=== PATIENT | male | born 1950 | race African-American/Black ===

== ENCOUNTER 2016-09-12 15:37 | Outpatient (CLI) | payer OTHER ==
[2016-09-12 17:30] LABS: HEMATOCRIT 20.9 % (37.9-51.0); HGB HCT DIFFERENCE 0.7; MEAN CORPUSCULAR HEMOGLOBIN 31.1 pg (27.0-33.4); MEAN CORPUSCULAR HGB CONC 34.5 g/dL (32.0-36.0); MEAN CORPUSCULAR VOLUME 90 fl (80-97); RED BLOOD COUNT 2.32 10^6/uL (4.35-5.55); RED CELL DISTRIBUTION WIDTH 15.2 % (11.5-14.0); WHITE BLOOD COUNT 6.6 10^3/uL (4.0-10.5)
[2016-09-12 17:32] LABS: HEMOGLOBIN 7.2 g/dL (13.5-17.0)
[2016-09-12] MEDS ORDERED: NORMAL SALINE 250 ML IV PRN (17:34)
[2016-09-12] MEDS ORDERED: ACETAMINOPHEN 325 MG TABLET PO PRN (17:35)
[2016-09-12] MEDS ORDERED: DIPHENHYDRAMINE HCL 25 MG CAPSULE PO PRN (17:35)
[2016-09-12] MEDS ORDERED: FUROSEMIDE INJ/PF 20 MG/2 ML SDV IV PRN (17:36)
[2016-09-13 05:08] LABS: HEMATOCRIT 22.6 % (37.9-51.0); HGB HCT DIFFERENCE 0.5; MEAN CORPUSCULAR HEMOGLOBIN 29.5 pg (27.0-33.4); MEAN CORPUSCULAR HGB CONC 34.3 g/dL (32.0-36.0); RED BLOOD COUNT 2.63 10^6/uL (4.35-5.55); RED CELL DISTRIBUTION WIDTH 18.4 % (11.5-14.0); WHITE BLOOD COUNT 6.8 10^3/uL (4.0-10.5)
[2016-09-13 05:14] VITALS: BP 134/82
[2016-09-13 06:00] LABS: MEAN CORPUSCULAR VOLUME 86 fl (80-97)
[2016-09-13 06:01] LABS: HEMOGLOBIN 7.7 g/dL (13.5-17.0)
== END 2016-09-13 10:40 | disposition home or self-care (01) ==
LOC: II 15:37 → 2N 15:45 → II 09-13 10:40
PROVIDERS: ATTEND Internal Medicine Medical Oncology
PROC: 30233N1 Transfusion of Nonautologous Red Blood Cells into Peripheral Vein, Percutaneous Approach (ICD-10-PCS; principal; 2016-09-12)
PROC: 30233N1 Transfusion of Nonautologous Red Blood Cells into Peripheral Vein, Percutaneous Approach (ICD-10-PCS; 2016-09-13)
DX: N28.9 Disorder of kidney and ureter, unspecified (principal); D63.8 Anemia in other chronic diseases classified elsewhere; Z99.2 Dependence on renal dialysis
CPT/HCPCS: 86900; 86901; 36415; 36430; 86850; 85027; 86920; P9016

== ENCOUNTER 2017-01-24 07:08 | Day surgery (SDC) | payer MEDICARE, OTHER ==
[2017-01-24 08:00] LABS: HEMATOCRIT 35.1 % (37.9-51.0); HEMOGLOBIN 11.7 g/dL (13.5-17.0); MEAN CORPUSCULAR HEMOGLOBIN 30.8 pg (27.0-33.4); MEAN CORPUSCULAR HGB CONC 33.2 g/dL (32.0-36.0); MEAN CORPUSCULAR VOLUME 93 fl (80-97); RED BLOOD COUNT 3.79 10^6/uL (4.35-5.55); RED CELL DISTRIBUTION WIDTH 17.6 % (11.5-14.0); WHITE BLOOD COUNT 4.3 10^3/uL (4.0-10.5)
[2017-01-24 08:04] LABS: PROTHROMBIN TIME 13.2 SEC (11.4-15.4)
[2017-01-24 08:05] LABS: PARTIAL THROMBOPLASTIN TIME 30.3 SEC (23.5-35.8)
[2017-01-24 08:07] LABS: BLOOD UREA NITROGEN 73 mg/dL (7-20)
[2017-01-24] MEDS ORDERED: MIDAZOLAM 2 MG/2 ML INJ ONE (10:21)
[2017-01-24] MEDS ORDERED: FENTANYL CITRATE INJ/PF 100 MCG/2 ML AMPUL ONE (10:21)
[2017-01-24 12:57] VITALS: BP 127/87
--- NOTE | 2017-01-24 13:54 | RADIOLOGY REPORT (SQ) ---
EXAM DESCRIPTION: CT BIOPSY BONE DEEP; CT NEEDLE PLACEMENT COMPLETED DATE/TIME: 01/24/2017 10:52 am REASON FOR STUDY: MULTIPLE MYELOMA; MUTLIPLE MYELOMA, BONE MARROW BIOPSY C90.00 MULTIPLE MYELOMA NO T HAVING ACHIEVED REMISSION Z79.01 SKILLED NURSING (CURRENT) USE OF ANTICOAGULANTS COMPARISON: None. TECHNIQUE: CT guided biopsy of the right posterior iliac crest bone marrow performed with conscious sedation. CT Fluoroscopy Time: 4.[address] scanners at this facility use dose modulation, iterative reconstruction, and/or weight based d osing when appropriate to reduce radiation dose to as low as reasonably achievable (ALARA). [facility]: Dose Right [facility]: CareDose [facility]: Dose Right [facility]: Teradose 4D [facility]: [employer] RADIATION DOSE: mGy. FINDINGS: The procedure was discussed with the patient and the patient agreed to the procedure. Prio r to the procedure, a time out was performed to verify the patient's identity and planned procedure. IV sedation was administered and physician direction by the registered nurse using 1 milligrams of Ve rsed and 100 micrograms of fentanyl. Physiologic monitoring was provided before, during, and after se dation. The total sedation time was 30 minutes. Documentation face to face time, the performing proceduralist, spent monitoring the patient: [address] scanning was performed to localize the percutaneous site for the biopsy approach. After sterile skin prep and local lidocaine for skin and deep tissue anesthesia, a 14 gauge bone biop sy needle was used to obtain of 20 mL bone marrow aspirate, and bone marrow core. Material was submit samy to Dr. Batista's visitor information assistant, who processed the tissue for outside analysis. There were no immedia te complications. Pathology is pending at the time of dictation. IMPRESSION: CT GUIDED BIOPSY OF THE RIGHT POSTERIOR ILIAC CREST BONE MARROW PERFORMED WITHOUT IMMEDI ATE COMPLICATION. PATHOLOGY PENDING. COMMENT: Quality ID 145: Final reports for procedures using fluoroscopy that document radiation exp osure indices, or exposure time and number of fluorographic images (if radiation exposure indices are not available) Patient medication list reviewed: Yes- Quality ID# [id number]:Eligible professional attests to documenting i n the medical record they obtained, updated, or reviewed the patient's current medications.. TECHNICAL DOCUMENTATION: JOB ID: [id number] Quality ID# 436: Final reports with documentation of one or more dose reduction techniques (e.g., Aut omated exposure control, adjustment of the mA and/or kV according to patient size, use of iterative r econstruction technique) 2010 [employer]- All Rights Reserved
--- NOTE | 2017-01-24 13:54 | RADIOLOGY REPORT (SQ) ---
EXAM DESCRIPTION: CT BIOPSY BONE DEEP; CT NEEDLE PLACEMENT COMPLETED DATE/TIME: 01/24/2017 10:52 am REASON FOR STUDY: MULTIPLE MYELOMA; MUTLIPLE MYELOMA, BONE MARROW BIOPSY C90.00 MULTIPLE MYELOMA NO T HAVING ACHIEVED REMISSION Z79.01 [facility] (CURRENT) USE OF ANTICOAGULANTS COMPARISON: None. TECHNIQUE: CT guided biopsy of the right posterior iliac crest bone marrow performed with conscious sedation. CT Fluoroscopy Time: 4.[address] scanners at this facility use dose modulation, iterative reconstruction, and/or weight based d osing when appropriate to reduce radiation dose to as low as reasonably achievable (ALARA). [facility]: Dose Right [facility]: CareDose [facility]: Dose Right [facility]: Teradose 4D [facility]: [employer] RADIATION DOSE: mGy. FINDINGS: The procedure was discussed with the patient and the patient agreed to the procedure. Prio r to the procedure, a time out was performed to verify the patient's identity and planned procedure. IV sedation was administered and physician direction by the registered nurse using 1 milligrams of Ve rsed and 100 micrograms of fentanyl. Physiologic monitoring was provided before, during, and after se dation. The total sedation time was 30 minutes. Documentation face to face time, the performing proceduralist, spent monitoring the patient: [address] scanning was performed to localize the percutaneous site for the biopsy approach. After sterile skin prep and local lidocaine for skin and deep tissue anesthesia, a 14 gauge bone biop sy needle was used to obtain of 20 mL bone marrow aspirate, and bone marrow core. Material was submit samy to Dr. Batista's syrup mixer assistant, who processed the tissue for outside analysis. There were no immedia te complications. Pathology is pending at the time of dictation. IMPRESSION: CT GUIDED BIOPSY OF THE RIGHT POSTERIOR ILIAC CREST BONE MARROW PERFORMED WITHOUT IMMEDI ATE COMPLICATION. PATHOLOGY PENDING. COMMENT: Quality ID 145: Final reports for procedures using fluoroscopy that document radiation exp osure indices, or exposure time and number of fluorographic images (if radiation exposure indices are not available) Patient medication list reviewed: Yes- Quality ID# [id number]:Eligible professional attests to documenting i n the medical record they obtained, updated, or reviewed the patient's current medications.. TECHNICAL DOCUMENTATION: JOB ID: [id number] Quality ID# 436: Final reports with documentation of one or more dose reduction techniques (e.g., Aut omated exposure control, adjustment of the mA and/or kV according to patient size, use of iterative r econstruction technique) 2010 [employer]- All Rights Reserved
== END 2017-01-24 12:40 | disposition home or self-care (01) ==
LOC: RAD 07:08
PROVIDERS: ATTEND Internal Medicine Medical Oncology
PROC: 0QB23ZX Excision of Right Pelvic Bone, Percutaneous Approach, Diagnostic (ICD-10-PCS; principal; 2017-01-24)
DX: C90.00 Multiple myeloma not having achieved remission (principal); Z79.01 Long term (current) use of anticoagulants
CPT/HCPCS: 36415; 82962; 84520; 82565; 85027; 85610; 85730; 82330; 77012; 20225; J2250; J3010

== ENCOUNTER → 2017-01-25 | Outpatient (CLI) | payer MEDICARE, OTHER | LOC: SD 11:19 | PROVIDERS: ATTEND Physician Assistant Medical | DX: E83.52 Hypercalcemia (principal) | CPT/HCPCS: 82330 ==

== ENCOUNTER → 2018-01-13 | Outpatient (CLI) | payer MEDICARE, OTHER ==
--- NOTE | 2018-01-13 10:46 | RADIOLOGY REPORT (SQ) ---
EXAM DESCRIPTION: T SPINE AP/LAT COMPLETED DATE/TIME: 01/13/2018 10:35 am REASON FOR STUDY: DORSALGIA (M54.9) M54.9 DORSALGIA, UNSPECIFIED COMPARISON: Lumbar spine films same date NUMBER OF VIEWS: Two views. TECHNIQUE: AP and lateral radiographic images acquired of the thoracic spine. LIMITATIONS: None. FINDINGS: MINERALIZATION: Normal. ALIGNMENT: Normal. No scoliosis. VERTEBRAE: No fracture or bone lesion. Maintained height, normal segmentation. DISCS: No significant loss of height or significant narrowing. No large osteophytes. HARDWARE: Right-sided central venous dialysis catheter tip in the right atrium. MEDIASTINUM AND SOFT TISSUES: Moderate cardiomegaly VISUALIZED LUNG CLOUD: Clear. OTHER: There are 11 rib-bearing vertebral bodies IMPRESSION: NO SIGNIFICANT RADIOGRAPHIC FINDING IN THE THORACIC SPINE. TECHNICAL DOCUMENTATION: JOB ID: [id number] [employer]- All Rights Reserved Reading location - IP/workstation name: [email or web address]
--- NOTE | 2018-01-13 10:47 | RADIOLOGY REPORT (SQ) ---
EXAM DESCRIPTION: L SPINE WHOLE COMPLETED DATE/TIME: 01/13/2018 10:35 am REASON FOR STUDY: DORSALGIA (M54.9) M54.9 DORSALGIA, UNSPECIFIED COMPARISON: Thoracic spine films same date NUMBER OF VIEWS: Five views including obliques. TECHNIQUE: AP, lateral, oblique, and sacral radiographic images acquired of the lumbar spine. LIMITATIONS: None. FINDINGS: MINERALIZATION: Normal. SEGMENTATION: 11 rib-bearing vertebral bodies are present. Long transverse process right T12 level. ALIGNMENT: Normal. VERTEBRAE: Maintained height. No fracture or worrisome bone lesion. DISCS: Preserved height. No significant osteophytes or end plate irregularity. POSTERIOR ELEMENTS: Pedicles and facets are intact. No pars defect or posterior arch defects. Moder ate facet arthropathy from L3-4 through L5-S1 HARDWARE: None in the spine. PARASPINAL SOFT TISSUES: Calcified abdominal aorta without aneurysm PELVIS: Not included in the field of view. Bilateral SI joint sclerosis OTHER: No other significant finding. IMPRESSION: Lower lumbar facet arthropathy TECHNICAL DOCUMENTATION: JOB ID: [id number] [employer]- All Rights Reserved Reading location - IP/workstation name: [email or web address]
== END ==
LOC: RAD 09:41
PROVIDERS: ATTEND Internal Medicine Medical Oncology
DX: M54.9 Dorsalgia, unspecified (principal); M12.88 Other specific arthropathies, not elsewhere classified, other specified site
CPT/HCPCS: 72070; 72110

== ENCOUNTER 2018-03-14 12:06 | Emergency (ER) | payer MEDICARE, OTHER ==
[2018-03-14 12:16] VITALS: BP 124/67
--- NOTE | 2018-03-14 13:01 | ER Document Report ---
ED Medical Screen (RME) - General Chief Complaint: Diarrhea Stated Complaint: DIARRHEA Time Seen by Provider: 03/14/18 12:56 Notes: [age]-year-old male patient with end-stage renal disease who normally dialyzes Saturday, had dialysis on Saturday of this week due to being Thanksgiving. He is supposed to dialyze tomorrow. He reports diarrhea for 3-4 days with decreased appetite. He states he really did not eat yesterday on . He also complains of chest pain and shortness of breath. I have greeted and performed a rapid initial assessment of this patient. A comprehensive ED assessment and evaluation of the patient, analysis of test results and completion of the medical decision making process will be conducted by additional ED providers. TRAVEL OUTSIDE OF THE [place] IN LAST 30 DAYS: No - Related Data Allergies/Adverse Reactions: No Known Allergies Allergy (Verified 03/14/18 12:23) Past Medical History - Social History Chew tobacco use (# tins/day): No Frequency of alcohol use: None Drug Abuse: None - Past Medical History Cardiac Medical History: Reports: Hx Hypertension Denies: Hx Congestive Heart Failure, Hx Coronary Artery Disease, Hx Heart Attack Pulmonary Medical History: Denies: Hx Asthma, Hx Bronchitis, Hx COPD, Hx Pneumonia, Hx Tuberculosis Neurological Medical History: Denies: Hx Cerebrovascular Accident, Hx Seizures Renal/ Medical History: Reports: Hx Benign Prostatic Hyperplasia. Denies: Hx End Stage Renal Disease, Hx Kidney Stones, Hx Peritoneal Dialysis GI Medical History: Denies: Hx Cirrhosis, Hx Gastroesophageal Reflux Disease, Hx Ulcer Musculoskeltal Medical History: Denies Hx Arthritis, Denies Hx Multiple Sclerosis Psychiatric Medical History: Denies: Hx Bipolar Disorder, Hx Depression, Hx Schizophrenia - Immunizations Hx Diphtheria, Pertussis, Tetanus Vaccination: Yes History of Influenza Vaccine for 01/2017 - 06/2017 Season: Yes Physical Exam - Vital signs Vitals: Temp Pulse Resp BP Pulse Ox 97.7 F 69 16 124/67 97 03/14/18 12:15 03/14/18 12:15 03/14/18 12:15 03/14/18 12:15 03/14/18 12:15 Course - Vital Signs Vital signs: Temp Pulse Resp BP Pulse Ox 97.7 F 69 16 124/67 97 03/14/18 12:15 03/14/18 12:15 03/14/18 12:15 03/14/18 12:15 03/14/18 12:15 Doctor's Discharge - Discharge Referrals: Kathy JETER MD [Primary Care Provider] - Follow up as needed
[2018-03-14 13:26] LABS: HEMATOCRIT 29.7 % (37.9-51.0); MEAN CORPUSCULAR HEMOGLOBIN 34.8 pg (27.0-33.4); MEAN CORPUSCULAR HGB CONC 33.6 g/dL (32.0-36.0); MEAN CORPUSCULAR VOLUME 104 fl (80-97); RED BLOOD COUNT 2.86 10^6/uL (4.35-5.55); RED CELL DISTRIBUTION WIDTH 17.2 % (11.5-14.0); WHITE BLOOD COUNT 2.2 10^3/uL (4.0-10.5)
--- NOTE | 2018-03-14 13:34 | RADIOLOGY REPORT (SQ) ---
EXAM DESCRIPTION: CHEST 2 VIEWS COMPLETED DATE/TIME: 03/14/2018 1:25 pm REASON FOR STUDY: SOB, CP, ESRD, diarrhea COMPARISON: None. EXAM PARAMETERS: NUMBER OF VIEWS: two views TECHNIQUE: Digital Frontal and Lateral radiographic views of the chest acquired. RADIATION DOSE: NA LIMITATIONS: none FINDINGS: LUNGS AND PLEURA: No opacities, masses or pneumothorax. No pleural effusion. MEDIASTINUM AND HILAR STRUCTURES: No masses or contour abnormalities. HEART AND VASCULAR STRUCTURES: Heart normal size. No evidence for failure. BONES: No acute findings. HARDWARE: None in the chest. OTHER: No other significant finding. IMPRESSION: NO ACUTE RADIOGRAPHIC FINDING IN THE CHEST. TECHNICAL DOCUMENTATION: JOB ID: [id number] [employer]- All Rights Reserved Reading location - IP/workstation name: [email or web address]
[2018-03-14 13:44] LABS: ALANINE AMINOTRANSFERASE 18 U/L (21-72); ALBUMIN 3.8 g/dL (3.5-5.0); ALKALINE PHOSPHATASE 38 U/L (38-126); ANION GAP 16 (5-19); ASPARTATE AMINO TRANSFERASE 11 U/L (17-59); BILIRUBIN,DIRECT 0.4 mg/dL (0.0-0.4); BILIRUBIN,TOTAL 0.6 mg/dL (0.2-1.3); BLOOD UREA NITROGEN 37 mg/dL (7-20); CALCIUM 8.7 mg/dL (8.4-10.2); CARBON DIOXIDE 26 mmol/L (22-30); CHLORIDE 99 mmol/L (98-107); CREATINE KINASE 41 U/L (55-170); GLUCOSE 95 mg/dL (75-110); POTASSIUM 3.6 mmol/L (3.6-5.0); SODIUM 141.3 mmol/L (137-145); TOTAL PROTEIN 6.1 g/dL (6.3-8.2)
[2018-03-14 13:51] LABS: CREATINE KINASE MB 0.92 ng/mL (<4.55)
[2018-03-14 13:56] LABS: TROPONIN I 0.066 ng/mL
[2018-03-14 14:03] LABS: PLATELET COUNT 87 10^3/uL (150-450)
[2018-03-14 14:09] LABS: ABSOLUTE LYMPHOCYTES# (MANUAL) 0.6 10^3/uL (0.5-4.7); ABSOLUTE MONOCYTES # (MANUAL) 0.5 10^3/uL (0.1-1.4); ABSOLUTE NEUTROPHILS# (MANUAL) 0.7 10^3/uL (1.7-8.2); BAND NEUTROPHILS % (MANUAL) 5 % (3-5); BASOPHILS % (MANUAL) 0 % (0-2); EOSINOPHILS % (MANUAL) 15 % (0-6); LYMPHOCYTES % (MANUAL) 27 % (13-45); MONOCYTES % (MANUAL) 24 % (3-13); SEGMENTED NEUTROPHILS % (MAN) 27 % (42-78); TOTAL CELLS COUNTED 100
[2018-03-14 14:11] LABS: ANISOCYTOSIS 1+; TOXIC GRANULATION 2+; TOXIC VACUOLATION PRESENT
[2018-03-14 14:12] LABS: OVALOCYTES 1+; SCHISTOCYTES SLIGHT
[2018-03-14 14:13] LABS: PLATELET COMMENT DECREASED; POIKILOCYTOSIS SLIGHT; TEAR DROP CELLS SLIGHT
[2018-03-14 14:26] LABS: APPEARANCE,URINE CLEAR; BILIRUBIN,URINE NEGATIVE (NEGATIVE); COLOR,URINE YELLOW; GLUCOSE, URINE >=500 mg/dL (NEGATIVE); KETONES,URINE NEGATIVE (NEGATIVE); LEUKOCYTE ESTERASE,URINE NEGATIVE (NEGATIVE); NITRITE,URINE NEGATIVE (NEGATIVE); PROTEIN,URINE >=500 mg/dL (NEGATIVE); URINE SPECIFIC GRAVITY 1.008; UROBILINOGEN,URINE NEGATIVE mg/dL (<2.0)
[2018-03-14] MEDS ORDERED: LOPERAMIDE HCL 2 MG CAPSULE PO ONE (14:59)
--- NOTE | 2018-03-14 15:23 | ER Document Report ---
ED GI/ - General Chief Complaint: Diarrhea Stated Complaint: DIARRHEA Time Seen by Provider: 03/14/18 12:56 Notes: This is a 67-year-old male to the emergency department chief complaint of diarrhea. Patient denies any abdominal pain. Not denies any blood in stool. No recent antibiotic use. Patient is a chemotherapy patient for multiple myeloma but currently status post bone marrow transplant and on maintenance therapy for chemo. Also on dialysis. States that he has had diarrhea for 7 days. Denies any other major symptoms. States that he has been checking his stool for blood and has not noticed any blood. No other sick contacts at home. No other symptoms. Denies any fever, chills, sweats, abdominal pain, vomiting or other issues. States that he eats about 4 times a day and has diarrhea 4 times a day. TRAVEL OUTSIDE OF THE [place] IN LAST 30 DAYS: No - HPI Patient complains to provider of: Diarrhea Onset: Last week Timing/Duration: Gradual Quality of pain: No pain Severity at maximum: Mild Severity in ED: Mild - Related Data Allergies/Adverse Reactions: No Known Allergies Allergy (Verified 03/14/18 12:23) Past Medical History - General Information source: Patient - Social History Smoking Status: Never Smoker Chew tobacco use (# tins/day): No Frequency of alcohol use: None Drug Abuse: None Lives with: Alone Family History: Reviewed & Not Pertinent Patient has suicidal ideation: No Patient has homicidal ideation: No - Past Medical History Cardiac Medical History: Reports: Hx Hypertension Denies: Hx Congestive Heart Failure, Hx Coronary Artery Disease, Hx Heart Attack Pulmonary Medical History: Denies: Hx Asthma, Hx Bronchitis, Hx COPD, Hx Pneumonia, Hx Tuberculosis Neurological Medical History: Denies: Hx Cerebrovascular Accident, Hx Seizures Renal/ Medical History: Reports: Hx Benign Prostatic Hyperplasia. Denies: Hx End Stage Renal Disease, Hx Kidney Stones, Hx Peritoneal Dialysis GI Medical History: Denies: Hx Cirrhosis, Hx Gastroesophageal Reflux Disease, Hx Ulcer Musculoskeletal Medical History: Denies Hx Arthritis, Denies Hx Multiple Sclerosis Psychiatric Medical History: Denies: Hx Bipolar Disorder, Hx Depression, Hx Schizophrenia - Immunizations Hx Diphtheria, Pertussis, Tetanus Vaccination: Yes Review of Systems - Review of Systems Notes: Constitutional: denies: Chills, Diaphoresis, Fever, Malaise, Weakness EENT: denies: Eye discharge, Blurred vision, Tearing, Double vision, Nose congestion, Nose discharge, Throat swelling, Mouth pain Cardiovascular: denies: Palpitations, Heart racing, Orthopnea, Dyspnea, Chest pain Respiratory: denies: Cough, Hurts to breathe, Wheezing, Shortness of breath Gastrointestinal: denies: Abdominal pain, Nausea, Vomiting, Black stools, bright red blood in stool, does endorse frequent diarrhea Genitourinary: denies: Burning, Dysuria, Discharge, Frequency, Flank pain, Hematuria Musculoskeletal: denies: Joint pain, Joint swelling, Muscle pain, Muscle stiffness, back pain Hematologic/Lymphatic: denies: Anemia, Easy bleeding, Easy bruising, Blood clots Neurological/Psychological: denies: Confusion, Dementia, Depression, Loss of consciousness Skin: No lesions, no masses, no skin breakdown, no abscesses Physical Exam - Vital signs Vitals: Temp Pulse Resp BP Pulse Ox 97.7 F 69 16 124/67 97 03/14/18 12:15 03/14/18 12:15 03/14/18 12:15 03/14/18 12:15 03/14/18 12:15 Interpretation: Normal - General General appearance: Appears well, Alert - HEENT Head: Normocephalic, Atraumatic Eyes: Normal Pupils: PERRL - Respiratory Respiratory status: No respiratory distress Chest status: Nontender Breath sounds: Normal Chest palpation: Normal - Cardiovascular Rhythm: Regular Heart sounds: Normal auscultation Murmur: No - Abdominal Inspection: Normal Distension: No distension Bowel sounds: Normal Tenderness: Nontender Organomegaly: No organomegaly - Back Back: Normal, Nontender - Extremities General upper extremity: Normal inspection, Nontender, Normal color, Normal ROM , Normal temperature, Other - There is a thrill and bruit present in the left upper extremity General lower extremity: Normal inspection, Nontender, Normal color, Normal ROM , Normal temperature, Normal weight bearing. No: Josiah's sign - Neurological Neuro grossly intact: Yes Cognition: Normal Orientation: AAOx4 [place] Coma Scale Eye Opening: Spontaneous Roselyn Coma Scale Verbal: Oriented [place] Coma Scale Motor: Obeys Commands [place] Coma Scale Total: 15 Speech: Normal Motor strength normal: LUE, RUE, LLE, RLE Sensory: Normal - Psychological Associated symptoms: Normal affect, Normal mood - Skin Skin Temperature: Warm Skin Moisture: Dry Skin Color: Normal Course - Re-evaluation Re-evalutation: 03/14/18 15:57 Is a well-appearing male in no acute distress. Denies any abdominal pain. Labs are at baseline. Will collect stool. Will order stool culture and C. difficile. Have started him on some loperamide as he has had diarrhea for a week. Encouraged that he needs to increase slightly his fluid intake and discuss his fluid management with his dialysis doctors. Patient is 100% asymptomatic with normal vital signs at this time. Will DC in stable condition and will call him in the event that his stool results and something that needs to be treated. - Vital Signs Vital signs: Temp Pulse Resp BP Pulse Ox 97.7 F 69 19 124/67 99 03/14/18 12:15 03/14/18 12:15 03/14/18 14:10 03/14/18 12:15 03/14/18 14:10 - Laboratory Result Diagrams: 03/14/18 13:08 03/14/18 13:08 Laboratory results interpreted by me: 03/14/18 03/14/18 03/14/18 13:08 13:08 13:48 WBC 2.2 L RBC 2.86 L Hgb 10.0 L Hct 29.7 L MCV 104 H MCH 34.8 H RDW 17.2 H Plt Count 87 L Seg Neuts % (Manual) 27 L Monocytes % (Manual) 24 H Eosinophils % (Manual) 15 H Abs Neuts (Manual) 0.7 L BUN 37 H Creatinine 10.69 H Est GFR ( Amer) 6 L Est GFR (Non-Af Amer) 5 L AST 11 L ALT 18 L Creatine Kinase 41 L Total Protein 6.1 L Urine Protein >=500 H Urine Glucose (UA) >=500 H Discharge - Discharge Clinical Impression: Diarrhea Qualifiers: Diarrhea type: unspecified type Qualified Code(s): R19.7 - Diarrhea, unspecified Condition: Good Disposition: HOME, SELF-CARE Instructions: Diarrhea, Nonspecific ([facility]) Additional Instructions: If you develop abdominal pain, blood in the school, tachycardia which is an elevated heart rate, low blood pressure or other issues please return immediately. A stool sample has been obtained. If there are any abnormalities we will call you. Prescriptions: Loperamide HCl [Loperamide] 2 mg PO TID PRN 5 Days #20 tablet PRN Reason: Diarrhea Referrals: Kathy JETER MD [Primary Care Provider] - Follow up as needed
--- NOTE | 2018-03-14 19:14 | EKG REPORT ---
SEVERITY:- ABNORMAL ECG - SINUS RHYTHM PROBABLE LEFT ATRIAL ABNORMALITY CONSIDER RIGHT VENTRICULAR HYPERTROPHY PROLONGED QT INTERVAL : Confirmed by: Mary Knapp MD 14-Mar-2018 19:14:11
== END 2018-03-14 15:53 | disposition home or self-care (01) ==
LOC: ER 12:06
DX: R19.7 Diarrhea, unspecified (principal); C90.00 Multiple myeloma not having achieved remission; Z79.899 Other long term (current) drug therapy; Z94.81 Bone marrow transplant status; I10 Essential (primary) hypertension
CPT/HCPCS: 93005; 99284; 36415; 87040; 87045; 87205; 82553; 82550; 83735; 85025; 82272; 80053; 81001; 84484; 87186; 87493; 71046; 93010; A9270

== ENCOUNTER 2018-03-17 14:26 | Emergency (ER) | payer MEDICARE, OTHER ==
[2018-03-17 15:04] VITALS: BP 121/71
--- NOTE | 2018-03-17 16:01 | ER Document Report ---
ED GI/ - General Chief Complaint: Diarrhea Stated Complaint: DIARRHEA Time Seen by Provider: 03/17/18 15:37 TRAVEL OUTSIDE OF THE [place] IN LAST 30 DAYS: No - HPI Patient complains to provider of: Diarrhea Onset: Last week Timing/Duration: Persistent Quality of pain: Cramping Severity at maximum: Mild Severity in ED: Mild Pain Level: 1 Associated symptoms: Diarrhea Exacerbated by: Denies Relieved by: Denies Similar symptoms previously: Yes Recently seen / treated by doctor: Yes Notes: 03/17/18 18:27 Patient is a 67-year-old male with a history of end-stage renal disease getting hemodialysis a week, also history of multiple myeloma receiving chemotherapy 3 times a week, presenting to the emergency room after being called secondary to positive stool cultures which are positive for Salmonella, he has been having diarrhea for the past 10 days, he has been taking loperamide, he has intermittent mild crampy abdominal discomfort at times but denies any abdominal pain, no fevers, no nausea - Related Data Allergies/Adverse Reactions: No Known Allergies Allergy (Verified 03/14/18 12:23) Past Medical History - General Information source: Patient, Relative - Social History Smoking Status: Unknown if Ever Smoked Family History: Reviewed & Not Pertinent - Past Medical History Cardiac Medical History: Reports: Hx Hypertension Denies: Hx Congestive Heart Failure, Hx Coronary Artery Disease, Hx Heart Attack Pulmonary Medical History: Denies: Hx Asthma, Hx Bronchitis, Hx COPD, Hx Pneumonia, Hx Tuberculosis Neurological Medical History: Denies: Hx Cerebrovascular Accident, Hx Seizures Renal/ Medical History: Reports: Hx Benign Prostatic Hyperplasia. Denies: Hx End Stage Renal Disease, Hx Kidney Stones, Hx Peritoneal Dialysis GI Medical History: Denies: Hx Cirrhosis, Hx Gastroesophageal Reflux Disease, Hx Ulcer Musculoskeletal Medical History: Denies Hx Arthritis, Denies Hx Multiple Sclerosis Psychiatric Medical History: Denies: Hx Bipolar Disorder, Hx Depression, Hx Schizophrenia - Immunizations Hx Diphtheria, Pertussis, Tetanus Vaccination: Yes Review of Systems - Review of Systems Constitutional: No symptoms reported EENT: No symptoms reported Cardiovascular: No symptoms reported Respiratory: No symptoms reported Gastrointestinal: Diarrhea Genitourinary: No symptoms reported Male Genitourinary: No symptoms reported Musculoskeletal: No symptoms reported Skin: No symptoms reported Hematologic/Lymphatic: No symptoms reported Neurological/Psychological: No symptoms reported -: Yes All other systems reviewed and negative Physical Exam - Vital signs Vitals: Temp Pulse Resp BP Pulse Ox 97.9 F 97 18 121/71 98 03/17/18 15:02 03/17/18 15:02 03/17/18 15:02 03/17/18 15:02 03/17/18 15:02 Interpretation: Normal - General General appearance: Appears well, Alert - HEENT Head: Normocephalic, Atraumatic Eyes: Normal Pupils: PERRL - Respiratory Respiratory status: No respiratory distress Chest status: Nontender Breath sounds: Normal Chest palpation: Normal - Cardiovascular Rhythm: Regular Heart sounds: Normal auscultation Murmur: No - Abdominal Inspection: Normal Distension: No distension Bowel sounds: Normal Tenderness: Nontender Organomegaly: No organomegaly - Back Back: Normal, Nontender - Extremities General upper extremity: Normal inspection, Nontender, Normal color, Normal ROM , Normal temperature, Other - Left upper extremity with AV fistula General lower extremity: Normal inspection, Nontender, Normal color, Normal ROM , Normal temperature, Normal weight bearing. No: Josiah's sign - Neurological Neuro grossly intact: Yes Cognition: Normal Orientation: AAOx4 Ros[place] Coma Scale Eye Opening: Spontaneous Roselyn Coma Scale Verbal: Oriented [place] Coma Scale Motor: Obeys Commands Roselyn Coma Scale Total: 15 Speech: Normal Motor strength normal: LUE, RUE, LLE, RLE Sensory: Normal - Psychological Associated symptoms: Normal affect, Normal mood - Skin Skin Temperature: Warm Skin Moisture: Dry Skin Color: Normal Course - Re-evaluation Re-evalutation: 03/17/18 18:28 I reviewed patient's chart from 3 days prior, microbiology studies for stool cultures came up positive for Salmonella, patient was advised to discontinue loperamide, will be started on Levaquin 500 mg p.o. daily times 14 days since he is immunocompromised, he was advised to return to the emergency room immediately if symptoms worsen or fail to improve over the next 2-3 days, patient and spouse at bedside acknowledge understanding and agreement with this plan, I did offer to perform blood work while in the emergency department, however patient declined at this time stating he will have blood drawn at dialysis in the next few days, and he agrees to return if any worsening of symptoms - Vital Signs Vital signs: Temp Pulse Resp BP Pulse Ox 97.9 F 97 18 121/71 98 03/17/18 15:02 03/17/18 15:02 03/17/18 15:02 03/17/18 15:02 03/17/18 15:02 Discharge - Discharge Clinical Impression: Salmonella Diarrhea Qualifiers: Diarrhea type: infectious Qualified Code(s): A09 - Infectious gastroenteritis and colitis, unspecified Condition: Stable Disposition: HOME, SELF-CARE Instructions: Diarrhea, Nonspecific ([facility]) Additional Instructions: Follow up with your primary care provider in one to 2 days. Return to the emergency room immediately if symptoms worsen or any additional concerns. Prescriptions: Levofloxacin [Levaquin 500 mg Tablet] 500 mg PO DAILY #14 tablet Referrals: Kathy JETER MD [Primary Care Provider] - Follow up as needed
== END 2018-03-17 16:18 | disposition home or self-care (01) ==
LOC: ER 14:26
DX: A02.0 Salmonella enteritis (principal); I12.0 Hypertensive chronic kidney disease with stage 5 chronic kidney disease or end stage renal disease; N18.6 End stage renal disease; Z99.2 Dependence on renal dialysis; C90.00 Multiple myeloma not having achieved remission; Z79.899 Other long term (current) drug therapy
CPT/HCPCS: 99283

== ENCOUNTER 2018-05-24 11:29 | Inpatient (IN) | payer MEDICARE, OTHER ==
[2018-05-24] MEDS ORDERED: LIDOCAINE 1% INJ-PF (10 MG/ML) 30 ML SDV NEB ONE (12:04)
[2018-05-24] MEDS ORDERED: IPRATROPIUM/ALBUTEROL 0.5-2.5 MG/3 ML AMPUL NEB ONE (12:04)
[2018-05-24] MEDS ORDERED: AMLODIPINE BESYLATE 10 MG TABLET PO ONE (12:15)
--- NOTE | 2018-05-24 12:50 | RADIOLOGY REPORT (SQ) ---
EXAM DESCRIPTION: CHEST 2 VIEWS COMPLETED DATE/TIME: 05/24/2018 12:43 pm REASON FOR STUDY: cough COMPARISON: 03/14/2018 EXAM PARAMETERS: NUMBER OF VIEWS: two views TECHNIQUE: Digital Frontal and Lateral radiographic views of the chest acquired. RADIATION DOSE: NA LIMITATIONS: none FINDINGS: LUNGS AND PLEURA: Gomez a and B-lines. Minimal effusions. Perihilar haziness. MEDIASTINUM AND HILAR STRUCTURES: No masses or contour abnormalities. HEART AND VASCULAR STRUCTURES: Heart enlarged. BONES: No acute findings. HARDWARE: None in the chest. OTHER: No other significant finding. IMPRESSION: Congestive heart failure with interstitial pulmonary edema. TECHNICAL DOCUMENTATION: JOB ID: [id number] [employer]- All Rights Reserved Reading location - IP/workstation name: [email or web address]
[2018-05-24 13:11] LABS: A TYPE INFLUENZA AG NEGATIVE (NEGATIVE); B INFLUENZA AG POSITIVE (NEGATIVE)
--- NOTE | 2018-05-24 13:11 | ER Document Report ---
ED Medical Screen (RME) - General Chief Complaint: Chest Congestion Stated Complaint: FLU SYMPTOMS Time Seen by Provider: 05/24/18 11:59 Primary Care Provider: Kathy JETER MD [Primary Care Provider] - Follow up as needed TRAVEL OUTSIDE OF THE [place] IN LAST 30 DAYS: No - HPI Notes: 05/24/18 13:10 Patient coming in after dialysis for continued congestion. States he did re ceive a full dialysis treatment. Triage area is slightly wheezing states scant sputum production. History of smoking - Related Data Allergies/Adverse Reactions: No Known Allergies Allergy (Verified 03/14/18 12:23) Past Medical History - Social History Chew tobacco use (# tins/day): No Frequency of alcohol use: None Drug Abuse: None - Past Medical History Cardiac Medical History: Reports: Hx Hypertension Denies: Hx Congestive Heart Failure, Hx Coronary Artery Disease, Hx Heart Attack Pulmonary Medical History: Denies: Hx Asthma, Hx Bronchitis, Hx COPD, Hx Pneumonia, Hx Tuberculosis Neurological Medical History: Denies: Hx Cerebrovascular Accident, Hx Seizures Renal/ Medical History: Reports: Hx Benign Prostatic Hyperplasia. Denies: Hx End Stage Renal Disease, Hx Kidney Stones, Hx Peritoneal Dialysis - TThS hemodialyis GI Medical History: Denies: Hx Cirrhosis, Hx Gastroesophageal Reflux Disease, Hx Ulcer Musculoskeltal Medical History: Denies Hx Arthritis, Denies Hx Multiple Sclerosis Psychiatric Medical History: Denies: Hx Bipolar Disorder, Hx Depression, Hx Schizophrenia - Immunizations Hx Diphtheria, Pertussis, Tetanus Vaccination: Yes History of Influenza Vaccine for 01/2017 - 06/2017 Season: Yes Review of Systems - Review of Systems Respiratory: Cough, Short of breath Physical Exam - Vital signs Vitals: Temp Pulse Resp BP Pulse Ox 98.7 F 93 20 185/109 H 91 L 05/24/18 11:36 05/24/18 11:36 05/24/18 11:36 05/24/18 11:36 05/24/18 11:36 - Respiratory Breath sounds: Rhonchi, Wheezing - Cardiovascular Rhythm: Regular Heart sounds: Normal auscultation Course - Vital Signs Vital signs: Temp Pulse Resp BP Pulse Ox 98.7 F 93 20 185/109 H 91 L 05/24/18 11:36 05/24/18 11:36 05/24/18 11:36 05/24/18 11:36 05/24/18 11:36 Doctor's Discharge - Discharge Referrals: Kathy JETER MD [Primary Care Provider] - Follow up as needed
[2018-05-24 13:56] LABS: VENOUS BLOOD BASE EXCESS 2.5 mmol/L; VENOUS BLOOD HCO3 26.5 mmol/L (20-32); VENOUS BLOOD PCO2 37.7 mmHg (35-63); VENOUS BLOOD PH 7.46 (7.30-7.42)
[2018-05-24 14:09] LABS: ALANINE AMINOTRANSFERASE 23 U/L (21-72); ALBUMIN 4.3 g/dL (3.5-5.0); ALKALINE PHOSPHATASE 39 U/L (38-126); ANION GAP 10 (5-19); ASPARTATE AMINO TRANSFERASE 23 U/L (17-59); BILIRUBIN,DIRECT 0.6 mg/dL (0.0-0.4); BILIRUBIN,TOTAL 1.5 mg/dL (0.2-1.3); BLOOD UREA NITROGEN 17 mg/dL (7-20); CALCIUM 8.4 mg/dL (8.4-10.2); CARBON DIOXIDE 32 mmol/L (22-30); CHLORIDE 101 mmol/L (98-107); GLUCOSE 117 mg/dL (75-110); TOTAL PROTEIN 6.7 g/dL (6.3-8.2)
[2018-05-24 14:12] LABS: HEMATOCRIT 30.8 % (37.9-51.0); MEAN CORPUSCULAR HEMOGLOBIN 34.2 pg (27.0-33.4); MEAN CORPUSCULAR HGB CONC 32.5 g/dL (32.0-36.0); MEAN CORPUSCULAR VOLUME 105 fl (80-97); RED BLOOD COUNT 2.92 10^6/uL (4.35-5.55); RED CELL DISTRIBUTION WIDTH 17.8 % (11.5-14.0)
[2018-05-24 14:31] LABS: PLATELET COUNT 67 10^3/uL (150-450)
[2018-05-24 14:33] LABS: ABSOLUTE LYMPHOCYTES# (MANUAL) 0.4 10^3/uL (0.5-4.7); ABSOLUTE MONOCYTES # (MANUAL) 0.2 10^3/uL (0.1-1.4); ABSOLUTE NEUTROPHILS# (MANUAL) 0.8 10^3/uL (1.7-8.2); BASOPHILS % (MANUAL) 0 % (0-2); EOSINOPHILS % (MANUAL) 2 % (0-6); LYMPHOCYTES % (MANUAL) 26 % (13-45); MONOCYTES % (MANUAL) 12 % (3-13); SEGMENTED NEUTROPHILS % (MAN) 60 % (42-78); TOTAL CELLS COUNTED 50
[2018-05-24 14:38] LABS: POLYCHROMASIA SLIGHT; TOXIC GRANULATION 1+; TOXIC VACUOLATION PRESENT
[2018-05-24 14:39] LABS: ANISOCYTOSIS 1+; OVALOCYTES 1+; PLATELET COMMENT ADEQUATE; POIKILOCYTOSIS 1+; TEAR DROP CELLS SLIGHT
[2018-05-24 14:40] LABS: WHITE BLOOD COUNT 1.4 10^3/uL (4.0-10.5)
[2018-05-24] MEDS ORDERED: CEFTRIAXONE 1 GM/D5W RTU 1 GM/50 ML RTUPB IV ONE (15:45)
--- NOTE | 2018-05-24 16:10 | ER Document Report ---
ED General - General Chief Complaint: Chest Congestion Stated Complaint: FLU SYMPTOMS Time Seen by Provider: 05/24/18 11:59 Primary Care Provider: Kathy JETER MD [ACTIVE STAFF] - Follow up as needed Notes: 67-year-old male with multiple myeloma currently on maintenance therapy, ESRD (makes urine) on dialysis on Saturday, , Saturday with dialysis treatment today, hypertension presents to the emergency department for cough and congestion times 2 days. He said this symptoms started 2 days ago they were abrupt in onset, has a productive cough, has body aches, denies fever, has chills, complains of difficulty breathing. He denies any nausea, vomiting, diarrhea, abdominal pain. He states he "felt bad today "prompting him to get seen. TRAVEL OUTSIDE OF THE [place] IN LAST 30 DAYS: No - Related Data Allergies/Adverse Reactions: No Known Allergies Allergy (Verified 03/14/18 12:23) Past Medical History - General Information source: Patient, Relative - Social History Smoking Status: Former Smoker Chew tobacco use (# tins/day): No Frequency of alcohol use: None Drug Abuse: None Family History: Reviewed & Not Pertinent Patient has suicidal ideation: No Patient has homicidal ideation: No - Past Medical History Cardiac Medical History: Reports: Hx Hypertension Denies: Hx Congestive Heart Failure, Hx Coronary Artery Disease, Hx Heart Attack Pulmonary Medical History: Denies: Hx Asthma, Hx Bronchitis, Hx COPD, Hx Pneumonia, Hx Tuberculosis Neurological Medical History: Denies: Hx Cerebrovascular Accident, Hx Seizures Renal/ Medical History: Reports: Hx Benign Prostatic Hyperplasia. Denies: Hx End Stage Renal Disease, Hx Kidney Stones, Hx Peritoneal Dialysis - TThS hemodialyis GI Medical History: Denies: Hx Cirrhosis, Hx Gastroesophageal Reflux Disease, Hx Ulcer Musculoskeletal Medical History: Denies Hx Arthritis, Denies Hx Multiple Sclerosis Psychiatric Medical History: Denies: Hx Bipolar Disorder, Hx Depression, Hx Schizophrenia - Immunizations Hx Diphtheria, Pertussis, Tetanus Vaccination: Yes Review of Systems - Review of Systems Constitutional: See HPI EENT: See HPI Cardiovascular: See HPI Respiratory: See HPI Gastrointestinal: See HPI Genitourinary: See HPI Male Genitourinary: No symptoms reported Musculoskeletal: No symptoms reported Skin: No symptoms reported Hematologic/Lymphatic: No symptoms reported Neurological/Psychological: No symptoms reported Physical Exam - Vital signs Vitals: Temp Pulse Resp BP Pulse Ox 98.7 F 93 20 185/109 H 91 L 05/24/18 11:36 05/24/18 11:36 05/24/18 11:36 05/24/18 11:36 05/24/18 11:36 - Notes Notes: PHYSICAL EXAMINATION: Reviewed vital signs and charting by RN GENERAL: Alert, interacts well. No acute distress. HEAD: Normocephalic, atraumatic. EYES: Pupils equal, round. Extraocular movements intact. ENT: Oral mucosa moist. NECK: Full range of motion. Trachea midline. LUNGS: Mild respiratory distress. Bilateral crackles on auscultation, no wheezing. HEART: Regular rate and rhythm. No murmur, mature fistula left antecubital area, bruit heard ABDOMEN: soft, non-tender. Non-distended. Bowel sounds present in all 4 qu adrants. EXTREMITIES: Moves all 4 extremities spontaneously. No edema, No cyanosis. NEUROLOGICAL: Alert and oriented.. Normal speech. PSYCH: Normal affect, normal mood. SKIN: Warm, dry, normal turgor. No rashes or lesions noted. Course - Re-evaluation Re-evalutation: 05/24/18 16:06 Ill-appearing 67-year-old male presents with 2 days of productive cough and flulike symptoms. Influenza testing positive for influenza B. Chest x-ray was read by radiology as interstitial edema with curly B-lines, after discussing with my attending, Dr. Raphael, concern for an infectious picture. Patient is not normally on O2 at home but is on 3 L currently here with O2 sats at 95%. Initially in triage BiPAP was ordered but the patient refused. BNP done which was approximately 88,000. Lactate was ordered and is still pending, blood cu ltures ordered and still need to be drawn. An initial dose of Rocephin ordered. Will be given after cultures are drawn. Patient is neutropenic. I called Dr. Haines, hospitalist who agreed to see patient for formal consultation for admission 05/24/18 16:50 Dr. Herbert saw patient and agreed to accept patient for full admission with telemetry. He did change antibiotics to cefepime 1 g and vancomycin 1 g. Those will be started in the emergency department. He also wanted to start Tamiflu twice daily. - Vital Signs Vital signs: Temp Pulse Resp BP Pulse Ox 98.7 F 93 34 H 162/95 H 97 05/24/18 11:36 05/24/18 11:36 05/24/18 15:01 05/24/18 15:01 05/24/18 15:01 - Laboratory Result Diagrams: 05/24/18 13:23 05/24/18 13:23 Laboratory results interpreted by me: 05/24/18 05/24/18 05/24/18 13:23 13:23 13:23 WBC 1.4 L* RBC 2.92 L Hgb 10.0 L Hct 30.8 L MCV 105 H MCH 34.2 H RDW 17.8 H Plt Count 67 L Abs Neuts (Manual) 0.8 L Abs Lymphs (Manual) 0.4 L VBG pH Carbon Dioxide 32 H Creatinine 3.70 H Est GFR ( Amer) 20 L Est GFR (Non-Af Amer) 16 L Glucose 117 H Total Bilirubin 1.5 H Direct Bilirubin 0.6 H NT-Pro-B Natriuret Pep 41776 H 05/24/18 13:23 WBC RBC Hgb Hct MCV MCH RDW Plt Count Abs Neuts (Manual) Abs Lymphs (Manual) VBG pH 7.46 H Carbon Dioxide Creatinine Est GFR ( Amer) Est GFR (Non-Af Amer) Glucose Total Bilirubin Direct Bilirubin NT-Pro-B Natriuret Pep Critical Care Note - Critical Care Note Total time excluding time spent on procedures (mins): 35 Comments: I personally provided 35 minutes of critical time care to this patient for infectious process in setting of neutropenia, pulmonary edema. Discharge - Discharge Clinical Impression: Influenza B, Respiratory distress Condition: Stable Disposition: ADMITTED INPATIENT Admitting Provider: Hospitalist Unit Admitted: Telemetry Referrals: Kathy JETER MD [ACTIVE STAFF] - Follow up as needed
[2018-05-24] MEDS ORDERED: VANCOMYCIN HCL INJ 1000 MG VIAL IV ONE (16:13)
[2018-05-24] MEDS ORDERED: CEFEPIME 1 GM/D5W RTU 1 GM/50 ML RTUPB IV ONE ×2 (16:44→21:30)
--- NOTE | 2018-05-24 17:11 | EKG REPORT ---
SEVERITY:- ABNORMAL ECG - SINUS TACHYCARDIA ATRIAL PREMATURE COMPLEX PROLONGED QT INTERVAL LA ABNORMALITY NONSPECIFIC ST-T CHANGES- INFERIOR-LATERAL LEADS : Confirmed by: Wilbur Horn MD 24-May-2018 17:11:16
[2018-05-24] MEDS ORDERED: ACETAMINOPHEN 325 MG TABLET PO PRN (17:43)
[2018-05-24] MEDS ORDERED: HYDRALAZINE HCL INJ/PF 20 MG/1 ML SDV IV PRN (17:53)
[2018-05-24] MEDS ORDERED: FUROSEMIDE INJ/PF 40 MG/4 ML SDV IV ONE ×2 (17:55→21:30)
--- NOTE | 2018-05-24 18:15 | PDOC H&P ---
History of Present Illness Admission Date/PCP: 05/24/18 17:10 Patient complains of: shorntess of breath History of Present Illness: NO VALDEZ is a 67 year old male with PMH of HTN, multiple myeloma in remission, who presented to the ED c/o SOB and cough. patient states he hasn't been feeling well for about 4 days now. states he gets really SOB at exertion and at rest. states it is worse at night when he lays down in bed. states he also has been coughing for 4 days- denies fever but admits to chills- states cough is worse with laying down- better when sitting up. he denies chest pain, abdominal pain, n/v or headaches. today he felt weak and had a headache and hence came to the Ed for evaluation. per ED doctor he has Flu B although I do not see this anywhere on the chart. per patient he didnt' know about this until he came to the ED. has history of multiple myeloma and is in remission per patient. he follows up with Dr Batista. Past Medical History Cardiac Medical History: Reports: Hypertension Denies: Congestive Heart Failure, Coronary Artery Disease, Myocardial Infarction Pulmonary Medical History: Denies: Asthma, Bronchitis, Chronic Obstructive Pulmonary Disease (COPD), Pneumonia, Tuberculosis Neurological Medical History: Denies: Seizures Renal/ Medical History: Denies: End Stage Renal Disease GI Medical History: Denies: Cirrhosis, Gastroesophageal Reflux Disease Musculoskeltal Medical History: Denies: Arthritis Psychiatric Medical History: Denies: Bipolar Disorder, Depression Hematology: Denies: Anemia, Bleeding Tendencies Social History Smoking Status: Former Smoker Drugs: None - Advance Directive Resuscitation Status: Full Code Family History Family History: Reviewed & Not Pertinent Parental Family History Reviewed: Yes Children Family History Reviewed: Unknown Sibling(s) Family History Reviewed.: Unknown Medication/Allergy Home Medications: Amlodipine Besylate 10 mg PO DAILY 01/24/17 Hydralazine HCl 50 mg PO TID 01/24/17 Insulin Aspart [Novolog Insulin (Aspart) 100 unit/mL] 2 units SQ PRN PRN 01/24/17 Omeprazole 40 mg PO DAILY 01/24/17 Polyethylene Glycol 3350 [Miralax Powder 17 gm/Packet] 17 gm PO DAILY PRN 01/24/17 Simvastatin 20 mg PO QHS 01/24/17 Tamsulosin HCl 0.4 mg PO DAILY 01/24/17 Loperamide HCl [Loperamide] 2 mg PO TID PRN 5 Days #20 tablet 03/14/18 Levofloxacin [Levaquin 500 mg Tablet] 500 mg PO DAILY #14 tablet 03/17/18 Allergies/Adverse Reactions: No Known Allergies Allergy (Verified 03/14/18 12:23) Review of Systems Constitutional: PRESENT: chills. ABSENT: fever(s), headache(s) Eyes: ABSENT: visual disturbances Ears: ABSENT: hearing changes Nose, Mouth, and Throat: ABSENT: headache(s), mouth pain, sore throat Cardiovascular: PRESENT: edema. ABSENT: chest pain Respiratory: PRESENT: cough, dyspnea. ABSENT: sputum Gastrointestinal: ABSENT: abdominal pain, nausea, vomiting Genitourinary: ABSENT: dysuria Integumentary: ABSENT: erythema Neurological: PRESENT: weakness. ABSENT: focal weakness, syncope Endocrine: ABSENT: polyuria Physical Exam Vital Signs: Temp Pulse Resp BP Pulse Ox 100.4 F 93 35 H 164/98 H 90 L 05/24/18 17:01 05/24/18 11:36 05/24/18 17:01 05/24/18 17:01 05/24/18 17:01 Intake & Output 05/23/18 05/24/18 05/25/18 06:59 06:59 06:59 Weight 193 lb 5.526 oz General appearance: PRESENT: no acute distress Head exam: PRESENT: atraumatic, normocephalic Eye exam: PRESENT: EOMI. ABSENT: conjunctival injection, scleral icterus Mouth exam: PRESENT: moist, tongue midline Neck exam: ABSENT: tracheal deviation Respiratory exam: PRESENT: crackles - at the bases, decreased breath sounds, rhonchi, symmetrical Cardiovascular exam: PRESENT: +S1, +S2 Pulses: PRESENT: +2 pedal pulses bilateral GI/Abdominal exam: PRESENT: normal bowel sounds, soft. ABSENT: tenderness Extremities exam: PRESENT: +1 edema - b/l LE upto villanueva Musculoskeletal exam: ABSENT: tenderness Neurological exam: PRESENT: alert, awake, oriented to person, oriented to place, oriented to time, oriented to situation, CN II-XII grossly intact Skin exam: PRESENT: dry, warm Results Laboratory Results: 05/24/18 13:23 05/24/18 13:23 05/24/18 05/24/18 05/24/18 13:23 13:23 13:23 WBC 1.4 L* RBC 2.92 L Hgb 10.0 L Hct 30.8 L MCV 105 H MCH 34.2 H MCHC 32.5 RDW 17.8 H Plt Count 67 L Seg Neutrophils % Not Reportable Lymphocytes % Not Reportable Monocytes % Not Reportable Eosinophils % Not Reportable Basophils % Not Reportable Absolute Neutrophils Not Reportable Absolute Lymphocytes Not Reportable Absolute Monocytes Not Reportable Absolute Eosinophils Not Reportable Absolute Basophils Not Reportable VBG pH 7.46 H VBG pCO2 37.7 VBG HCO3 26.5 VBG Base Excess 2.5 Sodium 143.0 Potassium 4.0 Chloride 101 Carbon Dioxide 32 H Anion Gap 10 BUN 17 Creatinine 3.70 H Est GFR ( Amer) 20 L Est GFR (Non-Af Amer) 16 L Glucose 117 H Lactic Acid Calcium 8.4 Total Bilirubin 1.5 H AST 23 ALT 23 Alkaline Phosphatase 39 Total Protein 6.7 Albumin 4.3 05/24/18 16:00 WBC RBC Hgb Hct MCV MCH MCHC RDW Plt Count Seg Neutrophils % Lymphocytes % Monocytes % Eosinophils % Basophils % Absolute Neutrophils Absolute Lymphocytes Absolute Monocytes Absolute Eosinophils Absolute Basophils VBG pH VBG pCO2 VBG HCO3 VBG Base Excess Sodium Potassium Chloride Carbon Dioxide Anion Gap BUN Creatinine Est GFR ( Amer) Est GFR (Non-Af Amer) Glucose Lactic Acid 0.8 Calcium Total Bilirubin AST ALT Alkaline Phosphatase Total Protein Albumin 05/24/18 13:23 NT-Pro-B Natriuret Pep [id number] H Impressions: Chest X-Ray 05/24/18 12:00 IMPRESSION: Congestive heart failure with interstitial pulmonary edema. Assessment & Plan - Diagnosis (1) Acute respiratory failure with hypoxia Is this a current diagnosis for this admission?: Yes (2) Pulmonary edema Qualifiers: Chronicity: acute Qualified Code(s): J81.0 - Acute pulmonary edema Is this a current diagnosis for this admission?: Yes (3) Neutropenia Is this a current diagnosis for this admission?: Yes (4) Thrombocytopenia Is this a current diagnosis for this admission?: Yes (5) Bilateral leg edema Is this a current diagnosis for this admission?: Yes (6) Influenza B Is this a current diagnosis for this admission?: Yes (8) Multiple myeloma in remission Is this a current diagnosis for this admission?: Yes (9) ESRD (end stage renal disease) on dialysis Is this a current diagnosis for this admission?: Yes - Time Time Spent: Greater than 70 Minutes Anticipated discharge: Home - Inpatient Certification Based on my medical assessment, after consideration of the patient's comorbidities, presenting symptoms, or acuity I expect that the services needed warrant INPATIENT care.: Yes I certify that my determination is in accordance with my understanding of Medicare's requirements for reasonable and necessary INPATIENT services [42 CFR 412.3e].: Yes Medical Necessity: Need Close Monitoring Due to Risk of Patient Decompensation, Need For Continuous Telemetry Monitoring, Need for IV Antibiotics, Risk of Complication if Not Cared For in Hospital - Plan Summary Plan Summary: Acute respiratory failure w/ hypoxia- on NC O2 - will wean as tolerated- likely 2/2 pulm edema vs ?PNA vs Flu pulm edema- with try one dose of lasix 40mg IV and see how he does. will get ECHO to check cardiac function- has LE edema. ?Heart failure. per family his ECHO in the past was normal Flu B- per ED physician he's diagnosed with Flu B- will start on tamiflu. although i do not see any influenza results in EMR neutropenia- ANC with Neut 60 and WBC 1.4 and no bands is 840. Concern for infectious etiology- he hasn't had fever- will start on cefepime and vanco since he's immunocompromised- if no source for infection then will stop Abx. BCx penidng. will get UA and UCx also. CXR did not show infection but concern for edema. neutropenic precautions and diet. HTN- not sure what he's on since meds are no reconciled yet- i have asked lisandra steinberg to reconcile meds ESRD- on dialysis- will consult Nephrology Dr Evans . he gets dialysis every Tue, Th and Sat- he did get dialysis today. still makes urine per patient Multiple myeloma- in remission - i have asked him to bring his home med so he can continue taking it- i have consulted Dr Batista, his Oncologist.
[2018-05-24] MEDS ORDERED: OSELTAMIVIR PHOSPHATE 75 MG CAPSULE ONE (22:45)
[2018-05-24] MEDS: OSELTAMIVIR PHOSPHATE 75 MG CAPSULE PO SCH (23:08)
[2018-05-24] MEDS: SIMVASTATIN 10 MG TABLET PO SCH (23:08)
[2018-05-24] MEDS: FAMOTIDINE 20 MG TABLET PO SCH (23:08)
[2018-05-24] MEDS: LEVALBUTEROL HCL NEB 1.25 MG/3 ML AMPUL NEB SCH ×2 (23:29→23:51)
[2018-05-25] MEDS ORDERED: GUAIFENESIN SYRP 200 MG/10 ML UDC PO PRN (00:17)
[2018-05-25 06:57] LABS: HEMOGLOBIN 8.9 g/dL (13.5-17.0); MEAN CORPUSCULAR HEMOGLOBIN 34.4 pg (27.0-33.4); MEAN CORPUSCULAR HGB CONC 32.8 g/dL (32.0-36.0); MEAN CORPUSCULAR VOLUME 105 fl (80-97); RED BLOOD COUNT 2.57 10^6/uL (4.35-5.55); RED CELL DISTRIBUTION WIDTH 17.5 % (11.5-14.0)
[2018-05-25 07:10] LABS: APPEARANCE,URINE CLEAR; BILIRUBIN,URINE NEGATIVE (NEGATIVE); COLOR,URINE STRAW; GLUCOSE, URINE >=500 mg/dL (NEGATIVE); KETONES,URINE NEGATIVE (NEGATIVE); LEUKOCYTE ESTERASE,URINE NEGATIVE (NEGATIVE); NITRITE,URINE NEGATIVE (NEGATIVE); PROTEIN,URINE 100 mg/dL (NEGATIVE); URINE SPECIFIC GRAVITY 1.003; UROBILINOGEN,URINE NEGATIVE mg/dL (<2.0)
[2018-05-25 07:34] LABS: WHITE BLOOD COUNT 1.3 10^3/uL (4.0-10.5)
[2018-05-25 07:35] LABS: PLATELET COUNT 46 10^3/uL (150-450)
[2018-05-25 07:37] LABS: ABSOLUTE LYMPHOCYTES# (MANUAL) 0.4 10^3/uL (0.5-4.7); ABSOLUTE MONOCYTES # (MANUAL) 0.2 10^3/uL (0.1-1.4); ABSOLUTE NEUTROPHILS# (MANUAL) 0.7 10^3/uL (1.7-8.2); BAND NEUTROPHILS % (MANUAL) 2 % (3-5); BASOPHILS % (MANUAL) 2 % (0-2); EOSINOPHILS % (MANUAL) 0 % (0-6); LYMPHOCYTES % (MANUAL) 34 % (13-45); MONOCYTES % (MANUAL) 14 % (3-13); SEGMENTED NEUTROPHILS % (MAN) 48 % (42-78); TOTAL CELLS COUNTED 50
[2018-05-25 07:41] LABS: ANISOCYTOSIS 1+; OVALOCYTES 2+; PLATELET COMMENT DECREASED; POIKILOCYTOSIS 3+; POLYCHROMASIA SLIGHT; TEAR DROP CELLS 1+
[2018-05-25] MEDS: LEVALBUTEROL HCL NEB 1.25 MG/3 ML AMPUL NEB SCH ×2 (08:27→15:58)
[2018-05-25 09:08] LABS: ANION GAP 10 (5-19); BLOOD UREA NITROGEN 31 mg/dL (7-20); CALCIUM 7.7 mg/dL (8.4-10.2); CARBON DIOXIDE 30 mmol/L (22-30); CHLORIDE 102 mmol/L (98-107); GLUCOSE 100 mg/dL (75-110); POTASSIUM 3.9 mmol/L (3.6-5.0); SODIUM 141.8 mmol/L (137-145)
[2018-05-25] MEDS: CEFEPIME 2 GM/D5W RTU 2 GM/50 ML RTUPB IV SCH (09:54)
[2018-05-25] MEDS: TAMSULOSIN HCL 0.4 MG CAP.SR.24H PO SCH (09:56)
[2018-05-25] MEDS: FAMOTIDINE 20 MG TABLET PO SCH ×2 (09:56→21:05)
[2018-05-25] MEDS ORDERED: LENALIDOMIDE 2.5 MG PO SCH ×2 (10:00→22:00)
[2018-05-25] MEDS: OSELTAMIVIR PHOSPHATE 75 MG CAPSULE PO SCH ×2 (10:25→17:07)
[2018-05-25] MEDS ORDERED: POLYETHYLENE GLYCOL 3350 POWDER 17 GM/1 PACKET PO PRN (14:10)
[2018-05-25] MEDS ORDERED: (PENDING PHARMACY ID) (Carvedilol [Coreg 25 Mg Tablet] 1 TAB) PO SCH (14:15)
--- NOTE | 2018-05-25 14:15 | PDOC PROGRESS REPORT ---
Subjective Progress Note for:: 05/25/18 Subjective:: Spoke with patient this afternoon on rounds. States he feels better since he has come in. States his breathing is better although he still has shortness of breath. Still requiring oxygen supplemental. States he has some cough but otherwise doing okay. I went over his care plan and results today. Reason For Visit: PNEUMONIA,PULM EDEMA, RESP FAILURE, FLU Physical Exam Vital Signs: Temp Pulse Resp BP Pulse Ox 98.5 F 93 18 151/90 H 94 05/25/18 11:25 05/25/18 11:25 05/25/18 11:25 05/25/18 11:25 05/25/18 11:25 Intake & Output 05/24/18 05/25/18 05/26/18 06:59 06:59 06:59 Intake Total 405 50 Balance 405 50 Weight 193 lb 12.581 oz General appearance: PRESENT: no acute distress Head exam: PRESENT: atraumatic, normocephalic Eye exam: PRESENT: EOMI. ABSENT: conjunctival injection, scleral icterus Ear exam: PRESENT: normal external ear exam Mouth exam: PRESENT: moist, tongue midline Neck exam: ABSENT: tracheal deviation Respiratory exam: PRESENT: decreased breath sounds - Bilateral bases, symmetrical Cardiovascular exam: PRESENT: +S1, +S2 Pulses: PRESENT: +2 pedal pulses bilateral GI/Abdominal exam: PRESENT: normal bowel sounds, soft. ABSENT: tenderness Extremities exam: PRESENT: pedal edema - Minimal at the feet bilaterally Neurological exam: PRESENT: alert, awake, oriented to person, oriented to place, oriented to time, oriented to situation, CN II-XII grossly intact Skin exam: PRESENT: dry, warm Results Laboratory Results: 05/25/18 06:35 05/25/18 08:41 05/24/18 05/24/18 05/24/18 13:23 13:23 16:00 WBC 1.4 L* RBC 2.92 L Hgb 10.0 L Hct 30.8 L MCV 105 H MCH 34.2 H MCHC 32.5 RDW 17.8 H Plt Count 67 L Seg Neutrophils % Not Reportable Lymphocytes % Not Reportable Monocytes % Not Reportable Eosinophils % Not Reportable Basophils % Not Reportable Absolute Neutrophils Not Reportable Absolute Lymphocytes Not Reportable Absolute Monocytes Not Reportable Absolute Eosinophils Not Reportable Absolute Basophils Not Reportable Sodium 143.0 Potassium 4.0 Chloride 101 Carbon Dioxide 32 H Anion Gap 10 BUN 17 Creatinine 3.70 H Est GFR ( Amer) 20 L Est GFR (Non-Af Amer) 16 L Glucose 117 H Lactic Acid 0.8 Calcium 8.4 Total Bilirubin 1.5 H AST 23 ALT 23 Alkaline Phosphatase 39 Total Protein 6.7 Albumin 4.3 Urine Color Urine Appearance Urine pH Ur Specific [place] Urine Protein Urine Glucose (UA) Urine Ketones Urine Blood Urine Nitrite Ur Leukocyte Esterase Urine WBC (Auto) Urine RBC (Auto) 05/25/18 05/25/18 05/25/18 06:35 06:35 06:50 WBC 1.3 L* RBC 2.57 L Hgb 8.9 L Hct 27.0 L MCV 105 H MCH 34.4 H MCHC 32.8 RDW 17.5 H Plt Count 46 L Seg Neutrophils % Not Reportable Lymphocytes % Not Reportable Monocytes % Not Reportable Eosinophils % Not Reportable Basophils % Not Reportable Absolute Neutrophils Not Reportable Absolute Lymphocytes Not Reportable Absolute Monocytes Not Reportable Absolute Eosinophils Not Reportable Absolute Basophils Not Reportable Sodium Cancelled Potassium Cancelled Chloride Cancelled Carbon Dioxide Cancelled Anion Gap Cancelled BUN Cancelled Creatinine Cancelled Est GFR ( Amer) Cancelled Est GFR (Non-Af Amer) Cancelled Glucose Cancelled Lactic Acid Calcium Cancelled Total Bilirubin AST ALT Alkaline Phosphatase Total Protein Albumin Urine Color STRAW Urine Appearance CLEAR Urine pH 9.0 Ur Specific [place] 1.003 Urine Protein 100 H Urine Glucose (UA) >=500 H Urine Ketones NEGATIVE Urine Blood SMALL H Urine Nitrite NEGATIVE Ur Leukocyte Esterase NEGATIVE Urine WBC (Auto) 1 Urine RBC (Auto) 0 05/25/18 08:41 WBC RBC Hgb Hct MCV MCH MCHC RDW Plt Count Seg Neutrophils % Lymphocytes % Monocytes % Eosinophils % Basophils % Absolute Neutrophils Absolute Lymphocytes Absolute Monocytes Absolute Eosinophils Absolute Basophils Sodium 141.8 Potassium 3.9 Chloride 102 Carbon Dioxide 30 Anion Gap 10 BUN 31 H Creatinine 6.03 H Est GFR ( Amer) 11 L Est GFR (Non-Af Amer) 9 L Glucose 100 Lactic Acid Calcium 7.7 L Total Bilirubin AST ALT Alkaline Phosphatase Total Protein Albumin Urine Color Urine Appearance Urine pH Ur Specific [place] Urine Protein Urine Glucose (UA) Urine Ketones Urine Blood Urine Nitrite Ur Leukocyte Esterase Urine WBC (Auto) Urine RBC (Auto) 05/24/18 13:23 NT-Pro-B Natriuret Pep [id number] H Impressions: Chest X-Ray 05/24/18 12:00 IMPRESSION: Congestive heart failure with interstitial pulmonary edema. Assessment & Plan - Diagnosis (1) Acute respiratory failure with hypoxia Is this a current diagnosis for this admission?: Yes (2) Pulmonary edema Qualifiers: Chronicity: acute Qualified Code(s): J81.0 - Acute pulmonary edema Is this a current diagnosis for this admission?: Yes (3) Neutropenia Is this a current diagnosis for this admission?: Yes (4) Thrombocytopenia Is this a current diagnosis for this admission?: Yes (5) Bilateral leg edema Is this a current diagnosis for this admission?: Yes (6) Influenza B Is this a current diagnosis for this admission?: Yes (8) Multiple myeloma in remission Is this a current diagnosis for this admission?: Yes (9) ESRD (end stage renal disease) on dialysis Is this a current diagnosis for this admission?: Yes - Plan Summary Plan Summary: Acute respiratory failure w/ hypoxia-although he feels better he still on NC O2 at 2 L- will wean as tolerated- likely 2/2 pulm edema vs ?PNA vs Flu pulm edema-I tried him on 1 dose of Lasix IV yesterday. Echocardiogram is pending. At the edema of the lower legs is improving. We will wait until echocardiogram is available to continue with Lasix. per family his ECHO in the past was normal Flu B- per ED physician he's diagnosed with Flu B- started on tamiflu. although i do not see any influenza results in EMR neutropenia-WBC lower today 1.4--> 1.3. I started him on empiric cefepime and vancomycin since he is immunocompromised and for suspected infection. If his cultures remain negative then we will DC antibiotics. All cultures are still pending HTN-finally his medications have been reconciled and I have restarted his Coreg. Blood pressure is running higher than usual. ESRD- on dialysis- consulted Nephrology Dr Evans . he gets dialysis every e, and Sat- he did get dialysis today. still makes urine per patient Multiple myeloma- in remission - i have asked him to bring his home med so he can continue taking it- i have consulted Dr Batista, his Oncologist.
--- NOTE | 2018-05-25 14:21 | XCELERA REPORT ---
[address] [address] Transthoracic Echocardiogram Report Name: NO VALDEZ Age: 67 yrs Gender: Male : 1950 Patient Status: Inpatient Patient Location: [address] [place], [place] [address] Study Date: 05/25/2018 10:09 AM Height: 69 in Weight: 193 lb BSA: 2.0 m2 Procedure: A two-dimensional transthoracic echocardiogram with color flow and Doppler was performed. Study Quality: Fair. Reason For Study: pulm edema History: pulm edema. Ordering Physician: EVANGELINA MEDEIROS Performed By: Silverio Hudson Interpretation Summary The left ventricle is normal in size. There is normal left ventricular wall thickness. LV EF is 50% Left ventricular systolic function is mildly reduced. Doppler measurements suggest impaired left ventricular relaxation, which is associated with grade I/IV or mild diastolic dysfunction There is mild global hypokinesis of the left ventricle. There is no thrombus. There is no ventricular septal defect visualized. The right ventricle is not well visualized secondary to technical limitations The right atrium is normal in size The left atrium is moderately dilated. The interatrial septum is intact with no evidence for an atrial septal defect. There is no Doppler evidence for an interatrial shunt There is no mitral valve stenosis. There is no evidence of mitral valve prolapse. There is no vegetation seen on the mitral valve. There is a moderate amount of mitral regurgitation There is no aortic valve stenosis There is no LVOT obstruction. There is a mild amount of aortic regurgitation There is no tricuspid stenosis. There is a mild amount of tricuspid regurgitation There is moderate pulmonary hypertension by echo RVSP is 49 to 54 mm of Hg , with RA mean of 5 to 10. There is no pulmonic valvular stenosis. There is no pulmonic valvular regurgitation. The aortic root is not well visualized. The inferior vena cava appeared normal and decreased > 50% with respiration (RAP 5-10 mmHg) There is no pericardial effusion. MMode/2D Measurements & Calculations RVDd: 3.1 cm LVIDd: 5.2 cm FS: 22.0 % Ao root diam: 3.6 cm IVSd: 1.5 cm LVIDs: 4.0 cm EDV(Teich): 127.5 ml Ao root area: 10.3 cm2 LVPWd: 1.5 cm ESV(Teich): 71.2 ml EF(Teich): 44.1 % LVOT diam: 2.5 cm LVOT area: 5.0 cm2 Doppler Measurements & Calculations MV E max kristina: MV dec slope: Ao V2 max: AI max kristina: 122.9 cm/sec 488.9 cm/sec2 130.7 cm/sec 127.7 cm/sec MV A max kristina: MV dec time: Ao max PG: AI max P.5 mmHg 124.8 cm/sec 0.25 sec 6.8 mmHg AI dec slope: MV E/A: 0.98 Ao V2 mean: 136.5 cm/sec2 99.7 cm/sec AI P1/2t: 273.8 msec Ao mean P.2 mmHg Ao V2 VTI: 25.4 cm ARABELLA(I,D): 4.9 cm2 ARABELLA(V,D): 6.2 cm2 LV V1 max PG: MR max kristina: SV(LVOT): PA V2 max: 10.6 mmHg 366.6 cm/sec 125.9 ml 88.5 cm/sec LV V1 mean PG: MR max P.8 mmHg PA max P.1 mmHg 4.7 mmHg LV V1 max: 162.8 cm/sec LV V1 mean: 99.9 cm/sec LV V1 VTI: 25.1 cm TR max kristina: 331.8 cm/sec TR max P.0 mmHg Left Ventricle The left ventricle is normal in size. There is normal left ventricular wall thickness. LV EF is 50%. Left ventricular systolic function is mildly reduced. Doppler measurements suggest impaired left ventricular relaxation, which is associated with grade I/IV or mild diastolic dysfunction. There is mild global hypokinesis of the left ventricle. There is no thrombus. There is no ventricular septal defect visualized. Right Ventricle The right ventricle is not well visualized secondary to technical limitations. Atria The right atrium is normal in size. The left atrium is moderately dilated. The interatrial septum is intact with no evidence for an atrial septal defect. There is no Doppler evidence for an interatrial shunt. Mitral Valve There is no evidence of mitral valve prolapse. There is no vegetation seen on the mitral valve. There is no mitral valve stenosis. There is a moderate amount of mitral regurgitation. Aortic Valve There is no aortic valve stenosis. There is no LVOT obstruction. There is a mild amount of aortic regurgitation. Tricuspid Valve There is no tricuspid stenosis. There is a mild amount of tricuspid regurgitation. There is moderate pulmonary hypertension by echo. RVSP is 49 to 54 mm of Hg , with RA mean of 5 to 10. Pulmonic Valve There is no pulmonic valvular stenosis. There is no pulmonic valvular regurgitation. Great Vessels The aortic root is not well visualized. The inferior vena cava appeared normal and decreased > 50% with respiration (RAP 5-10 mmHg). Effusions There is no pericardial effusion. : EVANGELINA MEDEIROS > Mary Knapp
[2018-05-25] MEDS: CARVEDILOL 12.5 MG TABLET PO SCH (14:34)
[2018-05-25] MEDS: VANCOMYCIN HCL 750 MG in DEXTROSE 5%-WATER 250 ML IV SCH (17:07)
[2018-05-25] MEDS ORDERED: VANCOMYCIN HCL 0 MG in DEXTROSE 5%-WATER 250 ML IV NR (18:00)
[2018-05-25] MEDS: SIMVASTATIN 10 MG TABLET PO SCH (21:05)
[2018-05-25] MEDS: LENALIDOMIDE 2.5 MG PO SCH (21:05)
[2018-05-26] MEDS: LEVALBUTEROL HCL NEB 1.25 MG/3 ML AMPUL NEB SCH ×3 (00:08→15:46)
[2018-05-26 04:51] LABS: HEMATOCRIT 25.6 % (37.9-51.0); HEMOGLOBIN 8.6 g/dL (13.5-17.0); MEAN CORPUSCULAR HEMOGLOBIN 35.1 pg (27.0-33.4); MEAN CORPUSCULAR HGB CONC 33.5 g/dL (32.0-36.0); MEAN CORPUSCULAR VOLUME 105 fl (80-97); RED BLOOD COUNT 2.44 10^6/uL (4.35-5.55); RED CELL DISTRIBUTION WIDTH 17.5 % (11.5-14.0); WHITE BLOOD COUNT 1.7 10^3/uL (4.0-10.5)
[2018-05-26 05:02] LABS: PLATELET COUNT 49 10^3/uL (150-450)
[2018-05-26 05:05] LABS: ABSOLUTE LYMPHOCYTES# (MANUAL) 0.6 10^3/uL (0.5-4.7); ABSOLUTE MONOCYTES # (MANUAL) 0.2 10^3/uL (0.1-1.4); ABSOLUTE NEUTROPHILS# (MANUAL) 0.8 10^3/uL (1.7-8.2); BASOPHILS % (MANUAL) 0 % (0-2); EOSINOPHILS % (MANUAL) 0 % (0-6); LYMPHOCYTES % (MANUAL) 38 % (13-45); MONOCYTES % (MANUAL) 14 % (3-13); SEGMENTED NEUTROPHILS % (MAN) 48 % (42-78); TOTAL CELLS COUNTED 50
[2018-05-26 05:07] LABS: ANISOCYTOSIS 2+; PLATELET COMMENT DECREASED; POLYCHROMASIA 1+
[2018-05-26] MEDS: CARVEDILOL 12.5 MG TABLET PO SCH ×2 (05:48→17:13)
[2018-05-26] MEDS ORDERED: EPOETIN ALFA INJ 20000 UNIT/1 ML VIAL (RENAL) IV PRN (07:05)
[2018-05-26] MEDS ORDERED: ACETAMINOPHEN 325 MG TABLET PO PRN (10:46)
[2018-05-26] MEDS ORDERED: HYDRALAZINE HCL INJ/PF 20 MG/1 ML SDV IV PRN (11:00)
[2018-05-26] MEDS: TAMSULOSIN HCL 0.4 MG CAP.SR.24H PO SCH (14:30)
[2018-05-26] MEDS: ASPIRIN 81 MG TABLET, CHEWABLE PO SCH (14:30)
[2018-05-26] MEDS: CEFEPIME 2 GM/D5W RTU 2 GM/50 ML RTUPB IV SCH (14:30)
--- NOTE | 2018-05-26 15:25 | PDOC CONSULTATION ---
Consultation Consult Date: 05/26/18 Consult reason:: ESRD for hemodialysis in the setting of congestive heart failure History of Present Illness Admission Date/PCP: 05/24/18 17:10 History of Present Illness: NO VALDEZ is a 67 year old male JOSÉ MIGUEL is a 67 year old male with history of ESRD on hemodialysis in the background of Hypertension, multiple myeloma in remission, who presented to the ED c/o SOB and cough. Patient states he hasn't been feeling well for about 4 days now. He has been having progressive shortness of breath on exertion with early orthopnea. He states he also has been coughing for 4 days- denies fever but admits to chills- states cough is worse with laying down- better when sitting up. He denies chest pain, abdominal pain, n/v or headaches. He also began to get progressively weak and tired and decided to come to the ER to be checked out. Evaluation in the ER revealed that he has early congestive heart failure. He is also leukopenic with borderline neutropenia and has been begun on appropriate antibiotics. He was treated with IV diuretics yesterday. Currently he is being seen while undergoing dialysis. Vital signs are stable. He says he feels lots better than when he came in. Past Medical History Cardiac Medical History: Reports: Hypertension-primary Denies: Coronary Artery Disease, Myocardial Infarction Pulmonary Medical History: Denies: Asthma, Bronchitis, Chronic Obstructive Pulmonary Disease (COPD), Pneumonia, Tuberculosis Neurological Medical History: Denies: Seizures Renal/ Medical History: Reports: Benign Prostatic Hyperplasia, End Stage Renal Disease, Secondary Hyperparathyroidism GI Medical History: Denies: Cirrhosis, Gastroesophageal Reflux Disease Musculoskeltal Medical History: Denies: Arthritis Psychiatric Medical History: Denies: Bipolar Disorder, Depression Hematology Medical History: Reports Anemia of Chronic Kidney Disease Social History Smoking Status: Former Smoker Drugs: None - Advance Directive Resuscitation Status: Full Code Family History Parental Family History Reviewed: Yes - Negative for ESR Children Family History Reviewed: No Sibling(s) Family History Reviewed.: No Medication/Allergy Home Medications: Aspirin [Aspirin 81 mg Chewable Tablet] 81 mg PO DAILY 05/25/18 Calcium Carbonate/Vitamin D3 [Os-Abraham 500+D Tablet] 1 tab PO BIDBS 05/25/18 Carvedilol [Coreg 25 mg Tablet] 1 tab PO Q12 05/25/18 Lenalidomide [Revlimid] 2.5 mg PO QHS 05/25/18 Polyethylene Glycol 3350 [Miralax Powder 17 gm/Packet] 1 packet PO DAILYP PRN 05/25/18 Tamsulosin HCl [Flomax 0.4 mg Cap.sr] 0.4 mg PO DAILY 05/25/18 Valacyclovir HCl [Valtrex 500 Mg Tablet] 500 mg PO DAILY 05/25/18 Allergies/Adverse Reactions: No Known Allergies Allergy (Verified 03/14/18 12:23) Review of Systems Constitutional: PRESENT: fatigue, fever(s), night sweats, weakness. ABSENT: anorexia, headache(s) Nose, Mouth, and Throat: ABSENT: mouth pain, sore throat Cardiovascular: PRESENT: dyspnea on exertion, orthropnea. ABSENT: chest pain, edema Gastrointestinal: ABSENT: abdominal pain, coffee ground emesis, diarrhea, dysphagia, heartburn, hematemesis, hematochezia Genitourinary: ABSENT: dysuria, hematuria Integumentary: ABSENT: erythema, lesions, pruritus, rash Neurological: ABSENT: abnormal movements, abnormal speech, focal weakness, frequent falls Psychiatric: ABSENT: anxiety, depression, hallucinations Hematologic/Lymphatic: ABSENT: easy bruising, lymphadenopathy Physical Exam Vital Signs: Temp Pulse Resp BP Pulse Ox 98.2 F 85 15 160/89 H 97 05/26/18 07:47 05/26/18 14:00 05/26/18 08:14 05/26/18 07:47 05/26/18 08:14 Intake & Output 05/25/18 05/26/18 05/27/18 06:59 06:59 06:59 Intake Total 405 738 384 Balance 405 738 384 Weight 87.9 kg 87.5 kg General appearance: PRESENT: no acute distress Eye exam: PRESENT: EOMI, PERRLA. ABSENT: nystagmus Ear exam: PRESENT: normal external ear exam Mouth exam: PRESENT: moist, neck supple Neck exam: ABSENT: lymphadenopathy, meningismus, tenderness, thyromegaly, tracheal deviation Respiratory exam: PRESENT: clear to auscultation merrill. ABSENT: crackles Cardiovascular exam: PRESENT: +S1, +S2, systolic murmur GI/Abdominal exam: PRESENT: normal bowel sounds, soft. ABSENT: organomegaly, tenderness Extremities exam: ABSENT: pedal edema Neurological exam: PRESENT: alert, awake, oriented to person, oriented to place Psychiatric exam: ABSENT: anxious Skin exam: ABSENT: cyanosis, erythema, mottled, rash Results Laboratory Results: 05/26/18 04:01 05/25/18 08:41 05/26/18 04:01 WBC 1.7 L RBC 2.44 L Hgb 8.6 L Hct 25.6 L MCV 105 H MCH 35.1 H MCHC 33.5 RDW 17.5 H Plt Count 49 L Seg Neutrophils % Not Reportable Lymphocytes % Not Reportable Monocytes % Not Reportable Eosinophils % Not Reportable Basophils % Not Reportable Absolute Neutrophils Not Reportable Absolute Lymphocytes Not Reportable Absolute Monocytes Not Reportable Absolute Eosinophils Not Reportable Absolute Basophils Not Reportable 05/24/18 13:23 NT-Pro-B Natriuret Pep 52439 H Impressions: Chest X-Ray 05/24/18 12:00 IMPRESSION: Congestive heart failure with interstitial pulmonary edema. Assessment & Plan - Diagnosis (1) Acute respiratory failure with hypoxia Is this a current diagnosis for this admission?: Yes Plan: Secondary to congestive heart failure. Patient currently feeling better especially as the removing fluids on dialysis. Plan to remove in 3 and 4 L as tolerated. (2) ESRD (end stage renal disease) on dialysis Is this a current diagnosis for this admission?: Yes Plan: Patient currently being seen while undergoing dialysis. It is being supervised to ensure safe and smooth procedure. Vital signs are stable. Plan to remove between 3 and 4 L as tolerated. Orders were reviewed and discussed with the treating dialysis nurse. (3) Hypertension Is this a current diagnosis for this admission?: Yes (4) Multiple myeloma in remission Is this a current diagnosis for this admission?: Yes Plan: However patient is neutropenic. Reverse isolation. As per hospitalist and heme oncologist. Patient on appropriate antibiotics (5) Neutropenia Is this a current diagnosis for this admission?: Yes Plan: As mentioned earlier. Reverse isolation. On IV antibiotics. Improving neutropenia. (6) Pulmonary edema Qualifiers: Chronicity: acute Qualified Code(s): J81.0 - Acute pulmonary edema Is this a current diagnosis for this admission?: Yes Plan: Should respond well to current hemodialysis. Will monitor.
--- NOTE | 2018-05-26 15:32 | PDOC PROGRESS REPORT ---
Subjective Progress Note for:: 05/26/18 Subjective:: saw patient this afternoon- he was at dialysis this morning when i first went to see him. spoke with him at bedside- he states he feels much better- breathing is better. denies chest pain, sob, abdominal pain, n/v or dizziness as this time. discussed about possible repeat CXR in AM to evaluate pulm edema. Reason For Visit: PNEUMONIA,PULM EDEMA, RESP FAILURE, FLU Physical Exam Vital Signs: Temp Pulse Resp BP Pulse Ox 98.2 F 85 15 160/89 H 97 05/26/18 07:47 05/26/18 14:00 05/26/18 08:14 05/26/18 07:47 05/26/18 08:14 Intake & Output 05/25/18 05/26/18 05/27/18 06:59 06:59 06:59 Intake Total 405 738 384 Balance 405 738 384 Weight 193 lb 12.581 oz 192 lb 14.472 oz General appearance: PRESENT: no acute distress Head exam: PRESENT: atraumatic, normocephalic Eye exam: PRESENT: EOMI. ABSENT: conjunctival injection, scleral icterus Ear exam: PRESENT: normal external ear exam Mouth exam: PRESENT: moist, tongue midline Neck exam: ABSENT: tracheal deviation Respiratory exam: PRESENT: crackles, decreased breath sounds, rales, symmetrical Cardiovascular exam: PRESENT: +S1, +S2 Pulses: PRESENT: +2 pedal pulses bilateral GI/Abdominal exam: PRESENT: normal bowel sounds, soft. ABSENT: tenderness Extremities exam: ABSENT: pedal edema Neurological exam: PRESENT: alert, awake, oriented to person, oriented to place, oriented to time, oriented to situation, CN II-XII grossly intact Skin exam: PRESENT: dry, warm Results Laboratory Results: 05/26/18 04:01 05/25/18 08:41 05/26/18 04:01 WBC 1.7 L RBC 2.44 L Hgb 8.6 L Hct 25.6 L MCV 105 H MCH 35.1 H MCHC 33.5 RDW 17.5 H Plt Count 49 L Seg Neutrophils % Not Reportable Lymphocytes % Not Reportable Monocytes % Not Reportable Eosinophils % Not Reportable Basophils % Not Reportable Absolute Neutrophils Not Reportable Absolute Lymphocytes Not Reportable Absolute Monocytes Not Reportable Absolute Eosinophils Not Reportable Absolute Basophils Not Reportable 05/24/18 13:23 NT-Pro-B Natriuret Pep [id number] H Impressions: Chest X-Ray 05/24/18 12:00 IMPRESSION: Congestive heart failure with interstitial pulmonary edema. Assessment & Plan - Diagnosis (1) Acute respiratory failure with hypoxia Is this a current diagnosis for this admission?: Yes (2) Pulmonary edema Qualifiers: Qualified Code(s): J81.0 - Acute pulmonary edema Is this a current diagnosis for this admission?: Yes (3) Neutropenia Is this a current diagnosis for this admission?: Yes (4) Thrombocytopenia Is this a current diagnosis for this admission?: Yes (5) Bilateral leg edema Is this a current diagnosis for this admission?: Yes (6) Influenza B Is this a current diagnosis for this admission?: Yes (7) Hypertension Is this a current diagnosis for this admission?: Yes (8) Multiple myeloma in remission Is this a current diagnosis for this admission?: Yes (9) ESRD (end stage renal disease) on dialysis Is this a current diagnosis for this admission?: Yes - Plan Summary Plan Summary: Acute respiratory failure w/ hypoxia- feeling better- still on supplemental O2- will wean as tolerated- likely 2/2 pulm edema vs ?PNA vs Flu pulm edema-likely due to acute diastolic HF- Echocardiogram shows EF 50% with diastolic dysfunction. will start him on lasix 20mg daily and see how he does. Flu B- per ED physician he's diagnosed with Flu B- started on tamiflu. although i do not see any influenza results in EMR neutropenia-WBC improved today 1.4--> 1.3-->1.7. I started him on empiric cefepime and vancomycin since he is immunocompromised and for suspected infection. If his cultures remain negative then I will DC antibiotics in AM. All cultures are still pending and neg so far. he was seen by his Oncologist- we can try and touch base to see their recommendations. HTN- I have restarted his Coreg. Blood pressure is running higher than usual- c/w Hydralazine IV PRN. ESRD- on dialysis- consulted Nephrology Dr Evans . He had dialysis today although he told me he gets dialysis every Tue, Thurs and Sat- he still makes urine per patient Multiple myeloma- in remission - per patient his oncologist doesn't want him to continue the revlimed for now. i have consulted Dr Batista, his Oncologist. DVT proph - SCDs due to low platelets
[2018-05-26 15:44] LABS: PATH REVIEW PATHOLOGIST REVIEWED
[2018-05-26] MEDS: OSELTAMIVIR PHOSPHATE 75 MG CAPSULE PO SCH (15:56)
[2018-05-26] MEDS: FAMOTIDINE 20 MG TABLET PO SCH ×2 (15:56→22:36)
--- NOTE | 2018-05-26 16:42 | CONSULTATION REPORT E ---
Consultation Report NAME: NO VALDEZ : 1950 AGE: 67Y DATE: 413 A TO: LESLIE WERNER M.D. FROM: MIAN ARRIETA M.D. Requesting Physician REASON FOR CONSULTATION: Multiple myeloma. 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 He is status post bone marrow transplant 2017, he is in remission. He has been on Revlimid 2.5 mg q. nightly. He was admitted into the hospital May 24, 2018 following an episode of shortness of breath, cough, generalized feeling of being unwell for about 4 days prior to the admission. He started being treated for possible upper respiratory tract infection. He states that he feels a little bit better since he came into the hospital. PAST MEDICAL HISTORY: As stated above, multiple myeloma, on Revlimid. High blood pressure, endstage renal disease on dialysis. PHYSICAL EXAMINATION: GENERAL: He is an elderly man. He is not acutely ill looking. He is alert and answers all questions appropriately. EXTREMITIES: No edema. LABORATORY: Labs from May 25: White count 1.3, hemoglobin 8.9, platelet count 46. 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 He is status post bone marrow transplant 2017, presently on Revlimid regiment. I will hold his Revlimid for now. I explained to him that I will restart after this acute process is resolved. He will return for followup for blood work and all physicians have previously scheduled. I thank you for this consultation and allowing me to be part of his care. DICTATING PHYSICIAN: LESLIE WERNER M.D. [id number] PHY#: [id number] ID: [id number] JOB#: [id number] ACCT: [id number] cc:LESLIE WERNER M.D. >
[2018-05-26] MEDS: FUROSEMIDE 20 MG TABLET PO SCH (17:12)
[2018-05-26] MEDS: VANCOMYCIN HCL 750 MG in DEXTROSE 5%-WATER 250 ML IV SCH (17:12)
[2018-05-26] MEDS: SIMVASTATIN 10 MG TABLET PO SCH (22:36)
[2018-05-26] MEDS: LENALIDOMIDE 2.5 MG PO SCH (22:36)
[2018-05-27] MEDS: LEVALBUTEROL HCL NEB 1.25 MG/3 ML AMPUL NEB SCH ×4 (00:38→23:28)
[2018-05-27] MEDS: CARVEDILOL 12.5 MG TABLET PO SCH ×2 (05:47→17:11)
[2018-05-27 06:47] LABS: HEMATOCRIT 28.5 % (37.9-51.0); HEMOGLOBIN 9.4 g/dL (13.5-17.0); MEAN CORPUSCULAR HEMOGLOBIN 34.1 pg (27.0-33.4); MEAN CORPUSCULAR HGB CONC 33.1 g/dL (32.0-36.0); MEAN CORPUSCULAR VOLUME 103 fl (80-97); RED BLOOD COUNT 2.77 10^6/uL (4.35-5.55); WHITE BLOOD COUNT 1.8 10^3/uL (4.0-10.5)
[2018-05-27 07:11] LABS: PLATELET COUNT 57 10^3/uL (150-450)
[2018-05-27 07:20] LABS: ABSOLUTE LYMPHOCYTES# (MANUAL) 0.6 10^3/uL (0.5-4.7); ABSOLUTE MONOCYTES # (MANUAL) 0.3 10^3/uL (0.1-1.4); ABSOLUTE NEUTROPHILS# (MANUAL) 0.9 10^3/uL (1.7-8.2); BASOPHILS % (MANUAL) 0 % (0-2); EOSINOPHILS % (MANUAL) 0 % (0-6); LYMPHOCYTES % (MANUAL) 35 % (13-45); MONOCYTES % (MANUAL) 14 % (3-13); SEGMENTED NEUTROPHILS % (MAN) 51 % (42-78); TOTAL CELLS COUNTED 100
[2018-05-27 07:21] LABS: ANISOCYTOSIS 2+; PLATELET COMMENT DECREASED; POLYCHROMASIA 2+
[2018-05-27] MEDS: CEFEPIME 2 GM/D5W RTU 2 GM/50 ML RTUPB IV SCH (10:19)
[2018-05-27] MEDS: FUROSEMIDE 20 MG TABLET PO SCH (10:19)
[2018-05-27] MEDS: TAMSULOSIN HCL 0.4 MG CAP.SR.24H PO SCH (10:19)
[2018-05-27] MEDS: ASPIRIN 81 MG TABLET, CHEWABLE PO SCH (10:19)
[2018-05-27] MEDS: OSELTAMIVIR PHOSPHATE 30 MG CAPSULE PO SCH (17:11)
[2018-05-27] MEDS: SIMVASTATIN 10 MG TABLET PO SCH (22:13)
[2018-05-27] MEDS: FAMOTIDINE 20 MG TABLET PO SCH (22:13)
[2018-05-27] MEDS: LENALIDOMIDE 2.5 MG PO SCH (22:13)
[2018-05-28] MEDS ORDERED: EPOETIN ALFA INJ 20000 UNIT/1 ML VIAL (RENAL) IV PRN (05:00)
[2018-05-28] MEDS: CARVEDILOL 12.5 MG TABLET PO SCH ×2 (05:50→18:00)
[2018-05-28 06:27] LABS: HEMATOCRIT 26.1 % (37.9-51.0); HEMOGLOBIN 8.7 g/dL (13.5-17.0); MEAN CORPUSCULAR HEMOGLOBIN 34.2 pg (27.0-33.4); MEAN CORPUSCULAR HGB CONC 33.3 g/dL (32.0-36.0); MEAN CORPUSCULAR VOLUME 103 fl (80-97); RED BLOOD COUNT 2.54 10^6/uL (4.35-5.55); RED CELL DISTRIBUTION WIDTH 17.7 % (11.5-14.0); WHITE BLOOD COUNT 2.1 10^3/uL (4.0-10.5)
[2018-05-28 06:53] LABS: ANION GAP 15 (5-19); BLOOD UREA NITROGEN 55 mg/dL (7-20); CALCIUM 7.2 mg/dL (8.4-10.2); CARBON DIOXIDE 24 mmol/L (22-30); CHLORIDE 102 mmol/L (98-107); GLUCOSE 89 mg/dL (75-110); POTASSIUM 3.5 mmol/L (3.6-5.0); SODIUM 140.6 mmol/L (137-145)
[2018-05-28 07:22] LABS: PLATELET COUNT 58 10^3/uL (150-450)
[2018-05-28 07:27] LABS: ABSOLUTE LYMPHOCYTES# (MANUAL) 0.4 10^3/uL (0.5-4.7); ABSOLUTE MONOCYTES # (MANUAL) 0.4 10^3/uL (0.1-1.4); ABSOLUTE NEUTROPHILS# (MANUAL) 0.9 10^3/uL (1.7-8.2); BAND NEUTROPHILS % (MANUAL) 1 % (3-5); BASOPHILS % (MANUAL) 0 % (0-2); EOSINOPHILS % (MANUAL) 17 % (0-6); LYMPHOCYTES % (MANUAL) 21 % (13-45); MONOCYTES % (MANUAL) 19 % (3-13); NUCLEATED RED BLOOD CELLS 1 /100 WBC (0); SEGMENTED NEUTROPHILS % (MAN) 42 % (42-78); TOTAL CELLS COUNTED 100
[2018-05-28 07:30] LABS: ANISOCYTOSIS 2+; OVALOCYTES SLIGHT; PLATELET COMMENT DECREASED; POIKILOCYTOSIS SLIGHT; POLYCHROMASIA SLIGHT; TEAR DROP CELLS SLIGHT
[2018-05-28] MEDS: LEVALBUTEROL HCL NEB 1.25 MG/3 ML AMPUL NEB SCH ×3 (08:00→23:46)
[2018-05-28] MEDS: CEFEPIME 2 GM/D5W RTU 2 GM/50 ML RTUPB IV SCH (09:06)
[2018-05-28] MEDS: ASPIRIN 81 MG TABLET, CHEWABLE PO SCH (12:07)
[2018-05-28] MEDS: TAMSULOSIN HCL 0.4 MG CAP.SR.24H PO SCH (12:07)
[2018-05-28] MEDS: FUROSEMIDE 20 MG TABLET PO SCH (12:07)
[2018-05-28] MEDS ORDERED: CALCIUM GLUCONATE 1000 MG/10 ML INJ IV ONE (14:04)
[2018-05-28] MEDS ORDERED: CLONIDINE HCL 0.2 MG TABLET ONE (14:05)
--- NOTE | 2018-05-28 17:52 | PDOC PROGRESS REPORT ---
Subjective Progress Note for:: 05/28/18 Reason For Visit: Patient seen today undergoing dialysis. He seems to have intermittent periods where he seems to be confused and unable to respond appropriately. However then there are moments of lucidity when he is able to answer questions correctly.One could observe that he had some jerky/spasms of his upper and lower extremities. He denies any history of chest pain or shortness of breath. He denies any history of severe headaches. He denies any history of fever or chills. He denied any history to indicate seizures. He denies any history of abdominal pains or GI bleeds. He denies any history of skin lesions.Labs and medications were reviewed with him. His blood sugars were checked and was 111. His calcium was low at 7.1.Dialysis orders were reviewed with the treating dialysis nurse. Physical Exam Vital Signs: Temp Pulse Resp BP Pulse Ox 98.0 F 74 18 147/81 H 99 05/28/18 11:36 05/28/18 16:00 05/28/18 11:36 05/28/18 11:36 05/28/18 16:00 Intake & Output 05/27/18 05/28/18 05/29/18 06:59 06:59 06:59 Intake Total 1004 794 200 Output Total 3800 Balance -2796 794 200 Weight 83.1 kg 83.5 kg General appearance: PRESENT: no acute distress Eye exam: PRESENT: EOMI, PERRLA. ABSENT: nystagmus Mouth exam: PRESENT: neck supple. ABSENT: moist Neck exam: ABSENT: meningismus, tenderness, thyromegaly, tracheal deviation Respiratory exam: PRESENT: clear to auscultation merrill. ABSENT: crackles Cardiovascular exam: PRESENT: +S1, +S2, systolic murmur GI/Abdominal exam: PRESENT: normal bowel sounds, soft. ABSENT: distended, organomegaly, tenderness Extremities exam: ABSENT: calf tenderness, pedal edema Neurological exam: PRESENT: altered, oriented to person, CN II-XII grossly intact. ABSENT: motor sensory deficit Psychiatric exam: PRESENT: anxious Focused psych exam: ABSENT: catatonic, delusional, euphoric Skin exam: ABSENT: cyanosis, erythema, mottled, rash Results Laboratory Results: 05/28/18 05:40 05/28/18 05:40 05/28/18 05/28/18 05:40 05:40 WBC 2.1 L RBC 2.54 L Hgb 8.7 L Hct 26.1 L MCV 103 H MCH 34.2 H MCHC 33.3 RDW 17.7 H Plt Count 58 L Seg Neutrophils % Not Reportable Lymphocytes % Not Reportable Monocytes % Not Reportable Eosinophils % Not Reportable Basophils % Not Reportable Absolute Neutrophils Not Reportable Absolute Lymphocytes Not Reportable Absolute Monocytes Not Reportable Absolute Eosinophils Not Reportable Absolute Basophils Not Reportable Sodium 140.6 Potassium 3.5 L Chloride 102 Carbon Dioxide 24 Anion Gap 15 BUN 55 H Creatinine 8.79 H Est GFR ( Amer) 7 L Est GFR (Non-Af Amer) 6 L Glucose 89 Calcium 7.2 L 05/24/18 13:23 NT-Pro-B Natriuret Pep [id number] H Impressions: Chest X-Ray 05/24/18 12:00 IMPRESSION: Congestive heart failure with interstitial pulmonary edema. Assessment & Plan - Diagnosis (1) Acute respiratory failure with hypoxia Is this a current diagnosis for this admission?: Yes Plan: Improving.However given his altered mental status he might need to have his blood gas checked. Discussed with his treating nurse on the floor who will call the hospitalist. (2) ESRD (end stage renal disease) on dialysis Is this a current diagnosis for this admission?: Yes Plan: Patient currently undergoing dialysis without any issues. Even though he has moments of confusion he seems to be sitting steady and comfortable fashion with no acute distress or delirium. His nurse from the floor was called and we checked his blood sugars which was adequate. His calcium was low and therefore 1 g of IV calcium was ordered and administered immediately. Dialysis is being supervised to ensure safe and smooth procedure. Plan to remove it in 1-1.5 L of fluid as tolerated. Dialysis orders were reviewed with the treating dialysis nurse. (3) Hypertension Is this a current diagnosis for this admission?: Yes Plan: Lately controlled. Will monitor and titrate. See response to dialysis (4) Multiple myeloma in remission Is this a current diagnosis for this admission?: Yes Plan: As per heme oncologist.He has pancytopenia but it is encouraging to see that his white count is improving steadily. (5) Neutropenia Is this a current diagnosis for this admission?: Yes Plan: Improving. (6) Pulmonary edema Qualifiers: Chronicity: acute Qualified Code(s): J81.0 - Acute pulmonary edema Is this a current diagnosis for this admission?: Yes Plan: Resolved. (7) Hypocalcemia Plan: He was having jerking movements. Other than that could not obviously identify any evidences of tetany. Given him IV calcium and will follow that with p.o. calcium. Monitor.Will order PTH and calcium levels for the morning. - Time Time with patient: Greater than 35 minutes Medications reviewed and adjusted accordingly: Yes Disposition: Total time spent with this patient was approximately 40 minutes of which half the time was spent in counseling and coordinating care.
[2018-05-28] MEDS ORDERED: CARVEDILOL 6.25 MG TABLET ONE (17:59)
[2018-05-28] MEDS: OSELTAMIVIR PHOSPHATE 30 MG CAPSULE PO SCH (18:01)
[2018-05-28 19:12] LABS: ALANINE AMINOTRANSFERASE 23 U/L (21-72); ALBUMIN 4.1 g/dL (3.5-5.0); ALKALINE PHOSPHATASE 41 U/L (38-126); ANION GAP 12 (5-19); ASPARTATE AMINO TRANSFERASE 15 U/L (17-59); BILIRUBIN,DIRECT 0.4 mg/dL (0.0-0.4); BILIRUBIN,TOTAL 0.7 mg/dL (0.2-1.3); CALCIUM 8.5 mg/dL (8.4-10.2); CARBON DIOXIDE 31 mmol/L (22-30); CHLORIDE 99 mmol/L (98-107); GLUCOSE 133 mg/dL (75-110); PHOSPHORUS 2.3 mg/dL (2.5-4.5); POTASSIUM 3.6 mmol/L (3.6-5.0); SODIUM 141.6 mmol/L (137-145); TOTAL PROTEIN 6.1 g/dL (6.3-8.2)
[2018-05-28 19:44] LABS: BLOOD UREA NITROGEN 23 mg/dL (7-20)
[2018-05-28] MEDS: CALCIUM CARBONATE 250 MG/VITAMIN D3 125 UNIT TABLET PO SCH (20:34)
--- NOTE | 2018-05-28 21:31 | Progress Note ---
Provider Note Provider Note: Unfortunately due to an error on the part of this physician and encounter was not performed yesterday May 27, 2018.
--- NOTE | 2018-05-28 21:43 | PDOC PROGRESS REPORT ---
Subjective Progress Note for:: 05/28/18 Subjective:: The patient has been feeling poorly today. He was experiencing myoclonus before dialysis and it appears to have worsened. His daughter as well as the robotics technician report confusion. Reason For Visit: PNEUMONIA,PULM EDEMA, RESP FAILURE, FLU New myoclonus with altered mental status Physical Exam Vital Signs: Temp Pulse Resp BP Pulse Ox 98.0 F 74 18 147/81 H 99 05/28/18 11:36 05/28/18 16:00 05/28/18 11:36 05/28/18 11:36 05/28/18 16:00 Intake & Output 05/27/18 05/28/18 05/29/18 06:59 06:59 06:59 Intake Total 1004 794 200 Output Total 3800 2200 Balance -4356 794 -2000 Weight 83.1 kg 83.5 kg General appearance: PRESENT: cooperative, other - Marked myoclonus involving upper extremities, head and neck. Not involving lower extremities. Head exam: PRESENT: normocephalic Respiratory exam: PRESENT: decreased breath sounds - Difficult to assess with my oclonus., symmetrical, unlabored. ABSENT: rales, rhonchi, wheezes Cardiovascular exam: PRESENT: RRR, +S1, +S2 GI/Abdominal exam: PRESENT: normal bowel sounds, soft. ABSENT: tenderness Extremities exam: ABSENT: pedal edema Neurological exam: PRESENT: alert, awake, oriented to person, oriented to place Psychiatric exam: PRESENT: flat affect. ABSENT: agitated, anxious Focused psych exam: PRESENT: other - Exhibited memory loss Results Laboratory Results: 05/28/18 05:40 05/28/18 18:35 05/28/18 05/28/18 05/28/18 05:40 05:40 18:35 WBC 2.1 L RBC 2.54 L Hgb 8.7 L Hct 26.1 L MCV 103 H MCH 34.2 H MCHC 33.3 RDW 17.7 H Plt Count 58 L Seg Neutrophils % Not Reportable Lymphocytes % Not Reportable Monocytes % Not Reportable Eosinophils % Not Reportable Basophils % Not Reportable Absolute Neutrophils Not Reportable Absolute Lymphocytes Not Reportable Absolute Monocytes Not Reportable Absolute Eosinophils Not Reportable Absolute Basophils Not Reportable Sodium 140.6 141.6 Potassium 3.5 L 3.6 Chloride 102 99 Carbon Dioxide 24 31 H Anion Gap 15 12 BUN 55 H 23 H D Creatinine 8.79 H 4.76 H Est GFR ( Amer) 7 L 15 L Est GFR (Non-Af Amer) 6 L 12 L Glucose 89 133 H Calcium 7.2 L 8.5 Phosphorus 2.3 L Total Bilirubin 0.7 AST 15 L ALT 23 Alkaline Phosphatase 41 Total Protein 6.1 L Albumin 4.1 05/24/18 13:23 NT-Pro-B Natriuret Pep [id number] H Impressions: Chest X-Ray 05/24/18 12:00 IMPRESSION: Congestive heart failure with interstitial pulmonary edema. Assessment & Plan - Diagnosis (1) Myoclonus Is this a current diagnosis for this admission?: Yes Plan: This is a new finding that just started today. The patient completed hemodialysis on this seems to have gotten worse. There are no significant electrolyte abnormalities post dialysis. Per the package insert Tamiflu can cause delirium and seizure activity so this is a possibility. I will further investigate potential causes and reassess the patient in the morning. The patient's daughter was concerned and if there is no improvement would like us to transfer the patient to [facility]. I am going to stop the Tamiflu to see if it improves his current condition. (2) Influenza B Is this a current diagnosis for this admission?: Yes Plan: Please see above. Despite positive serology for influenza B I am going to hold the medicine to see if his new symptoms are related. (3) Acute diastolic (congestive) heart failure Is this a current diagnosis for this admission?: Yes Plan: Improved with hemodialysis. 2+ liters removed today with hemodialysis. (4) ESRD (end stage renal disease) on dialysis Is this a current diagnosis for this admission?: Yes (5) Hypertension Is this a current diagnosis for this admission?: Yes Plan: Still exhibiting higher systolic pressures than desired. If this persists consider change in medication. (6) Hypocalcemia Is this a current diagnosis for this admission?: Yes Plan: Improved/corrected with hemodialysis (7) Multiple myeloma in remission Is this a current diagnosis for this admission?: Yes Plan: Please see oncology consult note. - Time Time Spent with patient: 35 or more minutes Medications reviewed and adjusted accordingly: Yes
[2018-05-28] MEDS: CALCITRIOL 0.25 MCG CAPSULE PO SCH (21:51)
[2018-05-28] MEDS: LENALIDOMIDE 2.5 MG PO SCH (21:57)
[2018-05-28] MEDS: FAMOTIDINE 20 MG TABLET PO SCH (21:57)
[2018-05-28] MEDS: SIMVASTATIN 10 MG TABLET PO SCH (21:58)
[2018-05-29 03:31] LABS: HEMATOCRIT 30.9 % (37.9-51.0); HEMOGLOBIN 10.2 g/dL (13.5-17.0); MEAN CORPUSCULAR HEMOGLOBIN 33.9 pg (27.0-33.4); MEAN CORPUSCULAR HGB CONC 33.1 g/dL (32.0-36.0); MEAN CORPUSCULAR VOLUME 103 fl (80-97); RED BLOOD COUNT 3.01 10^6/uL (4.35-5.55); RED CELL DISTRIBUTION WIDTH 17.5 % (11.5-14.0); WHITE BLOOD COUNT 2.5 10^3/uL (4.0-10.5)
[2018-05-29 03:39] LABS: ALBUMIN 4.2 g/dL (3.5-5.0); ANION GAP 14 (5-19); BLOOD UREA NITROGEN 28 mg/dL (7-20); CALCIUM 8.6 mg/dL (8.4-10.2); CARBON DIOXIDE 29 mmol/L (22-30); CHLORIDE 101 mmol/L (98-107); GLUCOSE 109 mg/dL (75-110); PHOSPHORUS 3.3 mg/dL (2.5-4.5); POTASSIUM 3.7 mmol/L (3.6-5.0); SODIUM 144.3 mmol/L (137-145)
[2018-05-29 04:03] LABS: PLATELET COUNT 84 10^3/uL (150-450)
[2018-05-29 04:04] LABS: ABSOLUTE LYMPHOCYTES# (MANUAL) 0.9 10^3/uL (0.5-4.7); ABSOLUTE MONOCYTES # (MANUAL) 0.5 10^3/uL (0.1-1.4); ABSOLUTE NEUTROPHILS# (MANUAL) 0.9 10^3/uL (1.7-8.2); ANISOCYTOSIS 2+; BASOPHILS % (MANUAL) 1 % (0-2); EOSINOPHILS % (MANUAL) 10 % (0-6); LYMPHOCYTES % (MANUAL) 36 % (13-45); MONOCYTES % (MANUAL) 18 % (3-13); OVALOCYTES SLIGHT; PLATELET COMMENT DECREASED; SEGMENTED NEUTROPHILS % (MAN) 35 % (42-78); TOTAL CELLS COUNTED 100
[2018-05-29] MEDS ORDERED: LORAZEPAM INJ 2 MG/1 ML VIAL IV PRN (04:29)
[2018-05-29] MEDS: CARVEDILOL 12.5 MG TABLET PO SCH ×2 (06:03→18:35)
[2018-05-29] MEDS: LEVALBUTEROL HCL NEB 1.25 MG/3 ML AMPUL NEB SCH ×2 (08:15→16:12)
--- NOTE | 2018-05-29 09:49 | RADIOLOGY REPORT (SQ) ---
EXAM DESCRIPTION: CHEST SINGLE VIEW COMPLETED DATE/TIME: 05/29/2018 9:28 am REASON FOR STUDY: Congestive heart failure COMPARISON: Chest films 05/24/2018, 03/14/2018 EXAM PARAMETERS: NUMBER OF VIEWS: One view. TECHNIQUE: Single frontal radiographic view of the chest acquired. RADIATION DOSE: NA LIMITATIONS: None. FINDINGS: LUNGS AND PLEURA: Partial clearing of the alveolar/interstitial edema pattern seen 9. Minimal residual infiltrate in the periphery of the right upper lobe. No pleural effusions. No pneumothorax. MEDIASTINUM AND HILAR STRUCTURES: No masses. Contour normal. HEART AND VASCULAR STRUCTURES: Stable mild cardiomegaly BONES: No acute findings. HARDWARE: None in the chest. OTHER: No other significant finding. IMPRESSION: Partial clearing of the alveolar/interstitial edema pattern seen 05/24/2018. Minimal residual infiltrate in the periphery of the right upper lobe TECHNICAL DOCUMENTATION: JOB ID: [id number] [employer]- All Rights Reserved Reading location - IP/workstation name: [email or web address]
[2018-05-29] MEDS ORDERED: CEFEPIME 1 GM/D5W RTU 1 GM/50 ML RTUPB IV SCH ×2 (10:00→18:00)
[2018-05-29] MEDS ORDERED: CLONAZEPAM 1 MG TABLET PO PRN (10:44)
[2018-05-29] MEDS: ASPIRIN 81 MG TABLET, CHEWABLE PO SCH (11:00)
[2018-05-29] MEDS: CALCITRIOL 0.25 MCG CAPSULE PO SCH (11:01)
[2018-05-29] MEDS: FUROSEMIDE 20 MG TABLET PO SCH (11:01)
[2018-05-29] MEDS: CALCIUM CARBONATE 250 MG/VITAMIN D3 125 UNIT TABLET PO SCH ×2 (11:01→18:35)
[2018-05-29] MEDS: TAMSULOSIN HCL 0.4 MG CAP.SR.24H PO SCH (11:01)
--- NOTE | 2018-05-29 13:28 | RADIOLOGY REPORT (SQ) ---
EXAM DESCRIPTION: CT HEAD WITHOUT COMPLETED DATE/TIME: 05/29/2018 11:18 am REASON FOR STUDY: New onset myoclonus COMPARISON: None. TECHNIQUE: Axial images acquired through the brain without intravenous contrast. Images reviewed wi th bone, brain and subdural windows. Additional sagittal and coronal reconstructions were generated. Images stored on PACS. All CT scanners at this facility use dose modulation, iterative reconstruction, and/or weight based d osing when appropriate to reduce radiation dose to as low as reasonably achievable (ALARA). [facility]: Dose Right [facility]: CareDose [facility]: Dose Right [facility]: Teradose 4D [facility]: Vascular Closure RADIATION DOSE: CT Rad equipment meets quality standard of care and radiation dose reduction techniq ues were employed. CTDIvol: 48.6 mGy. DLP: 904 mGy-cm. mGy. LIMITATIONS: None. FINDINGS: VENTRICLES: Normal size and contour. CEREBRUM: There is diffuse low attenuation throughout the bifrontal, biparietal and bitemporal white matter. Differential is chronic small vessel ischemic change versus acute leukoencephalopathy. Ther e is no effacement of the sylvian fissures or sulci over the convexities. Normal hernandez/white matter di fferentiation. Findings discussed with Dr. stan contreras CEREBELLUM: No masses. No hemorrhage. No alteration of density. No evidence for acute infarction. EXTRAAXIAL SPACES: No fluid collections. No masses. ORBITS AND GLOBE: No intra- or extraconal masses. Normal contour of globe without masses. CALVARIUM: No fracture. PARANASAL SINUSES: Diffuse inflammatory change with air-fluid levels in the right maxillary, bilatera l ethmoid, and left frontal sinus SOFT TISSUES: No mass or hematoma. OTHER: No other significant finding. IMPRESSION: Diffuse hemispheric low attenuation in the white matter without mass effect or acute hem orrhage. Differential is acute on chronic white matter disease from toxic or metabolic encephalopath y. EVIDENCE OF ACUTE STROKE: NO. COMMENT: Quality ID # [id number]: Final reports with documentation of one or more dose reduction techniques (e.g., Automated exposure control, adjustment of the mA and/or kV according to patient size, use of iterative reconstruction technique) TECHNICAL DOCUMENTATION: JOB ID: [id number] [employer]- All Rights Reserved Reading location - IP/workstation name: [email or web address], [facility]
[2018-05-29] MEDS ORDERED: CLONAZEPAM 1 MG TABLET PO ONE (18:00)
[2018-05-29] MEDS: FAMOTIDINE 20 MG TABLET PO SCH (21:22)
[2018-05-29] MEDS: SIMVASTATIN 10 MG TABLET PO SCH (21:22)
[2018-05-29] MEDS: LENALIDOMIDE 2.5 MG PO SCH (21:22)
--- NOTE | 2018-05-29 22:11 | PDOC PROGRESS REPORT ---
Subjective Progress Note for:: 05/29/18 Subjective:: Feels better today. Reports no myoclonus. Reason For Visit: Myoclonus End-stage kidney disease Physical Exam Vital Signs: Temp Pulse Resp BP Pulse Ox 98.8 F 81 15 147/111 H 100 05/29/18 19:13 05/29/18 19:13 05/29/18 19:13 05/29/18 19:13 05/29/18 19:13 Intake & Output 05/28/18 05/29/18 05/30/18 06:59 06:59 06:59 Intake Total 794 250 600 Output Total 2200 Balance 794 -1950 600 Weight 83.5 kg 81.5 kg 81.5 kg General appearance: PRESENT: no acute distress, cooperative Respiratory exam: PRESENT: clear to auscultation merrill. ABSENT: rales, rhonchi, wheezes Cardiovascular exam: PRESENT: RRR, +S1, +S2 GI/Abdominal exam: PRESENT: normal bowel sounds, soft. ABSENT: tenderness Neurological exam: PRESENT: alert, awake, oriented to person, oriented to place, oriented to situation, other - Occasional fasciculations noted but no myoclonus during this encounter. The patient in fact is more alert and conversant. Psychiatric exam: PRESENT: appropriate affect, normal mood. ABSENT: agitated, anxious Results Laboratory Results: 05/29/18 03:18 05/29/18 03:18 05/29/18 05/29/18 05/29/18 03:18 03:18 03:18 WBC 2.5 L RBC 3.01 L Hgb 10.2 L Hct 30.9 L MCV 103 H MCH 33.9 H MCHC 33.1 RDW 17.5 H Plt Count 84 L Seg Neutrophils % Not Reportable Lymphocytes % Not Reportable Monocytes % Not Reportable Eosinophils % Not Reportable Basophils % Not Reportable Absolute Neutrophils Not Reportable Absolute Lymphocytes Not Reportable Absolute Monocytes Not Reportable Absolute Eosinophils Not Reportable Absolute Basophils Not Reportable Sodium 144.3 Potassium 3.7 Chloride 101 Carbon Dioxide 29 Anion Gap 14 BUN 28 H Creatinine 6.20 H Est GFR ( Amer) 11 L Est GFR (Non-Af Amer) 9 L Glucose 109 Calcium 8.6 Phosphorus 3.3 Magnesium Albumin 4.2 PTH Intact 446.6 H 05/29/18 03:18 WBC RBC Hgb Hct MCV MCH MCHC RDW Plt Count Seg Neutrophils % Lymphocytes % Monocytes % Eosinophils % Basophils % Absolute Neutrophils Absolute Lymphocytes Absolute Monocytes Absolute Eosinophils Absolute Basophils Sodium Potassium Chloride Carbon Dioxide Anion Gap BUN Creatinine Est GFR ( Amer) Est GFR (Non-Af Amer) Glucose Calcium Phosphorus Magnesium 1.9 Albumin PTH Intact 05/24/18 16:50 Blood Blood Culture - Final NO GROWTH IN 5 DAYS 05/24/18 13:23 Blood Blood Culture - Final NO GROWTH IN 5 DAYS 05/24/18 13:23 NT-Pro-B Natriuret Pep [id number] H Impressions: Head CT 05/29/18 00:00 IMPRESSION: Diffuse hemispheric low attenuation in the white matter without mass effect or acute hemorrhage. Differential is acute on chronic white matter disease from toxic or metabolic encephalopathy. EVIDENCE OF ACUTE STROKE: NO. Chest X-Ray 05/29/18 06:00 IMPRESSION: Partial clearing of the alveolar/interstitial edema pattern seen 05/24/2018. Minimal residual infiltrate in the periphery of the right upper lobe Assessment & Plan - Diagnosis (1) Myoclonus Is this a current diagnosis for this admission?: Yes Plan: Started on scheduled clonazepam. Significant improvement. Will review CT scan and EEG results that have been obtained. It is explained that the Tamiflu could certainly be responsible. I have discontinued the Tamiflu. (2) Influenza B Is this a current diagnosis for this admission?: Yes Plan: Significantly improved. Tamiflu discontinued for possible adverse effect. (3) Acute diastolic (congestive) heart failure Is this a current diagnosis for this admission?: Yes (4) ESRD (end stage renal disease) on dialysis Is this a current diagnosis for this admission?: Yes Plan: Hemodialysis tomorrow (5) Hypertension Is this a current diagnosis for this admission?: Yes (6) Hypocalcemia Is this a current diagnosis for this admission?: Yes (7) Multiple myeloma in remission Is this a current diagnosis for this admission?: Yes Plan: No elevated proteins or globulin. - Time Time Spent with patient: 15-24 minutes Medications reviewed and adjusted accordingly: Yes Anticipated discharge: Home
[2018-05-29] MEDS: CLONAZEPAM 1 MG TABLET PO SCH (23:19)
[2018-05-30] MEDS: LEVALBUTEROL HCL NEB 1.25 MG/3 ML AMPUL NEB SCH ×3 (00:51→16:16)
[2018-05-30] MEDS ORDERED: EPOETIN ALFA INJ 20000 UNIT/1 ML VIAL (RENAL) IV PRN (05:00)
[2018-05-30] MEDS: CLONAZEPAM 1 MG TABLET PO SCH ×3 (05:44→21:25)
[2018-05-30] MEDS: CARVEDILOL 12.5 MG TABLET PO SCH ×2 (05:44→17:25)
--- NOTE | 2018-05-30 09:00 | EEG PRO FEE REPORT ---
EEG INTERPRETATION PATIENT NAME: NO VALDEZ ROOM#: [id number] ORDER#: [id number] DATE OF STUDY: 05/29/2018 : 1950 REFERRING MD: DIANNA whtiley MD MEDICATIONS: Tylenol, Aspirin, calcitriol, Klonopin, Pepcid, furosemide, Robitussin, hydralazine, Xopenex nebulizer, Zocor, Flomax, Lenalidomide History This is a 67 year old right handed man with a history of hypertension, end stage renal disease, lung cancer, dialysis, benign prostatic hypertrophy, admitted with influenza B and respiratory distress. This EEG was requested for new onset myoclonus. EEG Interpretation This EEG was recorded in the awake and drowsy states. State changes however were not easily discernable. The EEG is characterized by a disorganized background without a specific posterior dominant rhythm but with briefly noted 5 Hz posterior rhythm. The remainder of the background consisted of a mix of delta with theta and some alpha. There was frequent intermittent polymorphic delta slowing. There was significant artifact with electrode popping, impairing interpretation. Photic stimulation resulted in no significant changes. There were frequent sharply contoured wave forms independently in the left and right central-parietal regions that tended to wax and wane. There was no clear periodicity nor evolution. There were episodes of shaking and twitching without a noted EEG correlation. There were no clear epileptiform discharges. The EKG showed a regular rhythm. EEG Classification 1. Generalized background slowing 2. Disorganization 3. Intermittent polymorphic delta slowing 4. Artifact impairing interpretation EEG Impression This EEG is abnormal. It is consistent with diffuse cerebral dysfunction. There were sharply contoured wave forms without clear periodicity nor evolution and no definite epileptiform discharges. Shaking had no EEG correlation. Artifact impaired interpretation. INTERPRETING PHYSICIAN: MCKAYLA MCKINNEY M.D. /: JOSE R TT: [id number] ID: [id number] /: [id number] TD: [id number] JOB: [id number] cc:Frantz RAVI M.D. ENRICO versace, MD > [facility]
[2018-05-30] MEDS ORDERED: EPOETIN ALFA 10,000 UNIT in SYRINGE, DISPOSABLE, 1 EACH IV PRN (09:20)
[2018-05-30] MEDS: FUROSEMIDE 20 MG TABLET PO SCH (12:11)
[2018-05-30] MEDS: CALCIUM CARBONATE 250 MG/VITAMIN D3 125 UNIT TABLET PO SCH ×2 (12:11→17:25)
[2018-05-30] MEDS: ASPIRIN 81 MG TABLET, CHEWABLE PO SCH (12:11)
[2018-05-30] MEDS: TAMSULOSIN HCL 0.4 MG CAP.SR.24H PO SCH (12:11)
[2018-05-30] MEDS: CALCITRIOL 0.25 MCG CAPSULE PO SCH (12:12)
--- NOTE | 2018-05-30 20:50 | PDOC PROGRESS REPORT ---
Subjective Progress Note for:: 05/30/18 Subjective:: Patient being seen on dialysis. He is undergoing dialysis without any issues. Is being supervised to ensure safe and smooth procedure. Dialysis orders reviewed with the treating nurse. Currently patient claims to be feeling much better. He is no longer having any abnormal movements. He also claims to be mentally more improved. Reason For Visit: PNEUMONIA,PULM EDEMA, RESP FAILURE, FLU Physical Exam Vital Signs: Temp Pulse Resp BP Pulse Ox 97.9 F 72 14 156/64 H 100 05/30/18 07:56 05/30/18 07:58 05/30/18 07:58 05/30/18 07:56 05/30/18 07:58 Intake & Output 05/29/18 05/30/18 05/31/18 06:59 06:59 06:59 Intake Total 250 600 Output Total 2200 Balance -1950 600 Weight 81.5 kg 81.9 kg General appearance: PRESENT: no acute distress, well-developed, well-nourished Mouth exam: PRESENT: moist, neck supple Neck exam: ABSENT: JVD, tracheal deviation Respiratory exam: PRESENT: rhonchi. ABSENT: clear to auscultation merrill, crackl es, rales, wheezes Cardiovascular exam: PRESENT: +S1, +S2, systolic murmur GI/Abdominal exam: PRESENT: normal bowel sounds, soft. ABSENT: distended, organomegaly, tenderness Extremities exam: ABSENT: tenderness, +1 edema, +2 edema Musculoskeletal exam: PRESENT: normal inspection. ABSENT: tenderness Neurological exam: PRESENT: alert, awake, oriented to person, oriented to place, oriented to time, oriented to situation Skin exam: PRESENT: dry, intact, warm. ABSENT: cyanosis Results Laboratory Results: 05/29/18 03:18 05/29/18 03:18 05/24/18 16:50 Blood Blood Culture - Final NO GROWTH IN 5 DAYS 05/24/18 13:23 Blood Blood Culture - Final NO GROWTH IN 5 DAYS 05/24/18 13:23 NT-Pro-B Natriuret Pep [id number] H Impressions: Head CT 05/29/18 00:00 IMPRESSION: Diffuse hemispheric low attenuation in the white matter without mass effect or acute hemorrhage. Differential is acute on chronic white matter disease from toxic or metabolic encephalopathy. EVIDENCE OF ACUTE STROKE: NO. Chest X-Ray 05/29/18 06:00 IMPRESSION: Partial clearing of the alveolar/interstitial edema pattern seen 05/24/2018. Minimal residual infiltrate in the periphery of the right upper lobe Assessment & Plan - Diagnosis (1) ESRD (end stage renal disease) on dialysis Is this a current diagnosis for this admission?: Yes Plan: Patient being seen on dialysis. He is undergoing dialysis without any issues. Is being supervised to ensure safe and smooth procedure. Dialysis orders reviewed with the treating nurse. Looking to remove 2L of fluid (2) Acute diastolic (congestive) heart failure Is this a current diagnosis for this admission?: Yes Plan: Looks to be stable (3) Bilateral leg edema Is this a current diagnosis for this admission?: Yes Plan: none seen anymore (4) Hypertension Is this a current diagnosis for this admission?: Yes Plan: will reassess once more fluid is removed during dialysis. (5) Hypocalcemia Is this a current diagnosis for this admission?: Yes Plan: improved on supplements (6) Myoclonus Is this a current diagnosis for this admission?: Yes Plan: currently resolved (7) Anemia in ESRD (end-stage renal disease) Plan: currently receiving procrit with dialysis. (8) Renal osteodystrophy Plan: currently stable (9) Multiple myeloma in remission Is this a current diagnosis for this admission?: Yes Plan: per hem-onc (10) Neutropenia Is this a current diagnosis for this admission?: Yes Plan: improving
[2018-05-30] MEDS: FAMOTIDINE 20 MG TABLET PO SCH (21:25)
[2018-05-30] MEDS: SIMVASTATIN 10 MG TABLET PO SCH (21:25)
[2018-05-30] MEDS: LENALIDOMIDE 2.5 MG PO SCH (21:26)
[2018-05-31] MEDS: LEVALBUTEROL HCL NEB 1.25 MG/3 ML AMPUL NEB SCH ×2 (00:21→08:36)
--- NOTE | 2018-05-31 05:07 | PDOC PROGRESS REPORT ---
Subjective Progress Note for:: 05/30/18 Subjective:: No myoclonus Reason For Visit: PNEUMONIA,PULM EDEMA, RESP FAILURE, FLU Physical Exam Vital Signs: Temp Pulse Resp BP Pulse Ox 98.7 F 76 16 131/86 H 98 05/31/18 00:00 05/31/18 02:00 05/31/18 00:23 05/31/18 00:00 05/31/18 00:23 Intake & Output 05/29/18 05/30/18 05/31/18 06:59 06:59 06:59 Intake Total 250 600 266.5 Output Total 2200 1800 Balance -1950 600 -1533.5 Weight 81.5 kg 81.9 kg General appearance: PRESENT: no acute distress, cooperative Respiratory exam: PRESENT: clear to auscultation merrill, rales, rhonchi, wheezes Cardiovascular exam: PRESENT: RRR, +S1, +S2 GI/Abdominal exam: PRESENT: normal bowel sounds, soft. ABSENT: tenderness Neurological exam: PRESENT: alert, awake, oriented to person, oriented to place, oriented to situation, other - No tremor or myoclonus noted Psychiatric exam: PRESENT: normal mood Results Laboratory Results: 05/29/18 03:18 05/29/18 03:18 05/24/18 13:23 NT-Pro-B Natriuret Pep [id number] H Impressions: Head CT 05/29/18 00:00 IMPRESSION: Diffuse hemispheric low attenuation in the white matter without mass effect or acute hemorrhage. Differential is acute on chronic white matter disease from toxic or metabolic encephalopathy. EVIDENCE OF ACUTE STROKE: NO. Chest X-Ray 05/29/18 06:00 IMPRESSION: Partial clearing of the alveolar/interstitial edema pattern seen 05/24/2018. Minimal residual infiltrate in the periphery of the right upper lobe Assessment & Plan - Diagnosis (1) Myoclonus Is this a current diagnosis for this admission?: Yes Plan: Responding to Klonopin. We will need follow-up with neurology as an outpatient. I did discuss the case with his oncologist regarding medications that can cause leukoencephalopathy. It is certainly possible. (2) Influenza B Is this a current diagnosis for this admission?: Yes Plan: Asymptomatic. (3) Acute diastolic (congestive) heart failure Is this a current diagnosis for this admission?: Yes (4) ESRD (end stage renal disease) on dialysis Is this a current diagnosis for this admission?: Yes (5) Hypertension Is this a current diagnosis for this admission?: Yes (6) Hypocalcemia Is this a current diagnosis for this admission?: Yes (7) Multiple myeloma in remission Is this a current diagnosis for this admission?: Yes - Time Time Spent with patient: Less than 15 minutes Medications reviewed and adjusted accordingly: Yes Anticipated discharge: Home
[2018-05-31] MEDS: CLONAZEPAM 1 MG TABLET PO SCH (06:39)
[2018-05-31] MEDS: CARVEDILOL 12.5 MG TABLET PO SCH (06:39)
[2018-05-31] MEDS: TAMSULOSIN HCL 0.4 MG CAP.SR.24H PO SCH (10:55)
[2018-05-31] MEDS: CALCIUM CARBONATE 250 MG/VITAMIN D3 125 UNIT TABLET PO SCH (10:55)
[2018-05-31] MEDS: ASPIRIN 81 MG TABLET, CHEWABLE PO SCH (10:55)
[2018-05-31] MEDS: CALCITRIOL 0.25 MCG CAPSULE PO SCH (10:56)
[2018-05-31] MEDS: FUROSEMIDE 20 MG TABLET PO SCH (10:56)
--- NOTE | 2018-05-31 12:31 | PDOC DISCHARGE SUMMARY ---
General - Admit/Disc Date/PCP Admission Date/Primary Care Provider: 05/24/18 17:10 Discharge Date: 05/31/18 - Discharge Diagnosis (1) Myoclonus Is this a current diagnosis for this admission?: Yes Summary: The patient developed new myoclonus earlier this week. Workup revealed an a bnormal EEG as well as an abnormal CT scan. Review of the literature suggested multiple etiologies. The patient has responded to clonazepam 0.5 mg 3 times a day. This has suppressed the myoclonus completely. The patient does need to follow-up with neurology. Efforts to schedule an appointment at [facility] were underway. (2) Influenza B Is this a current diagnosis for this admission?: Yes Summary: The Tamiflu was discontinued as the myoclonus could have been part of the side effect profile. The patient is completely asymptomatic. (3) Acute diastolic (congestive) heart failure Is this a current diagnosis for this admission?: Yes Summary: Return to previous medication regimen with the addition of furosemide 20 mg once daily. Fluid management also by hemodialysis. (4) ESRD (end stage renal disease) on dialysis Is this a current diagnosis for this admission?: Yes Summary: Returned to normal outpatient hemodialysis schedule. (5) Hypertension Is this a current diagnosis for this admission?: Yes Summary: Return to previous medication regimen with the addition of furosemide 20 mg daily. (6) Hypocalcemia Is this a current diagnosis for this admission?: Yes Summary: Resolved (7) Multiple myeloma in remission Is this a current diagnosis for this admission?: Yes Summary: Return to use of Revlimid. Follow-up with Dr. Batista. - Additional Information Resuscitation Status: Full Code Discharge Diet: Other (Comments) - Renal Discharge Activity: Activity As Tolerated, Balance Activity w/Rest, Weigh Daily Prescriptions: Calcitriol [Rocaltrol 0.25 mcg Capsule] 0.25 mcg PO DAILY 30 Days #30 capsule Clonazepam [Klonopin 1 mg Tablet] 0.5 mg PO Q8 30 Days #90 tablet Furosemide [Lasix 20 mg Tablet] 20 mg PO DAILY 30 Days #30 tablet Home Medications: Aspirin [Aspirin 81 mg Chewable Tablet] 81 mg PO DAILY 05/25/18 Calcium Carbonate/Vitamin D3 [Os-Abraham 500-Vit D3 200 Caplet] 1 tab PO BIDBS 05/25/18 Carvedilol [Coreg 25 mg Tablet] 1 tab PO Q12 05/25/18 Lenalidomide [Revlimid] 2.5 mg PO QHS 05/25/18 Polyethylene Glycol 3350 [Miralax Powder 17 gm/Packet] 1 packet PO DAILYP PRN 05/25/18 Tamsulosin HCl [Flomax 0.4 mg Cap.sr] 0.4 mg PO DAILY 05/25/18 Valacyclovir HCl [Valtrex 500 mg Tablet] 500 mg PO DAILY 05/25/18 Calcitriol [Rocaltrol 0.25 mcg Capsule] 0.25 mcg PO DAILY 30 Days #30 capsule 05/31/18 Calcium Carbonate/Vitamin D3 [Os-Abraham 250 mg with Vitamin D 125 Units] 1 tab PO BID tablet 05/31/18 Clonazepam [Klonopin 1 mg Tablet] 0.5 mg PO Q8 30 Days #90 tablet 05/31/18 Furosemide [Lasix 20 mg Tablet] 20 mg PO DAILY 30 Days #30 tablet 05/31/18 Simvastatin [Zocor 10 mg Tablet] 20 mg PO QHS tablet 05/31/18 Tamsulosin HCl [Flomax 0.4 mg Cap.sr] 0.4 mg PO DAILY cap.sr.24h 05/31/18 History of Present Illness Patient complains of: Upper respiratory symptoms History of Present Illness: NO VALDEZ is a 67 year old male who presented to the emergency department on May 24 with complaints of shortness of breath and cough for 3-4 days. He denied fever but was having chills. Cough is worse when laying down. In the emergency department he was found to be positive for influenza type B. He was referred to the hospitalist service for admission. Hospital Course Hospital Course: In addition to the diagnosis of influenza, chest x-ray revealed signs of pulmonary vascular congestion with small pleural effusion. The patient will continue hemodialysis as an inpatient. Because he still makes urine a small dose of furosemide was added. The patient was doing well until 4 days ago when he began to exhibit marked myoclonus. I discontinued the Tamiflu in the event that this was a potential side effect. I did obtain an EEG and CT scan. Both had abnormal results. Clonazepam 0.5 mg 3 times a day was initiated and this suppressed the myoclonus. The failure and influenza have resolved. The patient will be discharged home and follow-up with Dr. Batista for the multiple myeloma, Dr. Evans for his hemodialysis and neurology at [facility]. He should also continue with his primary care physician. Physical Exam Vital Signs: Temp Pulse Resp BP Pulse Ox 97.6 F 77 17 142/83 H 98 05/31/18 08:00 05/31/18 08:36 05/31/18 08:36 05/31/18 08:00 05/31/18 08:36 Intake & Output 05/30/18 05/31/18 06/01/18 06:59 06:59 06:59 Intake Total 600 266.5 237 Output Total 1800 Balance 600 -1533.5 237 Weight 81.9 kg 82.2 kg General appearance: PRESENT: no acute distress, cooperative Respiratory exam: PRESENT: clear to auscultation merrill, symmetrical, unlabored. ABSENT: rales, rhonchi, wheezes Cardiovascular exam: PRESENT: RRR, +S1, +S2 GI/Abdominal exam: PRESENT: normal bowel sounds, soft. ABSENT: tenderness Neurological exam: PRESENT: alert, awake, oriented to person, oriented to place, oriented to situation Psychiatric exam: PRESENT: normal mood. ABSENT: agitated, anxious Results Laboratory Results: 05/29/18 03:18 05/29/18 03:18 05/24/18 13:23 NT-Pro-B Natriuret Pep 27569 H Impressions: Head CT 05/29/18 00:00 IMPRESSION: Diffuse hemispheric low attenuation in the white matter without mass effect or acute hemorrhage. Differential is acute on chronic white matter disease from toxic or metabolic encephalopathy. EVIDENCE OF ACUTE STROKE: NO. Chest X-Ray 05/29/18 06:00 IMPRESSION: Partial clearing of the alveolar/interstitial edema pattern seen 05/24/2018. Minimal residual infiltrate in the periphery of the right upper lobe Qualifiers - * PATIENT BEING DISCHARGED WITH ANY OF THE FOLLOWING DIAGNOSIS: No Plan Time Spent: Greater than 30 Minutes
[2018-05-31 13:04] VITALS: BP 142/83
== END 2018-05-31 13:45 | disposition home or self-care (01) | DRG 152 ==
LOC: ER 11:29 → EH 17:10 → 4N 18:30
PROVIDERS: ADMIT Internal Medicine; ATTEND Internal Medicine
PROC: 5A1D70Z Performance of Urinary Filtration, Intermittent, Less than 6 Hours Per Day (ICD-10-PCS; principal; 2018-05-26)
DX: J11.1 Influenza due to unidentified influenza virus with other respiratory manifestations (principal); J96.01 Acute respiratory failure with hypoxia; N18.6 End stage renal disease; J81.0 Acute pulmonary edema; I50.31 Acute diastolic (congestive) heart failure; C90.01 Multiple myeloma in remission; I13.2 Hypertensive heart and chronic kidney disease with heart failure and with stage 5 chronic kidney disease, or end stage renal disease; E83.51 Hypocalcemia; G25.3 Myoclonus; D63.1 Anemia in chronic kidney disease; D70.9 Neutropenia, unspecified; D69.6 Thrombocytopenia, unspecified; Z99.2 Dependence on renal dialysis; Z87.891 Personal history of nicotine dependence
CPT/HCPCS: 36415; 70450; 71045; 71046; 80048; 80053; 80069; 80076; 81001; 82803; 82962; 83605; 83735; 83880; 83970; 85025; 87040; 87086; 87804; 93005; 93010; 93306; 94640; 94799; 95819; 96365; 99291; J0360; J0610; J0692; J1940; J2060; J3370; J3490; J7060; J7620; Q4081

== ENCOUNTER 2019-10-19 22:20 | Emergency (ER) | payer MEDICARE, OTHER ==
[2019-10-19] MEDS ORDERED: ACETAMINOPHEN 325 MG TABLET PO ONE (22:43)
--- NOTE | 2019-10-19 23:31 | RADIOLOGY REPORT (SQ) ---
EXAM DESCRIPTION: XR CHEST 1 VIEW COMPLETED DATE/TME: 10/19/2019 22:43 CLINICAL HISTORY: 68 years, Male, fever, leukemia, active chemo COMPARISON: Prior chest radiograph from 05/29/2018 NUMBER OF VIEWS: One TECHNIQUE: Single frontal view of the chest was obtained portably LIMITATIONS: None. FINDINGS: Cardiac and mediastinal contours are stable. Lungs are clear. No pleural effusion or pneumothorax. IMPRESSION: No acute disease. copyright 2010 [employer]- All Rights Reserved
[2019-10-20] MEDS ORDERED: PIPERACILLIN/TAZOBACTAM 3.375 GM VIAL IV ONE (00:02)
[2019-10-20] MEDS ORDERED: VANCOMYCIN HCL INJ 1000 MG VIAL IV ONE (00:02)
--- NOTE | 2019-10-20 00:23 | ER Document Report ---
Entered by TAO ARAUJO SCRIBE 10/19/19 0848 Acting as scribe for:VENTURA KLINE DO ED Fever - General Chief Complaint: Fever Stated Complaint: FEVER Time Seen by Provider: 10/19/19 22:40 Mode of Arrival: Wheelchair Information source: Patient Notes: This 68 year old male patient with a history of multiple myeloma, leukemia currently receiving chemotherapy at [facility], ESRD on dialysis (MWF) and HTN presents to the ED today with complaints of fever that that started prior to arrival. Patient states that his daughter has been serving as his family member caretaker and took his temperature [employer]MBAL[employer], which was elevated. He states that his last chemotherapy treatment was x3 days ago and was dialyzed today. He reports that other than some mild lower abdominal pain from the shots r/t chemo, he feels fine. Denies chest pain, shortness of breath, cough, or sick contacts. TRAVEL OUTSIDE OF THE [place] IN LAST 30 DAYS: No - Related Data Allergies/Adverse Reactions: No Known Allergies Allergy (Verified 03/14/18 12:23) Home Medications: pt has all pill bottles w/him Past Medical History - General Information source: Patient, [facility] Records - Social History Smoking Status: Former Smoker Cigarette use (# per day): No Chew tobacco use (# tins/day): No Smoking Education Provided: No Lives with: Family Family History: Reviewed & Not Pertinent Patient has suicidal ideation: No Patient has homicidal ideation: No - Past Medical History Cardiac Medical History: Reports: Hx Hypertension Renal/ Medical History: Reports: Hx Benign Prostatic Hyperplasia, Hx End Stage Renal Disease, Hx Hemodialysis Malignancy Medical History: Reports Hx Leukemia, Reports Other - Hx Multiple Myeloma - Immunizations Hx Diphtheria, Pertussis, Tetanus Vaccination: Yes Review of Systems - Review of Systems Constitutional: See HPI, Fever EENT: No symptoms reported Cardiovascular: See HPI. denies: Chest pain Respiratory: See HPI. denies: Cough, Short of breath Gastrointestinal: See HPI, Abdominal pain Genitourinary: No symptoms reported Male Genitourinary: No symptoms reported Musculoskeletal: No symptoms reported Skin: No symptoms reported Hematologic/Lymphatic: No symptoms reported Neurological/Psychological: No symptoms reported -: Yes All other systems reviewed and negative Physical Exam - Vital signs Vitals: Temp Pulse Resp BP Pulse Ox 101.9 F H 119 H 18 120/66 96 10/19/19 22:37 10/19/19 22:37 10/19/19 22:37 10/19/19 22:37 10/19/19 22:37 - General General appearance: Alert In distress: None - HEENT Head: Normocephalic, Atraumatic Eyes: Normal Pupils: PERRL Mouth/Lips: Other - Poor dentition - Respiratory Respiratory status: No respiratory distress Chest status: Nontender Breath sounds: Normal Chest palpation: Normal - Cardiovascular Rhythm: Regular Heart sounds: Normal auscultation Murmur: No Friction rub: No Gallop: None auscultated - Abdominal Inspection: Other - 4 cm area of erythema that is warm and tender noted to right lower abdomen, appearance which is consistent with cellulitis Distension: No distension Bowel sounds: Normal Tenderness: Tender - Tenderness to palpation of lower abdomen Organomegaly: No organomegaly - Back Back: Normal, Nontender - Extremities General upper extremity: Other - LUE AV fistula General lower extremity: Normal inspection. No: Edema - Neurological Neuro grossly intact: Yes Cognition: Normal Orientation: AAOx4 Hershey Coma Scale Eye Opening: Spontaneous Roselyn Coma Scale Verbal: Oriented Hershey Coma Scale Motor: Obeys Commands Hershey Coma Scale Total: 15 Speech: Normal Motor strength normal: LUE, RUE, LLE, RLE Sensory: Normal - Psychological Associated symptoms: Normal affect, Normal mood - Skin Skin Temperature: Warm Skin Moisture: Dry Skin Color: Normal Course - Re-evaluation Re-evalutation: 10/20/19 02:50 MDM 68 year old male with multiple myeloma and acute leukemia and a [facility] pt. 400 WBC and 44 neutrophils. I have discussed the pt with Dr. Brannon - Heme oncology at [facility] - and the pt was cared for by a nurse at [facility] that was covid +. For this reason [facility] will only be able to accept him if his covid is -. For this reason we will proceed with a rapid test here and contact [facility] after the result is back. The pt has already been treated with IV antibiotics and he is being monitored closely. 10/20/19 05:26 The rapid covid has been done and is negative. I have called and informed [facility] about this and am awaiting a call back. - Vital Signs Vital signs: Temp Pulse Resp BP Pulse Ox 98.3 F 88 18 127/89 H 98 10/20/19 04:00 10/20/19 04:00 10/20/19 04:00 10/20/19 04:00 10/20/19 04:00 - Laboratory Result Diagrams: 10/19/19 23:50 10/19/19 23:50 Laboratory results interpreted by me: 10/19/19 10/19/19 10/20/19 23:50 23:50 02:11 WBC 0.4 L* RBC 1.64 L Hgb 6.5 L Hct 18.6 L MCV 114 H MCH 39.6 H RDW 27.2 H Plt Count 15 L* Lymph % (Auto) 71.9 H [place] % (Auto) 15.4 H Absolute Neuts (auto) 0.0 L Absolute Lymphs (auto) 0.3 L Seg Neutrophils % 11.4 L Sodium 135.9 L BUN 44 H Creatinine 8.39 H Est GFR ( Amer) 8 L Est GFR (MDRD) Non-Af 6 L Glucose 125 H AST 15 L Urine Protein 100 H Urine Glucose (UA) 50 H Urine Blood SMALL H Crossmatch 10/20/19 03:06 WBC RBC Hgb Hct MCV MCH RDW Plt Count Lymph % (Auto) [place] % (Auto) Absolute Neuts (auto) Absolute Lymphs (auto) Seg Neutrophils % Sodium BUN Creatinine Est GFR ( Amer) Est GFR (MDRD) Non-Af Glucose AST Urine Protein Urine Glucose (UA) Urine Blood Crossmatch See Detail - Diagnostic Test Radiology reviewed: Image reviewed, Reports reviewed Critical Care Note - Critical Care Note Total time excluding time spent on procedures (mins): 30 Discharge - Discharge Clinical Impression: ESRD (end stage renal disease) on dialysis, Acute febrile illness Hypertension Qualifiers: Hypertension type: unspecified Qualified Code(s): I10 - Essential (primary) hypertension Neutropenia Qualifiers: Neutropenia type: unspecified Qualified Code(s): D70.9 - Neutropenia, unspecified Condition: Stable Disposition: [place] I personally performed the services described in the documentation, reviewed and edited the documentation which was dictated to the scribe in my presence, and it accurately records my words and actions.
[2019-10-20 00:24] LABS: ALKALINE PHOSPHATASE 51 U/L (38-126); ANION GAP 10 (5-19); ASPARTATE AMINO TRANSFERASE 15 U/L (17-59); BILIRUBIN,DIRECT 0.1 mg/dL (0.0-0.4); BILIRUBIN,TOTAL 0.8 mg/dL (0.2-1.3); BLOOD UREA NITROGEN 44 mg/dL (7-20); CALCIUM 8.5 mg/dL (8.4-10.2); CARBON DIOXIDE 28 mmol/L (22-30); CHLORIDE 98 mmol/L (98-107); GLUCOSE 125 mg/dL (75-110); POTASSIUM 4.3 mmol/L (3.6-5.0); TOTAL PROTEIN 6.9 g/dL (6.3-8.2)
[2019-10-20 00:29] LABS: ABSOLUTE LYMPHOCYTES (AUTO) 0.3 10^3/uL (0.5-4.7); ABSOLUTE MONOCYTES (AUTO) 0.1 10^3/uL (0.1-1.4); BASOPHILS % (AUTO) 1.2 % (0-2); EOSINOPHILS % (AUTO) 0.1 % (0-6); HEMATOCRIT 18.6 % (37.9-51.0); LYMPHOCYTES % (AUTO) 71.9 % (13-45); MEAN CORPUSCULAR HEMOGLOBIN 39.6 pg (27.0-33.4); MEAN CORPUSCULAR HGB CONC 34.9 g/dL (32.0-36.0); MEAN CORPUSCULAR VOLUME 114 fl (80-97); MONOCYTES % (AUTO) 15.4 % (3-13); RED BLOOD COUNT 1.64 10^6/uL (4.35-5.55); RED CELL DISTRIBUTION WIDTH 27.2 % (11.5-14.0); SEGMENTED NEUTROPHILS % (AUTO) 11.4 % (42-78); TOTAL CELLS COUNTED % (AUTO) 100 %
--- NOTE | 2019-10-20 00:58 | ER Document Report ---
ED Medical Screen (RME) - General Chief Complaint: Fever Stated Complaint: FEVER Time Seen by Provider: 10/19/19 22:40 Mode of Arrival: Ambulatory Information source: Patient Notes: 68-year-old male patient presenting to the emergency department with concern for fever. Patient reports that he is a dialysis patient and also has leukemia. He is currently undergoing active chemotherapy. He denies any other complaints. He states he went to dialysis today but this afternoon his daughter noticed that he had a fever so he decided come to the emergency department. Lung sounds clear and equal bilaterally. I have greeted and performed a rapid initial assessment of this patient. A comprehensive ED assessment and evaluation of the patient, analysis of test results and completion of the medical decision making process will be conducted by additional ED providers. I have specifically instructed the patient or family members with the patient to immediately return to any nursing staff s hould anything change in the patient's condition or with their chief complaint. TRAVEL OUTSIDE OF THE [place] IN LAST 30 DAYS: No - Related Data Allergies/Adverse Reactions: No Known Allergies Allergy (Verified 03/14/18 12:23) Past Medical History - Past Medical History Cardiac Medical History: Reports: Hx Hypertension Denies: Hx Congestive Heart Failure, Hx Coronary Artery Disease, Hx Heart Attack Pulmonary Medical History: Denies: Hx Asthma, Hx Bronchitis, Hx COPD, Hx Pneumonia, Hx Tuberculosis Neurological Medical History: Denies: Hx Cerebrovascular Accident, Hx Seizures, Hx Parkinson's Disease Renal/ Medical History: Reports: Hx Benign Prostatic Hyperplasia, Hx End Stage Renal Disease. Denies: Hx Kidney Stones, Hx Peritoneal Dialysis - TThS hemodialyis GI Medical History: Denies: Hx Cirrhosis, Hx Gastroesophageal Reflux Disease, Hx Ulcer Musculoskeltal Medical History: Denies Hx Arthritis, Denies Hx Multiple Scleros is Psychiatric Medical History: Denies: Hx Bipolar Disorder, Hx Depression, Hx Schizophrenia - Immunizations Hx Diphtheria, Pertussis, Tetanus Vaccination: Yes Physical Exam - Vital signs Vitals: Temp Pulse Resp BP Pulse Ox 101.9 F H 119 H 18 120/66 96 10/19/19 22:37 10/19/19 22:37 10/19/19 22:37 10/19/19 22:37 10/19/19 22:37 Course - Vital Signs Vital signs: Temp Pulse Resp BP Pulse Ox 101.9 F H 119 H 18 120/66 96 10/19/19 22:37 10/19/19 22:37 10/19/19 22:37 10/19/19 22:37 10/19/19 22:37
[2019-10-20 01:58] LABS: HEMOGLOBIN 6.5 g/dL (13.5-17.0); WHITE BLOOD COUNT 0.4 10^3/uL (4.0-10.5)
[2019-10-20 01:59] LABS: PLATELET COUNT 15 10^3/uL (150-450)
[2019-10-20 02:01] LABS: ANISOCYTOSIS 4+; HYPOCHROMASIA SLIGHT; PLATELET COMMENT DECREASED; POLYCHROMASIA SLIGHT
[2019-10-20] MEDS ORDERED: NORMAL SALINE 250 ML IV PRN ×2 (02:16)
[2019-10-20] MEDS ORDERED: CEFEPIME 1 GM/D5W RTU 1 GM/50 ML RTUPB IV SCH (02:30)
[2019-10-20 02:40] LABS: APPEARANCE,URINE SLIGHTLY-CLOUDY; BILIRUBIN,URINE NEGATIVE (NEGATIVE); COLOR,URINE YELLOW; GLUCOSE, URINE 50 mg/dL (NEGATIVE); KETONES,URINE NEGATIVE (NEGATIVE); LEUKOCYTE ESTERASE,URINE NEGATIVE (NEGATIVE); NITRITE,URINE NEGATIVE (NEGATIVE); PROTEIN,URINE 100 mg/dL (NEGATIVE); URINE SPECIFIC GRAVITY 1.012; UROBILINOGEN,URINE NEGATIVE mg/dL (<2.0)
[2019-10-20 08:12] VITALS: BP 123/85
[2019-10-20 13:52] LABS: PATH REVIEW PATHOLOGIST REVIEWED
== END 2019-10-20 08:19 | disposition short-term general hospital (02) ==
LOC: ER 22:20
DX: R50.9 Fever, unspecified (principal); R10.30 Lower abdominal pain, unspecified; L53.9 Erythematous condition, unspecified; C95.90 Leukemia, unspecified not having achieved remission; C90.00 Multiple myeloma not having achieved remission; Z79.899 Other long term (current) drug therapy; I12.0 Hypertensive chronic kidney disease with stage 5 chronic kidney disease or end stage renal disease; N18.6 End stage renal disease; Z99.2 Dependence on renal dialysis; D70.9 Neutropenia, unspecified; Z20.828 Contact with and (suspected) exposure to other viral communicable diseases; Z87.891 Personal history of nicotine dependence
CPT/HCPCS: 99291; 96365; 96366; 96368; 86900; 86901; 36415; 87040; 87086; 36430; 86850; 83605; 85025; 87088; 80053; 81001; 86920; 71045; P9016; U0003; A9270; J3370; J0692; J2543; C9803; 87186; 87635

== ENCOUNTER 2019-11-02 20:29 | Emergency (ER) | payer MEDICARE, OTHER ==
--- NOTE | 2019-11-02 21:57 | ER Document Report ---
ED Medical Screen (RME) - General Chief Complaint: Urinary Problem Stated Complaint: PROBLEM WITH URINATION Time Seen by Provider: 11/02/19 21:51 Mode of Arrival: Wheelchair Information source: Patient Notes: 69-year-old patient currently undergoing chemotherapy treatments for leukemia presenting to the emergency department with fever and acute urinary retention. Patient reports last time he urinated was last night. He appears to be in moderate distress. He denies any history of this in the past. I have greeted and performed a rapid initial assessment of this patient. A comprehensive ED assessment and evaluation of the patient, analysis of test results and completion of the medical decision making process will be conducted by additional ED providers. I have specifically instructed the patient or family members with the patient to immediately return to any nursing staff should anything change in the patient's condition or with their chief complaint. TRAVEL OUTSIDE OF THE [place] IN LAST 30 DAYS: No - Related Data Allergies/Adverse Reactions: No Known Allergies Allergy (Verified 03/14/18 12:23) Past Medical History - Social History Chew tobacco use (# tins/day): No Frequency of alcohol use: None Drug Abuse: None - Past Medical History Cardiac Medical History: Reports: Hx Hypertension Denies: Hx Congestive Heart Failure, Hx Coronary Artery Disease, Hx Heart Attack Pulmonary Medical History: Denies: Hx Asthma, Hx Bronchitis, Hx COPD, Hx Pneumonia, Hx Tuberculosis Neurological Medical History: Denies: Hx Cerebrovascular Accident, Hx Seizures, Hx Parkinson's Disease Renal/ Medical History: Reports: Hx Benign Prostatic Hyperplasia, Hx End Stage Renal Disease, Hx Hemodialysis. Denies: Hx Kidney Stones, Hx Peritoneal Dialysis - TThS hemodialyis Malignancy Medical History: Reports Hx Leukemia GI Medical History: Denies: Hx Cirrhosis, Hx Gastroesophageal Reflux Disease, Hx Ulcer Musculoskeltal Medical History: Denies Hx Arthritis, Denies Hx Multiple Sclerosis Psychiatric Medical History: Denies: Hx Bipolar Disorder, Hx Depression, Hx Schizophrenia - Immunizations Hx Diphtheria, Pertussis, Tetanus Vaccination: Yes Physical Exam - Vital signs Vitals: Temp Pulse Resp BP Pulse Ox 100.5 F H 86 16 138/78 H 100 11/02/19 20:35 11/02/19 20:35 11/02/19 20:35 11/02/19 20:35 11/02/19 20:35 Course - Vital Signs Vital signs: Temp Pulse Resp BP Pulse Ox 100.0 F 86 16 138/78 H 100 11/02/19 21:48 11/02/19 20:35 11/02/19 20:35 11/02/19 20:35 11/02/19 20:35
--- NOTE | 2019-11-02 22:13 | ER Document Report ---
ED General - General Chief Complaint: Urinary Problem Stated Complaint: PROBLEM WITH URINATION Time Seen by Provider: 11/02/19 21:51 Primary Care Provider: MARTA LATHAM PA [Primary Care Provider] - Follow up as needed Mode of Arrival: Wheelchair Information source: Patient Notes: 69-year-old black male arrives with his daughter and both are good historians. Patient has a history of multiple myeloma diagnosed in 2017 and currently is on chemotherapy for his leukemia. Patient takes Venclextra as well as cefdinir and vancomycin. Patient missed his Flomax for the last 2 days but took 2 tablets tonight because he began to have acute onset of acute urinary retention. A Cevallos was placed by nursing staff by [id number] and has so far put out 400 mL of urine and patient feels much improved. I advised him that he will need to have this remain in his bladder for at least 3 days and to see a urologist tomorrow. He should call his oncologist as well for referral. TRAVEL OUTSIDE OF THE [place] IN LAST 30 DAYS: No - HPI Onset: This morning Onset/Duration: Sudden, Persistent, Worse Quality of pain: Achy Severity: Mild Pain Level: 1 Associated symptoms: Fever Exacerbated by: Denies Relieved by: Denies Similar symptoms previously: No Recently seen / treated by doctor: No - Related Data Allergies/Adverse Reactions: No Known Allergies Allergy (Verified 03/14/18 12:23) Past Medical History - General Information source: Patient, Relative - Social History Smoking Status: Former Smoker Cigarette use (# per day): No Chew tobacco use (# tins/day): No Smoking Education Provided: No Frequency of alcohol use: None Drug Abuse: None Lives with: Family Family History: Reviewed & Not Pertinent Patient has suicidal ideation: No Patient has homicidal ideation: No - Past Medical History Cardiac Medical History: Reports: Hx Hypertension Denies: Hx Congestive Heart Failure, Hx Coronary Artery Disease, Hx Heart Attack Pulmonary Medical History: Denies: Hx Asthma, Hx Bronchitis, Hx COPD, Hx Pneumonia, Hx Tuberculosis Neurological Medical History: Denies: Hx Cerebrovascular Accident, Hx Seizures, Hx Parkinson's Disease Renal/ Medical History: Reports: Hx Benign Prostatic Hyperplasia, Hx End Stage Renal Disease, Hx Hemodialysis. Denies: Hx Kidney Stones, Hx Peritoneal Dialysis - TThS hemodialyis Malignancy Medical History: Reports Hx Leukemia GI Medical History: Denies: Hx Cirrhosis, Hx Gastroesophageal Reflux Disease, Hx Ulcer Musculoskeletal Medical History: Denies Hx Arthritis, Denies Hx Multiple Sclerosis Psychiatric Medical History: Denies: Hx Bipolar Disorder, Hx Depression, Hx Schizophrenia - Immunizations Hx Diphtheria, Pertussis, Tetanus Vaccination: Yes Review of Systems - Review of Systems Constitutional: No symptoms reported EENT: No symptoms reported Cardiovascular: No symptoms reported Respiratory: No symptoms reported Gastrointestinal: No symptoms reported Genitourinary: See HPI, Retention Male Genitourinary: No symptoms reported Musculoskeletal: No symptoms reported Skin: No symptoms reported Hematologic/Lymphatic: No symptoms reported Neurological/Psychological: No symptoms reported Physical Exam - Vital signs Vitals: Temp Pulse Resp BP Pulse Ox 100.5 F H 86 16 138/78 H 100 11/02/19 20:35 11/02/19 20:35 11/02/19 20:35 11/02/19 20:35 11/02/19 20:35 Interpretation: Febrile - General General appearance: Anxious - HEENT Head: Normocephalic, Atraumatic Eyes: Normal Pupils: PERRL Mouth/Lips: Normal Mucous membranes: Normal Pharynx: Normal Neck: Normal - Respiratory Respiratory status: No respiratory distress Chest status: Nontender Breath sounds: Normal Chest palpation: Normal - Cardiovascular Rhythm: Regular Heart sounds: Normal auscultation Murmur: No - Abdominal Inspection: Normal Distension: Distended Bowel sounds: Normal Tenderness: Tender - Suprapubic Organomegaly: No organomegaly - Rectal Hemorrhoids: Other - deferred - Genitourinary Scrotum: Other - deferred - Back Back: Normal - Extremities General upper extremity: Normal inspection, Nontender, Normal color, Normal ROM, Normal temperature General lower extremity: Normal inspection, Nontender, Normal color, Normal ROM, Normal temperature, Normal weight bearing. No: Josiah's sign - Neurological Neuro grossly intact: Yes Cognition: Normal Orientation: AAOx4 [place] Coma Scale Eye Opening: Spontaneous [place] Coma Scale Verbal: Oriented [place] Coma Scale Motor: Obeys Commands [place] Coma Scale Total: 15 Speech: Normal Motor strength normal: LUE, RUE, LLE, RLE Sensory: Normal - Psychological Associated symptoms: Normal affect - Skin Skin Temperature: Warm Skin Moisture: Dry Course - Vital Signs Vital signs: Temp Pulse Resp BP Pulse Ox 100.0 F 86 16 138/78 H 100 11/02/19 21:48 11/02/19 20:35 11/02/19 20:35 11/02/19 20:35 11/02/19 20:35 - Laboratory Result Diagrams: 11/02/19 22:58 11/02/19 22:58 Laboratory results interpreted by me: 11/02/19 11/02/19 11/02/19 22:58 22:58 22:58 WBC 0.4 L* RBC 2.29 L Hgb 7.7 L Hct 21.8 L RDW 23.2 H Plt Count 12 L* Lymph % (Auto) 53.9 H [place] % (Auto) 38.0 H Baso % (Auto) 2.5 H Absolute Neuts (auto) 0.0 L Absolute Lymphs (auto) 0.2 L Seg Neutrophils % 5.4 L Sodium 136.4 L BUN 31 H Creatinine 6.66 H Est GFR ( Amer) 10 L Est GFR (MDRD) Non-Af 8 L Glucose 143 H Urine Protein 100 H Urine Glucose (UA) 150 H Critical Care Note - Critical Care Note Comments: Patient much improved after Cevallos was placed and drained more than 400 mils of urine. Discharge - Discharge Clinical Impression: Urinary retention due to benign prostatic hyperplasia Fever Qualifiers: Fever type: unspecified Qualified Code(s): R50.9 - Fever, unspecified Condition: Good Disposition: HOME, SELF-CARE Additional Instructions: Follow-up with oncologist tomorrow for referral for urologist and return to ER as needed keep Cevallos in for at least 3 days. Continue with your Flomax. Take medicines as directed. Continue with your vancomycin and cefdinir Referrals: MARTA LATHAM PA [Primary Care Provider] - Follow up as needed
[2019-11-02 23:16] LABS: APPEARANCE,URINE CLEAR; BILIRUBIN,URINE NEGATIVE (NEGATIVE); COLOR,URINE YELLOW; GLUCOSE, URINE 150 mg/dL (NEGATIVE); KETONES,URINE NEGATIVE (NEGATIVE); LEUKOCYTE ESTERASE,URINE NEGATIVE (NEGATIVE); NITRITE,URINE NEGATIVE (NEGATIVE); PROTEIN,URINE 100 mg/dL (NEGATIVE); URINE SPECIFIC GRAVITY 1.008; UROBILINOGEN,URINE NEGATIVE mg/dL (<2.0)
[2019-11-02 23:23] LABS: ABSOLUTE LYMPHOCYTES (AUTO) 0.2 10^3/uL (0.5-4.7); ABSOLUTE MONOCYTES (AUTO) 0.1 10^3/uL (0.1-1.4); BASOPHILS % (AUTO) 2.5 % (0-2); EOSINOPHILS % (AUTO) 0.2 % (0-6); HEMATOCRIT 21.8 % (37.9-51.0); LYMPHOCYTES % (AUTO) 53.9 % (13-45); MEAN CORPUSCULAR HEMOGLOBIN 33.4 pg (27.0-33.4); MEAN CORPUSCULAR HGB CONC 35.1 g/dL (32.0-36.0); MEAN CORPUSCULAR VOLUME 95 fl (80-97); RED BLOOD COUNT 2.29 10^6/uL (4.35-5.55); RED CELL DISTRIBUTION WIDTH 23.2 % (11.5-14.0); SEGMENTED NEUTROPHILS % (AUTO) 5.4 % (42-78); TOTAL CELLS COUNTED % (AUTO) 100 %
[2019-11-02 23:45] LABS: ALBUMIN 3.6 g/dL (3.5-5.0); ALKALINE PHOSPHATASE 50 U/L (38-126); ANION GAP 10 (5-19); ASPARTATE AMINO TRANSFERASE 18 U/L (17-59); BILIRUBIN,TOTAL 1.1 mg/dL (0.2-1.3); BLOOD UREA NITROGEN 31 mg/dL (7-20); CALCIUM 8.8 mg/dL (8.4-10.2); CARBON DIOXIDE 28 mmol/L (22-30); CHLORIDE 98 mmol/L (98-107); GLUCOSE 143 mg/dL (75-110); POTASSIUM 4.3 mmol/L (3.6-5.0)
[2019-11-02 23:46] LABS: BILIRUBIN,DIRECT 0.4 mg/dL (0.0-0.4); TOTAL PROTEIN 6.6 g/dL (6.3-8.2)
[2019-11-02 23:51] LABS: ANISOCYTOSIS 3+; OVALOCYTES 1+; PLATELET COMMENT DECREASED
[2019-11-02 23:56] LABS: PLATELET COUNT 12 10^3/uL (150-450); WHITE BLOOD COUNT 0.4 10^3/uL (4.0-10.5)
[2019-11-03 00:51] VITALS: BP 118/76
[2019-11-04 07:01] LABS: HEMOGLOBIN 7.7 g/dL (13.5-17.0)
== END 2019-11-03 00:45 | disposition home or self-care (01) ==
LOC: ER 20:29
DX: N40.1 Benign prostatic hyperplasia with lower urinary tract symptoms (principal); R33.8 Other retention of urine; T44.6X6A Underdosing of alpha-adrenoreceptor antagonists, initial encounter; Z91.14 Patient's other noncompliance with medication regimen; I10 Essential (primary) hypertension; C90.00 Multiple myeloma not having achieved remission; C95.90 Leukemia, unspecified not having achieved remission; Z79.899 Other long term (current) drug therapy; Z79.2 Long term (current) use of antibiotics; Z87.891 Personal history of nicotine dependence
CPT/HCPCS: 36415; 51702; 80053; 81001; 83605; 85025; 87040; 87086; 99283

== ENCOUNTER 2019-11-04 14:57 | Inpatient (IN) | payer MEDICARE, OTHER ==
[2019-11-04] MEDS ORDERED: ACETAMINOPHEN 325 MG TABLET PO ONE (16:14)
[2019-11-04] MEDS ORDERED: CEFEPIME 2 GM/D5W RTU 2 GM/50 ML RTUPB IV ONE (16:14)
[2019-11-04] MEDS ORDERED: VANCOMYCIN HCL INJ 1000 MG VIAL IV ONE (16:14)
[2019-11-04 16:18] LABS: ABSOLUTE LYMPHOCYTES (AUTO) 0.1 10^3/uL (0.5-4.7); BASOPHILS % (AUTO) 2.1 % (0-2); EOSINOPHILS % (AUTO) 0.2 % (0-6); HEMATOCRIT 20.6 % (37.9-51.0); INTERNATIONAL RATION (INR) 1.24; LYMPHOCYTES % (AUTO) 68.3 % (13-45); MEAN CORPUSCULAR HEMOGLOBIN 32.9 pg (27.0-33.4); MEAN CORPUSCULAR HGB CONC 34.7 g/dL (32.0-36.0); MEAN CORPUSCULAR VOLUME 95 fl (80-97); PROTHROMBIN TIME 15.7 SEC (11.4-15.4); RED BLOOD COUNT 2.18 10^6/uL (4.35-5.55); RED CELL DISTRIBUTION WIDTH 22.9 % (11.5-14.0); SEGMENTED NEUTROPHILS % (AUTO) 5.4 % (42-78); TOTAL CELLS COUNTED % (AUTO) 100 %
[2019-11-04 16:21] LABS: WHITE BLOOD COUNT 0.2 10^3/uL (4.0-10.5)
[2019-11-04 16:22] LABS: ALBUMIN 3.5 g/dL (3.5-5.0); ALKALINE PHOSPHATASE 54 U/L (38-126); ANION GAP 6 (5-19); ASPARTATE AMINO TRANSFERASE 27 U/L (17-59); BILIRUBIN,DIRECT 0.5 mg/dL (0.0-0.4); BILIRUBIN,TOTAL 1.1 mg/dL (0.2-1.3); BLOOD UREA NITROGEN 24 mg/dL (7-20); CALCIUM 8.5 mg/dL (8.4-10.2); CARBON DIOXIDE 31 mmol/L (22-30); CHLORIDE 99 mmol/L (98-107); GLUCOSE 133 mg/dL (75-110); HEMOGLOBIN 7.2 g/dL (13.5-17.0); PLATELET COUNT 9 10^3/uL (150-450); POTASSIUM 4.2 mmol/L (3.6-5.0); TOTAL PROTEIN 6.7 g/dL (6.3-8.2)
[2019-11-04 16:29] LABS: VENOUS BLOOD HCO3 29.5 mmol/L (20-32); VENOUS BLOOD PCO2 38.2 mmHg (35-63); VENOUS BLOOD PH 7.51 (7.30-7.42)
[2019-11-04] MEDS ORDERED: NORMAL SALINE 250 ML IV PRN ×2 (16:29)
--- NOTE | 2019-11-04 16:36 | RADIOLOGY REPORT (SQ) ---
EXAM DESCRIPTION: CHEST SINGLE VIEW IMAGES COMPLETED DATE/TIME: 11/04/2019 4:19 pm REASON FOR STUDY: Shortness of breath COMPARISON: 10/19/2019 EXAM PARAMETERS: NUMBER OF VIEWS: One view. TECHNIQUE: Single frontal radiographic view of the chest acquired. RADIATION DOSE: NA LIMITATIONS: None. FINDINGS: LUNGS AND PLEURA: No opacities, masses or pneumothorax. No pleural effusion. MEDIASTINUM AND HILAR STRUCTURES: No masses. Contour normal. HEART AND VASCULAR STRUCTURES: Borderline enlarged cardiac silhouette with central vascular prominenc e. No overt edema. BONES: No acute findings. HARDWARE: None in the chest. OTHER: No other significant finding. IMPRESSION: Borderline enlarged cardiac silhouette central vascular prominence. No overt edema. TECHNICAL DOCUMENTATION: JOB ID: [id number] 2010 [employer]- All Rights Reserved Reading location - IP/workstation name: [email or web address]
[2019-11-04 16:44] LABS: ANISOCYTOSIS 3+; OVALOCYTES SLIGHT; PLATELET COMMENT DECREASED
--- NOTE | 2019-11-04 16:56 | ER Document Report ---
ED Fever - General Chief Complaint: Fever Stated Complaint: SHORT OF BREATH,FEVER,CONFUSION Time Seen by Provider: 11/04/19 15:59 Primary Care Provider: MARTA LATHAM PA [Primary Care Provider] - Follow up as needed Mode of Arrival: Ambulatory Information source: Patient TRAVEL OUTSIDE OF THE [place] IN LAST 30 DAYS: No - HPI Notes: Patient is brought in by family due to fever and weakness. Patient was recently diagnosed with AML. Patient is also a dialysis patient and had a normal dialysis this morning. He has been recently and currently on antibiotics, antifungals, and antivirals. Today he was noticed to have fever of 101 at home. He denies shortness of breath. No vomiting or diarrhea. Patient complains of severe weakness. This is constant. Is worse with exertion better with rest. This weakness radiates throughout his body. It is severe. - Related Data Allergies/Adverse Reactions: No Known Allergies Allergy (Verified 03/14/18 12:23) Home Medications: ALLOPURINOL, WOO, VIT D, CEFDINIR, FUROSEMIDE, ISAVUCONAZONIUM, POLYETHYLENE,SEVELAMER, TAMULOSIN, VALACYCLOVIR, VANC, VENETOCLAX, Past Medical History - General Information source: Patient - Social History Smoking Status: Never Smoker Frequency of alcohol use: None Drug Abuse: None Family History: Reviewed & Not Pertinent Patient has homicidal ideation: No - Past Medical History Cardiac Medical History: Reports: Hx Hypertension Denies: Hx Congestive Heart Failure, Hx Coronary Artery Disease, Hx Heart Attack Pulmonary Medical History: Denies: Hx Asthma, Hx Bronchitis, Hx COPD, Hx Pneumonia, Hx Tuberculosis Neurological Medical History: Denies: Hx Cerebrovascular Accident, Hx Seizures, Hx Parkinson's Disease Renal/ Medical History: Reports: Hx Benign Prostatic Hyperplasia, Hx End Stage Renal Disease, Hx Hemodialysis. Denies: Hx Kidney Stones, Hx Peritoneal Dialysis - TThS hemodialyis Malignancy Medical History: Reports Hx Leukemia GI Medical History: Denies: Hx Cirrhosis, Hx Gastroesophageal Reflux Disease, Hx Ulcer Musculoskeletal Medical History: Denies Hx Arthritis, Denies Hx Multiple Sclerosis Psychiatric Medical History: Denies: Hx Bipolar Disorder, Hx Depression, Hx Schizophrenia - Immunizations Hx Diphtheria, Pertussis, Tetanus Vaccination: Yes Review of Systems - Review of Systems Constitutional: Chills, Fever Cardiovascular: denies: Chest pain, Palpitations Respiratory: denies: Cough, Short of breath -: Yes All other systems reviewed and negative Physical Exam - Vital signs Vitals: Temp Pulse Resp BP Pulse Ox 103.6 F H 117 H 24 H 127/64 H 97 11/04/19 15:07 11/04/19 15:07 11/04/19 15:07 11/04/19 15:07 11/04/19 15:07 Interpretation: Tachycardic, Tachypneic, Febrile - General General appearance: Appears well, Alert - HEENT Head: Normocephalic, Atraumatic Eyes: Normal Pupils: PERRL - Respiratory Respiratory status: No respiratory distress, Tachypnea Chest status: Nontender Breath sounds: Normal Chest palpation: Normal - Cardiovascular Rhythm: Tachycardia Heart sounds: Normal auscultation Murmur: No - Abdominal Inspection: Normal Distension: No distension Bowel sounds: Normal Tenderness: Nontender Organomegaly: No organomegaly - Back Back: Normal, Nontender - Extremities General upper extremity: Normal inspection, Nontender, Normal color, Normal ROM, Normal temperature General lower extremity: Normal inspection, Nontender, Normal color, Normal ROM, Normal temperature, Normal weight bearing. No: Josiah's sign - Neurological Neuro grossly intact: Yes Cognition: Normal Orientation: AAOx4 [place] Coma Scale Eye Opening: Spontaneous [place] Coma Scale Verbal: Oriented [place] Coma Scale Motor: Obeys Commands Roselyn Coma Scale Total: 15 Speech: Normal Motor strength normal: LUE, RUE, LLE, RLE Sensory: Normal - Psychological Associated symptoms: Normal affect, Normal mood - Skin Skin Temperature: Warm Skin Moisture: Dry Skin Color: Normal Course - Re-evaluation Re-evalutation: 11/04/19 16:54 Patient has AML. He presents with fever despite multiple different antibiotics, antifungals and antivirals. At this time he is tachycardic but not hypotensive. He does have a fever up to 104. I have given the patient antibiotics. I have discussed the case with the patient's oncologist and with dialysis. I have also discussed the case with [facility] however they have no beds at this time. Patient is going to require blood products and these have been ordered. - Vital Signs Vital signs: Temp Pulse Resp BP Pulse Ox 103.9 F H 117 H 28 H 163/78 H 95 11/04/19 16:03 11/04/19 15:07 11/04/19 16:03 11/04/19 16:03 11/04/19 16:21 - Laboratory Result Diagrams: 11/04/19 15:50 11/04/19 15:50 Laboratory results interpreted by me: 11/04/19 11/04/19 11/04/19 15:50 15:50 15:50 WBC 0.2 L* RBC 2.18 L Hgb 7.2 L Hct 20.6 L RDW 22.9 H Plt Count 9 L* Lymph % (Auto) 68.3 H [place] % (Auto) 24.0 H Baso % (Auto) 2.1 H Absolute Neuts (auto) 0.0 L Absolute Lymphs (auto) 0.1 L Absolute Monos (auto) 0.0 L Seg Neutrophils % 5.4 L PT 15.7 H VBG pH Sodium 136.4 L Carbon Dioxide 31 H BUN 24 H Creatinine 4.76 H Est GFR ( Amer) 15 L Est GFR (MDRD) Non-Af 12 L Glucose 133 H Direct Bilirubin 0.5 H 11/04/19 16:09 WBC RBC Hgb Hct RDW Plt Count Lymph % (Auto) [place] % (Auto) Baso % (Auto) Absolute Neuts (auto) Absolute Lymphs (auto) Absolute Monos (auto) Seg Neutrophils % PT VBG pH 7.51 H Sodium Carbon Dioxide BUN Creatinine Est GFR ( Amer) Est GFR (MDRD) Non-Af Glucose Direct Bilirubin - Diagnostic Test Radiology reviewed: Image reviewed, Reports reviewed - EKG Interpretation by Me EKG shows normal: Sinus rhythm Rate: Tachycardia - 108 Rhythm: NSR [place]/QRS: No: RBBB, LBBB P Waves: LAE Critical Care Note - Critical Care Note Total time excluding time spent on procedures (mins): 60 Comments: Approximately 60 minutes of critical care time were spent on this patient. This included multiple reassessments. Including discussions with multiple consultants. It included reviewing images and laboratory values. Discharge - Discharge Clinical Impression: Thrombocytopenia, ESRD (end stage renal disease) on dialysis AML (acute myeloblastic leukemia) Qualifiers: Leukemia Active/Remission status: without remission Qualified Code(s): C92.00 - Acute myeloblastic leukemia, not having achieved remission Anemia Qualifiers: Anemia type: bone marrow failure Bone marrow failure anemia type: unspecified bone marrow failure Qualified Code(s): D61.9 - Aplastic anemia, unspecified Fever Qualifiers: Fever type: unspecified Qualified Code(s): R50.9 - Fever, unspecified Condition: Critical Disposition: ADMITTED INPATIENT Admitting Provider: Carmelina (Hospitalist) Unit Admitted: IMCU Referrals: MARTA LATHAM PA [Primary Care Provider] - Follow up as needed
[2019-11-04 17:32] LABS: APPEARANCE,URINE CLEAR; BILIRUBIN,URINE NEGATIVE (NEGATIVE); COLOR,URINE YELLOW; GLUCOSE, URINE 150 mg/dL (NEGATIVE); KETONES,URINE NEGATIVE (NEGATIVE); PROTEIN,URINE 100 mg/dL (NEGATIVE); URINE SPECIFIC GRAVITY 1.009; UROBILINOGEN,URINE NEGATIVE mg/dL (<2.0)
--- NOTE | 2019-11-04 17:50 | PDOC H&P ---
History of Present Illness Admission Date/PCP: 11/04/19 17:03 PAULINO ADKINS Patient complains of: came with high fever from this morning. History of Present Illness: NO VALDEZ is a 69 year old male with history of multiple myeloma in remission, status post stem cell transplantation in 1999, ESRD on hemodialysis completed dialysis today, hypertension, newly diagnosed AML started receiving the treatment at [facility] 2 weeks ago came to the emergency room with a fever of 103.9. As an outpatient he is on antibiotics, antifungal, antiviral medications. In the emergency room temp of 103.9. WBC 0.2, platelet count is 9, hemoglobin is 7.2. Call was placed by the ER physician to [facility] transfer center to request transfer , as per him no beds are available at [facility] at this time. Patient agreed to stay in the hospital in the meantime. I discussed the plan of care with Dr. Rothman, she agreed to see him in the hospital. She received IV cefepime, IV vancomycin. Platelet transfusions , blood transfusions requested by the ER physician. Past Medical History Cardiac Medical History: Reports: Hypertension Denies: Congestive Heart Failure, Coronary Artery Disease, Myocardial Infarction Pulmonary Medical History: Denies: Asthma, Bronchitis, Chronic Obstructive Pulmonary Disease (COPD), Pneumonia, Tuberculosis Neurological Medical History: Denies: Seizures Renal/ Medical History: Reports: End Stage Renal Disease Malignancy Medical History: Reports: Leukemia GI Medical History: Denies: Cirrhosis, Gastroesophageal Reflux Disease Musculoskeltal Medical History: Denies: Arthritis Psychiatric Medical History: Denies: Bipolar Disorder, Depression Hematology: Denies: Anemia, Bleeding Tendencies Past Surgical History Past Surgical History: Reports: Other - Stem cell transplantation in . Social History Smoking Status: Never Smoker Electronic Cigarette use?: No Hx Recreational Drug Use: No Drugs: None Hx Prescription Drug Abuse: No - Advance Directive Resuscitation Status: Full Code Family History Family History: Reviewed & Not Pertinent Parental Family History Reviewed: Yes - family history of hypertension and kidney disease. Children Family History Reviewed: Yes Sibling(s) Family History Reviewed.: Yes Medication/Allergy Home Medications: Aspirin [Aspirin 81 mg Chewable Tablet] 81 mg PO DAILY 05/25/18 Calcium Carbonate/Vitamin D3 [Os-Abraham 500-Vit D3 200 Caplet] 1 tab PO BIDBS 05/25/18 Carvedilol [Coreg 25 mg Tablet] 1 tab PO Q12 05/25/18 Lenalidomide [Revlimid] 2.5 mg PO QHS 05/25/18 Polyethylene Glycol 3350 [Miralax Powder 17 gm/Packet] 1 packet PO DAILYP PRN 05/25/18 Tamsulosin HCl [Flomax 0.4 mg Cap.sr] 0.4 mg PO DAILY 05/25/18 Valacyclovir HCl [Valtrex 500 mg Tablet] 500 mg PO DAILY 05/25/18 Calcitriol [Rocaltrol 0.25 mcg Capsule] 0.25 mcg PO DAILY 30 Days #30 capsule 05/31/18 Calcium Carbonate/Vitamin D3 [Os-Abraham 250 mg with Vitamin D 125 Units] 1 tab PO BID tablet 05/31/18 Clonazepam [Klonopin 1 mg Tablet] 0.5 mg PO Q8 30 Days #90 tablet 05/31/18 Furosemide [Lasix 20 mg Tablet] 20 mg PO DAILY 30 Days #30 tablet 05/31/18 Simvastatin [Zocor 10 mg Tablet] 20 mg PO QHS tablet 05/31/18 Tamsulosin HCl [Flomax 0.4 mg Cap.sr] 0.4 mg PO DAILY cap.sr.24h 05/31/18 Allergies/Adverse Reactions: No Known Allergies Allergy (Verified 03/14/18 12:23) Review of Systems Constitutional: PRESENT: chills, fatigue, fever(s), weakness Eyes: ABSENT: visual disturbances Ears: ABSENT: hearing changes Nose, Mouth, and Throat: ABSENT: sore throat Cardiovascular: ABSENT: dyspnea on exertion, orthropnea, palpitations Respiratory: ABSENT: dyspnea, hemoptysis Gastrointestinal: PRESENT: constipation. ABSENT: diarrhea, dysphagia, heartburn Genitourinary: PRESENT: dysuria Musculoskeletal: ABSENT: joint swelling Integumentary: ABSENT: rash, wounds Physical Exam Vital Signs: Temp Pulse Resp BP Pulse Ox 103.9 F H 117 H 28 H 163/78 H 95 11/04/19 16:03 11/04/19 15:07 11/04/19 16:03 11/04/19 16:03 11/04/19 16:21 Intake & Output 11/03/19 11/04/19 11/05/19 06:59 06:59 06:59 Weight 96.1 kg General appearance: PRESENT: no acute distress, cooperative, well-developed Head exam: PRESENT: atraumatic Eye exam: PRESENT: conjunctiva pale, PERRLA Ear exam: PRESENT: normal external ear exam Mouth exam: PRESENT: neck supple Teeth exam: PRESENT: poor dentation Neck exam: ABSENT: carotid bruit, JVD, lymphadenopathy, thyromegaly Respiratory exam: PRESENT: decreased breath sounds Cardiovascular exam: PRESENT: tachycardia Pulses: PRESENT: normal dorsalis pedis pul GI/Abdominal exam: PRESENT: normal bowel sounds, soft. ABSENT: distended, guarding, mass, organolmegaly, rebound, tenderness Rectal exam: PRESENT: deferred Extremities exam: PRESENT: full ROM, other - AV fistula present in the lt arm.. ABSENT: calf tenderness, clubbing, pedal edema Neurological exam: PRESENT: alert, awake, oriented to person, oriented to place, oriented to time, oriented to situation, CN II-XII grossly intact. ABSENT: motor sensory deficit Psychiatric exam: PRESENT: appropriate affect, normal mood. ABSENT: homicidal ideation, suicidal ideation Results Laboratory Results: 11/04/19 15:50 11/04/19 15:50 11/04/19 11/04/19 11/04/19 15:50 15:50 16:09 WBC 0.2 L* RBC 2.18 L Hgb 7.2 L Hct 20.6 L MCV 95 MCH 32.9 MCHC 34.7 RDW 22.9 H Plt Count 9 L* Seg Neutrophils % 5.4 L VBG pH 7.51 H VBG pCO2 38.2 VBG HCO3 29.5 VBG Base Excess 6.0 Sodium 136.4 L Potassium 4.2 Chloride 99 Carbon Dioxide 31 H Anion Gap 6 BUN 24 H Creatinine 4.76 H Est GFR ( Amer) 15 L Glucose 133 H Lactic Acid Calcium 8.5 Total Bilirubin 1.1 AST 27 Alkaline Phosphatase 54 Total Protein 6.7 Albumin 3.5 Urine Color Urine Appearance Urine pH Ur Specific [place] Urine Protein Urine Glucose (UA) Urine Ketones Urine Blood Urine RBC (Auto) 11/04/19 11/04/19 16:09 17:00 WBC RBC Hgb Hct MCV MCH MCHC RDW Plt Count Seg Neutrophils % VBG pH VBG pCO2 VBG HCO3 VBG Base Excess Sodium Potassium Chloride Carbon Dioxide Anion Gap BUN Creatinine Est GFR ( Amer) Glucose Lactic Acid 0.9 Calcium Total Bilirubin AST Alkaline Phosphatase Total Protein Albumin Urine Color YELLOW Urine Appearance CLEAR Urine pH 9.0 Ur Specific [place] 1.009 Urine Protein 100 H Urine Glucose (UA) 150 H Urine Ketones NEGATIVE Urine Blood LARGE H Urine RBC (Auto) >182 Impressions: Chest X-Ray 11/04/19 16:03 IMPRESSION: Borderline enlarged cardiac silhouette central vascular prominence. No overt edema. Assessment and Plan - Diagnosis (1) AML (acute myeloblastic leukemia) Qualifiers: Leukemia Active/Remission status: without remission Qualified Code(s): C92.00 - Acute myeloblastic leukemia, not having achieved remission Is this a current diagnosis for this admission?: Yes Plan: 11/04/2019-patient is going to be admitted to [facility] as inpatient for newly diagnosed acute myeloid leukemia started on chemotherapy admitted with fever of 103.9. No source was noticed at this time. WBC 0.2, platelet count is 9. Patient is going to receive antibiotics, antiviral, antifungal medications. Consultation with Dario is requested. Patient condition is critical at this time. Consultation with Dr. Chidi Evans was requested because he is a dialysis patient. (2) Fever Qualifiers: Fever type: unspecified Qualified Code(s): R50.9 - Fever, unspecified Is this a current diagnosis for this admission?: Yes Plan: 11/04/2019-patient came in with fever of 103.9. Chest x-ray was negative. WBC is 0.2, may be neutropenic fever. Patient recently history of treatment for newly diagnosed AML. To continue IV cefepime, vancomycin, valacyclovir, and antifungal medication Diflucan. Cultures urine cultures will be requested. (3) ESRD (end stage renal disease) on dialysis Is this a current diagnosis for this admission?: No Plan: 11/04/2019-ESRD on hemodialysis Saturday. He completed dialysis today. (4) Thrombocytopenia Is this a current diagnosis for this admission?: Yes Plan: 11/04/2019-platelet count is 9. Platelet transfusion is requested by the ER physician. (5) Anemia in ESRD (end-stage renal disease) Is this a current diagnosis for this admission?: Yes Plan: 11/04/2019-hemoglobin 7.2. Further management as per Dr. martel (6) Hypertension Qualifiers: Hypertension type: unspecified Qualified Code(s): I10 - Essential (primary) hypertension Is this a current diagnosis for this admission?: No Plan: 11/04/2019-blood pressure today is 166/78. To restart his home medications. (7) Urinary retention due to benign prostatic hyperplasia Is this a current diagnosis for this admission?: No Plan: 11/04/2019-patient has recently placed Cevallos's catheter. Urine culture will be sent.
[2019-11-04] MEDS ORDERED: CEFEPIME HCL 1.5 GM in DEXTROSE 5%-WATER 50 ML IV SCH (22:00)
[2019-11-04] MEDS: VALACYCLOVIR HCL 500 MG TABLET PO SCH (23:21)
[2019-11-05] MEDS: ACETAMINOPHEN 325 MG TABLET PO PRN (01:51)
[2019-11-05] MEDS: PANTOPRAZOLE SODIUM 40 MG TABLET.DR PO SCH ×2 (06:05→17:38)
[2019-11-05 06:22] LABS: BASOPHILS % (AUTO) 1.8 % (0-2); EOSINOPHILS % (AUTO) 0.2 % (0-6); HEMATOCRIT 21.8 % (37.9-51.0); LYMPHOCYTES % (AUTO) 67.8 % (13-45); MEAN CORPUSCULAR HEMOGLOBIN 32.7 pg (27.0-33.4); MEAN CORPUSCULAR VOLUME 94 fl (80-97); RED BLOOD COUNT 2.32 10^6/uL (4.35-5.55); RED CELL DISTRIBUTION WIDTH 21.1 % (11.5-14.0); SEGMENTED NEUTROPHILS % (AUTO) 6.2 % (42-78); TOTAL CELLS COUNTED % (AUTO) 100 %
[2019-11-05 06:23] LABS: ABSOLUTE LYMPHOCYTES (AUTO) 0.2 10^3/uL (0.5-4.7); ABSOLUTE MONOCYTES (AUTO) 0.1 10^3/uL (0.1-1.4)
[2019-11-05 07:38] LABS: HEMOGLOBIN 7.6 g/dL (13.5-17.0); WHITE BLOOD COUNT 0.2 10^3/uL (4.0-10.5)
[2019-11-05 07:39] LABS: PLATELET COUNT 7 10^3/uL (150-450)
[2019-11-05 07:44] LABS: ANISOCYTOSIS 3+; OVALOCYTES SLIGHT; PLATELET COMMENT DECREASED; POIKILOCYTOSIS 1+; POLYCHROMASIA SLIGHT
[2019-11-05] MEDS ORDERED: POLYETHYLENE GLYCOL 3350 POWDER 17 GM/1 PACKET PO PRN (07:52)
[2019-11-05] MEDS ORDERED: PROCHLORPERAZINE MALEATE 5 MG TABLET PO PRN (07:52)
--- NOTE | 2019-11-05 08:01 | PDOC CONSULTATION ---
Consultation Consult Date: 11/05/19 Provider Consulted: JAQUI BOND Consult reason:: Hematology/Oncology consultation was requested for patient on active chemo for treatment induced AML who presented with neutropenic fever. History of Present Illness Admission Date/PCP: 11/04/19 17:03 PAULINO ADKINS History of Present Illness: NO VALDEZ is a 69 year old male who has battled multiple myeloma for many years. 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 He is also receiving hemodialysis q -- for end stage renal disease. He was started on venetoclax and azacitadine by [facility] and is in the middle of his first cycle. Plans are to repeat bone marrow biopsy in a few weeks prior to making further plans for treatment. He has been receiving the ventoclax orally but presented to the ED with a temp >103. After cultures were obtained, he was started on Cefapime and vancomycin. Three days ago, he had a heard catheter placed for urinary retention. This was scheduled to be removed today. He has required transfusion support since starting his AML treatment. He received blood and PLT again yesterday. Today, he states that he is feeling well. He would like to have Heard removed. He is eating and drinking well. No dyspnea or cough. No diarrhea. Past Medical History Cardiac Medical History: Reports: Hypertension Denies: Congestive Heart Failure, Coronary Artery Disease, Myocardial Infarction Pulmonary Medical History: Denies: Asthma, Bronchitis, Chronic Obstructive Pulmonary Disease (COPD), Pneumonia, Tuberculosis Neurological Medical History: Denies: Seizures Renal/ Medical History: Reports: End Stage Renal Disease Malignancy Medical History: Reports: Leukemia GI Medical History: Denies: Cirrhosis, Gastroesophageal Reflux Disease Musculoskeltal Medical History: Denies: Arthritis Psychiatric Medical History: Denies: Bipolar Disorder, Depression Hematology: Denies: Anemia, Bleeding Tendencies Past Surgical History Past Surgical History: Reports: Other - Stem cell transplantation in . Social History Occupation: , retired, 4 children. Smoking Status: Never Smoker Electronic Cigarette use?: No Hx Recreational Drug Use: No Drugs: None Hx Prescription Drug Abuse: No - Advance Directive Resuscitation Status: Full Code Family History Parental Family History Reviewed: Yes - Mother murdered. Father unknown. Children Family History Reviewed: Yes Sibling(s) Family History Reviewed.: No Medication/Allergy Home Medications: Calcium Carbonate/Vitamin D3 [Os-Abraham 500-Vit D3 200 Caplet] 1 tab PO DAILY 05/25/18 Polyethylene Glycol 3350 [Miralax Powder 17 gm/Packet] 1 packet PO DAILYP PRN 05/25/18 Tamsulosin HCl [Flomax 0.4 mg Cap.sr] 0.4 mg PO DAILY 05/25/18 Furosemide [Lasix 20 mg Tablet] 20 mg PO DAILY 30 Days #30 tablet 05/31/18 Allopurinol [Zyloprim 100 mg Tablet] 100 mg PO DAILY 11/04/19 Isavuconazonium Sulfate [Cresemba] 372 mg PO DAILY 11/04/19 Prochlorperazine Maleate 5 mg PO Q6HP PRN 11/04/19 Sevelamer HCl [Renagel 800 mg Tablet] 800 mg PO TID 11/04/19 Vancomycin/Water For Inj (Peg) [Vancomycin 1 Gram/200 ml Bag] 1 gm IV MOWEFR Venetoclax [Venclexta] 200 mg PO DAILY 11/04/19 Allergies/Adverse Reactions: No Known Allergies Allergy (Verified 03/14/18 12:23) Review of Systems Constitutional: PRESENT: fever(s). ABSENT: headache(s) Eyes: ABSENT: visual disturbances Ears: ABSENT: hearing changes Nose, Mouth, and Throat: ABSENT: sore throat Cardiovascular: ABSENT: chest pain Respiratory: ABSENT: dyspnea Gastrointestinal: ABSENT: abdominal pain, constipation, nausea Genitourinary: PRESENT: as per HPI, difficulty urinating Integumentary: ABSENT: pruritus Neurological: ABSENT: confusion, weakness Hematologic/Lymphatic: ABSENT: easy bleeding Physical Exam Vital Signs: Temp Pulse Resp BP Pulse Ox 97.9 F 100 20 120/78 100 11/05/19 07:00 11/05/19 07:00 11/05/19 07:00 11/05/19 07:00 11/05/19 07:00 Intake & Output 11/04/19 11/05/19 11/06/19 06:59 06:59 06:59 Intake Total 350 228 Output Total 250 Balance 100 228 Weight 96.4 kg General appearance: PRESENT: no acute distress, well-developed, well-nourished Exam: 69 year old male. Head exam: PRESENT: normocephalic Eye exam: PRESENT: EOMI Mouth exam: PRESENT: moist, tongue midline Neck exam: ABSENT: lymphadenopathy, tenderness Respiratory exam: PRESENT: clear to auscultation merrill, unlabored Cardiovascular exam: PRESENT: RRR GI/Abdominal exam: PRESENT: soft. ABSENT: tenderness Extremities exam: ABSENT: pedal edema Musculoskeletal exam: PRESENT: normal inspection Neurological exam: PRESENT: alert, awake Psychiatric exam: PRESENT: appropriate affect Skin exam: PRESENT: normal color Results Laboratory Results: 11/05/19 05:51 11/04/19 15:50 11/04/19 11/04/19 11/04/19 15:50 15:50 16:09 WBC 0.2 L* RBC 2.18 L Hgb 7.2 L Hct 20.6 L MCV 95 MCH 32.9 MCHC 34.7 RDW 22.9 H Plt Count 9 L* Seg Neutrophils % 5.4 L VBG pH 7.51 H VBG pCO2 38.2 VBG HCO3 29.5 VBG Base Excess 6.0 Sodium 136.4 L Potassium 4.2 Chloride 99 Carbon Dioxide 31 H Anion Gap 6 BUN 24 H Creatinine 4.76 H Est GFR ( Amer) 15 L Glucose 133 H Lactic Acid Calcium 8.5 Total Bilirubin 1.1 AST 27 Alkaline Phosphatase 54 Total Protein 6.7 Albumin 3.5 Urine Color Urine Appearance Urine pH Ur Specific [place] Urine Protein Urine Glucose (UA) Urine Ketones Urine Blood Urine RBC (Auto) Blood Type Antibody Screen 11/04/19 11/04/19 11/04/19 16:09 17:00 17:20 WBC RBC Hgb Hct MCV MCH MCHC RDW Plt Count Seg Neutrophils % VBG pH VBG pCO2 VBG HCO3 VBG Base Excess Sodium Potassium Chloride Carbon Dioxide Anion Gap BUN Creatinine Est GFR ( Amer) Glucose Lactic Acid 0.9 Calcium Total Bilirubin AST Alkaline Phosphatase Total Protein Albumin Urine Color YELLOW Urine Appearance CLEAR Urine pH 9.0 Ur Specific [place] 1.009 Urine Protein 100 H Urine Glucose (UA) 150 H Urine Ketones NEGATIVE Urine Blood LARGE H Urine RBC (Auto) >182 Blood Type A NEGATIVE Antibody Screen NEGATIVE 11/04/19 11/05/19 11/05/19 21:00 00:30 05:51 WBC 0.2 L* RBC 2.32 L Hgb 7.6 L Hct 21.8 L MCV 94 MCH 32.7 MCHC 35.0 RDW 21.1 H Plt Count 7 L* Seg Neutrophils % 6.2 L VBG pH VBG pCO2 VBG HCO3 VBG Base Excess Sodium Potassium Chloride Carbon Dioxide Anion Gap BUN Creatinine Est GFR ( Amer) Glucose Lactic Acid 0.9 1.3 Calcium Total Bilirubin AST Alkaline Phosphatase Total Protein Albumin Urine Color Urine Appearance Urine pH Ur Specific [place] Urine Protein Urine Glucose (UA) Urine Ketones Urine Blood Urine RBC (Auto) Blood Type Antibody Screen Impressions: Chest X-Ray 11/04/19 16:03 IMPRESSION: Borderline enlarged cardiac silhouette central vascular prominence. No overt edema. Assessment & Plan - Diagnosis (1) Neutropenic fever Is this a current diagnosis for this admission?: Yes Plan: On vanc, cefapime and diflucan. Cultures have been obtained. I do not expect his blood counts to recover during this admission. Await resolution of fever an d if all cultures are negative and fever is gone, consider discharge. NO GCSF in this situation. (2) AML (acute myeloblastic leukemia) Qualifiers: Leukemia Active/Remission status: without remission Qualified Code(s): C92.00 - Acute myeloblastic leukemia, not having achieved remission Is this a current diagnosis for this admission?: Yes Plan: I will HOLD the venetoclax. Plans are for bone marrow biopsy at [facility] as previously scheduled in the near future. Continue to transfuse pRBCs for HGB <7 and PLT for PLT <10. All blood products are to be leukopoor, irradiated. (3) ESRD (end stage renal disease) on dialysis Is this a current diagnosis for this admission?: Yes Plan: Continues dialysis. This will need to be arranged here in the hospital. (4) Urinary retention due to benign prostatic hyperplasia Is this a current diagnosis for this admission?: Yes Plan: Will remove Heard today and see if this has resolved. If not, consider replacing Heard. - Plan Summary Plan Summary: I will be happy to continue to follow him. Please call me with any questions or concerns. Patient was discussed with Dr. Garnica.
[2019-11-05] MEDS: FUROSEMIDE 20 MG TABLET PO SCH (09:15)
[2019-11-05] MEDS: FLUCONAZOLE 100 MG TABLET PO SCH (09:15)
[2019-11-05] MEDS: CALCIUM CARBONATE 600 MG/VITAMIN D3 400 UNIT TABLET PO SCH (09:15)
[2019-11-05] MEDS: TAMSULOSIN HCL 0.4 MG CAP.SR.24H PO SCH (09:15)
[2019-11-05] MEDS: SEVELAMER HCL 800 MG TABLET PO SCH ×3 (09:15→17:38)
[2019-11-05] MEDS: ALLOPURINOL 100 MG TABLET PO SCH (09:15)
[2019-11-05] MEDS: DIBUCAINE 1% OINTMENT 28 GM PR SCH ×3 (09:16→17:38)
--- NOTE | 2019-11-05 09:48 | PDOC PROGRESS REPORT ---
Subjective Progress Note for:: 11/05/19 Subjective:: 69 year old male with history of multiple myeloma in remission, status post stem cell transplantation in 1999, ESRD on hemodialysis completed dialysis today, hypertension, newly diagnosed AML started receiving the treatment at [facility] 2 weeks ago came to the emergency room with a fever of 103.9. As an outpatient he is on antibiotics, antifungal, antiviral medications. In the emergency room temp of 103.9. WBC 0.2, platelet count is 9, hemoglobin is 7.2. Call was placed by the ER physician to [facility] transfer center to request transfer , as per him no beds are available at [facility] at this time. Patient agreed to stay in the hospital in the meantime. I discussed the plan of care with Dr. Rothman, she agreed to see him in the hospital. She received IV cefepime, IV vancomycin. Platelet transfusions , blood transfusions requested by the ER physician. 11/05/2019-no acute events in the last 24 hours. T-max is 97.5 this morning. WBC count is 0.2 and platelet count is 7. To repeat the CBC now and if the platelet count is less than 10,000 plan is to transfuse the platelets. Latest hemoglobin is 7.6. No plans to do the blood transfusion as per oncology. Patient is receiving cefepime and IV vancomycin. he is also on Valtrex and Diflucan. blood cultures are pending at this time. Reason For Visit: AML(ACUTE MYELOBLASTIC LEUKEMIA),ANEMIA,THROMBOCYT Physical Exam Vital Signs: Temp Pulse Resp BP Pulse Ox 97.5 F 101 H 19 136/79 H 100 11/05/19 07:45 11/05/19 07:45 11/05/19 07:45 11/05/19 07:45 11/05/19 07:45 Intake & Output 11/04/19 11/05/19 11/06/19 06:59 06:59 06:59 Intake Total 350 228 Output Total 250 Balance 100 228 Weight 96.4 kg General appearance: PRESENT: no acute distress, well-developed Head exam: PRESENT: atraumatic Eye exam: PRESENT: conjunctiva pale, PERRLA Ear exam: PRESENT: normal external ear exam Mouth exam: PRESENT: neck supple Teeth exam: PRESENT: poor dentation Neck exam: ABSENT: carotid bruit, JVD, lymphadenopathy, thyromegaly Respiratory exam: PRESENT: decreased breath sounds Cardiovascular exam: PRESENT: RRR. ABSENT: diastolic murmur, rubs, systolic murmur GI/Abdominal exam: PRESENT: normal bowel sounds, soft. ABSENT: distended, guarding, mass, organolmegaly, rebound, tenderness Rectal exam: PRESENT: deferred Extremities exam: PRESENT: other - AV fistula on the left arm is functioning well. Neurological exam: PRESENT: alert, awake, oriented to person, oriented to place, oriented to time, oriented to situation, CN II-XII grossly intact. ABSENT: motor sensory deficit Psychiatric exam: PRESENT: appropriate affect, normal mood. ABSENT: homicidal ideation, suicidal ideation Results Laboratory Results: 11/05/19 05:51 11/04/19 15:50 11/04/19 11/04/19 11/04/19 15:50 15:50 16:09 WBC 0.2 L* RBC 2.18 L Hgb 7.2 L Hct 20.6 L MCV 95 MCH 32.9 MCHC 34.7 RDW 22.9 H Plt Count 9 L* Seg Neutrophils % 5.4 L VBG pH 7.51 H VBG pCO2 38.2 VBG HCO3 29.5 VBG Base Excess 6.0 Sodium 136.4 L Potassium 4.2 Chloride 99 Carbon Dioxide 31 H Anion Gap 6 BUN 24 H Creatinine 4.76 H Est GFR ( Amer) 15 L Glucose 133 H Lactic Acid Calcium 8.5 Total Bilirubin 1.1 AST 27 Alkaline Phosphatase 54 Total Protein 6.7 Albumin 3.5 Urine Color Urine Appearance Urine pH Ur Specific [place] Urine Protein Urine Glucose (UA) Urine Ketones Urine Blood Urine RBC (Auto) Blood Type Antibody Screen 11/04/19 11/04/19 11/04/19 16:09 17:00 17:20 WBC RBC Hgb Hct MCV MCH MCHC RDW Plt Count Seg Neutrophils % VBG pH VBG pCO2 VBG HCO3 VBG Base Excess Sodium Potassium Chloride Carbon Dioxide Anion Gap BUN Creatinine Est GFR ( Amer) Glucose Lactic Acid 0.9 Calcium Total Bilirubin AST Alkaline Phosphatase Total Protein Albumin Urine Color YELLOW Urine Appearance CLEAR Urine pH 9.0 Ur Specific [place] 1.009 Urine Protein 100 H Urine Glucose (UA) 150 H Urine Ketones NEGATIVE Urine Blood LARGE H Urine RBC (Auto) >182 Blood Type A NEGATIVE Antibody Screen NEGATIVE 11/04/19 11/05/19 11/05/19 21:00 00:30 05:51 WBC 0.2 L* RBC 2.32 L Hgb 7.6 L Hct 21.8 L MCV 94 MCH 32.7 MCHC 35.0 RDW 21.1 H Plt Count 7 L* Seg Neutrophils % 6.2 L VBG pH VBG pCO2 VBG HCO3 VBG Base Excess Sodium Potassium Chloride Carbon Dioxide Anion Gap BUN Creatinine Est GFR ( Amer) Glucose Lactic Acid 0.9 1.3 Calcium Total Bilirubin AST Alkaline Phosphatase Total Protein Albumin Urine Color Urine Appearance Urine pH Ur Specific [place] Urine Protein Urine Glucose (UA) Urine Ketones Urine Blood Urine RBC (Auto) Blood Type Antibody Screen Impressions: Chest X-Ray 11/04/19 16:03 IMPRESSION: Borderline enlarged cardiac silhouette central vascular prominence. No overt edema. Assessment and Plan - Diagnosis (1) AML (acute myeloblastic leukemia) Qualifiers: Leukemia Active/Remission status: without remission Qualified Code(s): C92.00 - Acute myeloblastic leukemia, not having achieved remission Is this a current diagnosis for this admission?: Yes Plan: 11/04/2019-patient is going to be admitted to [facility] as inpatient for newly diagnosed acute myeloid leukemia started on chemotherapy admitted with fever of 103.9. No source was noticed at this time. WBC 0.2, platelet count is 9. Patient is going to receive antibiotics, antiviral, antifungal medications. Consultation with Asaad is requested. Patient condition is critical at this time. Consultation with Dr. Chidi Evans was requested because he is a dialysis patient. 11/05/2019-patient was newly diagnosed with AML. He is receiving chemotherapy at [place]. Admitted for high fevers, leukopenia, anemia, thrombocytopenia. Oncology consult requested. (2) Fever Qualifiers: Fever type: unspecified Qualified Code(s): R50.9 - Fever, unspecified Is this a current diagnosis for this admission?: Yes Plan: 11/04/2019-patient came in with fever of 103.9. Chest x-ray was negative. WBC is 0.2, may be neutropenic fever. Patient recently history of treatment for newly diagnosed AML. To continue IV cefepime, vancomycin, valacyclovir, and antifungal medication Diflucan. Cultures urine cultures will be requested. 11/05/2019-temperature this morning is 97.5, but he is on antibiotics, antiviral, antifungal medications. Cultures are pending at this time. Chest x-ray was normal. (3) ESRD (end stage renal disease) on dialysis Is this a current diagnosis for this admission?: Yes Plan: 11/04/2019-ESRD on hemodialysis Saturday. He completed dialysis today. 11/05/19-consultation with Dr. Chidi Evans is requested. Patient is due for dialysis tomorrow. (4) Thrombocytopenia Is this a current diagnosis for this admission?: Yes Plan: 11/04/2019-platelet count is 9. Platelet transfusion is requested by the ER adeline dill. (5) Anemia in ESRD (end-stage renal disease) Is this a current diagnosis for this admission?: Yes Plan: 11/04/2019-hemoglobin 7.2. Further management as per Dr. martel 11/05/2019-latest hemoglobin is 7.6 plan is to transfuse him if the hemoglobin is less than 7. (6) Hypertension Qualifiers: Hypertension type: unspecified Qualified Code(s): I10 - Essential (primary) hypertension Is this a current diagnosis for this admission?: No Plan: 11/04/2019-blood pressure today is 166/78. To restart his home medications. 11/05/2019-blood pressure today is 136/80. Stable. Plan is to closely monitor t he blood pressures. (7) Urinary retention due to benign prostatic hyperplasia Is this a current diagnosis for this admission?: Yes Plan: 11/04/2019-patient has recently placed Cevallos's catheter. Urine culture will be sent. 11/05/2019-family thinks Cevallos's catheter may be the source of infection to discontinue Cevallos catheter from today.
[2019-11-05] MEDS ORDERED: (PENDING PHARMACY ID) (Calcium Carbonate/Vitamin D3 [Os-Cal 500-Vit D3 200 Caplet] 1 TAB) PO SCH (10:00)
[2019-11-05] MEDS ORDERED: ISAVUCONAZONIUM SULFATE 372 MG PO SCH (10:00)
[2019-11-05] MEDS ORDERED: VENETOCLAX 200 MG PO SCH (10:00)
[2019-11-05] MEDS: HYDROCORTISONE 1% OINTMENT 28.35 GM TP SCH ×4 (11:15→21:57)
[2019-11-05 11:18] LABS: ABSOLUTE LYMPHOCYTES (AUTO) 0.1 10^3/uL (0.5-4.7); EOSINOPHILS % (AUTO) 0.8 % (0-6); HEMATOCRIT 21.6 % (37.9-51.0); LYMPHOCYTES % (AUTO) 71.7 % (13-45); MEAN CORPUSCULAR HEMOGLOBIN 32.6 pg (27.0-33.4); MEAN CORPUSCULAR HGB CONC 34.3 g/dL (32.0-36.0); MEAN CORPUSCULAR VOLUME 95 fl (80-97); MONOCYTES % (AUTO) 21.3 % (3-13); RED BLOOD COUNT 2.27 10^6/uL (4.35-5.55); RED CELL DISTRIBUTION WIDTH 20.5 % (11.5-14.0); SEGMENTED NEUTROPHILS % (AUTO) 6.2 % (42-78); TOTAL CELLS COUNTED % (AUTO) 100 %
[2019-11-05] MEDS: VALACYCLOVIR HCL 500 MG TABLET PO SCH ×2 (11:25→22:09)
--- NOTE | 2019-11-05 11:47 | PDOC CONSULTATION ---
Consultation Consult Date: 11/05/19 Provider Consulted: Kathy JETER Consult reason:: ESRD for HD. 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 - thought to be treatment induced and currently started on Venetoclax and azacitadine bu [facility] recently and is apparently in the first cycle was admitted with fever and chills of a days duration with weakness. He just had a heard catheter placed this last weekend for difficulty in micturition of approximately 15- 20 oz he has qd. Evaluations done in the ER revealed that he was febrile with a fever of 103 F along with severe n eutropenia of 0.2 and associated thrombocytopenia of 9 and hemoglobin is 7.2. He has had cultures drawn and begun on antibiotics and also has received blood and platelet transfusions. He has also been seen by heme oncologist. Today on seeing him he says he is generally feeling better than when he came in. He has had no more fever or chills. He denies any history of abdominal pains chest pain or shortness of breath. He has had his Heard catheter removed this morning and yet to urinate. He says he has been known to have prostate hypertrophy but has not seen a urologist. Labs and medications were reviewed. His last dialysis was Saturday. Past Medical History Cardiac Medical History: Reports: Hypertension-primary Denies: Coronary Artery Disease, Myocardial Infarction Pulmonary Medical History: Denies: Asthma, Bronchitis, Chronic Obstructive Pulmonary Disease (COPD), Pneumonia, Tuberculosis Neurological Medical History: Denies: Seizures Renal/ Medical History: Reports: Benign Prostatic Hyperplasia, End Stage Renal Disease, Secondary Hyperparathyroidism Malignancy Medical History: Reports: Leukemia GI Medical History: Denies: Cirrhosis, Gastroesophageal Reflux Disease Musculoskeltal Medical History: Denies: Arthritis Psychiatric Medical History: Denies: Bipolar Disorder, Depression Hematology Medical History: Reports Anemia Past Surgical History Past Surgical History: Reports: Other - Stem cell transplantation in . Social History Smoking Status: Never Smoker Electronic Cigarette use?: No Hx Recreational Drug Use: No Drugs: None Hx Prescription Drug Abuse: No - Advance Directive Resuscitation Status: Full Code Family History Parental Family History Reviewed: Yes - Negative for ESRD Children Family History Reviewed: No Sibling(s) Family History Reviewed.: No Medication/Allergy Home Medications: Calcium Carbonate/Vitamin D3 [Os-Abraham 500-Vit D3 200 Caplet] 1 tab PO DAILY 05/25/18 Polyethylene Glycol 3350 [Miralax Powder 17 gm/Packet] 1 packet PO DAILYP PRN 05/25/18 Tamsulosin HCl [Flomax 0.4 mg Cap.sr] 0.4 mg PO DAILY 05/25/18 Furosemide [Lasix 20 mg Tablet] 20 mg PO DAILY 30 Days #30 tablet 05/31/18 Allopurinol [Zyloprim 100 mg Tablet] 100 mg PO DAILY 11/04/19 Isavuconazonium Sulfate [Cresemba] 372 mg PO DAILY 11/04/19 Prochlorperazine Maleate 5 mg PO Q6HP PRN 11/04/19 Sevelamer HCl [Renagel 800 mg Tablet] 800 mg PO TID 11/04/19 Vancomycin/Water For Inj (Peg) [Vancomycin 1 Gram/200 ml Bag] 1 gm IV MOWEFR 11/04/19 Venetoclax [Venclexta] 200 mg PO DAILY 11/04/19 Allergies/Adverse Reactions: No Known Allergies Allergy (Verified 03/14/18 12:23) Review of Systems Constitutional: PRESENT: anorexia, chills, fatigue, fever(s), night sweats, weakness. ABSENT: headache(s) Nose, Mouth, and Throat: ABSENT: mouth pain, sore throat Cardiovascular: ABSENT: edema, orthropnea, palpitations Respiratory: ABSENT: cough, dyspnea, hemoptysis Gastrointestinal: ABSENT: abdominal pain, bloating, coffee ground emesis, diarrhea, dysphagia Genitourinary: PRESENT: difficulty urinating. ABSENT: dysuria, hematuria Neurological: ABSENT: abnormal movements, abnormal speech, confusion, co nvulsions, focal weakness, frequent falls Psychiatric: ABSENT: anxiety Hematologic/Lymphatic: ABSENT: easy bruising, lymphadenopathy Physical Exam Vital Signs: Temp Pulse Resp BP Pulse Ox 97.5 F 101 H 19 136/79 H 100 11/05/19 07:45 11/05/19 07:45 11/05/19 07:45 11/05/19 07:45 11/05/19 07:45 Intake & Output 11/04/19 11/05/19 11/06/19 06:59 06:59 06:59 Intake Total 350 228 Output Total 250 Balance 100 228 Weight 96.4 kg General appearance: PRESENT: no acute distress Eye exam: PRESENT: EOMI, PERRLA. ABSENT: scleral icterus Ear exam: PRESENT: normal external ear exam Mouth exam: PRESENT: moist Neck exam: ABSENT: lymphadenopathy, meningismus, tenderness, thyromegaly, tracheal deviation Respiratory exam: PRESENT: clear to auscultation merrill, decreased breath sounds. ABSENT: crackles Cardiovascular exam: PRESENT: +S1, +S2 GI/Abdominal exam: PRESENT: normal bowel sounds, soft. ABSENT: organomegaly, tenderness Extremities exam: ABSENT: pedal edema Neurological exam: PRESENT: alert, awake, oriented to person, oriented to place Psychiatric exam: PRESENT: appropriate affect Skin exam: ABSENT: erythema, mottled, rash Results Laboratory Results: 11/04/19 15:50 11/04/19 11/04/19 11/04/19 15:50 15:50 16:09 WBC 0.2 L* RBC 2.18 L Hgb 7.2 L Hct 20.6 L MCV 95 MCH 32.9 MCHC 34.7 RDW 22.9 H Plt Count 9 L* Seg Neutrophils % 5.4 L VBG pH 7.51 H VBG pCO2 38.2 VBG HCO3 29.5 VBG Base Excess 6.0 Sodium 136.4 L Potassium 4.2 Chloride 99 Carbon Dioxide 31 H Anion Gap 6 BUN 24 H Creatinine 4.76 H Est GFR ( Amer) 15 L Glucose 133 H Lactic Acid Calcium 8.5 Total Bilirubin 1.1 AST 27 Alkaline Phosphatase 54 Total Protein 6.7 Albumin 3.5 Urine Color Urine Appearance Urine pH Ur Specific [place] Urine Protein Urine Glucose (UA) Urine Ketones Urine Blood Urine RBC (Auto) Blood Type Antibody Screen 11/04/19 11/04/19 11/04/19 16:09 17:00 17:20 WBC RBC Hgb Hct MCV MCH MCHC RDW Plt Count Seg Neutrophils % VBG pH VBG pCO2 VBG HCO3 VBG Base Excess Sodium Potassium Chloride Carbon Dioxide Anion Gap BUN Creatinine Est GFR ( Amer) Glucose Lactic Acid 0.9 Calcium Total Bilirubin AST Alkaline Phosphatase Total Protein Albumin Urine Color YELLOW Urine Appearance CLEAR Urine pH 9.0 Ur Specific [place] 1.009 Urine Protein 100 H Urine Glucose (UA) 150 H Urine Ketones NEGATIVE Urine Blood LARGE H Urine RBC (Auto) >182 Blood Type A NEGATIVE Antibody Screen NEGATIVE 11/04/19 11/05/19 11/05/19 21:00 00:30 05:51 WBC 0.2 L* RBC 2.32 L Hgb 7.6 L Hct 21.8 L MCV 94 MCH 32.7 MCHC 35.0 RDW 21.1 H Plt Count 7 L* Seg Neutrophils % 6.2 L VBG pH VBG pCO2 VBG HCO3 VBG Base Excess Sodium Potassium Chloride Carbon Dioxide Anion Gap BUN Creatinine Est GFR ( Amer) Glucose Lactic Acid 0.9 1.3 Calcium Total Bilirubin AST Alkaline Phosphatase Total Protein Albumin Urine Color Urine Appearance Urine pH Ur Specific [place] Urine Protein Urine Glucose (UA) Urine Ketones Urine Blood Urine RBC (Auto) Blood Type Antibody Screen Impressions: Chest X-Ray 11/04/19 16:03 IMPRESSION: Borderline enlarged cardiac silhouette central vascular prominence. No overt edema. Assessment & Plan - Diagnosis (1) Neutropenic fever Is this a current diagnosis for this admission?: Yes Plan: Patient on chemo for his recently diagnosed probable drug-induced AML now admitted with neutropenic fever with associated severe anemia as well as for severe thrombocytopenia. Is status post blood and platelet transfusion and on multiple antibiotics pending cultures. Further management as per hospitalist/heme oncologist. (2) ESRD (end stage renal disease) on dialysis Is this a current diagnosis for this admission?: Yes Plan: I will place orders to have him dialyzed tomorrow in isolation. (3) AML (acute myeloblastic leukemia) Qualifiers: Leukemia Active/Remission status: without remission Qualified Code(s): C92.00 - Acute myeloblastic leukemia, not having achieved remission Is this a current diagnosis for this admission?: Yes Plan: Currently on aggressive chemo as per guidelines from [facility] and being watched by heme oncologist here. (4) Thrombocytopenia Is this a current diagnosis for this admission?: Yes Plan: Severe. Status post platelet transfusion and being monitored by hospitalist. (5) Hypertension Qualifiers: Hypertension type: unspecified Qualified Code(s): I10 - Essential (primary) hypertension Is this a current diagnosis for this admission?: No Plan: Controlled. Continue current medications monitor (6) Multiple myeloma in remission Plan: Status quo. (7) Urinary retention due to benign prostatic hyperplasia Is this a current diagnosis for this admission?: Yes Plan: Patient had Heard catheter introduced this weekend and has been removed today. He is yet to urinate. Monitor. Likely he will need to have his catheter reintroduced and will have to follow urology as an outpatient. Continue on alpha blockers and such.
[2019-11-05 12:05] LABS: ANISOCYTOSIS 2+; OVALOCYTES SLIGHT; PLATELET COMMENT DECREASED; POIKILOCYTOSIS SLIGHT; POLYCHROMASIA SLIGHT
[2019-11-05 12:07] LABS: HEMOGLOBIN 7.4 g/dL (13.5-17.0); PLATELET COUNT 23 10^3/uL (150-450); WHITE BLOOD COUNT 0.2 10^3/uL (4.0-10.5)
--- NOTE | 2019-11-05 13:17 | EKG REPORT ---
SEVERITY:- ABNORMAL ECG - SINUS TACHYCARDIA PROBABLE LEFT ATRIAL ABNORMALITY BORDERLINE T ABNORMALITIES, INFERIOR LEADS PROLONGED QT INTERVAL : Confirmed by: Jose Eduardo Murillo MD 05-Nov-2019 13:16:38
[2019-11-05] MEDS: CEFEPIME 1 GM/D5W RTU 1 GM/50 ML RTUPB IV SCH (22:10)
[2019-11-06] MEDS: PANTOPRAZOLE SODIUM 40 MG TABLET.DR PO SCH ×2 (05:10→17:13)
[2019-11-06 08:23] LABS: ABSOLUTE LYMPHOCYTES (AUTO) 0.2 10^3/uL (0.5-4.7); EOSINOPHILS % (AUTO) 0.4 % (0-6); HEMATOCRIT 23.2 % (37.9-51.0); LYMPHOCYTES % (AUTO) 83.1 % (13-45); MEAN CORPUSCULAR HEMOGLOBIN 32.7 pg (27.0-33.4); MEAN CORPUSCULAR HGB CONC 34.6 g/dL (32.0-36.0); MEAN CORPUSCULAR VOLUME 95 fl (80-97); MONOCYTES % (AUTO) 10.4 % (3-13); RED BLOOD COUNT 2.45 10^6/uL (4.35-5.55); RED CELL DISTRIBUTION WIDTH 22.6 % (11.5-14.0); SEGMENTED NEUTROPHILS % (AUTO) 6.1 % (42-78); TOTAL CELLS COUNTED % (AUTO) 100 %
--- NOTE | 2019-11-06 08:27 | PDOC PROGRESS REPORT ---
Subjective Progress Note for:: 11/06/19 Subjective:: 69 year old male with history of multiple myeloma in remission, status post stem cell transplantation in 1999, ESRD on hemodialysis completed dialysis today, hypertension, newly diagnosed AML started receiving the treatment at [facility] 2 weeks ago came to the emergency room with a fever of 103.9. As an outpatient he is on antibiotics, antifungal, antiviral medications. In the emergency room temp of 103.9. WBC 0.2, platelet count is 9, hemoglobin is 7.2. Call was placed by the ER physician to [facility] transfer center to request transfer , as per him no beds are available at [facility] at this time. Patient agreed to stay in the hospital in the meantime. I discussed the plan of care with Dr. Rothman, she agreed to see him in the hospital. She received IV cefepime, IV vancomycin. Platelet transfusions , blood transfusions requested by the ER physician. 11/05/2019-no acute events in the last 24 hours. T-max is 97.5 this morning. WBC count is 0.2 and platelet count is 7. To repeat the CBC now and if the platelet count is less than 10,000 plan is to transfuse the platelets. Latest hemoglobin is 7.6. No plans to do the blood transfusion as per oncology. Patient is receiving cefepime and IV vancomycin. he is also on Valtrex and Diflucan. blood cultures are pending at this time. 11/06/[id number]-jdrp-old male with multiple medical problems including recently diagnosed AML and initial treatment, end-stage renal disease on dialysis has a history of multiple myeloma in remission has history of stem cell transplant admitted for high fevers. Blood cultures are negative so far. Afebrile now. He is due for dialysis today. Receiving cefepime, vancomycin, Valtrex, Diflucan. Reason For Visit: AML(ACUTE MYELOBLASTIC LEUKEMIA),ANEMIA,THROMBOCYT Physical Exam Vital Signs: Temp Pulse Resp BP Pulse Ox 99.1 F 91 20 155/80 H 94 11/06/19 03:42 11/06/19 06:43 11/06/19 03:42 11/06/19 03:42 11/06/19 03:42 Intake & Output 11/05/19 11/06/19 11/07/19 06:59 06:59 06:59 Intake Total 350 1378 Output Total 250 100 Balance 100 1278 Weight 96.4 kg 94.2 kg General appearance: PRESENT: no acute distress, well-developed Head exam: PRESENT: atraumatic Eye exam: PRESENT: PERRLA Mouth exam: PRESENT: moist, tongue midline Teeth exam: PRESENT: poor dentation Respiratory exam: PRESENT: decreased breath sounds Cardiovascular exam: PRESENT: RRR. ABSENT: diastolic murmur, rubs, systolic murmur GI/Abdominal exam: PRESENT: normal bowel sounds, soft. ABSENT: distended, guarding, mass, organolmegaly, rebound, tenderness Rectal exam: PRESENT: deferred Extremities exam: PRESENT: other - AV fistula in the left arm is functioning well. Neurological exam: PRESENT: alert, awake, oriented to person, oriented to place, oriented to time, oriented to situation, CN II-XII grossly intact. ABSENT: motor sensory deficit Psychiatric exam: PRESENT: appropriate affect, normal mood. ABSENT: homicidal ideation, suicidal ideation Skin exam: PRESENT: dry, intact, warm. ABSENT: cyanosis, rash Results Laboratory Results: 11/04/19 15:50 11/05/19 10:34 WBC 0.2 L* RBC 2.27 L Hgb 7.4 L Hct 21.6 L MCV 95 MCH 32.6 MCHC 34.3 RDW 20.5 H Plt Count 23 L* D Seg Neutrophils % 6.2 L Impressions: Chest X-Ray 11/04/19 16:03 IMPRESSION: Borderline enlarged cardiac silhouette central vascular prominence. No overt edema. Assessment and Plan - Diagnosis (1) AML (acute myeloblastic leukemia) Qualifiers: Leukemia Active/Remission status: without remission Qualified Code(s): C92.00 - Acute myeloblastic leukemia, not having achieved remission Is this a current diagnosis for this admission?: Yes Plan: 11/04/2019-patient is going to be admitted to [facility] as inpatient for newly diagnosed acute myeloid leukemia started on chemotherapy admitted with fever of 103.9. No source was noticed at this time. WBC 0.2, platelet count is 9. Patient is going to receive antibiotics, antiviral, antifungal medications. Consultation with Asaad is requested. Patient condition is critical at this time. Consultation with Dr. Chidi Evans was requested because he is a dialysis patient. 11/05/2019-patient was newly diagnosed with AML. He is receiving chemotherapy at [facility]. Admitted for high fevers, leukopenia, anemia, thrombocytopenia. Oncology consult requested. 11/06/19-patient was recently diagnosed with AML. He started receiving treatment at [facility]. In the meantime admitted for high fevers. Presently on antibiotics, antifungal, antiviral medications. Dr. Rothman is following the patient. (2) Fever Qualifiers: Fever type: unspecified Qualified Code(s): R50.9 - Fever, unspecified Is this a current diagnosis for this admission?: Yes Plan: 11/04/2019-patient came in with fever of 103.9. Chest x-ray was negative. WBC is 0.2, may be neutropenic fever. Patient recently history of treatment for newly diagnosed AML. To continue IV cefepime, vancomycin, valacyclovir, and antifungal medication Diflucan. Cultures urine cultures will be requested. 11/05/2019-temperature this morning is 97.5, but he is on antibiotics, antiviral, antifungal medications. Cultures are pending at this time. Chest x-ray was n ormal. 11/06/2019-T-max is 99.1. Patient is doing well. Blood cultures are negative so far. (3) ESRD (end stage renal disease) on dialysis Is this a current diagnosis for this admission?: Yes Plan: 11/04/2019-ESRD on hemodialysis Saturday. He completed dialysis today. 11/05/19-consultation with Dr. Chidi Evans is requested. Patient is due for dialysis tomorrow. 11/06/2019-patient is due for dialysis today. Consultation with Dr. Chidi Evans was done. (4) Thrombocytopenia Is this a current diagnosis for this admission?: Yes Plan: 11/04/2019-platelet count is 9. Platelet transfusion is requested by the ER physician. 11/06/2019-latest platelet count is 23,000 plan is to give platelet transfusions if the count is less than 10,000. (5) Anemia in ESRD (end-stage renal disease) Is this a current diagnosis for this admission?: Yes Plan: 11/04/2019-hemoglobin 7.2. Further management as per Dr. martel 11/05/2019-latest hemoglobin is 7.6 plan is to transfuse him if the hemoglobin is less than 7. 11/06/2019-hemoglobin is 7.6 plan is to give blood transfusions if the hemoglobin drops less than 7. (6) Hypertension Qualifiers: Hypertension type: unspecified Qualified Code(s): I10 - Essential (primary) hypertension Is this a current diagnosis for this admission?: No Plan: 11/04/2019-blood pressure today is 166/78. To restart his home medications. 11/05/2019-blood pressure today is 136/80. Stable. Plan is to closely monitor the blood pressures. 11/06/2019-blood pressure today is 155/80. He is due for dialysis today. With the dialysis blood pressure may improve. (7) Urinary retention due to benign prostatic hyperplasia Is this a current diagnosis for this admission?: Yes Plan: 11/04/2019-patient has recently placed Cevallos's catheter. Urine culture will be sent. 11/05/2019-family thinks Cevallos's catheter may be the source of infection to discontinue Cevallos catheter from today. 11/06/2019-Cevallos's catheter was removed yesterday denies any problems with urination this morning.
[2019-11-06 08:37] LABS: VANCOMYCIN,TROUGH 21.5 ug/mL (5.0-20.0)
[2019-11-06 09:03] LABS: ANISOCYTOSIS 4+; BURR CELLS SLIGHT; OVALOCYTES SLIGHT; POIKILOCYTOSIS SLIGHT
[2019-11-06 09:04] LABS: PLATELET COMMENT DECREASED
[2019-11-06 09:08] LABS: WHITE BLOOD COUNT 0.2 10^3/uL (4.0-10.5)
[2019-11-06 09:09] LABS: PLATELET COUNT 16 10^3/uL (150-450)
[2019-11-06] MEDS: FLUCONAZOLE 100 MG TABLET PO SCH (09:15)
[2019-11-06] MEDS: VALACYCLOVIR HCL 500 MG TABLET PO SCH ×2 (09:15→21:57)
[2019-11-06] MEDS: FUROSEMIDE 20 MG TABLET PO SCH (09:16)
[2019-11-06] MEDS: DIBUCAINE 1% OINTMENT 28 GM PR SCH ×3 (09:17→17:13)
[2019-11-06] MEDS: SEVELAMER HCL 800 MG TABLET PO SCH ×3 (09:17→17:12)
[2019-11-06] MEDS: ALLOPURINOL 100 MG TABLET PO SCH (09:17)
[2019-11-06] MEDS: TAMSULOSIN HCL 0.4 MG CAP.SR.24H PO SCH (09:17)
[2019-11-06] MEDS: CALCIUM CARBONATE 600 MG/VITAMIN D3 400 UNIT TABLET PO SCH (09:17)
[2019-11-06] MEDS: HYDROCORTISONE 1% OINTMENT 28.35 GM TP SCH ×4 (09:17→21:57)
[2019-11-06 10:22] LABS: C DIFFICILE GDH NEGATIVE (NEGATIVE)
--- NOTE | 2019-11-06 10:56 | PDOC PROGRESS REPORT ---
Subjective Progress Note for:: 11/06/19 Subjective:: Patient states that he has had loose stools for the past 24 hours. He was able to void after Cevallos was removed. He is due for Dialysis later today. No other new symptoms. ROS: No dyspnea. No chest pain. Reason For Visit: AML(ACUTE MYELOBLASTIC LEUKEMIA),ANEMIA,THROMBOCYT Physical Exam Vital Signs: Temp Pulse Resp BP Pulse Ox 98.7 F 95 21 H 142/84 H 97 11/06/19 07:52 11/06/19 07:52 11/06/19 07:52 11/06/19 07:52 11/06/19 07:52 Intake & Output 11/05/19 11/06/19 11/07/19 06:59 06:59 06:59 Intake Total 350 1378 Output Total 250 100 Balance 100 1278 Weight 96.4 kg 94.2 kg General appearance: PRESENT: no acute distress Head exam: PRESENT: normocephalic Respiratory exam: PRESENT: unlabored Neurological exam: PRESENT: alert, awake Psychiatric exam: PRESENT: appropriate affect Skin exam: PRESENT: normal color Results Laboratory Results: 11/06/19 07:13 11/04/19 15:50 11/05/19 11/06/19 10:34 07:13 WBC 0.2 L* 0.2 L* RBC 2.27 L 2.45 L Hgb 7.4 L 8.0 L Hct 21.6 L 23.2 L MCV 95 95 MCH 32.6 32.7 MCHC 34.3 34.6 RDW 20.5 H 22.6 H Plt Count 23 L* D 16 L* Seg Neutrophils % 6.2 L 6.1 L Impressions: Chest X-Ray 11/04/19 16:03 IMPRESSION: Borderline enlarged cardiac silhouette central vascular prominence. No overt edema. Assessment & Plan - Diagnosis (1) Neutropenic fever Is this a current diagnosis for this admission?: Yes Plan: Afebrile for 24 hours. Cultures remain NGTD. Continue antibiotics. (2) AML (acute myeloblastic leukemia) Qualifiers: Leukemia Active/Remission status: without remission Qualified Code(s): C92.00 - Acute myeloblastic leukemia, not having achieved remission Is this a current diagnosis for this admission?: Yes Plan: Transfusion support as needed. No indication for transfusion today. All treatment on hold, with fever. (3) ESRD (end stage renal disease) on dialysis Is this a current diagnosis for this admission?: Yes Plan: Will receive dialysis later today. (4) Urinary retention due to benign prostatic hyperplasia Is this a current diagnosis for this admission?: Yes Plan: Cevallos cath removed. He is now voiding on his own. He will continue Flomax. - Time Time Spent with patient: 15-24 minutes - Plan Summary Plan Summary: If he remains afebrile and all cultures are negative, and all others agree, may be discharged home tomorrow and follow-up for CBCs as previously scheduled in my office next week.
[2019-11-06] MEDS ORDERED: EPOETIN ALFA-EPBX 2,000 UNIT, EPOETIN ALFA-EPBX 3,000 UNIT, EPOETIN ALFA-EPBX 20,000 UN... IV PRN ×4 (12:48)
[2019-11-06] MEDS: VANCOMYCIN HCL 750 MG in DEXTROSE 5%-WATER 250 ML IV SCH (17:14)
[2019-11-06] MEDS ORDERED: VANCOMYCIN HCL 750 MG in DEXTROSE 5%-WATER 250 ML IV SCH (18:00)
[2019-11-06] MEDS ORDERED: VANCOMYCIN HCL 1,000 MG in DEXTROSE 5%-WATER 250 ML IV SCH (18:00)
[2019-11-06] MEDS: ACETAMINOPHEN 325 MG TABLET PO PRN (20:27)
[2019-11-06] MEDS: CEFEPIME 1 GM/D5W RTU 1 GM/50 ML RTUPB IV SCH (21:56)
[2019-11-07] MEDS: ACETAMINOPHEN 325 MG TABLET PO PRN ×2 (03:48→19:51)
[2019-11-07] MEDS: PANTOPRAZOLE SODIUM 40 MG TABLET.DR PO SCH ×2 (05:53→17:35)
--- NOTE | 2019-11-07 08:28 | PDOC PROGRESS REPORT ---
Subjective Progress Note for:: 11/07/19 Subjective:: 69 year old male with history of multiple myeloma in remission, status post stem cell transplantation in 1999, ESRD on hemodialysis completed dialysis today, hypertension, newly diagnosed AML started receiving the treatment at [facility] 2 weeks ago came to the emergency room with a fever of 103.9. As an outpatient he is on antibiotics, antifungal, antiviral medications. In the emergency room temp of 103.9. WBC 0.2, platelet count is 9, hemoglobin is 7.2. Call was placed by the ER physician to [facility] transfer center to request transfer , as per him no beds are available at [facility] at this time. Patient agreed to stay in the hospital in the meantime. I discussed the plan of care with Dr. Rothman, she agreed to see him in the hospital. She received IV cefepime, IV vancomycin. Platelet transfusions , blood transfusions requested by the ER physician. 11/05/2019-no acute events in the last 24 hours. T-max is 97.5 this morning. WBC count is 0.2 and platelet count is 7. To repeat the CBC now and if the platelet count is less than 10,000 plan is to transfuse the platelets. Latest hemoglobin is 7.6. No plans to do the blood transfusion as per oncology. Patient is receiving cefepime and IV vancomycin. he is also on Valtrex and Diflucan. blood cultures are pending at this time. 11/06/[id number]-rcdv-old male with multiple medical problems including recently diagnosed AML and initial treatment, end-stage renal disease on dialysis has a history of multiple myeloma in remission has history of stem cell transplant admitted for high fevers. Blood cultures are negative so far. Afebrile now. He is due for dialysis today. Receiving cefepime, vancomycin, Valtrex, Diflucan. 11/07/2019-patient admitted with high fevers. Recently diagnosed AML receiving therapy. Admitted with neutropenia with WBC count of 0.2, platelet count of 4 less than 9, hemoglobin around 7.2. Patient received platelet transfusions, blood transfusions. Hemoglobin and platelet count is improved. Patient had a spiking fever of 101.6 last night and responded to Tylenol. This morning temp is 99. Plan is to repeat the blood cultures patient is presently on antibacterial, antifungal, anti-viral medications. Discussed the plan of care with Dr. Martinez, her recommendation is to keep the patient for at least 24 hours to 48 hours. Reason For Visit: AML(ACUTE MYELOBLASTIC LEUKEMIA),ANEMIA,THROMBOCYT Physical Exam Vital Signs: Temp Pulse Resp BP Pulse Ox 98.2 F 116 H 20 122/75 96 11/07/19 08:02 11/07/19 08:02 11/07/19 08:02 11/07/19 08:02 11/07/19 08:02 Intake & Output 11/06/19 11/07/19 11/08/19 06:59 06:59 06:59 Intake Total 1378 1120 Output Total 100 Balance 1278 1120 Weight 94.2 kg 94.5 kg General appearance: PRESENT: no acute distress Eye exam: PRESENT: PERRLA Mouth exam: PRESENT: moist, tongue midline Teeth exam: PRESENT: poor dentation Neck exam: ABSENT: carotid bruit, JVD, lymphadenopathy, thyromegaly Respiratory exam: PRESENT: decreased breath sounds Cardiovascular exam: PRESENT: RRR. ABSENT: diastolic murmur, rubs, systolic murmur GI/Abdominal exam: PRESENT: normal bowel sounds, soft. ABSENT: distended, gu arding, mass, organolmegaly, rebound, tenderness Rectal exam: PRESENT: deferred Extremities exam: PRESENT: full ROM. ABSENT: calf tenderness, clubbing, pedal edema Neurological exam: PRESENT: alert, awake, oriented to person, oriented to place, oriented to time, oriented to situation, CN II-XII grossly intact. ABSENT: mot or sensory deficit Psychiatric exam: PRESENT: appropriate affect, normal mood. ABSENT: homicidal ideation, suicidal ideation Results Laboratory Results: 11/06/19 07:13 11/04/19 15:50 11/06/19 07:13 WBC 0.2 L* RBC 2.45 L Hgb 8.0 L Hct 23.2 L MCV 95 MCH 32.7 MCHC 34.6 RDW 22.6 H Plt Count 16 L* Seg Neutrophils % 6.1 L Impressions: Chest X-Ray 11/04/19 16:03 IMPRESSION: Borderline enlarged cardiac silhouette central vascular prominence. No overt edema. Assessment and Plan - Diagnosis (1) AML (acute myeloblastic leukemia) Qualifiers: Leukemia Active/Remission status: without remission Qualified Code(s): C92.00 - Acute myeloblastic leukemia, not having achieved remission Is this a current diagnosis for this admission?: Yes Plan: 11/04/2019-patient is going to be admitted to [facility] as inpatient for newly diagnosed acute myeloid leukemia started on chemotherapy admitted with fever of 103.9. No source was noticed at this time. WBC 0.2, platelet count is 9. Patient is going to receive antibiotics, antiviral, antifungal medications. Consultation with Dario is requested. Patient condition is critical at this time. Consultation with Dr. Chidi Evans was requested because he is a dialysis patient. 11/05/2019-patient was newly diagnosed with AML. He is receiving chemotherapy at [place]. Admitted for high fevers, leukopenia, anemia, thrombocytopenia. Oncology consult requested. 11/06/19-patient was recently diagnosed with AML. He started receiving treatment at [place]. In the meantime admitted for high fevers. Presently on antibiotics, antifungal, antiviral medications. Dr. Rothman is following the patient. 11/07/19-patient is recently diagnosed with AML few weeks ago. He is receiving treatment to [facility] he admitted with high fevers and pancytopenia here. He is in antibacterial, antiviral, antifungal medications. He had a spiking fever of 101.6 this morning. (2) Fever Qualifiers: Fever type: unspecified Qualified Code(s): R50.9 - Fever, unspecified Is this a current diagnosis for this admission?: Yes Plan: 11/04/2019-patient came in with fever of 103.9. Chest x-ray was negative. WBC is 0.2, may be neutropenic fever. Patient recently history of treatment for newly diagnosed AML. To continue IV cefepime, vancomycin, valacyclovir, and antifungal medication Diflucan. Cultures urine cultures will be requested. 11/05/2019-temperature this morning is 97.5, but he is on antibiotics, antiviral, antifungal medications. Cultures are pending at this time. Chest x-ray was normal. 11/06/2019-T-max is 99.1. Patient is doing well. Blood cultures are negative so far. 11/07/19-patient has a spiking fever of 101.6. Presently on IV cefepime, IV vancomycin, valacyclovir, Diflucan. Plan it is to repeat the blood cultures. Initial blood cultures are negative. (3) ESRD (end stage renal disease) on dialysis Is this a current diagnosis for this admission?: Yes Plan: 11/04/2019-ESRD on hemodialysis Saturday. He completed dialysis today. 11/05/19-consultation with Dr. Chidi Evans is requested. Patient is due for dialysis tomorrow. 11/06/2019-patient is due for dialysis today. Consultation with Dr. Chidi Evans was done. 11/07/2019-patient has a successful dialysis yesterday. Not in fluid overload at time of my examination this morning. (4) Thrombocytopenia Is this a current diagnosis for this admission?: Yes Plan: 11/04/2019-platelet count is 9. Platelet transfusion is requested by the ER physician. 11/06/2019-latest platelet count is 23,000 plan is to give platelet transfusions if the count is less than 10,000. (5) Anemia in ESRD (end-stage renal disease) Is this a current diagnosis for this admission?: Yes Plan: 11/04/2019-hemoglobin 7.2. Further management as per Dr. martel 11/05/2019-latest hemoglobin is 7.6 plan is to transfuse him if the hemoglobin is less than 7. 11/06/2019-hemoglobin is 7.6 plan is to give blood transfusions if the hemoglobin drops less than 7. (6) Hypertension Qualifiers: Hypertension type: unspecified Qualified Code(s): I10 - Essential (primary) hypertension Is this a current diagnosis for this admission?: No Plan: 11/04/2019-blood pressure today is 166/78. To restart his home medications. 11/05/2019-blood pressure today is 136/80. Stable. Plan is to closely monitor the blood pressures. 11/06/2019-blood pressure today is 155/80. He is due for dialysis today. With the dialysis blood pressure may improve. 11/07/2019-blood pressure today is 130/68. Stable. (7) Urinary retention due to benign prostatic hyperplasia Is this a current diagnosis for this admission?: Yes Plan: 11/04/2019-patient has recently placed Cevallos's catheter. Urine culture will be sent. 11/05/2019-family thinks Cevallos's catheter may be the source of infection to discontinue Cevallos catheter from today. 11/06/2019-Cevallos's catheter was removed yesterday denies any problems with urination this morning. - Time Anticipated discharge: Home Within: within 72 hours
[2019-11-07] MEDS ORDERED: VANCOMYCIN HCL INJ 1000 MG VIAL IV SCH (10:00)
[2019-11-07] MEDS: HYDROCORTISONE 1% OINTMENT 28.35 GM TP SCH ×4 (11:14→21:18)
[2019-11-07] MEDS: ALLOPURINOL 100 MG TABLET PO SCH (11:16)
[2019-11-07] MEDS: CALCIUM CARBONATE 600 MG/VITAMIN D3 400 UNIT TABLET PO SCH (11:16)
[2019-11-07] MEDS: SEVELAMER HCL 800 MG TABLET PO SCH ×3 (11:16→17:35)
[2019-11-07] MEDS: TAMSULOSIN HCL 0.4 MG CAP.SR.24H PO SCH (11:16)
[2019-11-07] MEDS: VALACYCLOVIR HCL 500 MG TABLET PO SCH ×2 (11:16→21:20)
[2019-11-07] MEDS: FLUCONAZOLE 100 MG TABLET PO SCH (11:16)
[2019-11-07] MEDS: FUROSEMIDE 20 MG TABLET PO SCH (11:17)
[2019-11-07] MEDS: DIBUCAINE 1% OINTMENT 28 GM PR SCH ×3 (11:18→17:39)
[2019-11-07 12:08] LABS: ALBUMIN 2.8 g/dL (3.5-5.0); ALKALINE PHOSPHATASE 48 U/L (38-126); ANION GAP 10 (5-19); ASPARTATE AMINO TRANSFERASE 27 U/L (17-59); BILIRUBIN,DIRECT 1.2 mg/dL (0.0-0.4); BILIRUBIN,TOTAL 1.6 mg/dL (0.2-1.3); BLOOD UREA NITROGEN 43 mg/dL (7-20); CALCIUM 8.2 mg/dL (8.4-10.2); CARBON DIOXIDE 26 mmol/L (22-30); CHLORIDE 99 mmol/L (98-107); GLUCOSE 132 mg/dL (75-110); POTASSIUM 4.4 mmol/L (3.6-5.0); TOTAL PROTEIN 5.7 g/dL (6.3-8.2)
[2019-11-07] MEDS: LOPERAMIDE HCL 2 MG CAPSULE PO PRN (13:05)
[2019-11-07] MEDS: CEFEPIME 1 GM/D5W RTU 1 GM/50 ML RTUPB IV SCH (21:20)
[2019-11-08] MEDS: PANTOPRAZOLE SODIUM 40 MG TABLET.DR PO SCH ×2 (06:47→17:13)
[2019-11-08 08:33] LABS: ABSOLUTE LYMPHOCYTES (AUTO) 0.1 10^3/uL (0.5-4.7); HEMATOCRIT 18.9 % (37.9-51.0); LYMPHOCYTES % (AUTO) 87.5 % (13-45); MEAN CORPUSCULAR HEMOGLOBIN 32.3 pg (27.0-33.4); MEAN CORPUSCULAR HGB CONC 34.6 g/dL (32.0-36.0); MEAN CORPUSCULAR VOLUME 94 fl (80-97); MONOCYTES % (AUTO) 5.2 % (3-13); RED BLOOD COUNT 2.02 10^6/uL (4.35-5.55); SEGMENTED NEUTROPHILS % (AUTO) 7.3 % (42-78); TOTAL CELLS COUNTED % (AUTO) 100 %
--- NOTE | 2019-11-08 08:43 | PDOC PROGRESS REPORT ---
Subjective Progress Note for:: 11/08/19 Subjective:: 69 year old male with history of multiple myeloma in remission, status post stem cell transplantation in 1999, ESRD on hemodialysis completed dialysis today, hypertension, newly diagnosed AML started receiving the treatment at [facility] 2 weeks ago came to the emergency room with a fever of 103.9. As an outpatient he is on antibiotics, antifungal, antiviral medications. In the emergency room temp of 103.9. WBC 0.2, platelet count is 9, hemoglobin is 7.2. Call was placed by the ER physician to [facility] transfer center to request transfer , as per him no beds are available at [facility] at this time. Patient agreed to stay in the hospital in the meantime. I discussed the plan of care with Dr. Rothman, she agreed to see him in the hospital. She received IV cefepime, IV vancomycin. Platelet transfusions , blood transfusions requested by the ER physician. 11/05/2019-no acute events in the last 24 hours. T-max is 97.5 this morning. WBC count is 0.2 and platelet count is 7. To repeat the CBC now and if the platelet count is less than 10,000 plan is to transfuse the platelets. Latest hemoglobin is 7.6. No plans to do the blood transfusion as per oncology. Patient is receiving cefepime and IV vancomycin. he is also on Valtrex and Diflucan. blood cultures are pending at this time. 11/06/[id number]-dcmw-old male with multiple medical problems including recently diagnosed AML and initial treatment, end-stage renal disease on dialysis has a history of multiple myeloma in remission has history of stem cell transplant admitted for high fevers. Blood cultures are negative so far. Afebrile now. He is due for dialysis today. Receiving cefepime, vancomycin, Valtrex, Diflucan. 11/07/2019-patient admitted with high fevers. Recently diagnosed AML receiving therapy. Admitted with neutropenia with WBC count of 0.2, platelet count of 4 less than 9, hemoglobin around 7.2. Patient received platelet transfusions, blood transfusions. Hemoglobin and platelet count is improved. Patient had a spiking fever of 101.6 last night and responded to Tylenol. This morning temp is 99. Plan is to repeat the blood cultures patient is presently on antibacterial, antifungal, anti-viral medications. Discussed the plan of care with Dr. Martinez, her recommendation is to keep the patient for at least 24 hours to 48 hours. 11/08/2019-patient continued to have spiking fever. Has a T-max of 102 last night. Receiving IV antibiotic therapy, antifungal, antiviral medications. Today's labs are pending. The time of my examination is comfortably sleeping in the bed. Reason For Visit: AML(ACUTE MYELOBLASTIC LEUKEMIA),ANEMIA,THROMBOCYT Physical Exam Vital Signs: Temp Pulse Resp BP Pulse Ox 98.3 F 105 H 18 138/74 H 96 11/08/19 08:00 11/08/19 08:00 11/08/19 08:00 11/08/19 08:00 11/08/19 08:00 Intake & Output 11/07/19 11/08/19 11/09/19 06:59 06:59 06:59 Intake Total 1120 631 Output Total 200 Balance 1120 431 Weight 94.5 kg 94.5 kg General appearance: PRESENT: no acute distress, well-developed Head exam: PRESENT: atraumatic Eye exam: PRESENT: PERRLA Mouth exam: PRESENT: moist, tongue midline Teeth exam: PRESENT: poor dentation Neck exam: ABSENT: carotid bruit, JVD, lymphadenopathy, thyromegaly Respiratory exam: PRESENT: decreased breath sounds Cardiovascular exam: PRESENT: RRR. ABSENT: diastolic murmur, rubs, systolic murmur GI/Abdominal exam: PRESENT: normal bowel sounds, soft. ABSENT: distended, guarding, mass, organolmegaly, rebound, tenderness Rectal exam: PRESENT: deferred Extremities exam: PRESENT: full ROM. ABSENT: calf tenderness, clubbing, pedal edema Neurological exam: PRESENT: alert, awake, oriented to person, oriented to place, oriented to time, oriented to situation, CN II-XII grossly intact. ABSENT: motor sensory deficit Psychiatric exam: PRESENT: appropriate affect, normal mood. ABSENT: homicidal ideation, suicidal ideation Results Laboratory Results: 11/07/19 11:12 Sodium 135.1 L Potassium 4.4 Chloride 99 Carbon Dioxide 26 Anion Gap 10 BUN 43 H Creatinine 6.98 H Est GFR ( Amer) 10 L Glucose 132 H Calcium 8.2 L Magnesium 1.9 Total Bilirubin 1.6 H AST 27 Alkaline Phosphatase 48 Total Protein 5.7 L Albumin 2.8 L Impressions: Chest X-Ray 11/04/19 16:03 IMPRESSION: Borderline enlarged cardiac silhouette central vascular prominence. No overt edema. Assessment and Plan - Diagnosis (1) AML (acute myeloblastic leukemia) Qualifiers: Leukemia Active/Remission status: without remission Qualified Code(s): C92.00 - Acute myeloblastic leukemia, not having achieved remission Is this a current diagnosis for this admission?: Yes Plan: 11/04/2019-patient is going to be admitted to [facility] as inpatient for newly diagnosed acute myeloid leukemia started on chemotherapy admitted with fever of 103.9. No source was noticed at this time. WBC 0.2, platelet count is 9. Patient is going to receive antibiotics, antiviral, antifungal medications. Consultation with Dario is requested. Patient condition is critical at this time. Consultation with Dr. Chidi Evans was requested because he is a dialysis patient. 11/05/2019-patient was newly diagnosed with AML. He is receiving chemotherapy at [place]. Admitted for high fevers, leukopenia, anemia, thrombocytopenia. Oncology consult requested. 11/06/19-patient was recently diagnosed with AML. He started receiving treatment at [place]. In the meantime admitted for high fevers. Presently on antibiotics, antifungal, antiviral medications. Dr. Rothman is following the patient. 11/07/19-patient is recently diagnosed with AML few weeks ago. He is receiving treatment to [facility] he admitted with high fevers and pancytopenia here. He is in antibacterial, antiviral, antifungal medications. He had a spiking fever of 101.6 this morning. 11/08/2019-T-max is 102 today. Plan is to continue antibiotics, antifungal and antiviral medications. Labs are pending for today. (2) Fever Qualifiers: Fever type: unspecified Qualified Code(s): R50.9 - Fever, unspecified Is this a current diagnosis for this admission?: Yes Plan: 11/04/2019-patient came in with fever of 103.9. Chest x-ray was negative. WBC is 0.2, may be neutropenic fever. Patient recently history of treatment for newly diagnosed AML. To continue IV cefepime, vancomycin, valacyclovir, and antifungal medication Diflucan. Cultures urine cultures will be requested. 11/05/2019-temperature this morning is 97.5, but he is on antibiotics, antiviral, antifungal medications. Cultures are pending at this time. Chest x-ray was normal. 11/06/2019-T-max is 99.1. Patient is doing well. Blood cultures are negative so far. 11/07/19-patient has a spiking fever of 101.6. Presently on IV cefepime, IV vancomycin, valacyclovir, Diflucan. Plan it is to repeat the blood cultures. Initial blood cultures are negative. (3) ESRD (end stage renal disease) on dialysis Is this a current diagnosis for this admission?: Yes Plan: 11/04/2019-ESRD on hemodialysis Saturday. He completed dialysis today. 11/05/19-consultation with Dr. Chidi Evans is requested. Patient is due for dialysis tomorrow. 11/06/2019-patient is due for dialysis today. Consultation with Dr. Chidi Evans was done. 11/07/2019-patient has a successful dialysis yesterday. Not in fluid overload at time of my examination this morning. 11/08/2019-patient due for dialysis tomorrow. Not in fluid overload. (4) Thrombocytopenia Is this a current diagnosis for this admission?: Yes Plan: 11/04/2019-platelet count is 9. Platelet transfusion is requested by the ER physician. 11/06/2019-latest platelet count is 23,000 plan is to give platelet transfusions if the count is less than 10,000. 11/08/2019-today's labs are pending. If the platelet count is less than 10,000 plan to give platelet transfusions. (5) Anemia in ESRD (end-stage renal disease) Is this a current diagnosis for this admission?: Yes Plan: 11/04/2019-hemoglobin 7.2. Further management as per Dr. martel 11/05/2019-latest hemoglobin is 7.6 plan is to transfuse him if the hemoglobin is less than 7. 11/06/2019-hemoglobin is 7.6 plan is to give blood transfusions if the hemoglobin drops less than 7. (6) Hypertension Qualifiers: Hypertension type: unspecified Qualified Code(s): I10 - Essential (primary) hypertension Is this a current diagnosis for this admission?: No Plan: 11/04/2019-blood pressure today is 166/78. To restart his home medications. 11/05/2019-blood pressure today is 136/80. Stable. Plan is to closely monitor the blood pressures. 11/06/2019-blood pressure today is 155/80. He is due for dialysis today. With the dialysis blood pressure may improve. 11/07/2019-blood pressure today is 130/68. Stable. 11/08/2019-blood pressure today is 112/74. Stable. (7) Urinary retention due to benign prostatic hyperplasia Is this a current diagnosis for this admission?: Yes Plan: 11/04/2019-patient has recently placed Cevallos's catheter. Urine culture will be sent. 11/05/2019-family thinks Cevallos's catheter may be the source of infection to discontinue Cevallos catheter from today. 11/06/2019-Cevallos's catheter was removed yesterday denies any problems with urination this morning. - Time Anticipated discharge: Home Within: within 72 hours
[2019-11-08 09:03] LABS: ANISOCYTOSIS 3+; HEMOGLOBIN 6.5 g/dL (13.5-17.0); PLATELET COUNT 7 10^3/uL (150-450); WHITE BLOOD COUNT 0.1 10^3/uL (4.0-10.5)
[2019-11-08 09:04] LABS: OVALOCYTES SLIGHT; PLATELET COMMENT DECREASED
[2019-11-08 09:05] LABS: ALBUMIN 2.5 g/dL (3.5-5.0); ALKALINE PHOSPHATASE 56 U/L (38-126); ANION GAP 10 (5-19); ASPARTATE AMINO TRANSFERASE 27 U/L (17-59); BILIRUBIN,DIRECT 1.6 mg/dL (0.0-0.4); CALCIUM 8.4 mg/dL (8.4-10.2); CARBON DIOXIDE 24 mmol/L (22-30); CHLORIDE 99 mmol/L (98-107); GLUCOSE 122 mg/dL (75-110); POTASSIUM 3.9 mmol/L (3.6-5.0); TOTAL PROTEIN 5.3 g/dL (6.3-8.2)
[2019-11-08] MEDS ORDERED: NORMAL SALINE 250 ML IV PRN ×2 (09:08)
[2019-11-08 09:16] LABS: BLOOD UREA NITROGEN 63 mg/dL (7-20)
[2019-11-08] MEDS: HYDROCORTISONE 1% OINTMENT 28.35 GM TP SCH ×4 (10:33→21:37)
[2019-11-08] MEDS: TAMSULOSIN HCL 0.4 MG CAP.SR.24H PO SCH (10:39)
[2019-11-08] MEDS: DIBUCAINE 1% OINTMENT 28 GM PR SCH ×3 (10:39→17:13)
[2019-11-08] MEDS: ALLOPURINOL 100 MG TABLET PO SCH (10:39)
[2019-11-08] MEDS: VALACYCLOVIR HCL 500 MG TABLET PO SCH ×2 (10:39→21:40)
[2019-11-08] MEDS: SEVELAMER HCL 800 MG TABLET PO SCH ×3 (10:39→17:13)
[2019-11-08] MEDS: CALCIUM CARBONATE 600 MG/VITAMIN D3 400 UNIT TABLET PO SCH (10:39)
[2019-11-08] MEDS: FLUCONAZOLE 100 MG TABLET PO SCH (10:39)
[2019-11-08] MEDS: FUROSEMIDE 20 MG TABLET PO SCH (10:39)
[2019-11-08] MEDS ORDERED: DIPHENHYDRAMINE HCL 25 MG CAPSULE PO PRN (14:15)
[2019-11-08] MEDS: ACETAMINOPHEN 325 MG TABLET PO PRN ×2 (19:02→23:49)
[2019-11-08] MEDS: CEFEPIME 1 GM/D5W RTU 1 GM/50 ML RTUPB IV SCH (21:40)
--- NOTE | 2019-11-09 04:13 | RADIOLOGY REPORT (SQ) ---
CT head without contrast on 11/09/2019 at 3:43 AM CLINICAL INDICATION: TIA, stroke TECHNIQUE: Multiple axial images are obtained throughout the head without the administration of contrast. This exam was performed according to our departmental dose-optimization program, which includes automated exposure control, adjustment of the mA and/or kV according to patient size and/or use of iterative reconstruction technique. Total DLP is 2034.34 mGy*cm. COMPARISON: 05/29/2018 FINDINGS: There is generalized cerebral atrophy. There is low density in the periventricular white matter consistent with chronic small vessel ischemic changes. There is no hydrocephalus. There is no hemorrhage. There are no abnormal extra-axial fluid collections. There is no mass, mass effect or midline shift. There is no CT evidence of acute infarct. No bony abnormality is noted. IMPRESSION: Atrophy and chronic small vessel ischemic changes with no acute intracranial abnormality.
[2019-11-09] MEDS: PANTOPRAZOLE SODIUM 40 MG TABLET.DR PO SCH ×2 (06:00→17:08)
[2019-11-09 06:05] LABS: ABSOLUTE LYMPHOCYTES (AUTO) 0.1 10^3/uL (0.5-4.7); EOSINOPHILS % (AUTO) 2.7 % (0-6); LYMPHOCYTES % (AUTO) 77.9 % (13-45); MEAN CORPUSCULAR HEMOGLOBIN 32.2 pg (27.0-33.4); MEAN CORPUSCULAR VOLUME 92 fl (80-97); MONOCYTES % (AUTO) 10.7 % (3-13); RED CELL DISTRIBUTION WIDTH 16.2 % (11.5-14.0); SEGMENTED NEUTROPHILS % (AUTO) 8.7 % (42-78); TOTAL CELLS COUNTED % (AUTO) 100 %
[2019-11-09 06:24] LABS: VANCOMYCIN,TROUGH 18.4 ug/mL (5.0-20.0)
[2019-11-09 06:32] LABS: PLATELET COUNT 22 10^3/uL (150-450); WHITE BLOOD COUNT 0.1 10^3/uL (4.0-10.5)
[2019-11-09 06:35] LABS: ANISOCYTOSIS 1+; BURR CELLS 1+; OVALOCYTES 1+; PLATELET COMMENT DECREASED; POLYCHROMASIA 1+
[2019-11-09] MEDS ORDERED: EPOETIN ALFA-EPBX 2,000 UNIT, EPOETIN ALFA-EPBX 3,000 UNIT, EPOETIN ALFA-EPBX 20,000 UN... IV PRN ×4 (07:34)
[2019-11-09] MEDS ORDERED: PIPERACILLIN/TAZOBACTAM 4.5 GM VIAL IV SCH ×2 (08:30→10:00)
[2019-11-09] MEDS ORDERED: MICAFUNGIN SODIUM INJ/PF 100 MG VIAL IV SCH (08:30)
--- NOTE | 2019-11-09 08:34 | PDOC PROGRESS REPORT ---
Subjective Progress Note for:: 11/09/19 Subjective:: Patient awake and able to talk, but states that he is a bit confused. He has some difficulty with speech, as if it is a bit slurred. He denies any pain. He has had increased amount of diarrhea, which has continued. ROS: He denies dyspnea. No headaches. Reason For Visit: AML(ACUTE MYELOBLASTIC LEUKEMIA),ANEMIA,THROMBOCYT Physical Exam Vital Signs: Temp Pulse Resp BP Pulse Ox 98.5 F 103 H 22 H 141/82 H 95 11/09/19 04:39 11/09/19 07:00 11/09/19 04:39 11/09/19 04:45 11/09/19 04:39 Intake & Output 11/08/19 11/09/19 11/10/19 06:59 06:59 06:59 Intake Total 631 1190 Output Total 200 0 Balance 431 1190 Weight 94.5 kg 93.7 kg General appearance: PRESENT: no acute distress Exam: 69 year old gentleman. His Tmax over the last 24 hours has been 102.2. Head exam: PRESENT: normocephalic Eye exam: PRESENT: EOMI Respiratory exam: PRESENT: clear to auscultation merrill, unlabored Cardiovascular exam: PRESENT: tachycardia GI/Abdominal exam: PRESENT: soft. ABSENT: tenderness Extremities exam: ABSENT: pedal edema Neurological exam: PRESENT: alert, awake Psychiatric exam: PRESENT: other - Not as bright. Does not even respond to some questions. Skin exam: PRESENT: normal color Results Laboratory Results: 11/09/19 05:44 11/08/19 08:18 11/08/19 11/08/19 11/08/19 08:18 08:18 10:01 WBC 0.1 L* RBC 2.02 L Hgb 6.5 L Hct 18.9 L MCV 94 MCH 32.3 MCHC 34.6 RDW 23.0 H Plt Count 7 L* Seg Neutrophils % 7.3 L Sodium 133.0 L Potassium 3.9 Chloride 99 Carbon Dioxide 24 Anion Gap 10 BUN 63 H D Creatinine 9.04 H Est GFR ( Amer) 7 L Glucose 122 H Calcium 8.4 Magnesium 2.0 Total Bilirubin 2.0 H AST 27 Alkaline Phosphatase 56 Total Protein 5.3 L Albumin 2.5 L Blood Type A NEGATIVE Antibody Screen NEGATIVE 11/09/19 05:44 WBC 0.1 L* RBC 2.50 L Hgb 8.0 L Hct 23.0 L MCV 92 MCH 32.2 MCHC 35.0 RDW 16.2 H Plt Count 22 L* D Seg Neutrophils % 8.7 L Sodium Potassium Chloride Carbon Dioxide Anion Gap BUN Creatinine Est GFR ( Amer) Glucose Calcium Magnesium Total Bilirubin AST Alkaline Phosphatase Total Protein Albumin Blood Type Antibody Screen Impressions: Chest X-Ray 11/04/19 16:03 IMPRESSION: Borderline enlarged cardiac silhouette central vascular prominence. No overt edema. Head CT 11/09/19 00:00 IMPRESSION: Atrophy and chronic small vessel ischemic changes with no acute intracranial abnormality. Assessment & Plan - Diagnosis (1) Neutropenic fever Is this a current diagnosis for this admission?: Yes Plan: After speaking with oncologists at [facility], recommendation was to change diflucan to micafungin and change cefapime to zosyn and keep vanc. Also will order CT chest with contrast. (2) AML (acute myeloblastic leukemia) Qualifiers: Leukemia Active/Remission status: without remission Qualified Code(s): C92.00 - Acute myeloblastic leukemia, not having achieved remission Is this a current diagnosis for this admission?: Yes Plan: I called [facility] again this morning to arrange transfer. He has been accepted, but there are still no beds available. I was told to call back in about 4 hours. They will call me if any other CTs, Labs, or changes to medications are recommended until he can be transferred. Until then, will continue dialysis, blood transfusions as indicated, and antibiotics. (3) ESRD (end stage renal disease) on dialysis Is this a current diagnosis for this admission?: Yes Plan: Continue dialysis (4) Urinary retention due to benign prostatic hyperplasia Is this a current diagnosis for this admission?: Yes - Time Time Spent with patient: 25-34 minutes - Plan Summary Plan Summary: I also called family and updated them.
[2019-11-09] MEDS: CALCIUM CARBONATE 600 MG/VITAMIN D3 400 UNIT TABLET PO SCH (10:16)
[2019-11-09] MEDS: ALLOPURINOL 100 MG TABLET PO SCH (10:16)
[2019-11-09] MEDS: SEVELAMER HCL 800 MG TABLET PO SCH ×3 (10:16→17:08)
[2019-11-09] MEDS: TAMSULOSIN HCL 0.4 MG CAP.SR.24H PO SCH (10:16)
[2019-11-09] MEDS: PIPERACILLIN SODIUM/TAZOBACTAM 2.25 GM in NORMAL SALINE 50 ML IV SCH ×2 (10:17→21:35)
[2019-11-09] MEDS: HYDROCORTISONE 1% OINTMENT 28.35 GM TP SCH ×4 (10:17→21:30)
[2019-11-09] MEDS: FUROSEMIDE 20 MG TABLET PO SCH (10:17)
[2019-11-09] MEDS: DIBUCAINE 1% OINTMENT 28 GM PR SCH ×3 (10:17→17:05)
--- NOTE | 2019-11-09 10:19 | PDOC PROGRESS REPORT ---
Subjective Progress Note for:: 11/06/19 Reason For Visit: Patient seen today on dialysis. Patient has been admitted acute neutropenic fever along with severe anemia and thrombocytopenia in the face of recent new chemotherapy for an aggressive AML.He has not had any fever earlier today but he apparently just before coming to dialysis he was noted to have a temperature of 101.4. He denies any history of coughing spells headaches chest pain shortness of breath. He looks comfortable on dialysis. He is being dialyzed in isolation because of his severe neutropenia. Labs and medications were reviewed. Dialysis orders were reviewed with the treating dialysis nurse. Physical Exam Vital Signs: Temp Pulse Resp BP Pulse Ox 99.2 F 91 20 153/77 H 99 11/06/19 11:41 11/06/19 11:41 11/06/19 11:41 11/06/19 11:41 11/06/19 11:41 Intake & Output 11/05/19 11/06/19 11/07/19 06:59 06:59 06:59 Intake Total 350 1378 Output Total 250 100 Balance 100 1278 Weight 96.4 kg 94.2 kg General appearance: PRESENT: no acute distress Respiratory exam: PRESENT: clear to auscultation merrill, decreased breath sounds. ABSENT: crackles Cardiovascular exam: PRESENT: +S1, +S2 GI/Abdominal exam: PRESENT: normal bowel sounds, soft. ABSENT: organomegaly, tenderness Extremities exam: PRESENT: pedal edema Neurological exam: PRESENT: alert, awake, oriented to person, oriented to place Psychiatric exam: PRESENT: appropriate affect Results Laboratory Results: 11/06/19 07:13 11/04/19 15:50 11/06/19 07:13 WBC 0.2 L* RBC 2.45 L Hgb 8.0 L Hct 23.2 L MCV 95 MCH 32.7 MCHC 34.6 RDW 22.6 H Plt Count 16 L* Seg Neutrophils % 6.1 L Impressions: Chest X-Ray 11/04/19 16:03 IMPRESSION: Borderline enlarged cardiac silhouette central vascular prominence. No overt edema. Assessment & Plan - Diagnosis (1) Neutropenic fever Is this a current diagnosis for this admission?: Yes Plan: His WBC is 0.2 with 6.2% neutrophils still unfortunately. However patient has been afebrile today but has had a spike just before coming for HD. Currently on antibiotics. Appropriate precautions being taken during dialysis. (2) ESRD (end stage renal disease) on dialysis Is this a current diagnosis for this admission?: Yes Plan: Undergoing dialysis. Vital signs are stable. Plan to remove 1-2 L as tolerated. Dialysis being supervised. Dialysis orders reviewed with the treating dialysis nurse. (3) AML (acute myeloblastic leukemia) Qualifiers: Leukemia Active/Remission status: without remission Qualified Code(s): C92.00 - Acute myeloblastic leukemia, not having achieved remission Is this a current diagnosis for this admission?: Yes Plan: Currently complicated neutropenic fever with severely reduced white cells and neutrophils/hemoglobin and thrombocytes. Being co-managed by hospitalist and the [facility] oncology. (4) Thrombocytopenia Is this a current diagnosis for this admission?: Yes Plan: Status quo. Being managed by heme oncologist and hospitalist. No evidences of any bleeding issues at the moment. (5) Hypertension Qualifiers: Hypertension type: unspecified Qualified Code(s): I10 - Essential (primary) hypertension Is this a current diagnosis for this admission?: No Plan: Fairly stable. Monitor. (6) Multiple myeloma in remission Plan: Status quo. (7) Urinary retention due to benign prostatic hyperplasia Is this a current diagnosis for this admission?: Yes Plan: Off Cevallos catheter and urinating on his own so far.
--- NOTE | 2019-11-09 10:51 | RADIOLOGY REPORT (SQ) ---
EXAM DESCRIPTION: CT CHEST WITH IMAGES COMPLETED DATE/TIME: 11/09/2019 10:38 am REASON FOR STUDY: Neutropenic fever with dyspnea COMPARISON: None. TECHNIQUE: CT scan of the chest performed using helical scanning technique with dynamic intravenous contrast injection. Images reviewed with lung, soft tissue and bone windows. Reconstructed coronal and sagittal MPR and MIP images reviewed. All images stored on PACS. All CT scanners at this facility use dose modulation, iterative reconstruction, and/or weight based d osing when appropriate to reduce radiation dose to as low as reasonably achievable (ALARA). [facility]: Dose Right [facility]: CareDose [facility]: Dose Right [facility]: Teradose 4D [facility]: Eyevensys CONTRAST TYPE AND DOSE: contrast/concentration: Isovue 350.00 mmol/ml; Total Contrast Delivered: 71. 8 ml; Total Saline Delivered: 20.0 ml RENAL FUNCTION: Renal function was not provided at the time the study was interpreted. RADIATION DOSE: CT Rad equipment meets quality standard of care and radiation dose reduction techniq ues were employed. CTDIvol: 16.8 mGy. DLP: 619 mGy-cm. . LIMITATIONS: None. FINDINGS: LUNGS AND PLEURA: Extensive bilateral interstitial airspace disease. Small subpleural ble bs. This could represent pulmonary edema or combination of edema and atelectasis. No focal consolid ation. Small bilateral pleural effusions right greater than left. HILAR AND MEDIASTINAL STRUCTURES: No identified masses or abnormal nodes. HEART AND VASCULAR STRUCTURES: No aneurysm or dissection. There is central venous engorgement. HARDWARE: None in the chest. UPPER ABDOMEN: Bilateral adrenal enlargement most likely hyperplasia. THYROID AND OTHER SOFT TISSUES: No masses. No adenopathy. BONES: No significant finding. OTHER: No other significant finding. IMPRESSION: Findings most likely represent interstitial edema with small associated effusions. Ther e is underlying centrilobular emphysematous change. There is central venous engorgement. Less likel y infectious or inflammatory process. TECHNICAL DOCUMENTATION: JOB ID: [id number] Quality ID # [id number]: Final reports with documentation of one or more dose reduction techniques (e.g., Au tomated exposure control, adjustment of the mA and/or kV according to patient size, use of iterative reconstruction technique) 2010 [employer]- All Rights Reserved Reading location - IP/workstation name: [email or web address]
[2019-11-09] MEDS ORDERED: MICAFUNGIN SODIUM 100 MG in NORMAL SALINE 100 ML IV SCH (11:00)
--- NOTE | 2019-11-09 13:37 | PDOC PROGRESS REPORT ---
Subjective Progress Note for:: 11/09/19 Subjective:: 69 year old male with history of multiple myeloma in remission, status post stem cell transplantation in 1999, ESRD on hemodialysis completed dialysis today, hypertension, newly diagnosed AML started receiving the treatment at [facility] 2 weeks ago came to the emergency room with a fever of 103.9. As an outpatient he is on antibiotics, antifungal, antiviral medications. In the emergency room temp of 103.9. WBC 0.2, platelet count is 9, hemoglobin is 7.2. Call was placed by the ER physician to [facility] transfer center to request transfer , as per him no beds are available at [facility] at this time. Patient agreed to stay in the hospital in the meantime. I discussed the plan of care with Dr. Rothman, she agreed to see him in the hospital. She received IV cefepime, IV vancomycin. Platelet transfusions , blood transfusions requested by the ER physician. 11/05/2019-no acute events in the last 24 hours. T-max is 97.5 this morning. WBC count is 0.2 and platelet count is 7. To repeat the CBC now and if the platelet count is less than 10,000 plan is to transfuse the platelets. Latest hemoglobin is 7.6. No plans to do the blood transfusion as per oncology. Patient is receiving cefepime and IV vancomycin. he is also on Valtrex and Diflucan. blood cultures are pending at this time. 11/[id number]-old male with multiple medical problems including recently diagnosed AML and initial treatment, end-stage renal disease on dialysis has a history of multiple myeloma in remission has history of stem cell transplant admitted for high fevers. Blood cultures are negative so far. Afebrile now. He is due for dialysis today. Receiving cefepime, vancomycin, Valtrex, Diflucan. 11/07/2019-patient admitted with high fevers. Recently diagnosed AML receiving therapy. Admitted with neutropenia with WBC count of 0.2, platelet count of 4 less than 9, hemoglobin around 7.2. Patient received platelet transfusions, blood transfusions. Hemoglobin and platelet count is improved. Patient had a spiking fever of 101.6 last night and responded to Tylenol. This morning temp is 99. Plan is to repeat the blood cultures patient is presently on antibacterial, antifungal, anti-viral medications. Discussed the plan of care with Dr. Martinez, her recommendation is to keep the patient for at least 24 hours to 48 hours. 11/08/2019-patient continued to have spiking fever. Has a T-max of 102 last night. Receiving IV antibiotic therapy, antifungal, antiviral medications. Today's labs are pending. The time of my examination is comfortably sleeping in the bed. 11/09/2019-patient had slurred speech last night. Not responding properly. So CT head was done which was negative for acute pathology CT chest was done this morning shows mild vascular congestion. Vital signs are stable. Oxygen levels are stable. Dr. Rothman spoke to the [facility] oncology team about making a transfer, no beds are available at this time. As per the recommendations antibiotics were changed to IV Zosyn, IV cefepime is discontinued. Diflucan was discontinued started on micafungin at this time. Hemoglobin is 8 this morning after receiving blood transfusion yesterday and the platelet count is 22,000. He also received platelets. Overall prognosis poor. Reason For Visit: AML(ACUTE MYELOBLASTIC LEUKEMIA),ANEMIA,THROMBOCYT Physical Exam Vital Signs: Temp Pulse Resp BP Pulse Ox 99.4 F 106 H 31 H 146/76 H 92 11/09/19 08:18 11/09/19 08:18 11/09/19 08:18 11/09/19 08:18 11/09/19 08:18 Intake & Output 11/08/19 11/09/19 11/10/19 06:59 06:59 06:59 Intake Total 631 1190 290 Output Total 200 0 Balance 431 1190 290 Weight 94.5 kg 93.7 kg General appearance: PRESENT: no acute distress, well-developed Head exam: PRESENT: atraumatic Eye exam: PRESENT: PERRLA Mouth exam: PRESENT: dry mucosa Teeth exam: PRESENT: poor dentation Neck exam: ABSENT: carotid bruit, JVD, lymphadenopathy, thyromegaly Respiratory exam: PRESENT: decreased breath sounds Cardiovascular exam: PRESENT: RRR. ABSENT: diastolic murmur, rubs, systolic murmur GI/Abdominal exam: PRESENT: normal bowel sounds, soft. ABSENT: distended, guarding, mass, organolmegaly, rebound, tenderness Rectal exam: PRESENT: deferred Extremities exam: PRESENT: full ROM. ABSENT: calf tenderness, clubbing, pedal edema Neurological exam: PRESENT: alert, awake, oriented to person, oriented to place, oriented to time, oriented to situation, CN II-XII grossly intact. ABSENT: motor sensory deficit Psychiatric exam: PRESENT: appropriate affect, normal mood. ABSENT: homicidal ideation, suicidal ideation Results Laboratory Results: 11/09/19 05:44 11/08/19 08:18 11/08/19 11/09/19 10:01 05:44 WBC 0.1 L* RBC 2.50 L Hgb 8.0 L Hct 23.0 L MCV 92 MCH 32.2 MCHC 35.0 RDW 16.2 H Plt Count 22 L* D Seg Neutrophils % 8.7 L Blood Type A NEGATIVE Antibody Screen NEGATIVE Impressions: Chest X-Ray 11/04/19 16:03 IMPRESSION: Borderline enlarged cardiac silhouette central vascular prominence. No overt edema. Chest CT 11/09/19 00:00 IMPRESSION: Findings most likely represent interstitial edema with small associated effusions. There is underlying centrilobular emphysematous change. There is central venous engorgement. Less likely infectious or inflammatory process. Head CT 11/09/19 00:00 IMPRESSION: Atrophy and chronic small vessel ischemic changes with no acute intracranial abnormality. Assessment and Plan - Diagnosis (1) AML (acute myeloblastic leukemia) Qualifiers: Leukemia Active/Remission status: without remission Qualified Code(s): C92 .00 - Acute myeloblastic leukemia, not having achieved remission Is this a current diagnosis for this admission?: Yes Plan: 11/04/2019-patient is going to be admitted to [facility] as inpatient for newly diagnosed acute myeloid leukemia started on chemotherapy admitted with fever of 103.9. No source was noticed at this time. WBC 0.2, platelet count is 9. Patient is going to receive antibiotics, antiviral, antifungal medications. Consultation with Dario is requested. Patient condition is critical at this time. Consultation with Dr. Chidi Evans was requested because he is a dialysis patient. 11/05/2019-patient was newly diagnosed with AML. He is receiving chemotherapy at [facility]. Admitted for high fevers, leukopenia, anemia, thrombocytopenia. Oncology consult requested. 11/06/19-patient was recently diagnosed with AML. He started receiving treatment at [facility]. In the meantime admitted for high fevers. Presently on a ntibiotics, antifungal, antiviral medications. Dr. Rothman is following the patient. 11/07/19-patient is recently diagnosed with AML few weeks ago. He is receiving treatment to [facility] he admitted with high fevers and pancytopenia here. He is in antibacterial, antiviral, antifungal medications. He had a spiking fever of 101.6 this morning. 11/08/2019-T-max is 102 today. Plan is to continue antibiotics, antifungal and antiviral medications. Labs are pending for today. 11/09/2019-temperature today is 98.3. Patient is receiving IV vancomycin and IV Zosyn from this morning. Blood cultures are negative. Urine culture was requested but not collected. (2) Fever Qualifiers: Fever type: unspecified Qualified Code(s): R50.9 - Fever, unspecified Is this a current diagnosis for this admission?: Yes Plan: 11/04/2019-patient came in with fever of 103.9. Chest x-ray was negative. WBC is 0.2, may be neutropenic fever. Patient recently history of treatment for newly diagnosed AML. To continue IV cefepime, vancomycin, valacyclovir, and antifungal medication Diflucan. Cultures urine cultures will be requested. 11/05/2019-temperature this morning is 97.5, but he is on antibiotics, antiviral, antifungal medications. Cultures are pending at this time. Chest x-ray was normal. 11/06/2019-T-max is 99.1. Patient is doing well. Blood cultures are negative so far. 11/07/19-patient has a spiking fever of 101.6. Presently on IV cefepime, IV vancomycin, valacyclovir, Diflucan. Plan it is to repeat the blood cultures. Initial blood cultures are negative. 11/09/2019-temp is 98.3 this morning on Zosyn, IV vancomycin, micafungin, Valtrex. Plan is to continue the antibiotic therapy blood cultures are negative. Urine culture is pending. (3) ESRD (end stage renal disease) on dialysis Is this a current diagnosis for this admission?: Yes Plan: 11/04/2019-ESRD on hemodialysis Saturday. He completed dialysis today. 11/05/19-consultation with Dr. Chidi Evans is requested. Patient is due for dialysis tomorrow. 11/06/2019-patient is due for dialysis today. Consultation with Dr. Chidi Evans was done. 11/07/2019-patient has a successful dialysis yesterday. Not in fluid overload at time of my examination this morning. 11/08/2019-patient due for dialysis tomorrow. Not in fluid overload. (4) Thrombocytopenia Is this a current diagnosis for this admission?: Yes Plan: 11/04/2019-platelet count is 9. Platelet transfusion is requested by the ER physician. 11/06/2019-latest platelet count is 23,000 plan is to give platelet transfusions if the count is less than 10,000. 11/08/2019-today's labs are pending. If the platelet count is less than 10,000 plan to give platelet transfusions. 11/09/2019-platelet count is 22,000 received platelet transfusion yesterday. (5) Anemia in ESRD (end-stage renal disease) Is this a current diagnosis for this admission?: Yes Plan: 11/04/2019-hemoglobin 7.2. Further management as per Dr. martel 11/05/2019-latest hemoglobin is 7.6 plan is to transfuse him if the hemoglobin is less than 7. 11/06/2019-hemoglobin is 7.6 plan is to give blood transfusions if the hemoglobin drops less than 7. 11/09/2019-latest hemoglobin is 8 received 2 units of PRBC yesterday. (6) Hypertension Qualifiers: Hypertension type: unspecified Qualified Code(s): I10 - Essential (primary) hypertension Is this a current diagnosis for this admission?: No Plan: 11/04/2019-blood pressure today is 166/78. To restart his home medications. 11/05/2019-blood pressure today is 136/80. Stable. Plan is to closely monitor the blood pressures. 11/06/2019-blood pressure today is 155/80. He is due for dialysis today. With the dialysis blood pressure may improve. 11/07/2019-blood pressure today is 130/68. Stable. 11/08/2019-blood pressure today is 112/74. Stable. (7) Urinary retention due to benign prostatic hyperplasia Is this a current diagnosis for this admission?: Yes Plan: 11/04/2019-patient has recently placed Cevallos's catheter. Urine culture will be sent. 11/05/2019-family thinks Cevallos's catheter may be the source of infection to discontinue Cevallos catheter from today. 11/06/2019-Cevallos's catheter was removed yesterday denies any problems with urination this morning. - Time Anticipated discharge: Hospice Within: within 48 hours
[2019-11-09] MEDS: MICAFUNGIN SODIUM 100 MG in NORMAL SALINE 100 ML IV SCH (15:27)
[2019-11-09] MEDS: VANCOMYCIN HCL 750 MG in DEXTROSE 5%-WATER 250 ML IV SCH (17:09)
[2019-11-09] MEDS: ACETAMINOPHEN 325 MG TABLET PO PRN (17:09)
[2019-11-09] MEDS ORDERED: METOPROLOL TARTRATE PF/INJ 5 MG/5 ML SDV IV ONE (20:30)
[2019-11-09] MEDS ORDERED: METOPROLOL TARTRATE PF/INJ 5 MG/5 ML SDV IV PRN (21:21)
[2019-11-09] MEDS: ATORVASTATIN CALCIUM 80 MG TABLET PO SCH (21:34)
--- NOTE | 2019-11-09 22:05 | PDOC PROGRESS REPORT ---
Subjective Progress Note for:: 11/09/19 Subjective:: Patient was admitted last week for severe neutropenic fever associated with severe thrombocytopenia and anemia after her first cycle of chemotherapy at [facility] for AML. Patient is being aggressively treated with IV antibiotics, antifungal and antiviral medications. Patient has been accepted for transfer to [facility] but still awaiting for a bed. Dr. Bishop has been in communication with the [facility] director of head start. Over the weekend the patient had blood and platelet transfusions. He was also noted to have some slurred speech last night and head CT was done which did not show any acute intracranial abnormality. He also had a chest CT which showed interstitial edema small effusion and centrilobular emphysema. This morning Dr. Lima discussed the case with [facility] and recommendation was to change IV cefepime dose Zosyn as well as to change Diflucan to micafungin. I am seeing the patient during dialysis this morning. He is apparently having difficulty verbalizing with very slow and slurred speech. He did indicate that he is not short of breath and denies any pain, cough, nausea nor vomiting. Seems to be slowly deteriorating clinically. He indicated that his appetite is not good at all. He is so far tolerating dialysis though. His blood pressure is somewhat elevated. Reason For Visit: AML(ACUTE MYELOBLASTIC LEUKEMIA),ANEMIA,THROMBOCYT Physical Exam Vital Signs: Temp Pulse Resp BP Pulse Ox 99.4 F 106 H 31 H 146/76 H 92 11/09/19 08:18 11/09/19 08:18 11/09/19 08:18 11/09/19 08:18 11/09/19 08:18 Intake & Output 11/08/19 11/09/19 11/10/19 06:59 06:59 06:59 Intake Total 631 1190 50 Output Total 200 0 Balance 431 1190 50 Weight 94.5 kg 93.7 kg Vitals during dialysis: Blood pressure 164/94, heart rate of 107, blood flow rate of 450 mL/min and dialysate flow rate of 800 mL/min. Exam: General appearance: PRESENT: no acute distress, cooperative, well-developed, wel l-nourished Head exam: PRESENT: atraumatic, normocephalic Eye exam: PRESENT: conjunctiva pale, PERRLA. ABSENT: scleral icterus Neck exam: ABSENT: JVD Respiratory exam: PRESENT: Normal breath sounds. ABSENT: crackles, rales, rhonchi, unlabored, wheezes Cardiovascular exam: PRESENT: Regular rate rhythm -+S1, +S2. ABSENT: diastolic murmur, systolic murmur GI/Abdominal exam: PRESENT: normal bowel sounds, soft. ABSENT: guarding, mass, tenderness Extremities exam: ABSENT: No edema Neurological exam: PRESENT: alert, awake, oriented to person, place but not to time. Positive dysarthria with slow response to questions Skin exam: PRESENT: dry, warm, Cardiovascular exam: PRESENT: +S1, +S2 GI/Abdominal exam: PRESENT: normal bowel sounds, soft. ABSENT: organomegaly, tenderness Results Laboratory Results: 11/09/19 05:44 11/08/19 08:18 11/08/19 11/09/19 10:01 05:44 WBC 0.1 L* RBC 2.50 L Hgb 8.0 L Hct 23.0 L MCV 92 MCH 32.2 MCHC 35.0 RDW 16.2 H Plt Count 22 L* D Seg Neutrophils % 8.7 L Blood Type A NEGATIVE Antibody Screen NEGATIVE Impressions: Chest X-Ray 11/04/19 16:03 IMPRESSION: Borderline enlarged cardiac silhouette central vascular prominence. No overt edema. Chest CT 11/09/19 00:00 IMPRESSION: Findings most likely represent interstitial edema with small associated effusions. There is underlying centrilobular emphysematous change. There is central venous engorgement. Less likely infectious or inflammatory process. Head CT 11/09/19 00:00 IMPRESSION: Atrophy and chronic small vessel ischemic changes with no acute intracranial abnormality. Assessment & Plan - Diagnosis (1) Neutropenic fever Is this a current diagnosis for this admission?: Yes Plan: On IV Zosyn (switched from Cefepime), IV Micafungin (switched from Diflucan), IV Vancomycin and Valcyclovir. Awaiting transfer to [facility]. (2) AML (acute myeloblastic leukemia) Qualifiers: Leukemia Active/Remission status: without remission Qualified Code(s): C92.00 - Acute myeloblastic leukemia, not having achieved remission Is this a current diagnosis for this admission?: Yes Plan: Being followed by director of head start, Dr. Bishop as well as [facility]. (3) ESRD (end stage renal disease) on dialysis Is this a current diagnosis for this admission?: Yes Plan: We will do dialysis today for 3 hours, using the patient's AV fistula, with 3 potassium bath, blood flow rate of 450 mL per minute, dialysate flow rate of 800 mL per minute, ultrafiltration 2 L as tolerated, no heparin and Procrit with 20,000 units during dialysis intravenously. Patient will be monitored throughout dialysis treatment. (4) Thrombocytopenia Is this a current diagnosis for this admission?: Yes Plan: Had platelet transfusion. (5) Anemia in ESRD (end-stage renal disease) Is this a current diagnosis for this admission?: Yes Plan: Had blood transfusion over the weekend. Retacrit being given during dialysis. (6) Dysarthria Is this a current diagnosis for this admission?: Yes Plan: CT scan negative for acute intracranial abnormalities but symptomatic. (7) Hypertension Qualifiers: Hypertension type: unspecified Qualified Code(s): I10 - Essential (primary) hypertension Is this a current diagnosis for this admission?: No Plan: Suboptimally controlled. (8) Multiple myeloma in remission Is this a current diagnosis for this admission?: Yes - Time Time with patient: 15-25 minutes
[2019-11-10] MEDS: PANTOPRAZOLE SODIUM 40 MG TABLET.DR PO SCH ×2 (05:27→18:18)
--- NOTE | 2019-11-10 08:10 | PDOC PROGRESS REPORT ---
Subjective Progress Note for:: 11/10/19 Subjective:: Patient still unable to answer some questions. Difficulty getting words out. Speech is clear. I ask about confusion and he simply says "Something ain't right" Diarrhea continues. Tmax this morning was 102.6 Reason For Visit: AML(ACUTE MYELOBLASTIC LEUKEMIA),ANEMIA,THROMBOCYT Physical Exam Vital Signs: Temp Pulse Resp BP Pulse Ox 102.6 F H 112 H 18 157/91 H 96 11/09/19 19:44 11/10/19 03:14 11/10/19 03:14 11/10/19 03:14 11/10/19 03:14 Intake & Output 11/09/19 11/10/19 11/11/19 06:59 06:59 06:59 Intake Total 1190 590 Output Total 0 2900 Balance 1190 -2310 Weight 93.7 kg General appearance: PRESENT: well-developed, well-nourished Head exam: PRESENT: normocephalic Respiratory exam: PRESENT: clear to auscultation merrill, tachypnea Cardiovascular exam: PRESENT: RRR GI/Abdominal exam: PRESENT: soft. ABSENT: tenderness Extremities exam: ABSENT: pedal edema Neurological exam: PRESENT: awake Focused psych exam: PRESENT: other - As per HPI Skin exam: PRESENT: normal color Results Laboratory Results: 11/09/19 05:44 11/08/19 08:18 11/04/19 17:20 Blood Blood Culture - Final NO GROWTH IN 5 DAYS 11/04/19 16:09 Blood Blood Culture - Final NO GROWTH IN 5 DAYS Impressions: Chest X-Ray 11/04/19 16:03 IMPRESSION: Borderline enlarged cardiac silhouette central vascular prominence. No overt edema. Chest CT 11/09/19 00:00 IMPRESSION: Findings most likely represent interstitial edema with small associated effusions. There is underlying centrilobular emphysematous change. There is central venous engorgement. Less likely infectious or inflammatory process. Head CT 11/09/19 00:00 IMPRESSION: Atrophy and chronic small vessel ischemic changes with no acute intracranial abnormality. Assessment & Plan - Diagnosis (1) Neutropenic fever Is this a current diagnosis for this admission?: Yes Plan: Antibiotics were changed yesterday. Will obtain another set of blood cultures along with urine culture with next fever. Although urine culture had been ordered, it was never obtained. (2) AML (acute myeloblastic leukemia) Qualifiers: Leukemia Active/Remission status: without remission Qualified Code(s): C92.00 - Acute myeloblastic leukemia, not having achieved remission Is this a current diagnosis for this admission?: Yes Plan: I am trying to figure out how to get a bone marrow biopsy here and send directly to [facility] for their review without sending to an outside company which could take up to 2 weeks for results. I will continue to work with [facility] on this. (3) ESRD (end stage renal disease) on dialysis Is this a current diagnosis for this admission?: Yes Plan: Continues dialysis. (4) Urinary retention due to benign prostatic hyperplasia Is this a current diagnosis for this admission?: Yes Plan: resolved. - Time Time Spent with patient: 15-24 minutes - Plan Summary Plan Summary: I doubt [facility] will have a bed anytime soon, but will keep trying. Until then, continue antibiotics and tylenol for fever.
[2019-11-10] MEDS: FUROSEMIDE 20 MG TABLET PO SCH (09:26)
[2019-11-10] MEDS: ALLOPURINOL 100 MG TABLET PO SCH (09:26)
[2019-11-10] MEDS: PIPERACILLIN SODIUM/TAZOBACTAM 2.25 GM in NORMAL SALINE 50 ML IV SCH ×2 (09:26→21:19)
[2019-11-10] MEDS: SEVELAMER HCL 800 MG TABLET PO SCH ×3 (09:26→18:18)
[2019-11-10] MEDS: CALCIUM CARBONATE 600 MG/VITAMIN D3 400 UNIT TABLET PO SCH (09:26)
[2019-11-10] MEDS: TAMSULOSIN HCL 0.4 MG CAP.SR.24H PO SCH (09:27)
[2019-11-10] MEDS: LOPERAMIDE HCL 2 MG CAPSULE PO PRN ×2 (09:27→20:04)
[2019-11-10] MEDS: DIBUCAINE 1% OINTMENT 28 GM PR SCH ×3 (09:29→18:18)
[2019-11-10] MEDS: HYDROCORTISONE 1% OINTMENT 28.35 GM TP SCH ×4 (09:36→21:19)
--- NOTE | 2019-11-10 14:09 | PDOC PROGRESS REPORT ---
Subjective Progress Note for:: 11/10/19 Subjective:: Per previous physician: "69 year old male with history of multiple myeloma in remission, status post stem cell transplantation in 1999, ESRD on hemodialysis completed dialysis today, hypertension, newly diagnosed AML started receiving the treatment at [facility] 2 weeks ago came to the emergency room with a fever of 103.9. As an outpatient he is on antibiotics, antifungal, antiviral medications. In the emergency room temp of 103.9. WBC 0.2, platelet count is 9, hemoglobin is 7.2. Call was placed by the ER physician to [facility] transfer center to request transfer , as per him no beds are available at [facility] at this time. Patient agreed to stay in the hospital in the meantime. I discussed the plan of care with Dr. Rothman, she agreed to see him in the hospital. She received IV cefepime, IV vancomycin. Platelet transfusions , blood transfusions requested by the ER physician. 11/05/2019-no acute events in the last 24 hours. T-max is 97.5 this morning. WBC count is 0.2 and platelet count is 7. To repeat the CBC now and if the platelet count is less than 10,000 plan is to transfuse the platelets. Latest hemoglobin is 7.6. No plans to do the blood transfusion as per oncology. Patient is receiving cefepime and IV vancomycin. he is also on Valtrex and Diflucan. blood cultures are pending at this time. 11/[id number]-jetl-old male with multiple medical problems including recently diagnosed AML and initial treatment, end-stage renal disease on dialysis has a history of multiple myeloma in remission has history of stem cell transplant admitted for high fevers. Blood cultures are negative so far. Afebrile now. He is due for dialysis today. Receiving cefepime, vancomycin, Valtrex, Diflucan. 11/07/2019-patient admitted with high fevers. Recently diagnosed AML receiving therapy. Admitted with neutropenia with WBC count of 0.2, platelet count of 4 less than 9, hemoglobin around 7.2. Patient received platelet transfusions, blood transfusions. Hemoglobin and platelet count is improved. Patient had a spiking fever of 101.6 last night and responded to Tylenol. This morning temp is 99. Plan is to repeat the blood cultures patient is presently on antibacterial, antifungal, anti-viral medications. Discussed the plan of care with Dr. Martinez, her recommendation is to keep the patient for at least 24 hours to 48 hours. 11/08/2019-patient continued to have spiking fever. Has a T-max of 102 last night. Receiving IV antibiotic therapy, antifungal, antiviral medications. Today's labs are pending. The time of my examination is comfortably sleeping in the bed. 11/09/2019-patient had slurred speech last night. Not responding properly. So CT head was done which was negative for acute pathology CT chest was done this morning shows mild vascular congestion. Vital signs are stable. Oxygen levels are stable. Dr. Rothman spoke to the [facility] oncology team about making a transfer, no beds are available at this time. As per the recommendations antibiotics were changed to IV Zosyn, IV cefepime is discontinued. Diflucan was discontinued started on micafungin at this time. Hemoglobin is 8 this morning after receiving blood transfusion yesterday and the platelet count is 22,000. He also received platelets. Overall prognosis poor." 11/10/2019 Patient still has pancytopenia with markedly reduced WBC. This does not seem to be improving. Oncology is following. We may want to consider trying bone marrow stimulation medication such as Granix or Neupogen. Will defer to oncology to decide this. Patient unable to articulate complaints specifically, he is just repeating "something ain't right". He is partially oriented, cami ented to self and stating he is in the hospital because he is sick and that the president is Mike Doran, otherwise he does not know the date at all. He states it is 2006. Overall prognosis may be poor at this point but we are still waiting on [facility] to tell us when they have a bed for transfer. Reportedly, he is already been accepted and is only waiting for an open bed. Reason For Visit: AML(ACUTE MYELOBLASTIC LEUKEMIA),ANEMIA,THROMBOCYT Physical Exam Vital Signs: Temp Pulse Resp BP Pulse Ox 98.8 F 109 H 26 H 136/79 H 92 11/10/19 11:20 11/10/19 11:20 11/10/19 11:20 11/10/19 11:20 11/10/19 11:20 Intake & Output 11/09/19 11/10/19 11/11/19 06:59 06:59 06:59 Intake Total 1190 590 237 Output Total 0 2900 Balance 1190 -2310 237 Weight 93.7 kg General appearance: PRESENT: cooperative, well-developed, well-nourished Eye exam: PRESENT: conjunctiva pink Mouth exam: PRESENT: moist Respiratory exam: PRESENT: clear to auscultation merrill. ABSENT: rales, rhonchi, wheezes Cardiovascular exam: PRESENT: tachycardia - Mild tachycardia, regular rhythm. ABSENT: diastolic murmur, rubs, systolic murmur GI/Abdominal exam: PRESENT: normal bowel sounds, soft. ABSENT: distended, guarding, mass, organolmegaly, rebound, tenderness Extremities exam: ABSENT: pedal edema Neurological exam: PRESENT: alert, awake, oriented to person, oriented to place Psychiatric exam: PRESENT: appropriate affect, normal mood Skin exam: PRESENT: dry, intact, warm Results Laboratory Results: 11/09/19 05:44 11/08/19 08:18 11/04/19 17:20 Blood Blood Culture - Final NO GROWTH IN 5 DAYS 11/04/19 16:09 Blood Blood Culture - Final NO GROWTH IN 5 DAYS Impressions: Chest X-Ray 11/04/19 16:03 IMPRESSION: Borderline enlarged cardiac silhouette central vascular prominence. No overt edema. Chest CT 11/09/19 00:00 IMPRESSION: Findings most likely represent interstitial edema with small associated effusions. There is underlying centrilobular emphysematous change. There is central venous engorgement. Less likely infectious or inflammatory process. Head CT 11/09/19 00:00 IMPRESSION: Atrophy and chronic small vessel ischemic changes with no acute intracranial abnormality. Assessment and Plan - Diagnosis (1) AML (acute myeloblastic leukemia) Qualifiers: Leukemia Active/Remission status: without remission Qualified Code(s): C92 .00 - Acute myeloblastic leukemia, not having achieved remission Is this a current diagnosis for this admission?: Yes Plan: Per previous physician: "11/04/2019-patient is going to be admitted to [facility] as inpatient for newly diagnosed acute myeloid leukemia started on chemotherapy admitted with fever of 103.9. No source was noticed at this time. WBC 0.2, platelet count is 9. Patient is going to receive antibiotics, antiviral, antifungal medications. Consultation with Asaad is requested. Patient condition is critical at this time. Consultation with Dr. Chidi Evans was requested because he is a dialysis patient. 11/05/2019-patient was newly diagnosed with AML. He is receiving chemotherapy at [facility]. Admitted for high fevers, leukopenia, anemia, thrombocytopenia. Oncology consult requested. 11/06/19-patient was recently diagnosed with AML. He started receiving treatment at [facility]. In the meantime admitted for high fevers. Presently on antibiotics, antifungal, antiviral medications. Dr. Rothman is following the patient. 11/07/19-patient is recently diagnosed with AML few weeks ago. He is receiving treatment to [facility] he admitted with high fevers and pancytopenia here. He is in antibacterial, antiviral, antifungal medications. He had a spiking fever of 101.6 this morning. 11/08/2019-T-max is 102 today. Plan is to continue antibiotics, antifungal and antiviral medications. Labs are pending for today. 11/09/2019-temperature today is 98.3. Patient is receiving IV vancomycin and IV Zosyn from this morning. Blood cultures are negative. Urine culture was requested but not collected." 11/10/2019 Fever back up to over 102 today. Cell counts are still down, particularly very low WBC which is unchanged. Oncology is still following. Patient may benefit from Granix or Neupogen, defer to oncology to determine if they would like to try this. Await transfer to [facility], waiting for bed (2) Pancytopenia Is this a current diagnosis for this admission?: Yes Plan: Due to AML Oncology following Trend CBC (3) ESRD (end stage renal disease) on dialysis Is this a current diagnosis for this admission?: Yes Plan: Per previous physician: "11/04/2019-ESRD on hemodialysis Saturday. He completed dialysis today. 11/05/19-consultation with Dr. Chidi Evans is requested. Patient is due for dialysis tomorrow. 11/06/2019-patient is due for dialysis today. Consultation with Dr. Chidi Evans was done. 11/07/2019-patient has a successful dialysis yesterday. Not in fluid overload at time of my examination this morning. 11/08/2019-patient due for dialysis tomorrow. Not in fluid overload." 11/10/2019 Nephrology following for dialysis needs. Spoke at length with audio visual manager today regarding prognosis and progress. They agree patient is doing poorly overall. (4) Fever Qualifiers: Fever type: unspecified Qualified Code(s): R50.9 - Fever, unspecified Is this a current diagnosis for this admission?: Yes Plan: Per previous physician: "11/04/2019-patient came in with fever of 103.9. Chest x-ray was negative. WBC is 0.2, may be neutropenic fever. Patient recently history of treatment for newly diagnosed AML. To continue IV cefepime, vancomycin, valacyclovir, and antifungal medication Diflucan. Cultures urine cultures will be requested. 11/05/2019-temperature this morning is 97.5, but he is on antibiotics, antiviral, antifungal medications. Cultures are pending at this time. Chest x-ray was normal. 11/06/2019-T-max is 99.1. Patient is doing well. Blood cultures are negative so far. 11/07/19-patient has a spiking fever of 101.6. Presently on IV cefepime, IV vancomycin, valacyclovir, Diflucan. Plan it is to repeat the blood cultures. Initial blood cultures are negative. 11/09/2019-temp is 98.3 this morning on Zosyn, IV vancomycin, micafungin, Valtrex. Plan is to continue the antibiotic therapy blood cultures are negative. Urine culture is pending." 11/10/2019 Never tripped 102.6 this morning. His antibiotics were recently broadened by previous physician. There is not appear to be much change in his fever curve despite this. Urine culture to be sent today (5) Neutropenic fever Is this a current diagnosis for this admission?: Yes (6) Thrombocytopenia Is this a current diagnosis for this admission?: Yes (7) Anemia in ESRD (end-stage renal disease) Is this a current diagnosis for this admission?: Yes Plan: Per previous physician: "11/04/2019-hemoglobin 7.2. Further management as per Dr. martel 11/05/2019-latest hemoglobin is 7.6 plan is to transfuse him if the hemoglobin is less than 7. 11/06/2019-hemoglobin is 7.6 plan is to give blood transfusions if the hemoglobin drops less than 7. 11/09/2019-latest hemoglobin is 8 received 2 units of PRBC yesterday." 11/09/2021 Nephrology following, discussed the case with them today (8) Hypertension Qualifiers: Hypertension type: unspecified Qualified Code(s): I10 - Essential (primary) hypertension Is this a current diagnosis for this admission?: No (9) Urinary retention due to benign prostatic hyperplasia Is this a current diagnosis for this admission?: Yes Plan: Per previous physician: "11/04/2019-patient has recently placed Ceavllos's catheter. Urine culture will be sent. 11/05/2019-family thinks Cevallos's catheter may be the source of infection to discontinue Cevallos catheter from today. 11/06/2019-Cevallos's catheter was removed yesterday denies any problems with urination this morning." Cevallos removed - Time Time Spent with patient: 25-34 minutes Medications reviewed and adjusted accordingly: Yes Anticipated discharge: [facility] Within: within 72 hours - Inpatient Certification Based on my medical assessment, after consideration of the patient's com orbidities, presenting symptoms, or acuity I expect that the services needed warrant INPATIENT care.: Yes I certify that my determination is in accordance with my understanding of Medicare's requirements for reasonable and necessary INPATIENT services [42 CFR 412.3e].: Yes Medical Necessity: Significant Comorbidiites Make Outpatient Treatment Too Risky, Need Close Monitoring Due to Risk of Patient Decompensation, Need for IV Antibiotics, Risk of Complication if Not Cared For in Hospital, Risk of Diagnosis Which Will Require Inpatient Eval/Care/Monitoring
[2019-11-10] MEDS: ACETAMINOPHEN 325 MG TABLET PO PRN (16:09)
[2019-11-10] MEDS: MICAFUNGIN SODIUM 100 MG in NORMAL SALINE 100 ML IV SCH (16:16)
[2019-11-10 20:30] LABS: ANION GAP 12 (5-19); BLOOD UREA NITROGEN 74 mg/dL (7-20); CALCIUM 8.8 mg/dL (8.4-10.2); CARBON DIOXIDE 26 mmol/L (22-30); CHLORIDE 96 mmol/L (98-107); GLUCOSE 245 mg/dL (75-110); POTASSIUM 3.6 mmol/L (3.6-5.0)
[2019-11-10] MEDS: VALACYCLOVIR HCL 500 MG TABLET PO SCH (21:19)
[2019-11-10] MEDS: ATORVASTATIN CALCIUM 80 MG TABLET PO SCH (21:19)
[2019-11-11] MEDS ORDERED: EPOETIN ALFA-EPBX 2,000 UNIT, EPOETIN ALFA-EPBX 3,000 UNIT, EPOETIN ALFA-EPBX 20,000 UN... IV PRN ×4 (05:00)
[2019-11-11] MEDS ORDERED: NORMAL SALINE 1000 ML 1,000 ML IV PRN (05:00)
[2019-11-11] MEDS: PANTOPRAZOLE SODIUM 40 MG TABLET.DR PO SCH ×2 (05:08→18:21)
[2019-11-11 06:51] LABS: ABSOLUTE LYMPHOCYTES (AUTO) 0.1 10^3/uL (0.5-4.7); EOSINOPHILS % (AUTO) 10.7 % (0-6); HEMATOCRIT 25.1 % (37.9-51.0); HEMOGLOBIN 8.9 g/dL (13.5-17.0); LYMPHOCYTES % (AUTO) 60.7 % (13-45); MEAN CORPUSCULAR HEMOGLOBIN 31.2 pg (27.0-33.4); MEAN CORPUSCULAR HGB CONC 35.5 g/dL (32.0-36.0); MONOCYTES % (AUTO) 3.6 % (3-13); RED BLOOD COUNT 2.85 10^6/uL (4.35-5.55); RED CELL DISTRIBUTION WIDTH 17.1 % (11.5-14.0); TOTAL CELLS COUNTED % (AUTO) 100 %
[2019-11-11 07:02] LABS: VANCOMYCIN,TROUGH 16.5 ug/mL (5.0-20.0)
[2019-11-11 07:26] LABS: WHITE BLOOD COUNT 0.1 10^3/uL (4.0-10.5)
[2019-11-11 07:27] LABS: MEAN CORPUSCULAR VOLUME 88 fl (80-97); PLATELET COUNT 5 10^3/uL (150-450)
[2019-11-11 07:28] LABS: ANION GAP 14 (5-19); BLOOD UREA NITROGEN 88 mg/dL (7-20); CALCIUM 8.9 mg/dL (8.4-10.2); CARBON DIOXIDE 23 mmol/L (22-30); CHLORIDE 97 mmol/L (98-107); GLUCOSE 151 mg/dL (75-110); PHOSPHORUS 3.5 mg/dL (2.5-4.5)
[2019-11-11 07:59] LABS: ANISOCYTOSIS 1+; OVALOCYTES SLIGHT; POIKILOCYTOSIS SLIGHT; TEAR DROP CELLS SLIGHT
[2019-11-11 08:00] LABS: BURR CELLS SLIGHT; PLATELET COMMENT DECREASED; POLYCHROMASIA SLIGHT
[2019-11-11] MEDS ORDERED: NORMAL SALINE 250 ML IV PRN ×2 (08:31)
[2019-11-11] MEDS: PIPERACILLIN SODIUM/TAZOBACTAM 2.25 GM in NORMAL SALINE 50 ML IV SCH ×2 (09:40→22:25)
[2019-11-11] MEDS: CALCIUM CARBONATE 600 MG/VITAMIN D3 400 UNIT TABLET PO SCH (09:41)
[2019-11-11] MEDS: DIBUCAINE 1% OINTMENT 28 GM PR SCH ×3 (09:41→18:22)
[2019-11-11] MEDS: SEVELAMER HCL 800 MG TABLET PO SCH ×3 (09:41→18:22)
[2019-11-11] MEDS: TAMSULOSIN HCL 0.4 MG CAP.SR.24H PO SCH (09:41)
[2019-11-11] MEDS: FUROSEMIDE 20 MG TABLET PO SCH (09:41)
[2019-11-11] MEDS: HYDROCORTISONE 1% OINTMENT 28.35 GM TP SCH ×4 (09:41→22:17)
[2019-11-11] MEDS: ALLOPURINOL 100 MG TABLET PO SCH (09:41)
[2019-11-11] MEDS ORDERED: DIPHENHYDRAMINE HCL 25 MG CAPSULE PO PRN (10:36)
[2019-11-11] MEDS: MICAFUNGIN SODIUM 100 MG in NORMAL SALINE 100 ML IV SCH (15:10)
[2019-11-11] MEDS: ACETAMINOPHEN 325 MG TABLET PO PRN (15:15)
--- NOTE | 2019-11-11 15:22 | PDOC PROGRESS REPORT ---
Subjective Progress Note for:: 11/11/19 Subjective:: Per previous physician: "69 year old male with history of multiple myeloma in remission, status post stem cell transplantation in 1999, ESRD on hemodialysis completed dialysis today, hypertension, newly diagnosed AML started receiving the treatment at [facility] 2 weeks ago came to the emergency room with a fever of 103.9. As an outpatient he is on antibiotics, antifungal, antiviral medications. In the emergency room temp of 103.9. WBC 0.2, platelet count is 9, hemoglobin is 7.2. Call was placed by the ER physician to [facility] transfer center to request transfer , as per him no beds are available at [facility] at this time. Patient agreed to stay in the hospital in the meantime. I discussed the plan of care with Dr. Rothman, she agreed to see him in the hospital. She received IV cefepime, IV vancomycin. Platelet transfusions , blood transfusions requested by the ER physician. 11/05/2019-no acute events in the last 24 hours. T-max is 97.5 this morning. WBC count is 0.2 and platelet count is 7. To repeat the CBC now and if the platelet count is less than 10,000 plan is to transfuse the platelets. Latest hemoglobin is 7.6. No plans to do the blood transfusion as per oncology. Patient is receiving cefepime and IV vancomycin. he is also on Valtrex and Diflucan. blood cultures are pending at this time. [id number]-old male with multiple medical problems including recently diagnosed AML and initial treatment, end-stage renal disease on dialysis has a history of multiple myeloma in remission has history of stem cell transplant admitted for high fevers. Blood cultures are negative so far. Afebrile now. He is due for dialysis today. Receiving cefepime, vancomycin, Valtrex, Diflucan. 11/07/2019-patient admitted with high fevers. Recently diagnosed AML receiving therapy. Admitted with neutropenia with WBC count of 0.2, platelet count of 4 less than 9, hemoglobin around 7.2. Patient received platelet transfusions, blood transfusions. Hemoglobin and platelet count is improved. Patient had a spiking fever of 101.6 last night and responded to Tylenol. This morning temp is 99. Plan is to repeat the blood cultures patient is presently on antibacterial, antifungal, anti-viral medications. Discussed the plan of care with Dr. Martinez, her recommendation is to keep the patient for at least 24 hours to 48 hours. 11/08/2019-patient continued to have spiking fever. Has a T-max of 102 last night. Receiving IV antibiotic therapy, antifungal, antiviral medications. Today's labs are pending. The time of my examination is comfortably sleeping in the bed. 11/09/2019-patient had slurred speech last night. Not responding properly. So CT head was done which was negative for acute pathology CT chest was done this morning shows mild vascular congestion. Vital signs are stable. Oxygen levels are stable. Dr. Rothman spoke to the [facility] of [facility] oncology team about making a transfer, no beds are available at this time. As per the recommendations antibiotics were changed to IV Zosyn, IV cefepime is discontinued. Diflucan was discontinued started on micafungin at this time. Hemoglobin is 8 this morning after receiving blood transfusion yesterday and the platelet count is 22,000. He also received platelets. Overall prognosis poor." 11/10/2019 Patient still has pancytopenia with markedly reduced WBC. This does not seem to be improving. Oncology is following. We may want to consider trying bone marrow stimulation medication such as Granix or Neupogen. Will defer to oncology to decide this. Patient unable to articulate complaints specifically, he is just repeating "something ain't right". He is partially oriented, cami ented to self and stating he is in the hospital because he is sick and that the president is Mike Doran, otherwise he does not know the date at all. He states it is 2006. Overall prognosis may be poor at this point but we are still waiting on [facility] to tell us when they have a bed for transfer. Reportedly, he is already been accepted and is only waiting for an open bed. 11/11/2019 Patient's mentation seems to be about the same as yesterday. He is still quite confused. I agree that we may benefit from a lumbar puncture however this is much too risky at this time with severe thrombocytopenia and a platelet count of 5 today. I have ordered a unit of stat platelets irradiated to be given to the patient as soon as possible. I believe we need to strongly consider using a bone marrow stimulant such as Granix or Neupogen as I mentioned in my note yesterday. Unless there is a contraindication to doing this, may be the patient's best chance to avoid further worsening of his cell counts. I believe he is high risk to pass away directly as a result of his AML and pancytopenia from his chemotherapy. We will get MRI of his brain to look for possible anoxic damage or microbleed that may have caused an acute change in mentation. I discussed the case with nephrology in detail today. Reason For Visit: AML(ACUTE MYELOBLASTIC LEUKEMIA),ANEMIA,THROMBOCYT Physical Exam Vital Signs: Temp Pulse Resp BP Pulse Ox 99.0 F 102 H 20 126/76 H 98 11/11/19 07:31 11/11/19 07:31 11/11/19 07:31 11/11/19 07:31 11/11/19 07:31 Intake & Output 11/10/19 11/11/19 11/12/19 06:59 06:59 06:59 Intake Total 590 574 Output Total 2900 500 Balance -2310 574 -500 Weight 97.5 kg General appearance: PRESENT: no acute distress, well-developed, well-nourished Head exam: PRESENT: atraumatic, normocephalic Eye exam: PRESENT: conjunctiva pink Mouth exam: PRESENT: moist Respiratory exam: PRESENT: clear to auscultation merrill. ABSENT: rales, rhonchi, wheezes Cardiovascular exam: PRESENT: RRR. ABSENT: diastolic murmur, rubs, systolic murmur GI/Abdominal exam: PRESENT: normal bowel sounds, soft. ABSENT: distended, guarding, mass, organolmegaly, rebound, tenderness Extremities exam: ABSENT: pedal edema Neurological exam: PRESENT: alert, awake, oriented to person. ABSENT: oriented to place, oriented to time, oriented to situation Psychiatric exam: PRESENT: flat affect, normal mood Skin exam: PRESENT: dry, intact, warm Results Laboratory Results: 11/11/19 05:43 11/11/19 05:43 11/10/19 11/11/19 11/11/19 19:19 05:43 05:43 WBC 0.1 L* RBC 2.85 L Hgb 8.9 L Hct 25.1 L MCV 88 D MCH 31.2 MCHC 35.5 RDW 17.1 H Plt Count 5 L* D Seg Neutrophils % 25.0 L Sodium 133.5 L 133.6 L Potassium 3.6 4.0 Chloride 96 L 97 L Carbon Dioxide 26 23 Anion Gap 12 14 BUN 74 H 88 H Creatinine 7.51 H 7.90 H Est GFR ( Amer) 9 L 8 L Glucose 245 H 151 H Calcium 8.8 8.9 Phosphorus 3.5 Magnesium 2.4 H Blood Type 11/11/19 09:16 WBC RBC Hgb Hct MCV MCH MCHC RDW Plt Count Seg Neutrophils % Sodium Potassium Chloride Carbon Dioxide Anion Gap BUN Creatinine Est GFR ( Amer) Glucose Calcium Phosphorus Magnesium Blood Type A NEGATIVE Impressions: Chest X-Ray 11/04/19 16:03 IMPRESSION: Borderline enlarged cardiac silhouette central vascular prominence. No overt edema. Chest CT 11/09/19 00:00 IMPRESSION: Findings most likely represent interstitial edema with small associated effusions. There is underlying centrilobular emphysematous change. There is central venous engorgement. Less likely infectious or inflammatory process. Head CT 11/09/19 00:00 IMPRESSION: Atrophy and chronic small vessel ischemic changes with no acute intracranial abnormality. Assessment and Plan - Diagnosis (1) AML (acute myeloblastic leukemia) Qualifiers: Leukemia Active/Remission status: without remission Qualified Code(s): C92.00 - Acute myeloblastic leukemia, not having achieved remission Is this a current diagnosis for this admission?: Yes Plan: Per previous physician: "11/04/2019-patient is going to be admitted to [facility] as inpatient for newly diagnosed acute myeloid leukemia started on chemotherapy admitted with fever of 103.9. No source was noticed at this time. WBC 0.2, platelet count is 9. Patient is going to receive antibiotics, antiviral, antifungal medications. Consultation with Dario is requested. Patient condition is critical at this time. Consultation with Dr. Chidi Evans was requested because he is a dialysis patient. 11/05/2019-patient was newly diagnosed with AML. He is receiving chemotherapy at [place]. Admitted for high fevers, leukopenia, anemia, thrombocytopenia. Oncology consult requested. 11/06/19-patient was recently diagnosed with AML. He started receiving treatment at [place]. In the meantime admitted for high fevers. Presently on antibi otics, antifungal, antiviral medications. Dr. Rothman is following the patient. 11/07/19-patient is recently diagnosed with AML few weeks ago. He is receiving treatment to [facility] he admitted with high fevers and pancytopenia here. He is in antibacterial, antiviral, antifungal medications. He had a spiking fever of 101.6 this morning. 11/08/2019-T-max is 102 today. Plan is to continue antibiotics, antifungal and antiviral medications. Labs are pending for today. 11/09/2019-temperature today is 98.3. Patient is receiving IV vancomycin and IV Zosyn from this morning. Blood cultures are negative. Urine culture was requested but not collected." 11/10/2019 Fever back up to over 102 today. Cell counts are still down, particularly very low WBC which is unchanged. Oncology is still following. Patient may benefit from Granix or Neupogen, defer to oncology to determine if they would like to try this. Await transfer to [facility], waiting for bed 11/11/2019 Patient afebrile today since last night but still running a temperature in the 99's. Platelet with an acute drop to 5 this morning, ordered transfusion of 1 unit irradiated platelets Hemoglobin higher WBC still 0.1 Need to consider Granix or Neupogen, need hematology to comment on this (2) Pancytopenia Is this a current diagnosis for this admission?: Yes Plan: Due to AML and chemotherapy Oncology following Trend CBC As above (3) ESRD (end stage renal disease) on dialysis Is this a current diagnosis for this admission?: Yes (4) Fever Qualifiers: Fever type: unspecified Qualified Code(s): R50.9 - Fever, unspecified Is this a current diagnosis for this admission?: Yes (5) Neutropenic fever Is this a current diagnosis for this admission?: Yes (6) Thrombocytopenia Is this a current diagnosis for this admission?: Yes (7) Anemia in ESRD (end-stage renal disease) Is this a current diagnosis for this admission?: Yes (8) Hypertension Qualifiers: Hypertension type: unspecified Qualified Code(s): I10 - Essential (primary) hypertension Is this a current diagnosis for this admission?: No (9) Urinary retention due to benign prostatic hyperplasia Is this a current diagnosis for this admission?: Yes - Time Time Spent with patient: 25-34 minutes Medications reviewed and adjusted accordingly: Yes [facility]ticipated [facility]: when bed available - Inpatient Certification Based on my medical assessment, after consideration of the patient's comorbidities, presenting symptoms, or acuity I expect that the services needed warrant INPATIENT care.: Yes I certify that my determination is in accordance with my understanding of Medicare's requirements for reasonable and necessary INPATIENT services [42 CFR 412.3e].: Yes Medical Necessity: Significant Comorbidiites Make Outpatient Treatment Too Risky, Need Close Monitoring Due to Risk of Patient Decompensation, Need for IV Antibiotics, Risk of Complication if Not Cared For in Hospital, Risk of Diagnosis Which Will Require Inpatient Eval/Care/Monitoring
[2019-11-11 20:36] LABS: HEMOGLOBIN 8.4 g/dL (13.5-17.0); MEAN CORPUSCULAR HEMOGLOBIN 31.2 pg (27.0-33.4); MEAN CORPUSCULAR HGB CONC 35.1 g/dL (32.0-36.0); MEAN CORPUSCULAR VOLUME 89 fl (80-97); RED BLOOD COUNT 2.71 10^6/uL (4.35-5.55); RED CELL DISTRIBUTION WIDTH 17.9 % (11.5-14.0)
--- NOTE | 2019-11-11 20:42 | PDOC PROGRESS REPORT ---
Subjective Progress Note for:: 11/11/19 Subjective:: I am seeing the patient during dialysis this afternoon. Patient appears to be more alert but still having difficulty with speech. He knows his name and he knows where he is but still struggling with the time. His fever is decreased today. At this time the patient is tolerating dialysis with any much problems or complications. He is a still awaiting bed from [facility] for transfer. Reason For Visit: AML(ACUTE MYELOBLASTIC LEUKEMIA),ANEMIA,THROMBOCYT Physical Exam Vital Signs: Temp Pulse Resp BP Pulse Ox 99.0 F 102 H 20 126/76 H 98 11/11/19 07:31 11/11/19 07:31 11/11/19 07:31 11/11/19 07:31 11/11/19 07:31 Intake & Output 11/10/19 11/11/19 11/12/19 06:59 06:59 06:59 Intake Total 590 574 Output Total 2900 0 Balance -2310 574 0 Weight 97.5 kg Vitals during dialysis: Blood pressure 115/70, temperature of 98.3, heart rate of 103 and respiration of 18 with blood flow rate of 450 mL/min and dialysate flow rate of 800 mL/min. Exam: General appearance: PRESENT: no acute distress, cooperative, fairly developed and fairly nourished Head exam: PRESENT: atraumatic, normocephalic Eye exam: PRESENT: conjunctiva pale, PERRLA. ABSENT: scleral icterus Neck exam: ABSENT: JVD Respiratory exam: PRESENT: Diminished breath sounds. ABSENT: crackles, rales, rhonchi, unlabored, wheezes Cardiovascular exam: PRESENT: Regular rate rhythm -+S1, +S2. ABSENT: diastolic murmur, systolic murmur GI/Abdominal exam: PRESENT: normal bowel sounds, soft. ABSENT: guarding, mass, tenderness Extremities exam: ABSENT: No edema Neurological exam: PRESENT: alert, awake, oriented to person, place but not to t liban. Skin exam: PRESENT: dry, warm, Cardiovascular exam: PRESENT: +S1, +S2 GI/Abdominal exam: PRESENT: normal bowel sounds, soft. ABSENT: organomegaly, tenderness Results Laboratory Results: 11/11/19 05:43 11/11/19 05:43 07/21/20 07/22/20 07/22/20 19:19 05:43 05:43 WBC 0.1 L* RBC 2.85 L Hgb 8.9 L Hct 25.1 L MCV 88 D MCH 31.2 MCHC 35.5 RDW 17.1 H Plt Count 5 L* D Seg Neutrophils % 25.0 L Sodium 133.5 L 133.6 L Potassium 3.6 4.0 Chloride 96 L 97 L Carbon Dioxide 26 23 Anion Gap 12 14 BUN 74 H 88 H Creatinine 7.51 H 7.90 H Est GFR ( Amer) 9 L 8 L Glucose 245 H 151 H Calcium 8.8 8.9 Phosphorus 3.5 Magnesium 2.4 H Blood Type 11/11/19 09:16 WBC RBC Hgb Hct MCV MCH MCHC RDW Plt Count Seg Neutrophils % Sodium Potassium Chloride Carbon Dioxide Anion Gap BUN Creatinine Est GFR ( Amer) Glucose Calcium Phosphorus Magnesium Blood Type A NEGATIVE Impressions: Chest X-Ray 11/04/19 16:03 IMPRESSION: Borderline enlarged cardiac silhouette central vascular prominence. No overt edema. Chest CT 11/09/19 00:00 IMPRESSION: Findings most likely represent interstitial edema with small associated effusions. There is underlying centrilobular emphysematous change. There is central venous engorgement. Less likely infectious or inflammatory process. Head CT 11/09/19 00:00 IMPRESSION: Atrophy and chronic small vessel ischemic changes with no acute intracranial abnormality. Assessment & Plan - Diagnosis (1) Neutropenic fever Is this a current diagnosis for this admission?: Yes Plan: On IV Zosyn (switched from Cefepime), IV Micafungin (switched from Diflucan), IV Vancomycin and Valcyclovir. Awaiting transfer to [facility]. Dr. Bishop following the patient. White count unfortunately remains to be at 0.1 for the last few days. Dr. Leos this afternoon. We are wondering if Neupogen could be used for this patient this will be deferred to the oncologist. (2) AML (acute myeloblastic leukemia) Qualifiers: Leukemia Active/Remission status: without remission Qualified Code(s): C92.00 - Acute myeloblastic leukemia, not having achieved remission Is this a current diagnosis for this admission?: Yes Plan: Being followed by [facility], Dr. Bishop as well as [facility]. Status post 1 cycle of chemotherapy in September 2019 at [facility]. (3) ESRD (end stage renal disease) on dialysis Is this a current diagnosis for this admission?: Yes Plan: We will do dialysis today for 3 hours, using the patient's AV fistula, with 3 potassium bath, blood flow rate of 450 mL per minute, dialysate flow rate of 800 mL per minute, ultrafiltration 0.5 L as tolerated, no heparin and Procrit with 25,000 units during dialysis intravenously. Patient will be monitored thr oughout dialysis treatment. He will be monitored for any signs of bleeding since the platelet is very low. (4) Thrombocytopenia Is this a current diagnosis for this admission?: Yes Plan: Had platelet transfusion couple of days ago. No platelets is very low and platelet transfusion has been ordered by Dr. Leos. (5) Anemia in ESRD (end-stage renal disease) Is this a current diagnosis for this admission?: Yes Plan: Had blood transfusion over the weekend. Retacrit being given during dialysis. (6) Dysarthria Is this a current diagnosis for this admission?: Yes Plan: CT scan negative for acute intracranial abnormalities but symptomatic. Recommended MRI and Dr. Leos will order it. (7) Hypertension Qualifiers: Hypertension type: unspecified Qualified Code(s): I10 - Essential (primary) hypertension Is this a current diagnosis for this admission?: No Plan: Better controlled today. (8) Multiple myeloma in remission Is this a current diagnosis for this admission?: Yes - Time Time with patient: 15-25 minutes
[2019-11-11 21:05] LABS: PLATELET COUNT 17 10^3/uL (150-450); WHITE BLOOD COUNT 0.1 10^3/uL (4.0-10.5)
[2019-11-11] MEDS: ATORVASTATIN CALCIUM 80 MG TABLET PO SCH (22:25)
--- NOTE | 2019-11-11 23:05 | RADIOLOGY REPORT (SQ) ---
MRI of the brain without intravenous contrast: 11/11/2019 10:03 PM CDT INDICATION: 69-year-old patient with concern for stroke COMPARISON: CT the head from 11/09/2019 TECHNIQUE: Sagittal T1; axial diffusion, ADC, T2, FLAIR images through the brain were obtained without intravenous contrast administered. FINDINGS: Evaluation is mildly limited by some motion artifact. There is mild prominence of the cerebral sulci and ventricles, suggestive of cerebral atrophy. Moderate nonspecific periventricular hyperintense signal is also seen, which may reflect chronic microvascular ischemia. No obvious restricted diffusion is seen. The cervicomedullary junction is unremarkable. The visualized orbits also appear unremarkable. No extra-axial fluid collection is seen. No midline shift or mass effect is seen. The visualized vascular flow voids appear normal. The cerebellopontine angles appear normal. No abnormal signal is seen to suggest acute hemorrhage. The hernandez-white matter differentiation is normal. No focal signal abnormality is seen. IMPRESSION: 1. No acute intracranial process is seen. 2. Mild to moderate cerebral atrophy and periventricular white matter changes are seen.
[2019-11-12] MEDS: PANTOPRAZOLE SODIUM 40 MG TABLET.DR PO SCH ×2 (06:42→17:14)
--- NOTE | 2019-11-12 08:09 | PDOC PROGRESS REPORT ---
Subjective Progress Note for:: 11/12/19 Subjective:: Patient is able to answer more of my questions today and is able to recall what we discussed. He asks appropriate questions. However, there is still a delay. Nurses report that he has had no urine output in the past 12 hours. Patient asks again today for water. ROS: No chest pain. Diarrhea is better. Confusion remains. Reason For Visit: AML(ACUTE MYELOBLASTIC LEUKEMIA),ANEMIA,THROMBOCYT Physical Exam Vital Signs: Temp Pulse Resp BP Pulse Ox 99.0 F 105 H 22 H 138/50 H 100 11/12/19 07:20 11/12/19 07:20 11/12/19 07:20 11/12/19 07:20 11/12/19 07:20 Intake & Output 11/11/19 11/12/19 11/13/19 06:59 06:59 06:59 Intake Total 574 278 Output Total 500 Balance 574 -222 Weight 97.5 kg 97.8 kg General appearance: PRESENT: no acute distress, well-developed Exam: Tmax was 101.5 Head exam: PRESENT: atraumatic Eye exam: PRESENT: EOMI Mouth exam: PRESENT: dry mucosa Respiratory exam: PRESENT: unlabored Extremities exam: ABSENT: pedal edema Neurological exam: PRESENT: altered Psychiatric exam: PRESENT: appropriate affect Skin exam: PRESENT: normal color Results Laboratory Results: 11/11/19 20:00 11/11/19 05:43 11/08/19 11/11/19 11/11/19 10:01 09:16 20:00 WBC 0.1 L* RBC 2.71 L Hgb 8.4 L Hct 24.0 L MCV 89 MCH 31.2 MCHC 35.1 RDW 17.9 H Plt Count 17 L* D Blood Type A NEGATIVE A NEGATIVE Antibody Screen NEGATIVE Impressions: Chest X-Ray 11/04/19 16:03 IMPRESSION: Borderline enlarged cardiac silhouette central vascular prominence. No overt edema. Chest CT 11/09/19 00:00 IMPRESSION: Findings most likely represent interstitial edema with small associated effusions. There is underlying centrilobular emphysematous change. There is central venous engorgement. Less likely infectious or inflammatory process. Head CT 11/09/19 00:00 IMPRESSION: Atrophy and chronic small vessel ischemic changes with no acute intracranial abnormality. Head MRI 11/11/19 00:00 IMPRESSION: 1. No acute intracranial process is seen. 2. Mild to moderate cerebral atrophy and periventricular white matter changes are seen. Assessment & Plan - Diagnosis (1) Neutropenic fever Is this a current diagnosis for this admission?: Yes Plan: All blood cultures are NGTD. Urine culture still not obtained. COVID-19 pending, but no clinical indication for this. Continue current antibiotics. (2) AML (acute myeloblastic leukemia) Qualifiers: Leukemia Active/Remission status: without remission Qualified Code(s): C92.00 - Acute myeloblastic leukemia, not having achieved remission Is this a current diagnosis for this admission?: Yes Plan: Bone Marrow Biopsy today. NO GROWTH FACTORS as these are contraindicated for AML. Continue transfusion support for PLT <10 and HGB <8. He received PLT again yesterday. Still awaiting a bed at [facility]. (3) ESRD (end stage renal disease) on dialysis Is this a current diagnosis for this admission?: Yes Plan: Renal following. He received dialysis yesterday. (4) Urinary retention due to benign prostatic hyperplasia Is this a current diagnosis for this admission?: Yes Plan: Will check again for urinary retension and place [place] if indicated. - Time Time Spent with patient: 15-24 minutes
--- NOTE | 2019-11-12 08:14 | Progress Note ---
Provider Note Provider Note: [facility] - Remote/Telephone Note Asked by Pharmacy to review patient's chart. Patient not seen or examined. Per chart, Mr. Lopez is a 69 year old man with AML diagnosed about 1 month ago, receiving venetoclax and azacitadine at time of admission. PMH also notable for h/o MM s/p stem cell transplant in 1999, ESRD on HD via an AVF, and prostatic hypertrophy with urinary retention that required Cevallos a few days prior to presentation to [facility] on 11/04/19 with c/o fever, chills and generalized weakness. He is admitted with febrile neutropenia. He is pancytopenic and was transfused pRBCs and platelets. His ANC is 0. He has had some tachycardia without hypotension and no localizing abnormalities on physical exam documented. He has continued to have fever up to 101 or 102 F at some point daily up to this point. Imaging has included: CXR on 11/03 with no overt opacities or effusions (vascular congestion), CT chest on 11/08 with b/l interstitial opacities suspected to be likely edema, CT head on 11/08 and MRI head on 11/10 to evaluate change concerning for TIA/CVA(difficulty verbalizing, slow and slurred speech but no focal or acute abnormalities seen). Labs have included: U/A on 11/03 had no nitrites, leukocyte esterase, 1 WBC/hpf. Cevallos was removed on 11/04 without subsequent difficulty with urination noted. C diff GDH and toxin assay negative on 11/05, ordered d/t diarrhea onset in hospital. Two sets of blood cultures on 11/03 negative. BCx on 11/06 ngtd x 4d. Repeat BCx 11/09 also ngtd x 24h. COVID-19 test was ordered, pending. Home medications included Cresemba. In patient, he initially received fluconzole. He was accepted as a transfer to [facility] (where his AML was being managed) but is awaiting bed availability. Per notes, patient's oncologist at [facility] advised switch in antifungal to micafungin and from cefepime to Zosyn on 11/08. He also received IV vancomycin empirically starting on 11/03. Impression/Recommendations Neutropenic fever - no indication to continue IV vancomycin presently; agree with its discontinuation in light of no skin/soft tissue infection, pneumonia, or central line infection or bacteremia identified - Consider CT abd/pelvis to continue to look for any unidentified sources of continued fever. Other imaging thus far not revealing. F/u COVID test result - Continue IV Zosyn and also the 500 mg daily (post dialysis on HD days) Valtrex prophylaxis if HSV seropositive. - Would prefer anti-mold prophylaxis given high risk profound/prolonged neutropenia. Suggest discontinuing micafungin if he can get home isavuconazole here. If not, continue micafungin for now. Dharmesh Strange MD [facility] Infectious Diseases [phone]
[2019-11-12 09:02] LABS: INTERNATIONAL RATION (INR) 1.56; PARTIAL THROMBOPLASTIN TIME 34.9 SEC (23.5-35.8); PROTHROMBIN TIME 18.8 SEC (11.4-15.4)
[2019-11-12 09:17] LABS: APPEARANCE,URINE CLEAR; BILIRUBIN,URINE NEGATIVE (NEGATIVE); COLOR,URINE AMBER; GLUCOSE, URINE >=500 mg/dL (NEGATIVE); KETONES,URINE TRACE mg/dL (NEGATIVE); LEUKOCYTE ESTERASE,URINE NEGATIVE (NEGATIVE); NITRITE,URINE NEGATIVE (NEGATIVE); PROTEIN,URINE 100 mg/dL (NEGATIVE); UROBILINOGEN,URINE NEGATIVE mg/dL (<2.0)
[2019-11-12] MEDS: CALCIUM CARBONATE 600 MG/VITAMIN D3 400 UNIT TABLET PO SCH (09:40)
[2019-11-12] MEDS: HYDROCORTISONE 1% OINTMENT 28.35 GM TP SCH ×4 (09:40→21:19)
[2019-11-12] MEDS: DIBUCAINE 1% OINTMENT 28 GM PR SCH ×3 (09:41→17:15)
[2019-11-12] MEDS: SEVELAMER HCL 800 MG TABLET PO SCH ×3 (09:41→17:14)
[2019-11-12] MEDS: PIPERACILLIN SODIUM/TAZOBACTAM 2.25 GM in NORMAL SALINE 50 ML IV SCH ×2 (09:49→21:35)
[2019-11-12] MEDS ORDERED: MIDAZOLAM 2 MG/2 ML INJ ONE (11:02)
[2019-11-12] MEDS ORDERED: FENTANYL CITRATE INJ/PF 100 MCG/2 ML AMPUL ONE (11:03)
--- NOTE | 2019-11-12 11:11 | PDOC PROGRESS REPORT ---
Subjective Progress Note for:: 11/12/19 Subjective:: No adverse events overnight. Still has the occasional fever. Responses to questions are delayed but he seems to understand what is being said to him and he knows what he wants to say, he just sometimes has a bit of a difficult time getting the right answer out. He does say that he feels better since the Cevallos catheter was placed. Reason For Visit: AML(ACUTE MYELOBLASTIC LEUKEMIA),ANEMIA,THROMBOCYT Physical Exam Vital Signs: Temp Pulse Resp BP Pulse Ox 99.0 F 105 H 22 H 138/50 H 100 11/12/19 07:20 11/12/19 07:20 11/12/19 07:20 11/12/19 07:20 11/12/19 07:20 Intake & Output 11/11/19 11/12/19 11/13/19 06:59 06:59 06:59 Intake Total 574 278 50 Output Total 500 Balance 574 -222 50 Weight 97.5 kg 97.8 kg General appearance: PRESENT: no acute distress, well-developed, well-nourished Head exam: PRESENT: atraumatic, normocephalic Eye exam: PRESENT: conjunctiva pink Mouth exam: PRESENT: moist Respiratory exam: PRESENT: clear to auscultation merrill. ABSENT: rales, rhonchi, wheezes Cardiovascular exam: PRESENT: RRR. ABSENT: diastolic murmur, rubs, systolic murmur GI/Abdominal exam: PRESENT: normal bowel sounds, soft. ABSENT: distended, guarding, mass, organolmegaly, rebound, tenderness Extremities exam: ABSENT: pedal edema Neurological exam: PRESENT: alert, awake, oriented to person. ABSENT: oriented to place, oriented to time, oriented to situation Psychiatric exam: PRESENT: flat affect, normal mood Skin exam: PRESENT: dry, intact, warm Results Laboratory Results: 11/11/19 20:00 11/11/19 05:43 11/08/19 11/11/19 11/12/19 10:01 20:00 08:45 WBC 0.1 L* RBC 2.71 L Hgb 8.4 L Hct 24.0 L MCV 89 MCH 31.2 MCHC 35.1 RDW 17.9 H Plt Count 17 L* D Urine Color ROCKY Urine Appearance CLEAR Urine pH 8.0 Ur Specific [place] 1.010 Urine Protein 100 H Urine Glucose (UA) >=500 H Urine Ketones TRACE H Urine Blood SMALL H Urine Nitrite NEGATIVE Ur Leukocyte Esterase NEGATIVE Urine WBC (Auto) 0 Urine RBC (Auto) 1 Blood Type A NEGATIVE Antibody Screen NEGATIVE Impressions: Chest X-Ray 11/04/19 16:03 IMPRESSION: Borderline enlarged cardiac silhouette central vascular prominence. No overt edema. Chest CT 11/09/19 00:00 IMPRESSION: Findings most likely represent interstitial edema with small associated effusions. There is underlying centrilobular emphysematous change. There is central venous engorgement. Less likely infectious or inflammatory process. Head CT 11/09/19 00:00 IMPRESSION: Atrophy and chronic small vessel ischemic changes with no acute intracranial abnormality. Head MRI 11/11/19 00:00 IMPRESSION: 1. No acute intracranial process is seen. 2. Mild to moderate cerebral atrophy and periventricular white matter changes are seen. Assessment and Plan - Diagnosis (1) AML (acute myeloblastic leukemia) Qualifiers: Leukemia Active/Remission status: without remission Qualified Code(s): C92.00 - Acute myeloblastic leukemia, not having achieved remission Is this a current diagnosis for this admission?: Yes Plan: Oncology is following. Pending transfer to [facility], but a bed has not been available in some time. He is on antibiotics per and infectious disease recommendations. I am told he has a bone marrow biopsy scheduled for today. No growth factors per oncology as they are contraindicated in AML. (2) Dysarthria Is this a current diagnosis for this admission?: Yes Plan: Imaging has been negative for stroke. (3) ESRD (end stage renal disease) on dialysis Is this a current diagnosis for this admission?: Yes Plan: Nephrology consulted for dialysis (4) Neutropenic fever Is this a current diagnosis for this admission?: Yes Plan: Antibiotics as previously noted with appropriate precautions (5) Pancytopenia Is this a current diagnosis for this admission?: Yes Plan: Transfuse for platelets below 10,000 or hemoglobin below 8 per oncology - Time Time Spent with patient: 25-34 minutes Anticipated discharge: Other Within: when bed available
[2019-11-12] MEDS: FUROSEMIDE 20 MG TABLET PO SCH (12:56)
[2019-11-12] MEDS: ALLOPURINOL 100 MG TABLET PO SCH (12:56)
[2019-11-12] MEDS: TAMSULOSIN HCL 0.4 MG CAP.SR.24H PO SCH (12:57)
--- NOTE | 2019-11-12 13:11 | RADIOLOGY REPORT (SQ) ---
EXAM DESCRIPTION: CT BIOPSY BONE MARROW, NEEDLE IMAGES COMPLETED DATE/TIME: 11/12/2019 11:54 am REASON FOR STUDY: LOW PLATELET COUNT COMPARISON: None. TECHNIQUE: CT guided biopsy of the right iliac crest bone marrow performed with conscious sedation. CT Fluoroscopy Time: [address] scanners at this facility use dose modulation, iterative reconstruction, and/or weight based d osing when appropriate to reduce radiation dose to as low as reasonably achievable (ALARA). [facility]: Dose Right [facility]: CareDose [facility]: Dose Right [facility]: Teradose 4D [facility]: CAPNIA RADIATION DOSE: CT Rad equipment meets quality standard of care and radiation dose reduction techniq ues were employed. CTDIvol: 4.0 - 20.0 mGy. DLP: 518 mGy-cm.mGy. FINDINGS: After obtaining informed consent and explaining the risks and benefits of conscious sedati on,the patient agreed to the procedure. Prior to the procedure, a time out was performed to verify th e patient's identity and planned procedure. IV conscious sedation was administered and physician direction by the registered nurse using 1 millig hermes of Versed and 100 micrograms of fentanyl. Physiologic monitoring was provided before, during, an d after sedation. The total sedation time was 30 minutes. Documentation face to face time, the performing proceduralist, spent monitoring the patient: [address] scanning was performed to localize the percutaneous site for the biopsy approach. After sterile skin prep and local lidocaine for skin and deep tissue anesthesia, a coaxial biopsy nee dle was used to obtain a bone marrow aspirate, and a bone marrow core of tissue. The biopsy tissue wa s received by [facility] lab to be sent out for evaluation. There were no immediate complications. Pathology is pending at the time of dictation. IMPRESSION: CT GUIDED ASPIRATE AND CORE BIOPSY OF THE RIGHT POSTERIOR ILIAC CREST BONE MARROW PERFOR MED WITHOUT IMMEDIATE COMPLICATION. PATHOLOGY PENDING. IV CONSCIOUS SEDATION WITHOUT COMPLICATION. COMMENT: Quality ID [id number]: Final reports for procedures using fluoroscopy that document radiation exp osure indices, or exposure time and number of fluorographic images (if radiation exposure indices are not available) Patient medication list reviewed: Yes- Quality ID# [id number]:Eligible professional attests to documenting i n the medical record they obtained, updated, or reviewed the patient's current medications.. TECHNICAL DOCUMENTATION: JOB ID: [id number] Quality ID# [id number]: Final reports with documentation of one or more dose reduction techniques (e.g., Aut omated exposure control, adjustment of the mA and/or kV according to patient size, use of iterative r econstruction technique) 2010 [employer]- All Rights Reserved Reading location - IP/workstation name: [email or web address]
[2019-11-12] MEDS: MICAFUNGIN SODIUM 100 MG in NORMAL SALINE 100 ML IV SCH (14:23)
[2019-11-12] MEDS: VALACYCLOVIR HCL 500 MG TABLET PO SCH (21:34)
[2019-11-12] MEDS: ATORVASTATIN CALCIUM 80 MG TABLET PO SCH (21:35)
[2019-11-13] MEDS ORDERED: ACETAMINOPHEN 325 MG TABLET PO PRN (05:00)
[2019-11-13] MEDS ORDERED: EPOETIN ALFA-EPBX 2,000 UNIT, EPOETIN ALFA-EPBX 3,000 UNIT, EPOETIN ALFA-EPBX 20,000 UN... IV PRN ×4 (05:00)
[2019-11-13] MEDS ORDERED: NORMAL SALINE 1000 ML 1,000 ML IV PRN (05:00)
[2019-11-13] MEDS ORDERED: DIPHENHYDRAMINE HCL 25 MG CAPSULE PO PRN (05:00)
[2019-11-13] MEDS: PANTOPRAZOLE SODIUM 40 MG TABLET.DR PO SCH ×2 (05:28→17:37)
[2019-11-13 05:57] LABS: ABSOLUTE LYMPHOCYTES (AUTO) 0.1 10^3/uL (0.5-4.7); HEMATOCRIT 21.6 % (37.9-51.0); LYMPHOCYTES % (AUTO) 70.7 % (13-45); MEAN CORPUSCULAR HEMOGLOBIN 30.9 pg (27.0-33.4); MEAN CORPUSCULAR HGB CONC 35.5 g/dL (32.0-36.0); MEAN CORPUSCULAR VOLUME 87 fl (80-97); MONOCYTES % (AUTO) 17.2 % (3-13); RED BLOOD COUNT 2.48 10^6/uL (4.35-5.55); RED CELL DISTRIBUTION WIDTH 17.3 % (11.5-14.0); SEGMENTED NEUTROPHILS % (AUTO) 10.1 % (42-78); TOTAL CELLS COUNTED % (AUTO) 100 %
[2019-11-13 06:12] LABS: ANION GAP 12 (5-19); BLOOD UREA NITROGEN 97 mg/dL (7-20); CALCIUM 8.2 mg/dL (8.4-10.2); CARBON DIOXIDE 25 mmol/L (22-30); CHLORIDE 97 mmol/L (98-107); GLUCOSE 167 mg/dL (75-110); POTASSIUM 4.1 mmol/L (3.6-5.0)
[2019-11-13 06:21] LABS: ANISOCYTOSIS 2+; OVALOCYTES SLIGHT; PLATELET COMMENT DECREASED; POIKILOCYTOSIS SLIGHT
[2019-11-13 06:24] LABS: PLATELET COUNT 8 10^3/uL (150-450); WHITE BLOOD COUNT 0.1 10^3/uL (4.0-10.5)
[2019-11-13 06:25] LABS: HEMOGLOBIN 7.7 g/dL (13.5-17.0)
--- NOTE | 2019-11-13 07:48 | PDOC PROGRESS REPORT ---
Subjective Progress Note for:: 11/13/19 Subjective:: Patient is seen in dialysis today. He states that he is about the same today. His daughter was able to visit him yesterday. His diarrhea comes and goes. No significant pain. He has not been able to get up and walk. ROS: No dyspnea. Confusion is about the same. Reason For Visit: AML(ACUTE MYELOBLASTIC LEUKEMIA),ANEMIA,THROMBOCYT Physical Exam Vital Signs: Temp Pulse Resp BP Pulse Ox 98.6 F 104 H 23 H 97/51 L 98 11/13/19 03:27 11/13/19 03:27 11/13/19 03:27 11/13/19 03:27 11/13/19 03:27 Intake & Output 11/12/19 11/13/19 11/14/19 06:59 06:59 06:59 Intake Total 278 300 Output Total 500 125 Balance -222 175 Weight 97.8 kg 98 kg General appearance: PRESENT: well-developed, well-nourished Head exam: PRESENT: normocephalic Eye exam: PRESENT: EOMI Respiratory exam: PRESENT: unlabored Neurological exam: PRESENT: awake, oriented to person, oriented to place Psychiatric exam: PRESENT: appropriate affect Skin exam: PRESENT: normal color Results Laboratory Results: 11/13/19 05:05 11/13/19 05:05 11/12/19 11/13/19 11/13/19 08:45 05:05 05:05 WBC 0.1 L* RBC 2.48 L Hgb 7.7 L Hct 21.6 L MCV 87 MCH 30.9 MCHC 35.5 RDW 17.3 H Plt Count 8 L* Seg Neutrophils % 10.1 L Sodium 134.1 L Potassium 4.1 Chloride 97 L Carbon Dioxide 25 Anion Gap 12 BUN 97 H Creatinine 7.32 H Est GFR ( Amer) 9 L Glucose 167 H Calcium 8.2 L Urine Color ROCKY Urine Appearance CLEAR Urine pH 8.0 Ur Specific [place] 1.010 Urine Protein 100 H Urine Glucose (UA) >=500 H Urine Ketones TRACE H Urine Blood SMALL H Urine Nitrite NEGATIVE Ur Leukocyte Esterase NEGATIVE Urine WBC (Auto) 0 Urine RBC (Auto) 1 11/07/19 12:27 Blood Blood Culture - Final NO GROWTH IN 5 DAYS 11/07/19 11:12 Blood Blood Culture - Final NO GROWTH IN 5 DAYS Impressions: Chest X-Ray 11/04/19 16:03 IMPRESSION: Borderline enlarged cardiac silhouette central vascular prominence. No overt edema. Chest CT 11/09/19 00:00 IMPRESSION: Findings most likely represent interstitial edema with small associated effusions. There is underlying centrilobular emphysematous change. There is central venous engorgement. Less likely infectious or inflammatory process. Head CT 11/09/19 00:00 IMPRESSION: Atrophy and chronic small vessel ischemic changes with no acute intracranial abnormality. Head MRI 11/11/19 00:00 IMPRESSION: 1. No acute intracranial process is seen. 2. Mild to moderate cerebral atrophy and periventricular white matter changes are seen. Bone Marrow Biopsy w/ CT 11/12/19 00:00 IMPRESSION: CT GUIDED ASPIRATE AND CORE BIOPSY OF THE RIGHT POSTERIOR ILIAC CREST BONE MARROW PERFORMED WITHOUT IMMEDIATE COMPLICATION. PATHOLOGY PENDING. IV CONSCIOUS SEDATION WITHOUT COMPLICATION. Assessment & Plan - Diagnosis (1) Neutropenic fever Is this a current diagnosis for this admission?: Yes Plan: No fever x 24 hours!! Continue current antibiotics for now. Await urine culture. Blood cultures are NGTD. (2) AML (acute myeloblastic leukemia) Qualifiers: Leukemia Active/Remission status: without remission Qualified Code(s): C92.00 - Acute myeloblastic leukemia, not having achieved remission Is this a current diagnosis for this admission?: Yes Plan: Bone marrow biopsy was obtained yesterday. I hope to have a prelim report by Saturday. (3) ESRD (end stage renal disease) on dialysis Is this a current diagnosis for this admission?: Yes Plan: Dialysis ongoing. (4) Urinary retention due to benign prostatic hyperplasia Is this a current diagnosis for this admission?: Yes Plan: Cevallos catheter has been replaced. - Time Time Spent with patient: 15-24 minutes - Plan Summary Plan Summary: If fevers return, then I agree with plans to obtain CT A/P. His Bili was slowly rising. Await today's results.
[2019-11-13 08:02] LABS: ALBUMIN 2.3 g/dL (3.5-5.0); ALKALINE PHOSPHATASE 161 U/L (38-126); ASPARTATE AMINO TRANSFERASE 78 U/L (17-59); BILIRUBIN,DIRECT 11.6 mg/dL (0.0-0.4); BILIRUBIN,TOTAL 12.7 mg/dL (0.2-1.3); TOTAL PROTEIN 5.2 g/dL (6.3-8.2)
--- NOTE | 2019-11-13 09:17 | PDOC PROGRESS REPORT ---
Subjective Progress Note for:: 11/13/19 Subjective:: I am seeing the patient during dialysis this morning. He seems to be more awake and more alert trying to communicate and answer questions although he still have somewhat slurred speech but appears to be slightly better. He is tolerating dialysis and has really not much complaints. He said he is eating fair. He has diarrhea on and off. Cevallos catheter was inserted again due to what is perceived as urinary retention but I think the patient is just feeling the pressure relieved by the Cevallos catheter. Patient is really anuric and there is not much urine to be retained. He has been afebrile. He underwent bone marrow biopsy yesterday, 11/11. He also had an MRI done on 11/10 which did not show any acute intracranial process and just showing cerebral atrophy and some periventricular white matter changes. He still awaiting for a bed at [facility]. Reason For Visit: AML(ACUTE MYELOBLASTIC LEUKEMIA),ANEMIA,THROMBOCYT Physical Exam Vital Signs: Temp Pulse Resp BP Pulse Ox 98.6 F 97 23 H 97/51 L 98 11/13/19 03:27 11/13/19 07:00 11/13/19 03:27 11/13/19 03:27 11/13/19 03:27 Intake & Output 11/12/19 11/13/19 11/14/19 06:59 06:59 06:59 Intake Total 278 300 Output Total 500 125 Balance -222 175 Weight 97.8 kg 98 kg Vitals during dialysis: Blood pressure 106/57, heart rate of 101, blood flow rate of 450 mL/min and dialysate flow rate of 800 mL/min. Exam: General appearance: PRESENT: no acute distress, cooperative, well-developed, well-nourished Head exam: PRESENT: atraumatic, normocephalic Eye exam: PRESENT: conjunctiva pale, PERRLA. ABSENT: scleral icterus Neck exam: ABSENT: JVD Respiratory exam: PRESENT: Diminished breath sounds. ABSENT: crackles, rales, rhonchi, unlabored, wheezes Cardiovascular exam: PRESENT: Regular rate rhythm -+S1, +S2. ABSENT: diastolic murmur, systolic murmur GI/Abdominal exam: PRESENT: normal bowel sounds, soft. ABSENT: guarding, mass, tenderness Extremities exam: ABSENT: No edema Neurological exam: PRESENT: alert, awake, oriented to person, place and time. Still having some dysarthria and slow response but improved from the last few days. Skin exam: PRESENT: dry, warm, Cardiovascular exam: PRESENT: +S1, +S2 GI/Abdominal exam: PRESENT: normal bowel sounds, soft. ABSENT: organomegaly, tenderness Results Laboratory Results: 11/13/19 05:05 11/13/19 05:05 11/11/19 11/12/19 11/13/19 09:16 08:45 05:05 WBC 0.1 L* RBC 2.48 L Hgb 7.7 L Hct 21.6 L MCV 87 MCH 30.9 MCHC 35.5 RDW 17.3 H Plt Count 8 L* Seg Neutrophils % 10.1 L Sodium Potassium Chloride Carbon Dioxide Anion Gap BUN Creatinine Est GFR ( Amer) Glucose Calcium Total Bilirubin AST Alkaline Phosphatase Total Protein Albumin Urine Color ROCKY Urine Appearance CLEAR Urine pH 8.0 Ur Specific [place] 1.010 Urine Protein 100 H Urine Glucose (UA) >=500 H Urine Ketones TRACE H Urine Blood SMALL H Urine Nitrite NEGATIVE Ur Leukocyte Esterase NEGATIVE Urine WBC (Auto) 0 Urine RBC (Auto) 1 Blood Type A NEGATIVE 11/13/19 05:05 WBC RBC Hgb Hct MCV MCH MCHC RDW Plt Count Seg Neutrophils % Sodium 134.1 L Potassium 4.1 Chloride 97 L Carbon Dioxide 25 Anion Gap 12 BUN 97 H Creatinine 7.32 H Est GFR ( Amer) 9 L Glucose 167 H Calcium 8.2 L Total Bilirubin 12.7 H AST 78 H Alkaline Phosphatase 161 H Total Protein 5.2 L Albumin 2.3 L Urine Color Urine Appearance Urine pH Ur Specific [place] Urine Protein Urine Glucose (UA) Urine Ketones Urine Blood Urine Nitrite Ur Leukocyte Esterase Urine WBC (Auto) Urine RBC (Auto) Blood Type 11/07/19 12:27 Blood Blood Culture - Final NO GROWTH IN 5 DAYS 11/07/19 11:12 Blood Blood Culture - Final NO GROWTH IN 5 DAYS Impressions: Chest X-Ray 11/04/19 16:03 IMPRESSION: Borderline enlarged cardiac silhouette central vascular prominence. No overt edema. Chest CT 11/09/19 00:00 IMPRESSION: Findings most likely represent interstitial edema with small associated effusions. There is underlying centrilobular emphysematous change. There is central venous engorgement. Less likely infectious or inflammatory process. Head CT 11/09/19 00:00 IMPRESSION: Atrophy and chronic small vessel ischemic changes with no acute intracranial abnormality. Head MRI 11/11/19 00:00 IMPRESSION: 1. No acute intracranial process is seen. 2. Mild to moderate cerebral atrophy and periventricular white matter changes are seen. Bone Marrow Biopsy w/ CT 11/12/19 00:00 IMPRESSION: CT GUIDED ASPIRATE AND CORE BIOPSY OF THE RIGHT POSTERIOR ILIAC CREST BONE MARROW PERFORMED WITHOUT IMMEDIATE COMPLICATION. PATHOLOGY PENDING. IV CONSCIOUS SEDATION WITHOUT COMPLICATION. Assessment & Plan - Diagnosis (1) Neutropenic fever Is this a current diagnosis for this admission?: Yes Plan: On IV Zosyn (switched from Cefepime), IV Micafungin (switched from Diflucan), and Valcyclovir. Awaiting transfer to [facility]. Dr. Bishop following the patient. White count unfortunately remains to be at 0.1 for the last few days. Per Dr. Bishop growth factors are contraindicated with AML. (2) AML (acute myeloblastic leukemia) Qualifiers: Leukemia Active/Remission status: without remission Qualified Code(s): C92.00 - Acute myeloblastic leukemia, not having achieved remission Is this a current diagnosis for this admission?: Yes Plan: Being followed by rn radiation, Dr. Bishop as well as [facility]. Status post 1 cycle of chemotherapy in September 2019 at [facility]. (3) ESRD (end stage renal disease) on dialysis Is this a current diagnosis for this admission?: Yes Plan: We will do dialysis today for 3 hours, using the patient's AV fistula, with 3 potassium bath, blood flow rate of 450 mL per minute, dialysate flow rate of 800 mL per minute, ultrafiltration 0.5 L as tolerated, no heparin and Procrit with 25,000 units during dialysis intravenously. Patient will be monitored throughout dialysis treatment. He will be monitored for any signs of bleeding since the platelet is very low. (4) Thrombocytopenia Is this a current diagnosis for this admission?: Yes Plan: Remains to be low. Platelet transfusions being ordered as necessary by hematology/hospitalist service. (5) Anemia in ESRD (end-stage renal disease) Is this a current diagnosis for this admission?: Yes Plan: Had blood transfusions several times. Retacrit being given during dialysis. Dr. Bishop ordered blood transfusion which will be given after dialysis since it was just ordered. (6) Dysarthria Is this a current diagnosis for this admission?: Yes Plan: CT scan negative for acute intracranial abnormalities but symptomatic. MRI on 11/10 is also negative for acute intracranial process. Mentation and dysarthria seems to be slowly getting better. (7) Hypertension Qualifiers: Hypertension type: unspecified Qualified Code(s): I10 - Essential (primary) hypertension Is this a current diagnosis for this admission?: No Plan: Blood pressure on the low side today. (8) Elevated liver enzymes Is this a current diagnosis for this admission?: Yes (9) Multiple myeloma in remission Is this a current diagnosis for this admission?: Yes - Time Time with patient: 15-25 minutes
--- NOTE | 2019-11-13 10:59 | RADIOLOGY REPORT (SQ) ---
EXAM DESCRIPTION: CT ABD/PELVIS NO ORAL OR IV IMAGES COMPLETED DATE/TIME: 11/13/2019 10:37 am REASON FOR STUDY: fever, hyperbilirubinemia COMPARISON: None. TECHNIQUE: CT scan of the abdomen and pelvis performed without intravenous or oral contrast. Images reviewed with lung, soft tissue, and bone windows. Reconstructed coronal and sagittal MPR images revi ewed. All images stored on PACS. All CT scanners at this facility use dose modulation, iterative reconstruction, and/or weight based d osing when appropriate to reduce radiation dose to as low as reasonably achievable (ALARA). [facility]: Dose Right [facility]: CareDose [facility]: Dose Right [facility]: Teradose 4D [facility]: Smart LumeJet RADIATION DOSE: CT Rad equipment meets quality standard of care and radiation dose reduction techniq ues were employed. CTDIvol: 13.6 mGy. DLP: 783 mGy-cm.mGy. LIMITATIONS: None. FINDINGS: LOWER CHEST: No significant findings. No nodules or infiltrates. NON-CONTRASTED LIVER, SPLEEN, ADRENALS: Evaluation limited by lack of IV contrast. Bilateral adrenal enlargement. No identified significant masses. PANCREAS: No masses. No peripancreatic inflammatory changes. GALLBLADDER: No identified stones by CT criteria. No inflammatory changes to suggest cholecystitis. RIGHT KIDNEY AND URETER: Atrophic. No suspicious masses. Assessment limited by lack of IV contrast. No significant calcifications. No hydronephrosis or hydroureter. LEFT KIDNEY AND URETER: Atrophic. 3.5 cm cyst. No suspicious masses. Assessment limited by lack of IV contrast. 8.5 mm lower pole calyceal calculus. No hydronephrosis or hydroureter. AORTA AND RETROPERITONEUM: No aneurysm. No retroperitoneal masses or adenopathy. BOWEL AND PERITONEAL CAVITY: No obvious masses or inflammatory changes. No free fluid. APPENDIX: Normal. PELVIS, BLADDER, AND ABDOMINAL WALL:No abnormal masses. No free fluid. Catheter in the bladder. Enl arged prostate. BONES: No significant findings. OTHER: No other significant finding. IMPRESSION: 1. 8.5 MM NONOBSTRUCTING CALYCEAL CALCULUS IN THE LOWER POLE OF THE LEFT KIDNEY. CORTICAL CYST IN TH E LEFT KIDNEY. BILATERAL RENAL ATROPHY. 2. BILATERAL ADRENAL ENLARGEMENT. 3. NO OTHER SIGNIFICANT OR ACUTE PROCESS IN THE ABDOMEN OR PELVIS. COMMENT: Quality ID # [id number]: Final reports with documentation of one or more dose reduction techniques (e.g., Automated exposure control, adjustment of the mA and/or kV according to patient size, use of iterative reconstruction technique) TECHNICAL DOCUMENTATION: JOB ID: [id number] 2010 [employer]- All Rights Reserved Reading location - IP/workstation name: [email or web address]
[2019-11-13] MEDS: FUROSEMIDE 20 MG TABLET PO SCH (11:17)
[2019-11-13] MEDS: PIPERACILLIN SODIUM/TAZOBACTAM 2.25 GM in NORMAL SALINE 50 ML IV SCH ×2 (11:17→21:12)
[2019-11-13] MEDS: ALLOPURINOL 100 MG TABLET PO SCH (11:23)
[2019-11-13] MEDS: HYDROCORTISONE 1% OINTMENT 28.35 GM TP SCH ×4 (11:23→21:12)
[2019-11-13] MEDS: CALCIUM CARBONATE 600 MG/VITAMIN D3 400 UNIT TABLET PO SCH (11:23)
[2019-11-13] MEDS: TAMSULOSIN HCL 0.4 MG CAP.SR.24H PO SCH (11:23)
[2019-11-13] MEDS: DIBUCAINE 1% OINTMENT 28 GM PR SCH ×3 (11:23→17:38)
[2019-11-13] MEDS: SEVELAMER HCL 800 MG TABLET PO SCH ×3 (11:24→17:38)
[2019-11-13] MEDS ORDERED: FUROSEMIDE INJ/PF 20 MG/2 ML SDV IV PRN (11:30)
[2019-11-13] MEDS: ACETAMINOPHEN 325 MG TABLET PO PRN (12:21)
--- NOTE | 2019-11-13 16:13 | PDOC PROGRESS REPORT ---
Subjective Progress Note for:: 11/13/19 Subjective:: No adverse events overnight. Mental status is unchanged. Bilirubin has increased substantially. No complaint of abdominal pain. His blood pressure went down a little bit as he was getting some blood but he has not had any symptoms as a result. Were monitoring his blood pressures frequently. Reason For Visit: AML(ACUTE MYELOBLASTIC LEUKEMIA),ANEMIA,THROMBOCYT Physical Exam Vital Signs: Temp Pulse Resp BP Pulse Ox 99.1 F 121 H 19 108/65 100 11/13/19 13:43 11/13/19 13:43 11/13/19 13:43 11/13/19 13:43 11/13/19 13:43 Intake & Output 11/12/19 11/13/19 11/14/19 06:59 06:59 06:59 Intake Total 479 052 6315 Output Total 410 168 4308 Balance -222 175 -950 Weight 97.8 kg 98 kg General appearance: PRESENT: no acute distress, well-developed, well-nourished Head exam: PRESENT: atraumatic, normocephalic Eye exam: PRESENT: conjunctiva pink, scleral icterus Mouth exam: PRESENT: moist Respiratory exam: PRESENT: clear to auscultation merrill. ABSENT: rales, rhonchi, wheezes Cardiovascular exam: PRESENT: RRR. ABSENT: diastolic murmur, rubs, systolic murmur GI/Abdominal exam: PRESENT: normal bowel sounds, soft. ABSENT: distended, guarding, mass, organolmegaly, rebound, tenderness Extremities exam: ABSENT: pedal edema Neurological exam: PRESENT: alert, awake, oriented to person. ABSENT: oriented to place, oriented to time, oriented to situation Psychiatric exam: PRESENT: flat affect, normal mood Skin exam: PRESENT: dry, intact, warm Results Laboratory Results: 11/13/19 05:05 11/13/19 05:05 11/11/19 11/13/19 11/13/19 09:16 05:05 05:05 WBC 0.1 L* RBC 2.48 L Hgb 7.7 L Hct 21.6 L MCV 87 MCH 30.9 MCHC 35.5 RDW 17.3 H Plt Count 8 L* Seg Neutrophils % 10.1 L Sodium 134.1 L Potassium 4.1 Chloride 97 L Carbon Dioxide 25 Anion Gap 12 BUN 97 H Creatinine 7.32 H Est GFR ( Amer) 9 L Glucose 167 H Calcium 8.2 L Total Bilirubin 12.7 H AST 78 H Alkaline Phosphatase 161 H Total Protein 5.2 L Albumin 2.3 L Blood Type A NEGATIVE Antibody Screen NEGATIVE 11/07/19 12:27 Blood Blood Culture - Final NO GROWTH IN 5 DAYS Impressions: Chest X-Ray 11/04/19 16:03 IMPRESSION: Borderline enlarged cardiac silhouette central vascular prominence. No overt edema. Chest CT 11/09/19 00:00 IMPRESSION: Findings most likely represent interstitial edema with small associated effusions. There is underlying centrilobular emphysematous change. There is central venous engorgement. Less likely infectious or inflammatory process. Head CT 11/09/19 00:00 IMPRESSION: Atrophy and chronic small vessel ischemic changes with no acute intracranial abnormality. Head MRI 11/11/19 00:00 IMPRESSION: 1. No acute intracranial process is seen. 2. Mild to moderate cerebral atrophy and periventricular white matter changes are seen. Bone Marrow Biopsy w/ CT 11/12/19 00:00 IMPRESSION: CT GUIDED ASPIRATE AND CORE BIOPSY OF THE RIGHT POSTERIOR ILIAC CREST BONE MARROW PERFORMED WITHOUT IMMEDIATE COMPLICATION. PATHOLOGY PENDING. IV CONSCIOUS SEDATION WITHOUT COMPLICATION. Abdomen/Pelvis CT 11/13/19 00:00 IMPRESSION: 1. 8.5 MM NONOBSTRUCTING CALYCEAL CALCULUS IN THE LOWER POLE OF THE LEFT KIDNEY. CORTICAL CYST IN THE LEFT KIDNEY. BILATERAL RENAL ATROPHY. 2. BILATERAL ADRENAL ENLARGEMENT. 3. NO OTHER SIGNIFICANT OR ACUTE PROCESS IN THE ABDOMEN OR PELVIS. Assessment and Plan - Diagnosis (1) AML (acute myeloblastic leukemia) Qualifiers: Leukemia Active/Remission status: without remission Qualified Code(s): C92.00 - Acute myeloblastic leukemia, not having achieved remission Is this a current diagnosis for this admission?: Yes Plan: Oncology is following. Pending transfer to [facility], but a bed has not been available in some time. He is on antibiotics per and infectious disease recommendations. Bone marrow biopsy results pending. No growth factors per oncology as they are contraindicated in AML. (2) Dysarthria Is this a current diagnosis for this admission?: Yes Plan: Imaging has been negative for stroke. (3) ESRD (end stage renal disease) on dialysis Is this a current diagnosis for this admission?: Yes Plan: Nephrology consulted for dialysis (4) Neutropenic fever Is this a current diagnosis for this admission?: Yes Plan: Antibiotics as previously noted with appropriate precautions (5) Pancytopenia Is this a current diagnosis for this admission?: Yes Plan: Transfuse for platelets below 10,000 or hemoglobin below 8 per oncology (6) Hyperbilirubinemia Is this a current diagnosis for this admission?: Yes Plan: I am worried about acute liver failure in this patient. His INR has gone up, he has had some mild elevations in his transaminases and his alkaline phosphatase, and today his bilirubin is substantially elevated. We are trying to keep his hemoglobin up, trying to avoid medications toxic to the liver, and other supportive care. A bed to [facility] is pending for his AML, and [facility] is also a transplant center so if this is acute liver failure then his condition can also be addressed while he is there. - Time Time Spent with patient: 25-34 minutes Anticipated Discharge Disposition: Cancer Center Anticipated Discharge: when bed available
[2019-11-13] MEDS: MICAFUNGIN SODIUM 100 MG in NORMAL SALINE 100 ML IV SCH ×2 (17:37→20:45)
[2019-11-13] MEDS: ATORVASTATIN CALCIUM 80 MG TABLET PO SCH (21:12)
[2019-11-14] MEDS: PANTOPRAZOLE SODIUM 40 MG TABLET.DR PO SCH ×2 (05:12→17:24)
[2019-11-14 05:24] LABS: HEMATOCRIT 25.4 % (37.9-51.0); HEMOGLOBIN 9.1 g/dL (13.5-17.0); MEAN CORPUSCULAR HEMOGLOBIN 30.7 pg (27.0-33.4); MEAN CORPUSCULAR HGB CONC 35.7 g/dL (32.0-36.0); MEAN CORPUSCULAR VOLUME 86 fl (80-97); RED BLOOD COUNT 2.95 10^6/uL (4.35-5.55); RED CELL DISTRIBUTION WIDTH 16.7 % (11.5-14.0)
[2019-11-14 05:45] LABS: PLATELET COUNT 14 10^3/uL (150-450)
[2019-11-14 05:47] LABS: WHITE BLOOD COUNT 0.1 10^3/uL (4.0-10.5)
[2019-11-14] MEDS: SEVELAMER HCL 800 MG TABLET PO SCH ×3 (10:19→17:23)
[2019-11-14] MEDS: ALLOPURINOL 100 MG TABLET PO SCH (10:20)
[2019-11-14] MEDS: TAMSULOSIN HCL 0.4 MG CAP.SR.24H PO SCH (10:20)
[2019-11-14] MEDS: FUROSEMIDE 20 MG TABLET PO SCH (10:23)
[2019-11-14] MEDS: DIBUCAINE 1% OINTMENT 28 GM PR SCH ×3 (10:23→17:24)
[2019-11-14] MEDS: CALCIUM CARBONATE 600 MG/VITAMIN D3 400 UNIT TABLET PO SCH (10:23)
[2019-11-14] MEDS: HYDROCORTISONE 1% OINTMENT 28.35 GM TP SCH ×4 (10:23→21:38)
[2019-11-14] MEDS: PIPERACILLIN SODIUM/TAZOBACTAM 2.25 GM in NORMAL SALINE 50 ML IV SCH ×2 (10:29→21:38)
--- NOTE | 2019-11-14 10:46 | PDOC PROGRESS REPORT ---
Subjective Progress Note for:: 11/14/19 Subjective:: No major medical change today, still low-grade fevers as well as hypotensive and tachycardic, hemoglobin this a.m. is 9, platelets are 14, no active bleeding. Reason For Visit: AML(ACUTE MYELOBLASTIC LEUKEMIA),ANEMIA,THROMBOCYT Physical Exam Vital Signs: Temp Pulse Resp BP Pulse Ox 99.5 F 112 H 16 102/53 L 96 11/14/19 08:00 11/14/19 08:00 11/14/19 08:00 11/14/19 08:00 11/14/19 08:00 Intake & Output 11/13/19 11/14/19 11/15/19 06:59 06:59 06:59 Intake Total 300 2259 Output Total 125 2025 Balance 175 234 Weight 98 kg 97.6 kg General appearance: PRESENT: no acute distress, well-developed, well-nourished Head exam: PRESENT: atraumatic, normocephalic Eye exam: PRESENT: conjunctiva pink, EOMI, PERRLA. ABSENT: scleral icterus Ear exam: PRESENT: normal external ear exam Mouth exam: PRESENT: moist, tongue midline Neck exam: ABSENT: carotid bruit, JVD, lymphadenopathy, thyromegaly Respiratory exam: PRESENT: clear to auscultation merrill. ABSENT: rales, rhonchi, wheezes Cardiovascular exam: PRESENT: RRR. ABSENT: diastolic murmur, rubs, systolic murmur Pulses: PRESENT: normal dorsalis pedis pul Vascular exam: PRESENT: normal capillary refill GI/Abdominal exam: PRESENT: normal bowel sounds, soft. ABSENT: distended, guarding, mass, organolmegaly, rebound, tenderness Rectal exam: PRESENT: deferred Extremities exam: PRESENT: full ROM. ABSENT: calf tenderness, clubbing, pedal edema Neurological exam: PRESENT: alert, awake, oriented to person, oriented to place, oriented to time, oriented to situation, CN II-XII grossly intact. ABSENT: motor sensory deficit Psychiatric exam: PRESENT: appropriate affect, normal mood. ABSENT: homicidal ideation, suicidal ideation Skin exam: PRESENT: dry, intact, warm. ABSENT: cyanosis, rash Results Laboratory Results: 11/14/19 04:17 11/13/19 05:05 11/11/19 11/14/19 09:16 04:17 WBC 0.1 L* RBC 2.95 L Hgb 9.1 L Hct 25.4 L MCV 86 MCH 30.7 MCHC 35.7 RDW 16.7 H Plt Count 14 L* Blood Type A NEGATIVE Antibody Screen NEGATIVE Impressions: Chest X-Ray 11/04/19 16:03 IMPRESSION: Borderline enlarged cardiac silhouette central vascular prominence. No overt edema. Chest CT 11/09/19 00:00 IMPRESSION: Findings most likely represent interstitial edema with small associated effusions. There is underlying centrilobular emphysematous change. There is central venous engorgement. Less likely infectious or inflammatory process. Head CT 11/09/19 00:00 IMPRESSION: Atrophy and chronic small vessel ischemic changes with no acute intracranial abnormality. Head MRI 11/11/19 00:00 IMPRESSION: 1. No acute intracranial process is seen. 2. Mild to moderate cerebral atrophy and periventricular white matter changes are seen. Bone Marrow Biopsy w/ CT 11/12/19 00:00 IMPRESSION: CT GUIDED ASPIRATE AND CORE BIOPSY OF THE RIGHT POSTERIOR ILIAC CREST BONE MARROW PERFORMED WITHOUT IMMEDIATE COMPLICATION. PATHOLOGY PENDING. IV CONSCIOUS SEDATION WITHOUT COMPLICATION. Abdomen/Pelvis CT 11/13/19 00:00 IMPRESSION: 1. 8.5 MM NONOBSTRUCTING CALYCEAL CALCULUS IN THE LOWER POLE OF THE LEFT KIDNEY. CORTICAL CYST IN THE LEFT KIDNEY. BILATERAL RENAL ATROPHY. 2. BILATERAL ADRENAL ENLARGEMENT. 3. NO OTHER SIGNIFICANT OR ACUTE PROCESS IN THE ABDOMEN OR PELVIS. Assessment & Plan - Diagnosis (1) AML (acute myeloblastic leukemia) Qualifiers: Leukemia Active/Remission status: without remission Qualified Code(s): C92.00 - Acute myeloblastic leukemia, not having achieved remission Is this a current diagnosis for this admission?: Yes Plan: AML with pancytopenia, bone marrow biopsy pending hopefully will get an answer by Saturday. Transfuse platelets if under 10 or packed red blood cells if under 7. Patient needs irradiated and leuko-reduced units. - Time Time Spent with patient: 35 or more minutes
[2019-11-14] MEDS: MICAFUNGIN SODIUM 100 MG in NORMAL SALINE 100 ML IV SCH (15:50)
--- NOTE | 2019-11-14 16:14 | PDOC PROGRESS REPORT ---
Subjective Progress Note for:: 11/14/19 Subjective:: NO VALDEZ is a 69 year old male past medical history of multiple myeloma and aggressive form of AML noticed a month prior to admission, end-stage renal disease on hemodialysis q -W- . He was started on venetoclax and azacitadine by [facility] and is in the middle of his first cycle. He has been receiving the ventoclax orally but presented to the ED with a temp >103. After cultures were obtained, he was started on Cefapime and vancomycin. He has required transfusion support since starting his AML treatment. 11/14/2019. No acute events overnight. Patient still having low-grade fever and is pancytopenic, appears very weak and somnolent but easily verbal and responds to questions appropriately, complaining of generalized weakness, denies any chest pain, nausea, vomiting, diarrhea, constipation. Endorsing low appetite. Reason For Visit: AML(ACUTE MYELOBLASTIC LEUKEMIA),ANEMIA,THROMBOCYT Physical Exam Vital Signs: Temp Pulse Resp BP Pulse Ox 98.9 F 113 H 22 H 113/54 L 100 11/14/19 11:25 11/14/19 11:25 11/14/19 11:25 11/14/19 11:25 11/14/19 11:25 Intake & Output 11/13/19 11/14/19 11/15/19 06:59 06:59 06:59 Intake Total 300 2259 50 Output Total 125 2025 Balance 175 234 50 Weight 98 kg 97.6 kg General appearance: PRESENT: no acute distress, obese, well-developed, well- nourished Head exam: PRESENT: atraumatic, normocephalic Respiratory exam: PRESENT: clear to auscultation merrill. ABSENT: rales, rhonchi, wheezes GI/Abdominal exam: PRESENT: distended, normal bowel sounds, soft. ABSENT: guarding, mass, organolmegaly, rebound, tenderness Neurological exam: PRESENT: alert, awake, oriented to person, oriented to place, CN II-XII grossly intact. ABSENT: motor sensory deficit Results Laboratory Results: 11/14/19 04:17 11/13/19 05:05 11/11/19 11/14/19 09:16 04:17 WBC 0.1 L* RBC 2.95 L Hgb 9.1 L Hct 25.4 L MCV 86 MCH 30.7 MCHC 35.7 RDW 16.7 H Plt Count 14 L* Blood Type A NEGATIVE Antibody Screen NEGATIVE Impressions: Chest X-Ray 11/04/19 16:03 IMPRESSION: Borderline enlarged cardiac silhouette central vascular prominence. No overt edema. Chest CT 11/09/19 00:00 IMPRESSION: Findings most likely represent interstitial edema with small associated effusions. There is underlying centrilobular emphysematous change. There is central venous engorgement. Less likely infectious or inflammatory process. Head CT 11/09/19 00:00 IMPRESSION: Atrophy and chronic small vessel ischemic changes with no acute intracranial abnormality. Head MRI 11/11/19 00:00 IMPRESSION: 1. No acute intracranial process is seen. 2. Mild to moderate cerebral atrophy and periventricular white matter changes are seen. Bone Marrow Biopsy w/ CT 11/12/19 00:00 IMPRESSION: CT GUIDED ASPIRATE AND CORE BIOPSY OF THE RIGHT POSTERIOR ILIAC CREST BONE MARROW PERFORMED WITHOUT IMMEDIATE COMPLICATION. PATHOLOGY PENDING. IV CONSCIOUS SEDATION WITHOUT COMPLICATION. Abdomen/Pelvis CT 11/13/19 00:00 IMPRESSION: 1. 8.5 MM NONOBSTRUCTING CALYCEAL CALCULUS IN THE LOWER POLE OF THE LEFT KIDNEY. CORTICAL CYST IN THE LEFT KIDNEY. BILATERAL RENAL ATROPHY. 2. BILATERAL ADRENAL ENLARGEMENT. 3. NO OTHER SIGNIFICANT OR ACUTE PROCESS IN THE ABDOMEN OR PELVIS. Assessment and Plan - Diagnosis (1) Neutropenic fever Is this a current diagnosis for this admission?: Yes Plan: Due to AML. T-max 99.5. WBC 0.1. ANC 0. Platelets 14. Culture positive for gram-negative rods. Blood cultures no growth so far. Day #5 IV antibiotics. Day #5 micafungin. Day #5 Zosyn. Day #5 valacyclovir. Continue IV antibiotics. Follow-up vitals and cultures. (2) AML (acute myeloblastic leukemia) Qualifiers: Leukemia Active/Remission status: without remission Qualified Code(s): C92.00 - Acute myeloblastic leukemia, not having achieved remission Is this a current diagnosis for this admission?: Yes Plan: AML with pancytopenia. Status post bone marrow biopsy 11/13/2019. Pending pathology results. Oncology on board. Recommendation is supportive transfusion if platelets <10 or actively bleeding, or hemoglobin less than 7. Irradiated transfusions are recommended. (3) Dysarthria Is this a current diagnosis for this admission?: Yes Plan: Brain MRI negative for any acute changes. Chronic mild to moderate cerebral atrophy and periventricular white matter changes. (4) ESRD (end stage renal disease) on dialysis Is this a current diagnosis for this admission?: Yes Plan: On hemodialysis Saturday. Monitor electrolytes and volume status. Replace electrolytes as needed. Nephrology on board. Recommendations noted. (5) Hyperbilirubinemia Is this a current diagnosis for this admission?: Yes Plan: I am worried about acute liver failure in this patient. His INR has gone up, he has had some mild elevations in his transaminases and his alkaline phosphatase, and today his bilirubin is substantially elevated. We are trying to keep his hemoglobin up, trying to avoid medications toxic to the liver, and other supportive care. A bed to [facility] is pending for his AML, and [facility] is also a transplant center so if this is acute liver failure then his condition can also be addressed while he is there. (6) Multiple myeloma in remission Is this a current diagnosis for this admission?: Yes Plan: Recently diagnosed as per oncology note. On remission. Oncology on board. Recommendations noted. (7) Pancytopenia Is this a current diagnosis for this admission?: Yes Plan: As per #1. Oncology on board. - Time Time Spent with patient: 35 or more minutes Anticipated Discharge Disposition: Home with Hospice Anticipated Discharge: when bed available
[2019-11-14] MEDS: ACETAMINOPHEN 325 MG TABLET PO PRN (17:23)
[2019-11-14] MEDS: VALACYCLOVIR HCL 500 MG TABLET PO SCH (21:38)
[2019-11-14] MEDS: ATORVASTATIN CALCIUM 80 MG TABLET PO SCH (21:38)
[2019-11-15] MEDS: PANTOPRAZOLE SODIUM 40 MG TABLET.DR PO SCH ×2 (06:06→17:36)
[2019-11-15 07:37] LABS: ALBUMIN 2.4 g/dL (3.5-5.0); ALKALINE PHOSPHATASE 263 U/L (38-126); ANION GAP 13 (5-19); ASPARTATE AMINO TRANSFERASE 157 U/L (17-59); BILIRUBIN,DIRECT 14.7 mg/dL (0.0-0.4); BILIRUBIN,TOTAL 15.7 mg/dL (0.2-1.3); BLOOD UREA NITROGEN 90 mg/dL (7-20); CALCIUM 7.9 mg/dL (8.4-10.2); CARBON DIOXIDE 24 mmol/L (22-30); CHLORIDE 97 mmol/L (98-107); GLUCOSE 152 mg/dL (75-110); POTASSIUM 4.6 mmol/L (3.6-5.0); TOTAL PROTEIN 5.7 g/dL (6.3-8.2)
[2019-11-15 08:18] LABS: HEMATOCRIT 24.1 % (37.9-51.0); HEMOGLOBIN 8.6 g/dL (13.5-17.0); MEAN CORPUSCULAR HEMOGLOBIN 30.7 pg (27.0-33.4); MEAN CORPUSCULAR HGB CONC 35.6 g/dL (32.0-36.0); MEAN CORPUSCULAR VOLUME 86 fl (80-97)
[2019-11-15 08:19] LABS: PLATELET COUNT 9 10^3/uL (150-450); WHITE BLOOD COUNT 0.1 10^3/uL (4.0-10.5)
[2019-11-15] MEDS: PIPERACILLIN SODIUM/TAZOBACTAM 2.25 GM in NORMAL SALINE 50 ML IV SCH ×2 (09:18→22:13)
[2019-11-15] MEDS: FUROSEMIDE 20 MG TABLET PO SCH (09:18)
[2019-11-15] MEDS: ALLOPURINOL 100 MG TABLET PO SCH (09:18)
[2019-11-15] MEDS: SEVELAMER HCL 800 MG TABLET PO SCH ×3 (09:18→17:36)
[2019-11-15] MEDS: CALCIUM CARBONATE 600 MG/VITAMIN D3 400 UNIT TABLET PO SCH (09:18)
[2019-11-15] MEDS: TAMSULOSIN HCL 0.4 MG CAP.SR.24H PO SCH (09:18)
[2019-11-15] MEDS: DIBUCAINE 1% OINTMENT 28 GM PR SCH ×3 (09:20→17:38)
[2019-11-15] MEDS: HYDROCORTISONE 1% OINTMENT 28.35 GM TP SCH ×4 (09:21→22:28)
[2019-11-15] MEDS ORDERED: NORMAL SALINE 250 ML IV PRN ×2 (11:31)
--- NOTE | 2019-11-15 11:51 | PDOC PROGRESS REPORT ---
Subjective Progress Note for:: 11/15/19 Subjective:: NO VALDEZ is a 69 year old male past medical history of multiple myeloma and aggressive form of AML noticed a month prior to admission, end-stage renal disease on hemodialysis q -W- . He was started on venetoclax and azacitadine by [facility] and is in the middle of his first cycle. He has been receiving the ventoclax orally but presented to the ED with a temp >103. After cultures were obtained, he was started on Cefapime and vancomycin. He has required transfusion support since starting his AML treatment. 11/14/2019. No acute events overnight. Patient still having low-grade fever and is pancytopenic, appears very weak and somnolent but easily verbal and responds to questions appropriately, complaining of generalized weakness, denies any chest pain, nausea, vomiting, diarrhea, constipation. Endorsing low appetite. 11/15/2019. No acute events overnight. Patient is more alert and interactive today, alert and oriented x3, with any fever, chills, nausea, vomiting, diarrhea, constipation, nosebleed, hematemesis, hemoptysis, hematuria or hematochezia.. Reason For Visit: AML(ACUTE MYELOBLASTIC LEUKEMIA),ANEMIA,THROMBOCYT Physical Exam Vital Signs: Temp Pulse Resp BP Pulse Ox 99.7 F 104 H 20 121/69 95 11/15/19 07:29 11/15/19 07:29 11/15/19 07:29 11/15/19 07:29 11/15/19 07:29 Intake & Output 11/14/19 11/15/19 11/16/19 06:59 06:59 06:59 Intake Total 2259 860 50 Output Total 5 100 Balance 234 760 50 Weight 97.6 kg 96.4 kg General appearance: PRESENT: no acute distress, obese Head exam: PRESENT: atraumatic, normocephalic Respiratory exam: PRESENT: clear to auscultation merrill. ABSENT: rales, rhonchi, wheezes Cardiovascular exam: PRESENT: RRR. ABSENT: diastolic murmur, rubs, systolic murmur GI/Abdominal exam: PRESENT: normal bowel sounds, soft. ABSENT: distended, guarding, mass, organolmegaly, rebound, tenderness Neurological exam: PRESENT: alert, awake, oriented to person, oriented to place, oriented to time, oriented to situation, CN II-XII grossly intact. ABSENT: motor sensory deficit Results Laboratory Results: 11/15/19 06:05 11/15/19 06:05 11/15/19 11/15/19 06:05 06:05 WBC 0.1 L* RBC 2.80 L Hgb 8.6 L Hct 24.1 L MCV 86 MCH 30.7 MCHC 35.6 RDW 17.0 H Plt Count 9 L* Seg Neutrophils % Cancelled Sodium 133.8 L Potassium 4.6 Chloride 97 L Carbon Dioxide 24 Anion Gap 13 BUN 90 H Creatinine 7.64 H Est GFR ( Amer) 9 L Glucose 152 H Calcium 7.9 L Total Bilirubin 15.7 H AST 157 H Alkaline Phosphatase 263 H Total Protein 5.7 L Albumin 2.4 L 11/12/19 08:45 [place] Catheter Urine Culture - Final Pseudomonas Aeruginosa Impressions: Chest X-Ray 11/04/19 16:03 IMPRESSION: Borderline enlarged cardiac silhouette central vascular prominence. No overt edema. Chest CT 11/09/19 00:00 IMPRESSION: Findings most likely represent interstitial edema with small associated effusions. There is underlying centrilobular emphysematous change. There is central venous engorgement. Less likely infectious or inflammatory process. Head CT 11/09/19 00:00 IMPRESSION: Atrophy and chronic small vessel ischemic changes with no acute intracranial abnormality. Head MRI 11/11/19 00:00 IMPRESSION: 1. No acute intracranial process is seen. 2. Mild to moderate cerebral atrophy and periventricular white matter changes are seen. Bone Marrow Biopsy w/ CT 11/12/19 00:00 IMPRESSION: CT GUIDED ASPIRATE AND CORE BIOPSY OF THE RIGHT POSTERIOR ILIAC CREST BONE MARROW PERFORMED WITHOUT IMMEDIATE COMPLICATION. PATHOLOGY PENDING. IV CONSCIOUS SEDATION WITHOUT COMPLICATION. Abdomen/Pelvis CT 11/13/19 00:00 IMPRESSION: 1. 8.5 MM NONOBSTRUCTING CALYCEAL CALCULUS IN THE LOWER POLE OF THE LEFT KIDNEY. CORTICAL CYST IN THE LEFT KIDNEY. BILATERAL RENAL ATROPHY. 2. BILATERAL ADRENAL ENLARGEMENT. 3. NO OTHER SIGNIFICANT OR ACUTE PROCESS IN THE ABDOMEN OR PELVIS. Assessment and Plan - Diagnosis (1) Neutropenic fever Is this a current diagnosis for this admission?: Yes Plan: Due to AML. T-max 99.7. WBC 0.1. ANC 0. Platelets 9. Culture positive for gram-negative rods. Blood cultures no growth so far. Day #6 IV antibiotics. Day #6 micafungin. Day #6 Zosyn. Day #6 valacyclovir. Continue IV antibiotics. Follow-up vitals and cultures. Platelets less than 9, will transfuse 2 packs of platelets. CBC tomorrow. (2) AML (acute myeloblastic leukemia) Qualifiers: Leukemia Active/Remission status: without remission Qualified Code(s): C92.00 - Acute myeloblastic leukemia, not having achieved remission Is this a current diagnosis for this admission?: Yes Plan: AML with pancytopenia. Status post bone marrow biopsy 11/13/2019. Pending pathology results. Oncology on board. Recommendation is supportive transfusion if platelets <10 or actively bleeding, or hemoglobin less than 7. Irradiated transfusions are recommended. (3) Dysarthria Is this a current diagnosis for this admission?: Yes Plan: Resolved. Alert and oriented x4. No focal neurological deficit. Cranial nerves II to XII intact. Brain MRI negative for any acute changes. Chronic mild to moderate cerebral atrophy and periventricular white matter changes. (4) ESRD (end stage renal disease) on dialysis Is this a current diagnosis for this admission?: Yes Plan: On hemodialysis Saturday. Monitor electrolytes and volume status. Replace electrolytes as needed. Nephrology on board. Recommendations noted. (5) Hyperbilirubinemia Is this a current diagnosis for this admission?: Yes Plan: Worsening. PT/INR, transaminases, T bili are trending up. Not sure if this is caused by Zosyn. Monitor LFTs, monitor for bleeding, avoid hepatotoxic meds. A bed to [facility] is pending for his AML, and [facility] is also a transplant center so if this is acute liver failure then his condition can also be addressed while he is there. (6) Multiple myeloma in remission Is this a current diagnosis for this admission?: Yes Plan: Recently diagnosed as per oncology note. On remission. Oncology on board. Recommendations noted. (7) Pancytopenia Is this a current diagnosis for this admission?: Yes Plan: As per #1. Oncology on board. - Time Time Spent with patient: 15-24 minutes Medications reviewed and adjusted accordingly: Yes Anticipated Discharge Disposition: Tertiary Anticipated Discharge: when bed available
[2019-11-15] MEDS: MICAFUNGIN SODIUM 100 MG in NORMAL SALINE 100 ML IV SCH (14:08)
[2019-11-15] MEDS ORDERED: ONDANSETRON HCL INJ/PF 4 MG/2 ML SDV IV PRN (19:56)
[2019-11-15 20:58] LABS: ABSOLUTE LYMPHOCYTES (AUTO) 0.1 10^3/uL (0.5-4.7); HEMATOCRIT 22.7 % (37.9-51.0); HEMOGLOBIN 8.1 g/dL (13.5-17.0); LYMPHOCYTES % (AUTO) 62.5 % (13-45); MEAN CORPUSCULAR HEMOGLOBIN 30.2 pg (27.0-33.4); MEAN CORPUSCULAR HGB CONC 35.7 g/dL (32.0-36.0); MEAN CORPUSCULAR VOLUME 85 fl (80-97); RED BLOOD COUNT 2.68 10^6/uL (4.35-5.55); RED CELL DISTRIBUTION WIDTH 16.8 % (11.5-14.0); SEGMENTED NEUTROPHILS % (AUTO) 12.5 % (42-78); TOTAL CELLS COUNTED % (AUTO) 100 %
[2019-11-15 21:29] LABS: WHITE BLOOD COUNT 0.1 10^3/uL (4.0-10.5)
[2019-11-15 21:30] LABS: PLATELET COUNT 29 10^3/uL (150-450)
[2019-11-15 21:31] LABS: HYPOCHROMASIA 1+; TOXIC GRANULATION 1+; TOXIC VACUOLATION PRESENT
[2019-11-15 21:32] LABS: ANISOCYTOSIS 1+; BURR CELLS SLIGHT; OVALOCYTES 1+; PLATELET COMMENT DECREASED; POIKILOCYTOSIS 1+; SCHISTOCYTES SLIGHT; TEAR DROP CELLS SLIGHT
[2019-11-15] MEDS: ATORVASTATIN CALCIUM 80 MG TABLET PO SCH (22:13)
[2019-11-16] MEDS ORDERED: EPOETIN ALFA-EPBX 20,000 UNIT in SYRINGE, DISPOSABLE, 1 EACH IV PRN (05:00)
[2019-11-16] MEDS ORDERED: NORMAL SALINE 1000 ML 1,000 ML IV PRN (05:00)
[2019-11-16] MEDS: PANTOPRAZOLE SODIUM 40 MG TABLET.DR PO SCH ×2 (05:38→18:11)
[2019-11-16 06:54] LABS: HEMATOCRIT 21.5 % (37.9-51.0); MEAN CORPUSCULAR VOLUME 86 fl (80-97); RED BLOOD COUNT 2.51 10^6/uL (4.35-5.55)
[2019-11-16 06:55] LABS: MEAN CORPUSCULAR HEMOGLOBIN 30.6 pg (27.0-33.4); RED CELL DISTRIBUTION WIDTH 17.3 % (11.5-14.0)
[2019-11-16 06:59] LABS: HEMOGLOBIN 7.7 g/dL (13.5-17.0); PLATELET COUNT 18 10^3/uL (150-450); WHITE BLOOD COUNT 0.1 10^3/uL (4.0-10.5)
[2019-11-16 07:50] LABS: ALBUMIN 2.4 g/dL (3.5-5.0); ANION GAP 19 (5-19); BLOOD UREA NITROGEN 108 mg/dL (7-20); CARBON DIOXIDE 20 mmol/L (22-30); CHLORIDE 96 mmol/L (98-107); GLUCOSE 111 mg/dL (75-110); POTASSIUM 4.8 mmol/L (3.6-5.0); TOTAL PROTEIN 5.7 g/dL (6.3-8.2)
[2019-11-16 07:58] LABS: ALKALINE PHOSPHATASE 224 U/L (38-126); ASPARTATE AMINO TRANSFERASE 168 U/L (17-59); BILIRUBIN,TOTAL 16.1 mg/dL (0.2-1.3); CALCIUM 8.1 mg/dL (8.4-10.2)
--- NOTE | 2019-11-16 08:08 | PDOC PROGRESS REPORT ---
Subjective Progress Note for:: 11/16/19 Subjective:: Patient makes eye contact but did not speak at all this morning. He also did not nod his head or attempt to answer any of my questions. He did grimace to pain when I examined his abdomen. Nurses report he speaks some, and is always appropriate, but is very quiet. No new events over the weekend. Reason For Visit: AML(ACUTE MYELOBLASTIC LEUKEMIA),ANEMIA,THROMBOCYT Physical Exam Vital Signs: Temp Pulse Resp BP Pulse Ox 99.2 F 110 H 14 141/68 H 96 11/16/19 03:28 11/16/19 03:28 11/16/19 03:28 11/16/19 03:28 11/16/19 03:28 Intake & Output 11/15/19 11/16/19 11/17/19 06:59 06:59 06:59 Intake Total 860 598 Output Total 100 340 Balance 760 258 Weight 96.4 kg 99.6 kg General appearance: PRESENT: well-developed, well-nourished Head exam: PRESENT: normocephalic Eye exam: PRESENT: EOMI Respiratory exam: PRESENT: clear to auscultation merrill, unlabored Cardiovascular exam: PRESENT: RRR GI/Abdominal exam: PRESENT: soft, tenderness Extremities exam: ABSENT: pedal edema Neurological exam: PRESENT: altered, awake Skin exam: PRESENT: normal color Results Laboratory Results: 11/16/19 05:49 11/16/19 05:49 11/15/19 11/15/19 11/15/19 06:05 11:53 20:40 WBC 0.1 L* 0.1 L* RBC 2.80 L 2.68 L Hgb 8.6 L 8.1 L Hct 24.1 L 22.7 L MCV 86 85 MCH 30.7 30.2 MCHC 35.6 35.7 RDW 17.0 H 16.8 H Plt Count 9 L* 29 L* D Seg Neutrophils % Cancelled 12.5 L Sodium Potassium Chloride Carbon Dioxide Anion Gap BUN Creatinine Est GFR ( Amer) Glucose Calcium Total Bilirubin AST Alkaline Phosphatase Total Protein Albumin Blood Type A NEGATIVE 11/16/19 11/16/19 05:49 05:49 WBC 0.1 L* RBC 2.51 L Hgb 7.7 L Hct 21.5 L MCV 86 MCH 30.6 MCHC 35.0 RDW 17.3 H Plt Count 18 L* Seg Neutrophils % Cancelled Sodium 134.8 L Potassium 4.8 Chloride 96 L Carbon Dioxide 20 L Anion Gap 19 BUN 108 H Creatinine 9.71 H Est GFR ( Amer) 7 L Glucose 111 H Calcium 8.1 L Total Bilirubin 16.1 H AST 168 H Alkaline Phosphatase 224 H Total Protein 5.7 L Albumin 2.4 L Blood Type 11/10/19 15:50 Blood Blood Culture - Final NO GROWTH IN 5 DAYS 11/10/19 16:18 Blood Blood Culture - Final NO GROWTH IN 5 DAYS 11/12/19 08:45 Cevallos Catheter Urine Culture - Final Pseudomonas Aeruginosa Impressions: Chest X-Ray 11/04/19 16:03 IMPRESSION: Borderline enlarged cardiac silhouette central vascular prominence. No overt edema. Chest CT 11/09/19 00:00 IMPRESSION: Findings most likely represent interstitial edema with small associated effusions. There is underlying centrilobular emphysematous change. There is central venous engorgement. Less likely infectious or inflammatory process. Head CT 11/09/19 00:00 IMPRESSION: Atrophy and chronic small vessel ischemic changes with no acute intracranial abnormality. Head MRI 11/11/19 00:00 IMPRESSION: 1. No acute intracranial process is seen. 2. Mild to moderate cerebral atrophy and periventricular white matter changes are seen. Bone Marrow Biopsy w/ CT 11/12/19 00:00 IMPRESSION: CT GUIDED ASPIRATE AND CORE BIOPSY OF THE RIGHT POSTERIOR ILIAC CREST BONE MARROW PERFORMED WITHOUT IMMEDIATE COMPLICATION. PATHOLOGY PENDING. IV CONSCIOUS SEDATION WITHOUT COMPLICATION. Abdomen/Pelvis CT 11/13/19 00:00 IMPRESSION: 1. 8.5 MM NONOBSTRUCTING CALYCEAL CALCULUS IN THE LOWER POLE OF THE LEFT KIDNEY. CORTICAL CYST IN THE LEFT KIDNEY. BILATERAL RENAL ATROPHY. 2. BILATERAL ADRENAL ENLARGEMENT. 3. NO OTHER SIGNIFICANT OR ACUTE PROCESS IN THE ABDOMEN OR PELVIS. Assessment & Plan - Diagnosis (1) Neutropenic fever Is this a current diagnosis for this admission?: Yes Plan: Improved. Continue antibiotics, as per ID recommendations. Urine culture growing pseudomonas. (2) AML (acute myeloblastic leukemia) Qualifiers: Leukemia Active/Remission status: without remission Qualified Code(s): C92.00 - Acute myeloblastic leukemia, not having achieved remission Is this a current diagnosis for this admission?: Yes Plan: Await results from Bone Marrow biopsy. Hopefully will get a prelim report today. No indication for transfusion today. (3) ESRD (end stage renal disease) on dialysis Is this a current diagnosis for this admission?: Yes (4) Urinary retention due to benign prostatic hyperplasia Is this a current diagnosis for this admission?: Yes Plan: Cevallos in place. - Time Time Spent with patient: 15-24 minutes
[2019-11-16] MEDS: HYDROCORTISONE 1% OINTMENT 28.35 GM TP SCH ×3 (12:01→21:17)
[2019-11-16] MEDS: CALCIUM CARBONATE 600 MG/VITAMIN D3 400 UNIT TABLET PO SCH (12:01)
[2019-11-16] MEDS: SEVELAMER HCL 800 MG TABLET PO SCH ×3 (12:02→18:01)
[2019-11-16] MEDS: DIBUCAINE 1% OINTMENT 28 GM PR SCH ×3 (12:02→18:12)
[2019-11-16] MEDS ORDERED: PIPERACILLIN SODIUM/TAZOBACTAM 2.25 GM in NORMAL SALINE 50 ML IV SCH (12:30)
--- NOTE | 2019-11-16 12:51 | PDOC PROGRESS REPORT ---
Subjective Progress Note for:: 11/16/19 Subjective:: NO VALDEZ is a 69 year old male past medical history of multiple myeloma and aggressive form of AML noticed a month prior to admission, end-stage renal disease on hemodialysis q -W- . He was started on venetoclax and azacitadine by [facility] and is in the middle of his first cycle. He has been receiving the ventoclax orally but presented to the ED with a temp >103. After cultures were obtained, he was started on Cefapime and vancomycin. He has required transfusion support since starting his AML treatment. 11/14/2019. No acute events overnight. Patient still having low-grade fever and is pancytopenic, appears very weak and somnolent but easily verbal and responds to questions appropriately, complaining of generalized weakness, denies any chest pain, nausea, vomiting, diarrhea, constipation. Endorsing low appetite. 11/15/2019. No acute events overnight. Patient is more alert and interactive today, alert and oriented x3, with any fever, chills, nausea, vomiting, diarrhea, constipation, nosebleed, hematemesis, hemoptysis, hematuria or hematochezia.. 11/16/2019. No acute events overnight. Saw patient this morning, awaka, seems to be more confused compared to yesterday, alert and oriented to self, answers question appropriately however does not follow two-step commands, denies has any chest pain, nausea, vomiting, diarrhea. Reason For Visit: AML(ACUTE MYELOBLASTIC LEUKEMIA),ANEMIA,THROMBOCYT Physical Exam Vital Signs: Temp Pulse Resp BP Pulse Ox 99.5 F 107 H 16 122/63 96 11/16/19 07:54 11/16/19 07:54 11/16/19 07:54 11/16/19 07:54 11/16/19 07:54 Intake & Output 11/15/19 11/16/19 11/17/19 06:59 06:59 06:59 Intake Total 860 598 Output Total 100 340 Balance 760 258 Weight 96.4 kg 99.6 kg General appearance: PRESENT: no acute distress, obese, well-developed, well- nourished Head exam: PRESENT: atraumatic, normocephalic Respiratory exam: PRESENT: clear to auscultation merrill. ABSENT: rales, rhonchi, wheezes Cardiovascular exam: PRESENT: RRR. ABSENT: diastolic murmur, rubs, systolic murmur Pulses: PRESENT: normal dorsalis pedis pul GI/Abdominal exam: PRESENT: distended, hypoactive bowel sounds, normal bowel sounds, soft. ABSENT: guarding, mass, organolmegaly, rebound, tenderness Extremities exam: PRESENT: full ROM. ABSENT: calf tenderness, clubbing, pedal edema Neurological exam: PRESENT: alert, awake, oriented to person, CN II-XII grossly intact. ABSENT: motor sensory deficit Results Laboratory Results: 11/16/19 05:49 11/16/19 05:49 11/15/19 11/15/19 11/16/19 11:53 20:40 05:49 WBC 0.1 L* 0.1 L* RBC 2.68 L 2.51 L Hgb 8.1 L 7.7 L Hct 22.7 L 21.5 L MCV 85 86 MCH 30.2 30.6 MCHC 35.7 35.0 RDW 16.8 H 17.3 H Plt Count 29 L* D 18 L* Seg Neutrophils % 12.5 L Cancelled Sodium Potassium Chloride Carbon Dioxide Anion Gap BUN Creatinine Est GFR ( Amer) Glucose Calcium Total Bilirubin AST Alkaline Phosphatase Ammonia Total Protein Albumin Blood Type A NEGATIVE 11/16/19 11/16/19 05:49 10:22 WBC RBC Hgb Hct MCV MCH MCHC RDW Plt Count Seg Neutrophils % Sodium 134.8 L Potassium 4.8 Chloride 96 L Carbon Dioxide 20 L Anion Gap 19 BUN 108 H Creatinine 9.71 H Est GFR ( Amer) 7 L Glucose 111 H Calcium 8.1 L Total Bilirubin 16.1 H AST 168 H Alkaline Phosphatase 224 H Ammonia 15.2 Total Protein 5.7 L Albumin 2.4 L Blood Type 11/10/19 15:50 Blood Blood Culture - Final NO GROWTH IN 5 DAYS 11/10/19 16:18 Blood Blood Culture - Final NO GROWTH IN 5 DAYS 11/12/19 08:45 Cevallos Catheter Urine Culture - Final Pseudomonas Aeruginosa Impressions: Chest X-Ray 11/04/19 16:03 IMPRESSION: Borderline enlarged cardiac silhouette central vascular prominence. No overt edema. Chest CT 11/09/19 00:00 IMPRESSION: Findings most likely represent interstitial edema with small associated effusions. There is underlying centrilobular emphysematous change. There is central venous engorgement. Less likely infectious or inflammatory process. Head CT 11/09/19 00:00 IMPRESSION: Atrophy and chronic small vessel ischemic changes with no acute intracranial abnormality. Head MRI 11/11/19 00:00 IMPRESSION: 1. No acute intracranial process is seen. 2. Mild to moderate cerebral atrophy and periventricular white matter changes are seen. Bone Marrow Biopsy w/ CT 11/12/19 00:00 IMPRESSION: CT GUIDED ASPIRATE AND CORE BIOPSY OF THE RIGHT POSTERIOR ILIAC CREST BONE MARROW PERFORMED WITHOUT IMMEDIATE COMPLICATION. PATHOLOGY PENDING. IV CONSCIOUS SEDATION WITHOUT COMPLICATION. Abdomen/Pelvis CT 11/13/19 00:00 IMPRESSION: 1. 8.5 MM NONOBSTRUCTING CALYCEAL CALCULUS IN THE LOWER POLE OF THE LEFT KIDNEY. CORTICAL CYST IN THE LEFT KIDNEY. BILATERAL RENAL ATROPHY. 2. BILATERAL ADRENAL ENLARGEMENT. 3. NO OTHER SIGNIFICANT OR ACUTE PROCESS IN THE ABDOMEN OR PELVIS. Assessment and Plan - Diagnosis (1) Neutropenic fever Is this a current diagnosis for this admission?: Yes Plan: Due to AML. T-max 99.7. WBC 0.1. ANC 0. Platelets 9. Culture positive for gram-negative rods. Blood cultures no growth so far. Day #7 IV antibiotics. Day #7 micafungin. Day #7 Zosyn. Day #7 valacyclovir. ID consulted. Recommendations noted. Continue IV antibiotics. Follow-up vitals and cultures. Status post 2 back platelet transfusion on 11/15/2019. Platelet is 18 today. No transfusion indicated. Hemoglobin above 7. CBC tomorrow. Talk to Dr. Bishop received she has been trying to transfer patient [facility] but unfortunately no beds are available at this moment. She is waiting for his bone marrow biopsy which was done last week. (2) AML (acute myeloblastic leukemia) Qualifiers: Leukemia Active/Remission status: without remission Qualified Code(s): C92.00 - Acute myeloblastic leukemia, not having achieved remission Is this a current diagnosis for this admission?: Yes Plan: AML with pancytopenia. Status post bone marrow biopsy 11/13/2019. Pending path ology results. Oncology on board. Recommendation is supportive transfusion if platelets <10 or actively bleeding, or hemoglobin less than 7. Irradiated transfusions are recommended. (3) Dysarthria Is this a current diagnosis for this admission?: Yes Plan: Resolved. Alert and oriented x4. No focal neurological deficit. Cranial nerves II to XII intact. Brain MRI negative for any acute changes. Chronic mild to moderate cerebral atrophy and periventricular white matter changes. (4) ESRD (end stage renal disease) on dialysis Is this a current diagnosis for this admission?: Yes Plan: On hemodialysis Saturday. Monitor electrolytes and volume status. Replace electrolytes as needed. Nephrology on board. Recommendations noted. (5) Hyperbilirubinemia Is this a current diagnosis for this admission?: Yes Plan: Worsening. PT/INR, transaminases, T bili are trending up. Not sure if this is caused by Zosyn. Monitor LFTs, monitor for bleeding, avoid hepatotoxic meds. A bed to [facility] is pending for his AML, and [facility] is also a transplant center so if this is acute liver failure then his condition can also be addressed while he is there. (6) Multiple myeloma in remission Is this a current diagnosis for this admission?: Yes Plan: Recently diagnosed as per oncology note. On remission. Oncology on board. Recommendations noted. (7) Pancytopenia Is this a current diagnosis for this admission?: Yes Plan: As per #1. Oncology on board. - Time Time Spent with patient: 15-24 minutes Medications reviewed and adjusted accordingly: Yes Anticipated Discharge Disposition: [facility] Anticipated Discharge: when bed available
[2019-11-16] MEDS: FUROSEMIDE 20 MG TABLET PO SCH (17:31)
[2019-11-16] MEDS: TAMSULOSIN HCL 0.4 MG CAP.SR.24H PO SCH (17:31)
[2019-11-16] MEDS: ALLOPURINOL 100 MG TABLET PO SCH (17:32)
[2019-11-16] MEDS: PIPERACILLIN SODIUM/TAZOBACTAM 2.25 GM in NORMAL SALINE 50 ML IV SCH ×2 (18:11→21:13)
[2019-11-16] MEDS ORDERED: NORMAL SALINE 250 ML IV PRN ×2 (18:48)
[2019-11-16] MEDS ORDERED: ACETAMINOPHEN 325 MG TABLET PO PRN (18:55)
[2019-11-16] MEDS: MICAFUNGIN SODIUM 100 MG in NORMAL SALINE 100 ML IV SCH (19:16)
[2019-11-16 19:44] LABS: ABSOLUTE LYMPHOCYTES (AUTO) 0.1 10^3/uL (0.5-4.7); EOSINOPHILS % (AUTO) 14.8 % (0-6); HEMATOCRIT 23.3 % (37.9-51.0); HEMOGLOBIN 8.3 g/dL (13.5-17.0); LYMPHOCYTES % (AUTO) 46.8 % (13-45); MEAN CORPUSCULAR HEMOGLOBIN 29.7 pg (27.0-33.4); MEAN CORPUSCULAR HGB CONC 35.7 g/dL (32.0-36.0); MEAN CORPUSCULAR VOLUME 83 fl (80-97); MONOCYTES % (AUTO) 25.1 % (3-13); RED BLOOD COUNT 2.79 10^6/uL (4.35-5.55); RED CELL DISTRIBUTION WIDTH 17.1 % (11.5-14.0); SEGMENTED NEUTROPHILS % (AUTO) 13.3 % (42-78); TOTAL CELLS COUNTED % (AUTO) 100 %
[2019-11-16 20:38] LABS: WHITE BLOOD COUNT 0.1 10^3/uL (4.0-10.5)
[2019-11-16 20:39] LABS: PLATELET COUNT 20 10^3/uL (150-450)
[2019-11-16 20:43] LABS: ANISOCYTOSIS 1+; BURR CELLS SLIGHT; PLATELET COMMENT DECREASED
[2019-11-16 20:44] LABS: TARGET CELLS 1+
[2019-11-16 20:45] LABS: OVALOCYTES 1+; SCHISTOCYTES SLIGHT
[2019-11-16] MEDS: ATORVASTATIN CALCIUM 80 MG TABLET PO SCH (21:12)
[2019-11-16] MEDS: VALACYCLOVIR HCL 500 MG TABLET PO SCH (21:12)
[2019-11-16 21:25] LABS: D-DIMER 1.43 ug/mL (0.00-0.50)
[2019-11-16 21:27] LABS: FIBRINOGEN 759 mg/dL (209-497)
[2019-11-16 21:35] LABS: INTERNATIONAL RATION (INR) 3.24
[2019-11-16 21:37] LABS: PROTHROMBIN TIME 33.8 SEC (11.4-15.4)
[2019-11-17] MEDS: PIPERACILLIN SODIUM/TAZOBACTAM 2.25 GM in NORMAL SALINE 50 ML IV SCH (05:23)
[2019-11-17] MEDS: PANTOPRAZOLE SODIUM 40 MG TABLET.DR PO SCH (05:23)
[2019-11-17 06:48] LABS: ABSOLUTE LYMPHOCYTES (AUTO) 0.1 10^3/uL (0.5-4.7); EOSINOPHILS % (AUTO) 4.5 % (0-6); HEMATOCRIT 27.1 % (37.9-51.0); HEMOGLOBIN 9.6 g/dL (13.5-17.0); LYMPHOCYTES % (AUTO) 55.4 % (13-45); MEAN CORPUSCULAR HGB CONC 35.4 g/dL (32.0-36.0); MEAN CORPUSCULAR VOLUME 85 fl (80-97); MONOCYTES % (AUTO) 19.7 % (3-13); RED CELL DISTRIBUTION WIDTH 16.2 % (11.5-14.0); TOTAL CELLS COUNTED % (AUTO) 100 %
[2019-11-17 06:58] LABS: INTERNATIONAL RATION (INR) 3.96; PROTHROMBIN TIME 39.7 SEC (11.4-15.4)
[2019-11-17 08:20] LABS: SEGMENTED NEUTROPHILS % (AUTO) 20.4 % (42-78)
[2019-11-17 08:25] LABS: WHITE BLOOD COUNT 0.1 10^3/uL (4.0-10.5)
[2019-11-17 08:26] LABS: PLATELET COUNT 13 10^3/uL (150-450)
[2019-11-17 08:31] LABS: ALBUMIN 2.6 g/dL (3.5-5.0); ALKALINE PHOSPHATASE 294 U/L (38-126); ANION GAP 13 (5-19); ASPARTATE AMINO TRANSFERASE 533 U/L (17-59); BILIRUBIN,DIRECT 16.2 mg/dL (0.0-0.4); BILIRUBIN,TOTAL 17.5 mg/dL (0.2-1.3); BLOOD UREA NITROGEN 62 mg/dL (7-20); CALCIUM 7.7 mg/dL (8.4-10.2); CARBON DIOXIDE 26 mmol/L (22-30); CHLORIDE 100 mmol/L (98-107); GLUCOSE 109 mg/dL (75-110); PHOSPHORUS 6.5 mg/dL (2.5-4.5); POTASSIUM 4.7 mmol/L (3.6-5.0)
[2019-11-17 08:32] LABS: TOTAL PROTEIN 6.4 g/dL (6.3-8.2)
[2019-11-17] MEDS: CALCIUM CARBONATE 600 MG/VITAMIN D3 400 UNIT TABLET PO SCH (10:32)
[2019-11-17] MEDS: ALLOPURINOL 100 MG TABLET PO SCH (10:32)
[2019-11-17] MEDS: SEVELAMER HCL 800 MG TABLET PO SCH (10:32)
[2019-11-17] MEDS: TAMSULOSIN HCL 0.4 MG CAP.SR.24H PO SCH (10:32)
[2019-11-17] MEDS: FUROSEMIDE 20 MG TABLET PO SCH (10:32)
[2019-11-17] MEDS: HYDROCORTISONE 1% OINTMENT 28.35 GM TP SCH (10:33)
[2019-11-17] MEDS: DIBUCAINE 1% OINTMENT 28 GM PR SCH (10:33)
--- NOTE | 2019-11-17 11:51 | PDOC TRANSFER SUMMARY ---
General Admission Date/PCP: 11/04/19 17:03 PAULINO ADKINS Transfer Date: 11/17/19 Accepting Facility: Other (Comments) - [facility] Resuscitation Status: Full Code - Transfer Diagnosis (1) AML (acute myeloblastic leukemia) Is this a current diagnosis for this admission?: Yes (2) Pancytopenia Is this a current diagnosis for this admission?: Yes (3) ESRD (end stage renal disease) on dialysis Is this a current diagnosis for this admission?: Yes (4) Fever Is this a current diagnosis for this admission?: Yes (5) Neutropenic fever Is this a current diagnosis for this admission?: Yes (6) Thrombocytopenia Is this a current diagnosis for this admission?: Yes (7) Anemia in ESRD (end-stage renal disease) Is this a current diagnosis for this admission?: Yes (8) Hypertension Is this a current diagnosis for this admission?: No (9) Acute blood loss anemia Is this a current diagnosis for this admission?: Yes Diagnosis Summary: -due to hemorrhoids -proctofoam not available here, need to avoid suppositories in severe neutropenia; if proctofoam available at [facility], consider trying this to improve mild hemorrhoidal bleed (10) Bleeding hemorrhoids Is this a current diagnosis for this admission?: Yes - Transfer Medications Home Medications: Calcium Carbonate/Vitamin D3 [Os-Abraham 500-Vit D3 200 Caplet] 1 tab PO DAILY 05/25/18 Polyethylene Glycol 3350 [Miralax Powder 17 gm/Packet] 1 packet PO DAILYP PRN 05/25/18 Tamsulosin HCl [Flomax 0.4 mg Cap.sr] 0.4 mg PO DAILY 05/25/18 Allopurinol [Zyloprim 100 mg Tablet] 100 mg PO DAILY 11/04/19 Isavuconazonium Sulfate [Cresemba] 372 mg PO DAILY 11/04/19 Prochlorperazine Maleate 5 mg PO Q6HP PRN 11/04/19 Sevelamer HCl [Renagel 800 mg Tablet] 800 mg PO TID 11/04/19 Vancomycin/Water For Inj (Peg) [Vancomycin 1 Gram/200 ml Bag] 1 gm IV MOWEFR 11/04/19 Venetoclax [Venclexta] 200 mg PO DAILY 11/04/19 Transfer Medications: Current Medications Acetaminophen (Tylenol 325 Mg Tablet) 325 mg PO Q4HP PRN PRN Reason: FOR PAIN SCALE 2-3 Stop: 12/16/19 18:54 Last Admin: 11/16/19 19:16 Dose: 325 mg Documented by: Allopurinol (Zyloprim 100 Mg Tablet) 100 mg PO DAILY [facility] Stop: 12/05/19 09:59 Last Admin: 11/17/19 10:32 Dose: 100 mg Documented by: Atorvastatin Calcium (Lipitor 80 Mg Tablet) 80 mg PO QHS [facility] Stop: 12/09/19 21:59 Last Admin: 11/16/19 21:12 Dose: 80 mg Documented by: Calcium Carbonate (Caltrate 600-Vit D3 400 Tablet) 1 tab PO DAILY [facility] Stop: 12/05/19 09:59 Last Admin: 11/17/19 10:32 Dose: 1 tab Documented by: Dibucaine (Nupercainal 1% Oint 28 Gm) 1 applic OK TID [facility] Stop: 12/05/19 08:44 Last Admin: 11/17/19 10:33 Dose: 1 applic Documented by: Furosemide (Lasix 20 Mg Tablet) 20 mg PO DAILY [facility] Stop: 12/05/19 09:59 Last Admin: 11/17/19 10:32 Dose: 20 mg Documented by: Hydrocortisone (Hydrocortisone 1% Ointment 28.35 Gm) 1 applic TP QID [facility] Stop: 12/05/19 09:59 Last Admin: 11/17/19 10:33 Dose: 1 tube Documented by: Micafungin Sodium 100 mg/ (Sodium Chloride) 100 mls @ 100 mls/hr IV DAILY@1500 [facility] Stop: 11/22/19 14:59 Last Admin: 11/16/19 19:16 Dose: 100 mls/hr Documented by: Piperacillin Sod/Tazobactam (Sod 2.25 gm/ Sodium Chloride) 50 mls @ 100 mls/hr IV Q8 [facility] Stop: 11/23/19 13:59 Last Infusion: 11/17/19 06:00 Dose: Infused Documented by: Sodium Chloride (Nacl 0.9% 250 Ml Iv Soln) 250 mls @ 30 mls/hr IV .DURING TRANSFUSION PRN PRN Reason: THIS MED IS NOT "PRN" Stop: 11/17/19 18:47 Sodium Chloride (Nacl 0.9% 250 Ml Iv Soln) 250 mls @ 0 mls/hr IV CONTINUOUS PRN PRN Reason: AFTER EACH UNIT Stop: 11/17/19 18:47 Loperamide HCl (Imodium 2 Mg Capsule) 2 mg PO Q6HP PRN PRN Reason: DIARRHEA Stop: 12/06/19 10:23 Last Admin: 11/10/19 20:04 Dose: 2 mg Documented by: Metoprolol Tartrate (Lopressor Inj/Pf 5 Mg/5 Ml Sdv) 5 mg IV Q6HP PRN PRN Reason: HR>120 Stop: 12/09/19 21:20 Last Admin: 11/10/19 00:22 Dose: 5 mg Documented by: Ondansetron HCl (Zofran Inj/Pf 4 Mg/2 Ml Sdv) 4 mg IV Q6HP PRN PRN Reason: NAUSEA Stop: 12/15/19 19:55 Pantoprazole Sodium (Protonix [address] Tablet) 40 mg PO BID@0600,1700 [facility] Stop: 12/05/19 05:59 Last Admin: 11/17/19 05:23 Dose: 40 mg Documented by: Patient Own Medication (Isavuconazonium Sulfate [Cresemba]) 372 mg PO DAILY [facility] Stop: 12/05/19 09:59 Polyethylene Glycol (Miralax Powder 17 Gm/Packet) 17 gm PO DAILYP PRN PRN Reason: CONSTIPATION Stop: 12/05/19 07:51 Prochlorperazine Maleate (Compazine 5 Mg Tablet) 5 mg PO Q6HP PRN PRN Reason: FOR NAUSEA/VOMITING Stop: 12/05/19 07:51 Sevelamer HCl (Renagel 800 Mg Tablet) 800 mg PO TID [facility] Stop: 12/05/19 09:59 Last Admin: 11/17/19 10:32 Dose: 800 mg Documented by: Tamsulosin HCl (Flomax 0.4 Mg Cap.Sr) 0.4 mg PO DAILY [facility] Stop: 12/05/19 09:59 Last Admin: 11/17/19 10:32 Dose: 0.4 mg Documented by: Valacyclovir HCl (Valtrex 500 Mg Tablet) 500 mg PO Q2D [facility] Stop: 12/10/19 21:59 Last Admin: 11/16/19 21:12 Dose: 500 mg Documented by: - Allergies Allergies/Adverse Reactions: No Known Allergies Allergy (Verified 03/14/18 12:23) - Diet/Activity Discharge Diet: As Tolerated Discharge Activity: Activity As Tolerated Hospital Course Hospital Course: NO VALDEZ is a 69 year old male past medical history of multiple myeloma and aggressive form of AML noticed a month prior to admission, end-stage renal disease on hemodialysis q M-W- . He was started on venetoclax and azacitadine by [facility] and is in the middle of his first cycle. He has been receiving the ventoclax orally but presented to the ED with a temp >103. After cultures were obtained, he was started on Cefapime and vancomycin. He has required transfusion support since starting his AML treatment. Per Previous Physician: "11/14/2019. No acute events overnight. Patient still having low-grade fever and is pancytopenic, appears very weak and somnolent but easily verbal and responds to questions appropriately, complaining of generalized weakness, denies any chest pain, nausea, vomiting, diarrhea, constipation. Endorsing low a ppetite. 11/15/2019. No acute events overnight. Patient is more alert and interactive today, alert and oriented x3, with any fever, chills, nausea, vomiting, diarrhea, constipation, nosebleed, hematemesis, hemoptysis, hematuria or hematochezia.. 11/16/2019. No acute events overnight. Saw patient this morning, awaka, seems to be more confused compared to yesterday, alert and oriented to self, answers question appropriately however does not follow two-step commands, denies has any chest pain, nausea, vomiting, diarrhea." (1) Neutropenic fever Due to AML. T-max 99.7. WBC 0.1. ANC 0. Platelets 9. Urine Culture positive for pseudomonas Blood cultures no growth so far X3 separate culture sets Day #7 IV antibiotics. Day #7 micafungin. Day #7 Zosyn. Day #7 valacyclovir. ID consulted. Recommendations noted. Continue IV antibiotics. Follow-up vitals and cultures. Status post 2 back platelet transfusion on 11/15/2019. Platelet is 18 today. No transfusion indicated. Hemoglobin above 7. CBC followed She is waiting for his bone marrow biopsy which was done last week. D/w Dr Rothman, pt is accepted to [facility] and has a bed today, will be transferred at noon and Dr Salter has accepted care. (2) AML (acute myeloblastic leukemia) AML with pancytopenia. Status post bone marrow biopsy 11/13/2019. Pending pathology results. Oncology on board. Recommendation is supportive transfusion if platelets <10 or actively bleeding, or hemoglobin less than 7. Irradiated transfusions are recommended. (3) Dysarthria Is this a current diagnosis for this admission?: Yes Plan: Resolved. Alert and oriented x4. No focal neurological deficit. Cranial nerves II to XII intact. Brain MRI negative for any acute changes. Chronic mild to moderate cerebral atrophy and periventricular white matter changes. (4) ESRD (end stage renal disease) on dialysis Is this a current diagnosis for this admission?: Yes Plan: On hemodialysis Saturday. Monitor electrolytes and volume status. Replace electrolytes as needed. Nephrology on board. Recommendations noted. (5) Hyperbilirubinemia Is this a current diagnosis for this admission?: Yes Plan: Worsening. PT/INR, transaminases, T bili are trending up. Not sure if this is caused by Zosyn. Monitor LFTs, monitor for bleeding, avoid hepatotoxic meds. A bed to [facility] is pending for his AML, and [facility] is also a transplant center so if this is acute liver failure then his condition can also be addressed while he is there. (6) Multiple myeloma in remission Is this a current diagnosis for this admission?: Yes Plan: Recently diagnosed as per oncology note. On remission. Oncology on board. Recommendations noted. (7) Pancytopenia Is this a current diagnosis for this admission?: Yes Plan: As per #1. Oncology on board. Physical Exam Vital Signs: Temp Pulse Resp BP Pulse Ox 98.2 F 107 H 18 110/62 96 11/17/19 07:39 11/17/19 07:39 11/17/19 07:39 11/17/19 07:39 11/17/19 07:39 Intake & Output 11/16/19 11/17/19 11/18/19 06:59 06:59 06:59 Intake Total 598 570 222 Output Total 340 1225 Balance 258 -655 222 Weight 99.6 kg 99 kg General appearance: PRESENT: no acute distress, well-developed, well-nourished Head exam: PRESENT: atraumatic, normocephalic Eye exam: PRESENT: conjunctiva pink Mouth exam: PRESENT: moist Respiratory exam: PRESENT: clear to auscultation merrill. ABSENT: rales, rhonchi, wheezes Cardiovascular exam: PRESENT: RRR. ABSENT: diastolic murmur, rubs, systolic murmur GI/Abdominal exam: PRESENT: normal bowel sounds, soft. ABSENT: distended, guarding, mass, organolmegaly, rebound, tenderness Rectal exam: PRESENT: deferred Extremities exam: ABSENT: pedal edema Neurological exam: PRESENT: alert, awake, oriented to person, oriented to place, oriented to time, oriented to situation Psychiatric exam: PRESENT: appropriate affect, normal mood Skin exam: PRESENT: dry, intact, warm Results Laboratory Results: 11/17/19 06:19 11/17/19 06:19 11/15/19 11/16/19 11/17/19 11:53 19:23 06:19 WBC 0.1 L* 0.1 L* RBC 2.79 L 3.20 L Hgb 8.3 L 9.6 L Hct 23.3 L 27.1 L MCV 83 85 MCH 29.7 30.0 MCHC 35.7 35.4 RDW 17.1 H 16.2 H Plt Count 20 L* 13 L* Seg Neutrophils % 13.3 L 20.4 L Sodium Potassium Chloride Carbon Dioxide Anion Gap BUN Creatinine Est GFR ( Amer) Glucose Calcium Phosphorus Magnesium Total Bilirubin AST Alkaline Phosphatase Total Protein Albumin Blood Type A NEGATIVE Antibody Screen NEGATIVE 11/17/19 06:19 WBC RBC Hgb Hct MCV MCH MCHC RDW Plt Count Seg Neutrophils % Sodium 138.5 Potassium 4.7 Chloride 100 Carbon Dioxide 26 Anion Gap 13 BUN 62 H Creatinine 6.73 H Est GFR ( Amer) 10 L Glucose 109 Calcium 7.7 L Phosphorus 6.5 H Magnesium 2.5 H Total Bilirubin 17.5 H AST 533 H Alkaline Phosphatase 294 H Total Protein 6.4 Albumin 2.6 L Blood Type Antibody Screen Impressions: Chest X-Ray 11/04/19 16:03 IMPRESSION: Borderline enlarged cardiac silhouette central vascular prominence. No overt edema. Chest CT 11/09/19 00:00 IMPRESSION: Findings most likely represent interstitial edema with small associated effusions. There is underlying centrilobular emphysematous change. There is central venous engorgement. Less likely infectious or inflammatory process. Head CT 11/09/19 00:00 IMPRESSION: Atrophy and chronic small vessel ischemic changes with no acute intracranial abnormality. Head MRI 11/11/19 00:00 IMPRESSION: 1. No acute intracranial process is seen. 2. Mild to moderate cerebral atrophy and periventricular white matter changes are seen. Bone Marrow Biopsy w/ CT 11/12/19 00:00 IMPRESSION: CT GUIDED ASPIRATE AND CORE BIOPSY OF THE RIGHT POSTERIOR ILIAC CREST BONE MARROW PERFORMED WITHOUT IMMEDIATE COMPLICATION. PATHOLOGY PENDING. IV CONSCIOUS SEDATION WITHOUT COMPLICATION. Abdomen/Pelvis CT 11/13/19 00:00 IMPRESSION: 1. 8.5 MM NONOBSTRUCTING CALYCEAL CALCULUS IN THE LOWER POLE OF THE LEFT KIDNEY. CORTICAL CYST IN THE LEFT KIDNEY. BILATERAL RENAL ATROPHY. 2. BILATERAL ADRENAL ENLARGEMENT. 3. NO OTHER SIGNIFICANT OR ACUTE PROCESS IN THE ABDOMEN OR PELVIS. Plan Discharge Plan: Transfer to [facility] Time Spent: Greater than 30 Minutes
[2019-11-17 11:59] VITALS: BP 106/69
== END 2019-11-17 12:54 | disposition short-term general hospital (02) | DRG 834 ==
LOC: ER 14:57 → EH 17:03 → 3W 21:23
PROVIDERS: ADMIT Internal Medicine; ATTEND Internal Medicine
PROC: 30233R1 Transfusion of Nonautologous Platelets into Peripheral Vein, Percutaneous Approach (ICD-10-PCS; principal; 2019-11-05)
PROC: 30233N1 Transfusion of Nonautologous Red Blood Cells into Peripheral Vein, Percutaneous Approach (ICD-10-PCS; 2019-11-05)
PROC: 5A1D70Z Performance of Urinary Filtration, Intermittent, Less than 6 Hours Per Day (ICD-10-PCS; 2019-11-06)
PROC: 5A1D70Z Performance of Urinary Filtration, Intermittent, Less than 6 Hours Per Day (ICD-10-PCS; 2019-11-09)
PROC: 5A1D70Z Performance of Urinary Filtration, Intermittent, Less than 6 Hours Per Day (ICD-10-PCS; 2019-11-11)
PROC: 07DR3ZX Extraction of Iliac Bone Marrow, Percutaneous Approach, Diagnostic (ICD-10-PCS; 2019-11-12)
PROC: 5A1D70Z Performance of Urinary Filtration, Intermittent, Less than 6 Hours Per Day (ICD-10-PCS; 2019-11-13)
PROC: 5A1D70Z Performance of Urinary Filtration, Intermittent, Less than 6 Hours Per Day (ICD-10-PCS; 2019-11-16)
DX: C92.00 Acute myeloblastic leukemia, not having achieved remission (principal); N18.6 End stage renal disease; D61.810 Antineoplastic chemotherapy induced pancytopenia; I12.0 Hypertensive chronic kidney disease with stage 5 chronic kidney disease or end stage renal disease; Z94.84 Stem cells transplant status; D62 Acute posthemorrhagic anemia; D63.1 Anemia in chronic kidney disease; Z99.2 Dependence on renal dialysis; N40.1 Benign prostatic hyperplasia with lower urinary tract symptoms; R33.8 Other retention of urine; R50.81 Fever presenting with conditions classified elsewhere; T45.1X5A Adverse effect of antineoplastic and immunosuppressive drugs, initial encounter; R47.81 Slurred speech; C90.01 Multiple myeloma in remission; R47.1 Dysarthria and anarthria; E80.6 Other disorders of bilirubin metabolism; Z20.828 Contact with and (suspected) exposure to other viral communicable diseases; K64.9 Unspecified hemorrhoids
CPT/HCPCS: 36415; 36430; 38221; 70450; 70551; 71045; 71260; 74176; 80048; 80053; 80202; 81001; 82140; 82803; 82962; 83605; 83735; 84100; 85025; 85027; 85379; 85384; 85610; 85730; 86850; 86900; 86901; 86920; 87040; 87070; 87086; 87088; 87186; 87324; 87449; 87635; 93005; 93010; 96365; 99291; C9803; J0692; J2248; J2250; J2543; J3010; J3370; J3490; J7050; J7060; P9016; P9035; Q5105